=== PATIENT | female | born 1945 | race Caucasian/White ===

== ENCOUNTER 2020-05-18 11:48 | Outpatient (REF) | payer MEDICARE, OTHER, SELFPAY ==
--- NOTE | 2020-05-18 | MM_ITS ---
EXAMINATION: MM SCREENING DIGITAL BREAST TOMOSYNTHESIS, RIGHT CLINICAL INFORMATION: Left mastectomy 2011. Due for yearly. COMPARISON: Mammography: 11/21/2019, 05/19/2019, 05/05/2019, 04/29/2018 TECHNIQUE: Digital breast tomosynthesis is performed in both the craniocaudal and mediolateral oblique views along with computer-aided detection (CAD). Synthesized 2D images are generated from the tomosynthesis. Additional exaggerated CC view is provided. FINDINGS: There are scattered areas of fibroglandular density (ACR BI-RADS breast composition Category b). There are no significant masses, abnormal calcifications, or other abnormalities. Parenchymal pattern is similar to prior studies. There is no developing density. No persistent asymmetric density anterior medial right breast. Skin contours are smooth. IMPRESSION: No mammographic evidence of malignancy. ASSESSMENT: BI-RADS 1: Negative RECOMMENDATION: Routine annual mammography screening. This patient's information was entered into a reminder system with a target due date for their next mammogram.
== END 2020-05-18 11:49 | disposition home or self-care (01) ==
LOC: HO.MAMMO 11:48
PROVIDERS: Visit Provider Surgery
DX: Z12.31 Encounter for screening mammogram for malignant neoplasm of breast (principal); Z90.12 Acquired absence of left breast and nipple
CPT/HCPCS: 77067

== ENCOUNTER → 2020-05-25 10:50 | Outpatient (BNVA) | payer MEDICARE, OTHER, SELFPAY | PROVIDERS: Visit Provider Internal Medicine Gastroenterology | DX: R13.10 Dysphagia, unspecified (principal); K21.9 Gastro-esophageal reflux disease without esophagitis; Z79.899 Other long term (current) drug therapy | CPT/HCPCS: 99213 ==

== ENCOUNTER 2020-06-06 10:25 | Outpatient (REF) | payer MEDICARE, OTHER, SELFPAY ==
[2020-06-06 14:37] LABS: Anion Gap 13 (12-20); Blood Urea Nitrogen 16 mg/dL (9-16); Calcium 9.2 mg/dL (8.4-10.2); Carbon Dioxide 35 mmol/L (22-29); Chloride 100 mmol/L (96-108); Estimated Glomerular Filt Rate 46; Glucose Random 156 mg/dL (60-115); Potassium 4.7 mmol/l (3.3-5.1); Sodium 143 mmol/L (135-145)
[2020-06-06 14:48] LABS: Free T4 (Free Thyroxine) 1.21 ng/dL (0.71-1.85); Thyroid Stimulating Hormone 2.59 mIU/mL (0.32-4.0)
== END 2020-06-06 10:26 | disposition home or self-care (01) ==
LOC: HO.10HDL 10:25
PROVIDERS: Visit Provider Internal Medicine
DX: R60.0 Localized edema (principal); I12.9 Hypertensive chronic kidney disease with stage 1 through stage 4 chronic kidney disease, or unspecified chronic kidney disease; N18.9 Chronic kidney disease, unspecified; E11.22 Type 2 diabetes mellitus with diabetic chronic kidney disease; R79.89 Other specified abnormal findings of blood chemistry
CPT/HCPCS: 80048; 84439; 84443

== ENCOUNTER → 2020-06-15 09:39 | Outpatient (REF) | payer MEDICARE, OTHER, SELFPAY ==
--- NOTE | 2020-06-15 09:30 | CA_ITS ---
Transthoracic Echocardiogram Patient (Last, First, Middle): JaviJanuary, Gender: Female Date of : 1945 Age: 75 Procedure Date: 06/15/2020 Procedure Type: Transthoracic Echocardiogram Location: OP Height: 152.4 cm Weight: 88.45 kg BSA: 1.85 m2 Heart Rate: bpm BP: 152 / 76 mmHg Technician Chemical Cleaning: Referring MD: Kory Perdue MD Business Librarian: Todd North MD Symptoms: R01.1CARDIAC MURMUR Study Quality: Technically Difficult ECG Rhythm: Sinus Conclusions: - 1. Low normal LV systolic function with LVEF of 50-55% with impaired relaxation filling pressure with mild LVH and elevated filling pressures 2. Mildly dilated left atrium 3. Increased gradient across aortic valve, mild aortic stenosis cannot be ruled out 4. No gross pericardial effusion Findings Procedure Information Contrast agent, definity, is being given per protocol without apparent complications. Left Ventricle Normal left ventricular cavity size. There is mildly increased left ventricular wall thickness. The left ventricular systolic function is low normal. The visually estimated ejection fraction is between 50-55%. Regional wall motion abnormalities can not be excluded due to suboptimal endocardial definition. Spectral Doppler is indicative of an impaired relaxation filling pattern. Elevated filling pressures. Right Ventricle The right ventricle was not well visualized. Atria The left atrium is mildly dilated. There is lipomatous hypertrophy of the interatrial septum. Interatrial shunt cannot be excluded. The right atrium was not well visualized. Aortic Valve The aortic valve was not well visualized. There is moderate calcification of the aortic valve. The peak aortic gradient is 17 mmHg.The mean gradient is 11 mmHg. There is no aortic valve regurgitation. Increased gradient across aortic valve without significantly increased gradient across the LVOT. However there is no clear significant stenosis calculated. Mild aortic stenosis cannot be entirely ruled out Mitral Valve There is moderate anterior and posterior mitral leaflet thickening. There is moderate mitral annular calcification. There is trace mitral valve regurgitation. There is no mitral valve stenosis. Pulmonic Valve The pulmonic valve was not well visualized. Tricuspid Valve The tricuspid valve was not well visualized. Tricuspid regurgitation envelope is inadequate for calculation of right ventricular systolic pressure. Great Vessels All visible segments of the aorta are normal in size. The pulmonary artery was not well visualized. Venous The inferior vena cava is normal in size and collapses greater than 50% with inspiration. Pericardium/Pleural There is no evidence of pericardial effusion. Prior Study Comparison No significant change compared to prior study dated: 11/08/2018. Measurements 2D Linear Measurements RVIDd: 2.39 RVIDd Index: 1.29 IVSd: 1.19 0.6-0.9/0.6-1.0 cm LVIDd: 4.80 3.9-5.3/4.2-5.9 cm LVIDd Index: 2.59 2.4-3.2/2.2-3.1 cm/m2 LVIDs: 3.50 2.0-3.6 cm LVPWd: 1.27 0.7-1.1 cm Ao Root: 3.40 2.1-3.5 cm LA Diam: 4.70 2.7-3.8/3.0-4.0 cm LAIDs Index: 2.54 1.5-2.3 cm/m2 LV Mass: 282.95 67-162/88-224 g LV Mass Index: 152.94 43-95/49-115 g/m2 LVOT Diam: 2.10 3.0+(-)1.3 cm 2D Systolic Function EF 4C: 43.20 >55% EF 2C: 63.10 >55% EF BiP: 53.40 >55% Mitral Valve MV Pk E: 0.81 MV PK A: 1.27 MV Decel Time: 222.00 E/A: 0.60 E'Lateral: 4.90 E'Medial: 4.13 E/E' Med: 19.50 E/E' Lat: 16.40 Decel Hoke: 3.63 Aortic Valve AoV Pk Sree: 2.09 AoV Mn Sree: 1.50 AoV VTI: 0.41 AoV Pk Grad: 17.00 Aov Mn Grad: 11.00 JASWANT Cont.VTI: 2.59 LVOT LVOT Pk Sree: 1.62 LVOT Mn Sree: 1.12 LVOT VTI: 0.31 LVOT Pk Grad: 10.00 LVOT Mn Grad: 6.00 LVOT Diam: 2.10 LVOT Area: 3.46 Diastolic Function MV Pk E: 0.81 MV Pk A: 1.27 E/A: 0.60 E'Medial: 4.13 E/E' Med: 19.50 E' Laterial: 4.90 E/E' Lat: 16.40 Tricuspid Valve RA Press: 3.00 Great Vessels Aorta Ao Root-2D: 3.40 2.0-3.7 cm Ao Asc: 3.40 2.1-3.4 cm Ao Arch: 3.30 Updated in Other Vendor System with Status of Final Todd North MD electronically signed on 06/15/2020 2:44:59 PM with status of Final
== END ==
LOC: HO.CARD 09:39
PROVIDERS: PCP Internal Medicine; Visit Provider Internal Medicine
DX: R01.1 Cardiac murmur, unspecified (principal)
CPT/HCPCS: 93306; Q9957

== ENCOUNTER 2020-08-06 07:30 | Day surgery (SDC) | payer MEDICARE, OTHER, SELFPAY ==
[2020-07-30 14:15] VITALS: BMI 38.0
--- NOTE | 2020-08-03 14:15 | HO.ANESPROP2 ---
Documented by User: Yareli Ferrera 08/03/20 14:30 HPI - Anesthesia Eval Consult details Narrative: 75yo F for Upper Endoscopy PMFSH Past Medical History Medical History (Updated 07/30/20 @ 13:48 by Cassie Perez) Anemia Back pain Blind right eye CHF (congestive heart failure) GERD (gastroesophageal reflux disease) Heart murmur after rheumatic heart disease HX: breast cancer Hypertension Lymphedema of left arm CYNTHIA (obstructive sleep apnea) Scoliosis Trigeminal neuralgia of right side of face Family History Family History (Updated 05/25/20 @ 10:56 by Lea Marc MA) Father History of heart attack Mother History of leukemia History of hypertension Surgical History Surgical History (Updated 07/30/20 @ 13:48 by Cassie Perez) H/O left mastectomy History of bladder suspension procedure History of colonoscopy History of left inguinal hernia repair History of lymph node dissection of left axilla History of open reduction and internal fixation (ORIF) procedure History of partial hysterectomy History of tonsillectomy and adenoidectomy History of ventral hernia repair Hx of endoscopy Hx of esophagogastroduodenoscopy Hx of wisdom tooth extraction Social History Social History (Updated 05/25/20 @ 10:56 by Lea Marc MA) Are you a primary residential caregiver to a significant other at home: No Do you presently have visiting nurse or other home services: No Alcohol intake: never Smoking Status: Never smoker Use of substances other than those prescribed or required for medical reasons: No Have you been hit, kicked, punched, or otherwise hurt by someone within the past year? If so, by whom?: No Advance Directives: No Advance Directives Information Provided: No Advance Directives on File: No Recently lost weight without trying: No Meds Allergies Allergy/AdvReac Type Severity Reaction Status Date / Time gabapentin [From Neurontin] Allergy Intermediate JOINTS Unverified 07/30/20 13:56 SWELL famotidine AdvReac Dizziness Verified 07/30/20 14:14 cabobenzaprine Allergy Unknown itching Uncoded 07/30/20 13:56 oranges Allergy Unknown mouth sores Uncoded 07/30/20 13:56 Home Medications Medication Instructions Recorded Confirmed Type ytlozqtg-uelddfzvj-jjadzrrh PO BEDTIME 07/30/20 History [Gaviscon] anastrozole 1 mg PO DAILY 07/30/20 07/30/20 History atorvastatin 10 mg PO BEDTIME 07/30/20 07/30/20 History dorzolamide-timolol (PF) 1 drp OPHTHALMIC (EYE) BID 07/30/20 07/30/20 History latanoprost 1 drp OPHTHALMIC-RIGHT QPM 07/30/20 07/30/20 History lorazepam 0.5 mg PO TID PRN 07/30/20 07/30/20 History pantoprazole 40 mg PO BID 07/30/20 07/30/20 History Exam Exam Date and Time: August 03, 2020 1415 Height,Weight and Vital Signs: Height 5 ft Weight 88.451 kg Pertinent Lab Results Pertinent Lab Results: Laboratory Tests 01/02/20 06/06/20 12: 10:36 WBC 5.8 Hgb 13.2 Hct 41.1 Plt Count 154 L Sodium 143 Potassium 4.7 Chloride 100 Carbon Dioxide 35 H BUN 16 Creatinine 1.15 Narrative Narrative: ECHO 05/2020: - 1. Low normal LV systolic function with LVEF of 50-55% with impaired relaxation filling pressure with mild LVH and elevated filling pressures 2. Mildly dilated left atrium 3. Increased gradient across aortic valve, mild aortic stenosis cannot be ruled out 4. No gross pericardial effusion Assessment and Plan Assessment Anesthesia Assessment: Chart Reviewed Documented by User: Fauzia Bird 08/06/20 07:57 [facility] Past Medical History Medical History (Updated 07/30/20 @ 13:48 by Cassie Perez) Anemia Back pain Blind right eye CHF (congestive heart failure) GERD (gastroesophageal reflux disease) Heart murmur after rheumatic heart disease HX: breast cancer Hypertension Lymphedema of left arm CYNTHIA (obstructive sleep apnea) Scoliosis Trigeminal neuralgia of right side of face Family History Family History (Updated 05/25/20 @ 10:56 by Lea Marc MA) Father History of heart attack Mother History of leukemia History of hypertension Surgical History Surgical History (Updated 07/30/20 @ 13:48 by Cassie Perez) H/O left mastectomy History of bladder suspension procedure History of colonoscopy History of left inguinal hernia repair History of lymph node dissection of left axilla History of open reduction and internal fixation (ORIF) procedure History of partial hysterectomy History of tonsillectomy and adenoidectomy History of ventral hernia repair Hx of endoscopy Hx of esophagogastroduodenoscopy Hx of wisdom tooth extraction Social History Social History (Updated 05/25/20 @ 10:56 by Lea Marc MA) Are you a primary residential caregiver to a significant other at home: No Do you presently have visiting nurse or other home services: No Alcohol intake: never Smoking Status: Never smoker Use of substances other than those prescribed or required for medical reasons: No Have you been hit, kicked, punched, or otherwise hurt by someone within the past year? If so, by whom?: No Advance Directives: No Advance Directives Information Provided: No Advance Directives on File: No Recently lost weight without trying: No Meds Allergies Allergy/AdvReac Type Severity Reaction Status Date / Time gabapentin [From Neurontin] Allergy Intermediate JOINTS Unverified 07/30/20 13:56 SWELL famotidine AdvReac Dizziness Verified 07/30/20 14:14 cabobenzaprine Allergy Unknown itching Uncoded 07/30/20 13:56 oranges Allergy Unknown mouth sores Uncoded 07/30/20 13:56 Home Medications Medication Instructions Recorded Confirmed Type veckdoxr-goglqawzc-ildvqakb PO BEDTIME 07/30/20 History [Gaviscon] anastrozole 1 mg PO DAILY 07/30/20 07/30/20 History atorvastatin 10 mg PO BEDTIME 07/30/20 07/30/20 History dorzolamide-timolol (PF) 1 drp OPHTHALMIC (EYE) BID 07/30/20 07/30/20 History latanoprost 1 drp OPHTHALMIC-RIGHT QPM 07/30/20 07/30/20 History lorazepam 0.5 mg PO TID PRN 07/30/20 07/30/20 History pantoprazole 40 mg PO BID 07/30/20 07/30/20 History Exam Airway Mallampati Class: II TM Dist: >3cm Neck ROM: Full Denture: Upper Partial: Lower Heart: RRR Lungs: CTA BL Assessment and Plan Assessment Anesthesia Assessment: Anesthesia Plan Discussed and Chart Reviewed Final Anesthetic Review NPO: Yes ASA Class: III Final Preanesthetic Review: No Changes in Pt Med Stat and Consent Obtained/Reviewed Patient Risk: Intermediate Procedure Risk: Intermediate Anesthetic Plan Anesthetic Plan: MAC: Disposition: Standard PACU
[2020-08-06 08:02] VITALS: BP 146/81; PULSE 77; RESP 20; TEMP 36.5; O2SAT 95
[2020-08-06] MEDS: Lactated Ringers 1,000 ML 50 ML IVCONT (08:08)
--- NOTE | 2020-08-06 08:37 | P.HPSUR_ITS ---
Pre-Procedural Eval Section B Chief Complaint: Dysphagia Relevant Social History: None Present Medications: see Short Stay Collaborative assessment Medical History: Significant History (HTN, CYNTHIA, breast ca, ) History of Previous Operations: Relevant previous surgery/procedure and date(s) (hernia repair, fundoplication, EGD) Allergies: Allergies Allergy/AdvReac Type Severity Reaction Status Date / Time gabapentin [From Neurontin] Allergy Intermediate JOINTS Unverified 07/30/20 13:56 SWELL famotidine AdvReac Dizziness Verified 07/30/20 14:14 cabobenzaprine Allergy Unknown itching Uncoded 07/30/20 13:56 oranges Allergy Unknown mouth sores Uncoded 07/30/20 13:56 Review of Systems Sugical H&P ROS: Negative: Constitution, Cardiovascular, Respiratory, Neurological, Psychiatric, Hem-Onc, Allergic/Immunologic, Gastrointestinal, Genitourinary, Musculoskeletal, Integumentary, Endocrine and Eyes/E ars/Nose/Throat Exam Surgical H&P Exam: Normal: HEENT, Normal: Heart, Normal: Lungs, Normal: Extremities, Normal: Abdomen, Normal: Skin and Normal: Neurological Plan Diagnosis/Plan: Unchanged I have reviewed the history and physical and performed a pertinent physical examination on my patient. No changes have occurred unless specified.
--- NOTE | 2020-08-06 08:39 | PM.OP ---
Brief Operative Note Date of Service: 08/06/20 Pre-op diagnosis: dysphagia, hx of fundoplication Post-op diagnosis: same Procedure: Procedure Description: EGD FLEXIBLE TRANSORAL UPPER GASTROINTESTINAL ENDOSCOPY UPPER ENDOSCOPY Consent: Indications for the procedure and potential complications of bleeding, perforation, reaction to medications and missed diagnosis were discussed with the patient and informed consent was obtained. Instrument: Olympus GIF H 190 J mid size upper endoscope Monitoring: Vital signs and clinical assessment, continuous EKG monitoring, Pulse oximetry, Carbon Dioxide monitoring and blood pressure monitoring were done throughout the procedure. Procedure: The patient was placed in the left lateral decubitis position and pre-procedure medications were administered and a bite block was placed. The endoscope was inserted into the mouth and advanced under direct vision to the third part of duodenum. A careful inspection was made as the upper endoscope was withdrawn including a retroflexed examination of the proximal stomach; Findings and interventions are described below. Findings: Larynx: normal Esophagus: GE junction at 38 cm. No esophagitis or Bhatt?s. Sigmoid shaped lower esophagus with tight GEJ but able to pass scope, there was a tablet stuck there and pushed into stomach. Balloon dilation performed with 18 mm then 19 mm balloon with good result, heme and tear noted, no perforation. Stomach: Normal mucosa, Niessen fundoplication noted Duodenum: Normal bulb and descending duodenum Intervention: esophageal dilation Impression and Post Procedure Diagnosis: esophageal stricture Endoscopy Findings: sigmoid shaped esophagus, stricture Plan: cont with PPI repeat EGD in 1 year or earlier depending on symptoms soft diet today and advance tomorrow Surgeon: Marii Campbell MD Anesthesia: MAC Estimated blood loss (mL): 0 Condition: stable Disposition: PACU
[2020-08-06 08:59] VITALS: BP 128/120; PULSE 69; RESP 14; TEMP 36.4; O2SAT 92
[2020-08-06 09:14] VITALS: BP 108/47; PULSE 69; RESP 15; TEMP 36.4; O2SAT 94
--- NOTE | 2020-08-06 09:30 | HO.POSTANES ---
Post Anesthesia Evaluation Post Anesthesia Evaluation Vital Signs: Vital Signs Temp Pulse Resp BP Pulse Ox 08/06/20 09:14 97.5 F 69 15 108/47 L 94 08/06/20 08:59 97.5 F 69 14 128/120 H 92 08/06/20 08:02 97.7 F 77 20 146/81 H 95 Anesthesia: Monitored Mental Status: Awake Pain Control: Satisfactory Nausea/Vomiting: None Hydration: Adequate Anesthesia-Related Issues: No Anes. Related Issues
== END 2020-08-06 09:52 | disposition home or self-care (01) ==
PROVIDERS: PCP Internal Medicine; Visit Provider Internal Medicine Gastroenterology
PROC: 0DJ08ZZ Inspection of Upper Intestinal Tract, Via Natural or Artificial Opening Endoscopic (ICD-10-PCS; CPT 43235; principal; 2020-08-06 09:30)
DX: K22.2 Esophageal obstruction (principal); K21.9 Gastro-esophageal reflux disease without esophagitis; Z88.8 Allergy status to other drugs, medicaments and biological substances
CPT/HCPCS: 43249; C1726

== ENCOUNTER → 2020-08-24 08:58 | Outpatient (BNVA) | payer MEDICARE, OTHER, SELFPAY | PROVIDERS: PCP Internal Medicine; Visit Provider Internal Medicine Gastroenterology | DX: Z13.89 Encounter for screening for other disorder (principal) | CPT/HCPCS: Q3014 ==

== ENCOUNTER 2020-08-31 10:18 | Outpatient (REF) | payer MEDICARE, OTHER, SELFPAY ==
[2020-08-31 13:36] LABS: MANUAL DIFF FLAG NO
[2020-08-31 13:48] LABS: Basophils Percent Auto 0.3 % (0-2); Eosinophils Absolute Auto 0.1 X10*3/uL (0.0-0.4); Eosinophils Percent Auto 2.4 % (0-4); Hematocrit 41.8 % (37-47); Hemoglobin 12.7 g/dl (12.0-16.0); Imm Gran Abs Auto 0.03 X10*3/uL (0.00-0.03); Imm Gran Pct Auto 0.5 % (0.0-0.4); Lymphocytes Absolute Auto 0.8 X10*3/uL (1.2-4.9); Lymphocytes Percent Auto 13.1 % (20-40); Mean Corpuscular HGB Conc 30.4 g/dl (31.0-35.0); Mean Corpuscular Hemoglobin 27.4 pg (27.0-33.0); Mean Corpuscular Volume 90.1 fL (80-98); Mean Platelet Volume 10.6 fL (9.4-12.3); Monocytes Absolute Auto 0.6 X10*3/uL (0.1-1.2); Neutrophils Absolute Auto 4.3 X10*3/uL (2.0-8.3); Neutrophils Percent Auto 73.7 % (45-73); Platelet Count 180 X10*3/uL (160-400); Red Blood Count 4.64 X10*6/uL (4.20-5.50); Red Cell Distribution Width 16.4 % (11.0-16.0); White Blood Count 5.8 X10*3/uL (4.8-10.8)
[2020-08-31 14:12] LABS: Estimated Average Glucose 177 mg/dL; Hemoglobin A1c % 7.8 %
[2020-08-31 14:22] LABS: Alanine Aminotransferase 19 U/L (0-31); Alkaline Phosphatase 106 U/L (39-117); Anion Gap 12 (12-20); Aspartate Amino Transferase 19 U/L (5-31); Bilirubin Total 0.5 mg/dL (0.0-1.0); Blood Urea Nitrogen 19 mg/dL (9-16); Calcium 9.1 mg/dL (8.4-10.2); Carbon Dioxide 34 mmol/L (22-29); Chloride 101 mmol/L (96-108); Estimated Glomerular Filt Rate 53; Glucose Fasting 157 mg/dL (60-99); Potassium 4.2 mmol/l (3.3-5.1); Sodium 143 mmol/L (135-145); Total Protein 6.1 g/dL (6.5-8.0)
[2020-08-31 14:52] LABS: Creatinine Urine 125.31 mg/dL; Microalbum/Creatinine Ratio Ur 15.9 ug/mg cr
== END 2020-08-31 10:19 | disposition home or self-care (01) ==
LOC: HO.10HDL 10:18
PROVIDERS: Visit Provider Internal Medicine
DX: E11.9 Type 2 diabetes mellitus without complications (principal); I10 Essential (primary) hypertension; K21.9 Gastro-esophageal reflux disease without esophagitis
CPT/HCPCS: 36415; 80053; 82043; 83036; 85025

== ENCOUNTER 2020-09-24 11:30 | Outpatient (REF) | payer MEDICARE, OTHER, SELFPAY ==
--- NOTE | ~2020-09-24 | XR_ITS ---
EXAMINATION: XR CHEST CLINICAL INFORMATION: Cough COMPARISON: Previous chest x-ray October 2018 TECHNIQUE: 2 views of the chest were obtained. FINDINGS: The cardiac silhouette is enlarged but stable. Hilar and mediastinal contours are unremarkable. The lungs are clear. There is no pleural effusion or pneumothorax. There are surgical clips in the left axilla. There is a severe thoracolumbar scoliosis. XR/XR chest 2V IMPRESSION: No evidence for acute disease in the chest.
== END 2020-09-24 11:31 | disposition home or self-care (01) ==
LOC: HO.XRAY 11:30
PROVIDERS: PCP Internal Medicine; Visit Provider Internal Medicine
DX: R05 Cough (principal); G47.33 Obstructive sleep apnea (adult) (pediatric); E66.9 Obesity, unspecified
CPT/HCPCS: 71046; 99202

== ENCOUNTER 2020-10-15 19:34 | Emergency (ER) | payer MEDICARE, OTHER, SELFPAY ==
[2020-10-15 20:02] VITALS: BP 149/68; PULSE 76; RESP 18; TEMP 36.4; O2SAT 95; BMI 38.5
[2020-10-15 20:20] LABS: MANUAL DIFF FLAG NO
[2020-10-15 20:21] LABS: Basophils Percent Auto 0.3 % (0-2); Eosinophils Absolute Auto 0.2 X10*3/uL (0.0-0.4); Eosinophils Percent Auto 2.5 % (0-4); Hematocrit 39.4 % (37-47); Hemoglobin 12.1 g/dl (12.0-16.0); Imm Gran Abs Auto 0.04 X10*3/uL (0.00-0.03); Imm Gran Pct Auto 0.6 % (0.0-0.4); Lymphocytes Absolute Auto 0.8 X10*3/uL (1.2-4.9); Lymphocytes Percent Auto 11.8 % (20-40); Mean Corpuscular HGB Conc 30.7 g/dl (31.0-35.0); Mean Corpuscular Hemoglobin 27.8 pg (27.0-33.0); Mean Corpuscular Volume 90.4 fL (80-98); Mean Platelet Volume 10.3 fL (9.4-12.3); Monocytes Absolute Auto 0.6 X10*3/uL (0.1-1.2); Monocytes Percent Auto 8.4 % (2-11); Neutrophils Absolute Auto 5.2 X10*3/uL (2.0-8.3); Neutrophils Percent Auto 76.4 % (45-73); Platelet Count 148 X10*3/uL (160-400); Red Blood Count 4.36 X10*6/uL (4.20-5.50); Red Cell Distribution Width 17.1 % (11.0-16.0); White Blood Count 6.8 X10*3/uL (4.8-10.8)
[2020-10-15 20:45] LABS: Alanine Aminotransferase 15 U/L (0-31); Albumin Level 3.9 g/dL (3.5-5.0); Alkaline Phosphatase 104 U/L (39-117); Anion Gap 12 (12-20); Aspartate Amino Transferase 18 U/L (5-31); Bilirubin Total 0.6 mg/dL (0.0-1.0); Blood Urea Nitrogen 18 mg/dL (9-16); Calcium 8.6 mg/dL (8.4-10.2); Carbon Dioxide 33 mmol/L (22-29); Chloride 102 mmol/L (96-108); Creatinine Clr Calc Pharmacy 44.6; Estimated Glomerular Filt Rate 51; Glucose Random 202 mg/dL (60-115); Potassium 4.2 mmol/L (3.3-5.1); Sodium 143 mmol/L (135-145)
[2020-10-15 20:48] LABS: Troponin-I High Sensitivity 13.1 ng/L (<3.5-17.0)
[2020-10-15 22:07] VITALS: BP 150/69; PULSE 72; RESP 18; O2SAT 95
[2020-10-15 23:48] VITALS: BP 144/61; PULSE 70; RESP 17; O2SAT 94
--- NOTE | 2020-10-16 00:40 | ED_ITS ---
HPI - Dizziness General Chief Complaint: Dizziness Stated Complaint: Dizziness Time Seen by Provider: 10/16/20 00:23 Source: patient Mode of arrival: ambulatory History of Present Illness HPI Narrative: This is a 75-year-old female with history of GERD, HLD, CYNTHIA and blind in her right eye, left breast CA who presents with 2 episodes of transient ?lightheadedness? that happened throughout the day. She states the last episode occurred while she was eating dinner. She denies any association with recent travel, fevers, chills, COVID-19 exposure, shortness of breath, chest pain/palpitations, diaphoresis, or nausea. In addition, she denies any GI or symptoms. She states that this has never happened before. Related Data Home Medications Medication Instructions Recorded Confirmed anastrozole 1 mg PO DAILY 07/30/20 07/30/20 atorvastatin 10 mg PO BEDTIME 07/30/20 07/30/20 dorzolamide-timolol (PF) 1 drp OPHTHALMIC (EYE) BID 07/30/20 07/30/20 latanoprost 1 drp OPHTHALMIC-RIGHT QPM 07/30/20 07/30/20 lorazepam 0.5 mg PO TID PRN 07/30/20 07/30/20 pantoprazole 40 mg PO BID 07/30/20 07/30/20 Previous Rx's Medication Instructions Recorded cephalexin 500 mg PO Q12H 7 Days #14 cap 10/16/20 Allergies Allergy/AdvReac Type Severity Reaction Status Date / Time gabapentin [From Neurontin] Allergy Intermediate JOINTS Verified 10/15/20 20:02 SWELL famotidine AdvReac Dizziness Verified 10/15/20 20:02 cabobenzaprine Allergy Unknown itching Uncoded 07/30/20 13:56 oranges Allergy Unknown mouth sores Uncoded 07/30/20 13:56 Review of Systems Review of Systems: Pertinent positives and negatives as stated in HPI 10 point review of systems is otherwise negative. PMFSH Past Medical History Source: nursing notes reviewed Medical History Anemia Back pain Blind right eye CHF (congestive heart failure) Cough GERD (gastroesophageal reflux disease) Heart murmur after rheumatic heart disease HX: breast cancer Hypertension Lymphedema of left arm Obesity CYNTHIA (obstructive sleep apnea) CYNTHIA (obstructive sleep apnea) Scoliosis Trigeminal neuralgia of right side of face Surgical History H/O left mastectomy History of bladder suspension procedure History of colonoscopy History of left inguinal hernia repair History of lymph node dissection of left axilla History of open reduction and internal fixation (ORIF) procedure History of partial hysterectomy History of tonsillectomy and adenoidectomy History of ventral hernia repair Hx of endoscopy Hx of esophagogastroduodenoscopy Hx of wisdom tooth extraction Family History Family History Father History of heart attack Mother History of leukemia History of hypertension Social History Social History Alcohol intake: never Smoking Status: Never smoker Advance Directives: No Physical Exam Vital Signs: Vital Signs: Last Vital Signs Temp 97.6 F 10/15/20 20:02 Pulse 73 10/16/20 02:00 Resp 16 10/16/20 02:00 BP 162/79 H 10/16/20 02:00 Pulse Ox 98 10/16/20 02:00 Body Mass Index 38.5 VITAL SIGNS: Reviewed. GENERAL: Well developed, well nourished, in no acute distress. HEAD: Normocephalic/atraumatic, EYES: OS-PERRLA, EOMI bilateral NOSE: Nares patent bilateral OROPHARYNX: no oral lesions noted, posterior pharynx clear NECK: Supple, no adenopathy LUNGS: Normal breath sounds, minimal expiratory rhonchi. SpO2<94> CARDIOVASCULAR: Regular rate and rhythm without noted murmurs, no JVD or lower extremity edema. ABDOMEN: Obese, soft, non-tender, non-distended with bowel sounds. SKIN: Inspection of the skin reveals no rashes NEUROLOGIC: Alert and oriented x 4. Strength and sensation to light touch were grossly intact x 4. Course Course Course Narrative: This is a 75-year-old female with history and clinical presentation suggestive of possible hypovolemia, no neurological findings. Review of all investigations to include serial troponins (flat) are negative other than positive UA. Patient was treated with initial antibiotics here in the emergency department and will go home with remaining course. All results and findings were discussed with her at bedside and she was encouraged to follow up with her primary care provider by calling their office in the morning. MDM - Dizziness Lab Data Result diagrams: 10/15/20 20:16 10/16/20 01:06 Labs: Lab Results 10/15/20 10/15/20 10/15/20 Range/Units 20:16 20:16 20:16 WBC 6.8 (4.8-10.8) X10*3/uL RBC 4.36 (4.20-5.50) X10*6/uL Hgb 12.1 (12.0-16.0) g/dl Hct 39.4 (37-47) % MCV 90.4 (80-98) fL MCH 27.8 (27.0-33.0) pg MCHC 30.7 L (31.0-35.0) g/dl RDW 17.1 H (11.0-16.0) % Plt Count 148 L (160-400) X10*3/uL MPV 10.3 (9.4-12.3) fL Immature Gran % (Auto) 0.6 H (0.0-0.4) % Neut % (Auto) 76.4 H (45-73) % Lymph % (Auto) 11.8 L (20-40) % Braxton % (Auto) 8.4 (2-11) % Eos % (Auto) 2.5 (0-4) % Baso % (Auto) 0.3 (0-2) % Lymph # (Auto) 0.8 L (1.2-4.9) X10*3/uL Braxton # (Auto) 0.6 (0.1-1.2) X10*3/uL Eos # (Auto) 0.2 (0.0-0.4) X10*3/uL Baso # (Auto) 0.0 (0.0-0.2) X10*3/uL Abs Immat Gran (auto) 0.04 H (0.00-0.03) X10*3/uL Absolute Neuts (auto) 5.2 (2.0-8.3) X10*3/uL Absolute Nucleated RBC 0.000 (0.0-0.012) X10*3/uL Nucleated RBC % (auto) 0.0 (0.0-0.2) /100WBC Sodium 143 (135-145) mmol/L Potassium 4.2 (3.3-5.1) mmol/L Chloride 102 (96-108) mmol/L Carbon Dioxide 33 H (22-29) mmol/L Anion Gap 12 (12-20) BUN 18 H (9-16) mg/dL Creatinine 1.05 (0.5-1.4) mg/dL Estim Creat Clear Calc 44.6 Estimated GFR 51 Random Glucose 202 H (60-115) mg/dL Calcium 8.6 (8.4-10.2) mg/dL Total Bilirubin 0.6 (0.0-1.0) mg/dL AST 18 (5-31) U/L ALT 15 (0-31) U/L Alkaline Phosphatase 104 (39-117) U/L Troponin I High Sens 13.1 (<3.5-17.0) ng/L B-Natriuretic Peptide (<100) pg/mL Total Protein 6.0 L (6.5-8.0) g/dL Albumin 3.9 (3.5-5.0) g/dL Urine Color Urine Appearance Urine pH (5.0-8.0) Ur Specific [place] (1.005-1.025) Urine Protein (NEG-TRACE) MG/DL Urine Glucose (UA) (NEG) MG/DL Urine Ketones (NEG) MG/DL Urine Blood (NEG) Urine Nitrite (NEG) Ur Leukocyte Esterase (NEG) Urine RBC (0) /HPF Urine WBC (0-4) /HPF Ur Squamous Epith Cells /LPF Ur Renal Epithelial Cell /LPF Urine Bacteria /LPF 10/16/20 10/16/20 10/16/20 Range/Units 01:05 01:06 02:01 WBC (4.8-10.8) X10*3/uL RBC (4.20-5.50) X10*6/uL Hgb (12.0-16.0) g/dl Hct (37-47) % MCV (80-98) fL MCH (27.0-33.0) pg MCHC (31.0-35.0) g/dl RDW (11.0-16.0) % Plt Count (160-400) X10*3/uL MPV (9.4-12.3) fL Immature Gran % (Auto) (0.0-0.4) % Neut % (Auto) (45-73) % Lymph % (Auto) (20-40) % Braxton % (Auto) (2-11) % Eos % (Auto) (0-4) % Baso % (Auto) (0-2) % Lymph # (Auto) (1.2-4.9) X10*3/uL Braxton # (Auto) (0.1-1.2) X10*3/uL Eos # (Auto) (0.0-0.4) X10*3/uL Baso # (Auto) (0.0-0.2) X10*3/uL Abs Immat Gran (auto) (0.00-0.03) X10*3/uL Absolute Neuts (auto) (2.0-8.3) X10*3/uL Absolute Nucleated RBC (0.0-0.012) X10*3/uL Nucleated RBC % (auto) (0.0-0.2) /100WBC Sodium 144 (135-145) mmol/L Potassium 4.2 (3.3-5.1) mmol/L Chloride 102 (96-108) mmol/L Carbon Dioxide 34 H (22-29) mmol/L Anion Gap 12 (12-20) BUN 17 H (9-16) mg/dL Creatinine 0.97 (0.5-1.4) mg/dL Estim Creat Clear Calc 48.3 Estimated GFR 56 Random Glucose 205 H (60-115) mg/dL Calcium 9.2 D (8.4-10.2) mg/dL Total Bilirubin (0.0-1.0) mg/dL AST (5-31) U/L ALT (0-31) U/L Alkaline Phosphatase (39-117) U/L Troponin I High Sens 13.9 (<3.5-17.0) ng/L B-Natriuretic Peptide 95 (<100) pg/mL Total Protein (6.5-8.0) g/dL Albumin (3.5-5.0) g/dL Urine Color YELLOW Urine Appearance CLEAR Urine pH 7.0 (5.0-8.0) Ur Specific [place] 1.020 (1.005-1.025) Urine Protein NEG (NEG-TRACE) MG/DL Urine Glucose (UA) NEG (NEG) MG/DL Urine Ketones NEG (NEG) MG/DL Urine Blood NEG (NEG) Urine Nitrite NEG (NEG) Ur Leukocyte Esterase 1+ H (NEG) Urine RBC 1-4 (0) /HPF Urine WBC 50-75 H (0-4) /HPF Ur Squamous Epith Cells 1+ /LPF Ur Renal Epithelial Cell 1+ /LPF Urine Bacteria 1+ /LPF ECG Data Attestation: I personally reviewed and interpreted this ECG as follows: Prior ECG tracings: available for review (11/07/2018 rhythm has not completely changed however there has been widening the QTC.) Interpretation: Sinus rhythm, HR-74, no evidence of acute ischemia, TN/QRS are within normal limits but QTC -497 Discharge Plan Discharge Clinical Impression: Acute UTI Patient Disposition: Home, Self-Care Instructions: Urinary Tract Infection in Women (ED), Urinary Tract Infection in Older Adults (ED) Prescriptions: New cephalexin 500 mg capsule 500 mg PO Q12H 7 Days Qty: 14 RF: 0 No Action anastrozole 1 mg Tablet 1 mg PO DAILY RF: 0 atorvastatin 10 mg Tablet 10 mg PO BEDTIME RF: 0 lorazepam 0.5 mg Tablet 0.5 mg PO TID PRN (Reason: Anxiety) RF: 0 pantoprazole 40 mg Tablet,Delayed Release (Dr/Ec) 40 mg PO BID RF: 0 latanoprost 0.005 % Drops 1 drp ophthalmic-Right QPM RF: 0 dorzolamide-timolol (PF) 2-0.5 % Drops 1 drp ophthalmic (eye) BID RF: 0 Referrals: Kory Perdue MD [Primary Care Provider] - 2 days (Re-evaluation on patient who presented to the emergency department with dizziness and workup negative other than for positive UTI.)
[2020-10-16 01:17] LABS: Glucose Urine UA NEG (NEG); Leukocyte Esterase Urine 1+ (NEG); Nitrite Urine NEG (NEG); UACC Culture Trigger YES; Urine Blood NEG (NEG); Urine Ketones NEG (NEG); Urine Protein NEG (NEG-TRACE)
[2020-10-16 01:18] LABS: Appearance Urine CLEAR; Color Urine YELLOW
[2020-10-16 01:29] LABS: Bacteria Urine 1+ /LPF; Renal Epithelial Cells Urine 1+ /LPF; Squamous Epithelial Cell Urine 1+ /LPF; WBC Urine 50-75 /HPF (0-4)
[2020-10-16 01:43] LABS: Anion Gap 12 (12-20); Blood Urea Nitrogen 17 mg/dL (9-16); Calcium 9.2 mg/dL (8.4-10.2); Carbon Dioxide 34 mmol/L (22-29); Chloride 102 mmol/L (96-108); Creatinine Clr Calc Pharmacy 48.3; Estimated Glomerular Filt Rate 56; Glucose Random 205 mg/dL (60-115); Potassium 4.2 mmol/L (3.3-5.1); Sodium 144 mmol/L (135-145)
[2020-10-16 02:00] VITALS: BP 162/79; PULSE 73; RESP 16; O2SAT 98
[2020-10-16] MEDS: cephALEXin 500 MG CAPSULE PO (02:17)
[2020-10-16 02:33] LABS: B Type Natriuretic Peptide 95 pg/mL (<100); Troponin-I High Sensitivity 13.9 ng/L (<3.5-17.0)
--- NOTE | 2020-10-16 07:37 | ECG_ITS ---
Test Reason : DIZZINESS Blood Pressure : / mmHG Vent. Rate : 074 BPM Atrial Rate : 074 BPM P-R Int : 176 ms QRS Dur : 142 ms QT Int : 448 ms P-R-T Axes : -12 -30 046 degrees QTc Int : 497 ms Normal sinus rhythm Left axis deviation Left ventricular hypertrophy with QRS widening and repolarization abnormality Abnormal ECG When compared with ECG of 07-NOV-2018 15:19, QRS is wider Referred By: Maryse Marie Electronically Signed By:LOREN JASMINE
== END 2020-10-16 02:54 | disposition home or self-care (01) ==
PROVIDERS: Emergency Provider Student in an Organized Health Care Education/Training Program; PCP Internal Medicine
DX: R42 Dizziness and giddiness (principal); N39.0 Urinary tract infection, site not specified; I10 Essential (primary) hypertension; E78.5 Hyperlipidemia, unspecified; Z85.3 Personal history of malignant neoplasm of breast; Z79.899 Other long term (current) drug therapy
CPT/HCPCS: 36415; 80048; 80053; 81001; 81003; 83880; 84484; 85025; 87086; 93005; 96360; 99283; 99284

== ENCOUNTER 2020-10-29 09:55 | Outpatient (REF) | payer MEDICARE, OTHER, SELFPAY ==
--- NOTE | 2020-10-29 16:25 | PFT_ITS ---
Forced vital capacity moderately reduced. FEV1, CYV54-76 are normal. MVV is markedly reduced. Post bronchodilator therapy, there is only slight improvement in MVV, but no other change. Total lung capacity and residual volume are both moderately decreased. Diffusion capacity is slightly decreased. CONCLUSION: These findings are suggestive of mild to moderate degree of restrictive pulmonary disorder. There is no evidence of any obstructive airway disorder. Clinical correlation is recommended. MD ELIA Gerardo/MODL / [id number]
== END 2020-10-29 09:56 | disposition home or self-care (01) ==
LOC: HO.RESP 09:55
PROVIDERS: PCP Internal Medicine; Visit Provider Internal Medicine
DX: E66.9 Obesity, unspecified (principal); R05 Cough
CPT/HCPCS: 94060; 94727; 94729; 99212

== ENCOUNTER 2020-10-30 09:58 | Outpatient (REF) | payer MEDICARE, OTHER, SELFPAY ==
--- NOTE | ~2020-10-30 | CT_ITS ---
EXAMINATION: CT CHEST WITHOUT CONTRAST CLINICAL INFORMATION: Cough. History of breast cancer. COMPARISON: Previous chest x-ray September [address] October 2018 TECHNIQUE: Multidetector volumetric CT imaging of the chest was done. Axial MIP volume rendering provided. Sagittal and coronal reformatted images were obtained. This CT examination was performed using dose optimization techniques as appropriate, variously including the following: *Automated exposure control *Adjustment of mA and/or kV according to patient size (this includes techniques or standardized protocols for targeted exams where dose is matched to indication/reason for exam; i.e. 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 There is a 5 mm peripheral or subpleural left lower lobe nodule axial image 307 series 5 that is stable. There is scarring or subsegmental atelectasis seen in the right posterior basal segment of the right lower lobe adjacent to the spine that is stable. There is a 3 mm peripheral left lower lobe nodule axial image 412 series 5 that is stable. The lungs are otherwise clear. MEDIASTINUM: The right lobe of the thyroid gland appears larger than the left. There is a small right thyroid nodule measuring less than 1 cm axial image 6 series 3 that is stable. There may be a substernal extension of the inferior left lobe axial image 8 series 3 that is stable. There are no enlarged hilar or mediastinal lymph nodes. There are small calcified subcarinal mediastinal lymph nodes that are stable. The heart does not appear enlarged. There is moderate to severe coronary artery calcification. There is aortic valve calcification. The thoracic aorta is normal in caliber. There is no pericardial effusion. There is mild dilatation of the mid and distal thoracic esophagus. This contains high attenuation material likely representing something the patient has recently ingested. This is similar to previous exam. PLEURA: There is no pleural effusion. No pleural mass or thickening. AXILLA: There are postsurgical changes following left mastectomy and axillary dissection. No chest wall mass or enlarged axillary lymph nodes are seen. UPPER ABDOMEN: There is diverticulosis of the colon. OSSEOUS STRUCTURES: There is a severe thoracolumbar scoliosis and degenerative change of the spine. CT/CT chest wo con IMPRESSION: Stable findings from October 2018 exam including inferior segment lingula and right lower lobe scarring or subsegmental atelectasis and small lingula and left lower lobe pulmonary nodules. Dilated fluid-filled distal thoracic esophagus. There is high attenuation material in the esophagus probably representing something the patient has recently ingested. Coronary artery and aortic valve calcification. Stable appearance to the thyroid gland. Postsurgical changes following left mastectomy and axillary dissection. Severe thoracolumbar scoliosis and degenerative change.
== END 2020-10-30 09:59 | disposition home or self-care (01) ==
LOC: HO.CT 09:58
PROVIDERS: PCP Internal Medicine; Visit Provider Internal Medicine
DX: Z87.19 Personal history of other diseases of the digestive system (principal)
CPT/HCPCS: 71250

== ENCOUNTER 2020-11-14 13:34 | Outpatient (REF) | payer MEDICARE, OTHER, SELFPAY ==
--- NOTE | ~2020-11-14 | XR_ITS ---
EXAMINATION: XR RIBS, RIGHT CLINICAL INFORMATION: Right rib pain COMPARISON: 10/30/2020 TECHNIQUE: 3 views of the right ribs were obtained. PA view of the chest. FINDINGS: Lungs are well expanded. No consolidation, pneumothorax, or pleural effusion. The cardiomediastinal silhouette and pulmonary vasculature are normal. Left axillary surgical clips. Prominent scoliotic curvature of the spine. Ribs are intact. No fractures are identified. XR/XR ribs RT min 3V w CXR1V IMPRESSION: No acute pulmonary finding. No focal rib abnormality.
== END 2020-11-14 13:35 | disposition home or self-care (01) ==
LOC: HO.XRAY 13:34
PROVIDERS: PCP Internal Medicine; Visit Provider Internal Medicine
DX: R07.81 Pleurodynia (principal); Z91.81 History of falling
CPT/HCPCS: 71101

== ENCOUNTER 2020-11-16 09:36 | Outpatient (REF) | payer MEDICARE, OTHER, SELFPAY ==
--- NOTE | ~2020-11-16 | CT_ITS ---
EXAMINATION: CT HEAD WITHOUT CONTRAST CLINICAL INFORMATION: Dizziness and syncope. COMPARISON: None TECHNIQUE: Contiguous axial imaging was performed from the skull base to vertex without intravenous administration of contrast. This CT examination was performed using dose optimization techniques as appropriate, variously including the following: *Automated exposure control *Adjustment of mA and/or kV according to patient size (this includes techniques or standardized protocols for targeted exams where dose is matched to indication/reason for exam; i.e. extremities or head) *Use of iterative reconstruction technique DLP: 760 mGy-cm FINDINGS: There is no evidence of acute intracranial hemorrhage or territorial infarction. No abnormal mass effect or midline shift is seen. [place]var[place] to white matter differentiation is well preserved. No extra-axial fluid collections are identified. The ventricles are normal in size. There is no abnormal attenuation within the brain parenchyma. The osseous structures and soft tissues are normal. The mastoid air cells and visualized portions of the paranasal sinuses are well aerated. CT/CT head/brain wo con IMPRESSION: No acute intracranial process seen.
== END 2020-11-16 09:37 | disposition home or self-care (01) ==
LOC: HO.CT 09:36
PROVIDERS: Visit Provider Internal Medicine
DX: R42 Dizziness and giddiness (principal); R55 Syncope and collapse
CPT/HCPCS: 70450

== ENCOUNTER → 2020-12-04 08:24 | Outpatient (BNVA) | payer MEDICARE, OTHER, SELFPAY | PROVIDERS: PCP Internal Medicine; Visit Provider Internal Medicine Gastroenterology | CPT/HCPCS: Q3014 ==

== ENCOUNTER 2020-12-14 11:01 | Outpatient (REF) | payer MEDICARE, OTHER, SELFPAY ==
[2020-12-14 12:28] LABS: Estimated Average Glucose 148 mg/dL; Hemoglobin A1c % 6.8 %
[2020-12-14 12:45] LABS: Anion Gap 12 (12-20); Blood Urea Nitrogen 20 mg/dL (9-16); Calcium 9.2 mg/dL (8.4-10.2); Carbon Dioxide 32 mmol/L (22-29); Chloride 104 mmol/L (96-108); Estimated Glomerular Filt Rate 58; Glucose Random 118 mg/dL (60-115); Sodium 144 mmol/L (135-145)
== END 2020-12-14 11:02 | disposition home or self-care (01) ==
LOC: HO.10HDL 11:01
PROVIDERS: Visit Provider Internal Medicine
DX: E11.22 Type 2 diabetes mellitus with diabetic chronic kidney disease (principal); N18.9 Chronic kidney disease, unspecified
CPT/HCPCS: 36415; 80048; 83036

== ENCOUNTER 2021-05-23 08:15 | Outpatient (REF) | payer MEDICARE, OTHER, SELFPAY ==
[2021-05-23 10:25] LABS: MANUAL DIFF FLAG NO
[2021-05-23 10:44] LABS: Basophils Percent Auto 0.6 % (0-2); Eosinophils Absolute Auto 0.2 X10*3/uL (0.0-0.4); Eosinophils Percent Auto 3.1 % (0-4); Hematocrit 39.9 % (37-47); Hemoglobin 11.7 g/dl (12.0-16.0); Imm Gran Abs Auto 0.02 X10*3/uL (0.00-0.03); Imm Gran Pct Auto 0.4 % (0.0-0.4); Lymphocytes Absolute Auto 0.7 X10*3/uL (1.2-4.9); Lymphocytes Percent Auto 14.1 % (20-40); Mean Corpuscular HGB Conc 29.3 g/dl (31.0-35.0); Mean Corpuscular Hemoglobin 24.7 pg (27.0-33.0); Mean Corpuscular Volume 84.2 fL (80-98); Mean Platelet Volume 10.5 fL (9.4-12.3); Monocytes Absolute Auto 0.5 X10*3/uL (0.1-1.2); Monocytes Percent Auto 9.4 % (2-11); Neutrophils Absolute Auto 3.7 X10*3/uL (2.0-8.3); Neutrophils Percent Auto 72.4 % (45-73); Platelet Count 187 X10*3/uL (160-400); Red Blood Count 4.74 X10*6/uL (4.20-5.50); Red Cell Distribution Width 17.6 % (11.0-16.0); White Blood Count 5.1 X10*3/uL (4.8-10.8)
[2021-05-23 10:53] LABS: Appearance Urine HAZY; Color Urine ORANGE; Glucose Urine UA NEG (NEG); Leukocyte Esterase Urine 2+ (NEG); Nitrite Urine NEG (NEG); Urine Blood NEG (NEG); Urine Ketones NEG (NEG); Urine Protein NEG (NEG-TRACE)
[2021-05-23 10:55] LABS: Creatinine Urine 161.38 mg/dL; Microalbum/Creatinine Ratio Ur 16.7 ug/mg cr
[2021-05-23 11:04] LABS: Estimated Average Glucose 131 mg/dL; Hemoglobin A1c % 6.2 %
[2021-05-23 11:06] LABS: Alanine Aminotransferase 15 U/L (0-31); Albumin Level 3.9 g/dL (3.5-5.0); Alkaline Phosphatase 88 U/L (39-117); Anion Gap 12 (12-20); Aspartate Amino Transferase 18 U/L (5-31); Bilirubin Total 0.4 mg/dL (0.0-1.0); Blood Urea Nitrogen 23 mg/dL (9-16); Carbon Dioxide 32 mmol/L (22-29); Chloride 105 mmol/L (96-108); Cholesterol 169 mg/dL; Estimated Glomerular Filt Rate 49; Glucose Fasting 110 mg/dL (60-99); HDL Cholesterol 51 mg/dL; LDL Cholesterol Calculated 97 mg/dl; Potassium 4.7 mmol/L (3.3-5.1); Sodium 144 mmol/L (135-145); Triglycerides 108 mg/dL
[2021-05-23 11:28] LABS: Bacteria Urine TRACE /LPF; Mucus Urine 1+ /LPF; RBC Urine 0-2 /HPF (0); Renal Epithelial Cells Urine TRACE /LPF; Squamous Epithelial Cell Urine TRACE /LPF
== END 2021-05-23 08:16 | disposition home or self-care (01) ==
LOC: HO.10HDL 08:15
PROVIDERS: Visit Provider Internal Medicine
DX: I12.9 Hypertensive chronic kidney disease with stage 1 through stage 4 chronic kidney disease, or unspecified chronic kidney disease (principal); E11.22 Type 2 diabetes mellitus with diabetic chronic kidney disease; N18.9 Chronic kidney disease, unspecified; E78.00 Pure hypercholesterolemia, unspecified
CPT/HCPCS: 36415; 80053; 80061; 81001; 82043; 83036; 85025

== ENCOUNTER → 2021-05-28 08:17 | Outpatient (BNVA) | payer MEDICARE, OTHER, SELFPAY | PROVIDERS: PCP Internal Medicine; Visit Provider Internal Medicine Gastroenterology | DX: K21.9 Gastro-esophageal reflux disease without esophagitis (principal); R13.10 Dysphagia, unspecified | CPT/HCPCS: Q3014 ==

== ENCOUNTER 2021-06-04 10:44 | Outpatient (REF) | payer MEDICARE, OTHER, SELFPAY ==
[2021-06-04 14:45] LABS: Iron 48 mcg/dL (30-160); Magnesium 2.1 mg/dL (1.6-2.6); Percent Iron Saturation 12 % (15-50); Total Iron Binding Capacity 414 mcg/dL (228-428); Unsaturated Iron Binding 366 ug/dL
[2021-06-04 15:06] LABS: Ferritin 13 ng/mL (10-250); Vitamin D 25-OH Total 60.3 ng/mL (>30)
[2021-06-04 15:17] LABS: Folate > 20.0 ng/mL (> or = 4.0); Vitamin B12 755 pg/mL (200-900)
== END 2021-06-04 10:45 | disposition home or self-care (01) ==
LOC: HO.10HDL 10:44
PROVIDERS: Visit Provider Internal Medicine Gastroenterology
DX: Z13.89 Encounter for screening for other disorder (principal)
CPT/HCPCS: 36415; 82306; 82607; 82728; 82746; 83540; 83735

== ENCOUNTER 2021-06-04 11:15 | Outpatient (REF) | payer MEDICARE, OTHER, SELFPAY ==
--- NOTE | ~2021-06-04 | MM_ITS ---
EXAMINATION: MM SCREENING DIGITAL BREAST TOMOSYNTHESIS, RIGHT CLINICAL INFORMATION: Screening. Asymptomatic. Left mastectomy, 2012. Due for yearly. COMPARISON: Mammography: 05/18/2020, 11/21/2019, 05/19/2019, 05/05/2019, 04/29/2018 TECHNIQUE: Digital breast tomosynthesis is performed in both the craniocaudal and mediolateral oblique views along with computer-aided detection (CAD). Synthesized 2D images are generated from the tomosynthesis. FINDINGS: There are scattered areas of fibroglandular density (ACR BI-RADS breast composition Category b). There are no significant masses, abnormal calcifications, or other abnormalities. No developing density. The axilla and skin contours are unremarkable. MM/MM tomosynthesis screening RT IMPRESSION: No mammographic evidence of malignancy. ASSESSMENT: BI-RADS 1: Negative RECOMMENDATION: Routine annual mammography screening. This patient's information was entered into a reminder system with a target due date for their next mammogram.
== END 2021-06-04 11:16 | disposition home or self-care (01) ==
LOC: HO.MAMMO 11:15
PROVIDERS: PCP Internal Medicine; Visit Provider Nurse Practitioner
DX: Z12.31 Encounter for screening mammogram for malignant neoplasm of breast (principal); R13.10 Dysphagia, unspecified; K21.9 Gastro-esophageal reflux disease without esophagitis
CPT/HCPCS: 36415; 77063; 77067; 82306; 82607; 82728; 82746; 83540; 83735

== ENCOUNTER 2021-10-31 08:04 | Outpatient (REF) | payer MEDICARE, OTHER, SELFPAY ==
[2021-10-31 08:40] LABS: MANUAL DIFF FLAG NO
[2021-10-31 09:32] LABS: Basophils Percent Auto 0.6 % (0-2); Eosinophils Absolute Auto 0.2 X10*3/uL (0.0-0.4); Eosinophils Percent Auto 3.6 % (0-4); Hematocrit 37.5 % (37.0-47.0); Hemoglobin 10.8 g/dl (12.0-16.0); Imm Gran Abs Auto 0.03 X10*3/uL (0.00-0.03); Imm Gran Pct Auto 0.6 % (0.0-0.4); Lymphocytes Absolute Auto 0.8 X10*3/uL (1.2-4.9); Lymphocytes Percent Auto 15.5 % (20-40); Mean Corpuscular HGB Conc 28.8 g/dl (31.0-35.0); Mean Corpuscular Hemoglobin 24.2 pg (27.0-33.0); Mean Corpuscular Volume 83.9 fL (80.0-98.0); Mean Platelet Volume 9.4 fL (9.4-12.3); Monocytes Absolute Auto 0.5 X10*3/uL (0.1-1.2); Monocytes Percent Auto 9.6 % (2-11); Neutrophils Absolute Auto 3.7 x10*3/uL (2.0-8.3); Neutrophils Percent Auto 70.1 % (45-73); Platelet Count 160 X10*3/uL (160-400); Red Blood Count 4.47 X10*6/uL (4.20-5.50); Red Cell Distribution Width 17.7 % (11.0-16.0); White Blood Count 5.2 X10*3/uL (4.8-10.8)
[2021-10-31 09:43] LABS: Estimated Average Glucose 134 mg/dL; Hemoglobin A1c % 6.3 %
[2021-10-31 10:03] LABS: Creatinine Urine 118.48 mg/dL; Microalbum/Creatinine Ratio Ur 15.1 ug/mg cr
[2021-10-31 10:10] LABS: Alanine Aminotransferase 18 U/L (0-31); Albumin Level 3.7 g/dL (3.5-5.0); Alkaline Phosphatase 87 U/L (39-117); Anion Gap 12 (12-20); Aspartate Amino Transferase 21 U/L (5-31); Bilirubin Total 0.4 mg/dL (0.0-1.0); Blood Urea Nitrogen 17 mg/dL (9-16); Calcium 9.3 mg/dL (8.4-10.2); Carbon Dioxide 30 mmol/L (22-29); Chloride 107 mmol/L (96-108); Estimated Glomerular Filt Rate 52; Glucose Random 123 mg/dL (60-115); Potassium 5.3 mmol/L (3.3-5.1); Sodium 144 mmol/L (135-145); Total Protein 5.9 g/dL (6.5-8.0)
== END 2021-10-31 08:05 | disposition home or self-care (01) ==
LOC: HO.LAB 08:04
PROVIDERS: PCP Internal Medicine; Visit Provider Internal Medicine
DX: E11.22 Type 2 diabetes mellitus with diabetic chronic kidney disease (principal); I12.9 Hypertensive chronic kidney disease with stage 1 through stage 4 chronic kidney disease, or unspecified chronic kidney disease; N18.9 Chronic kidney disease, unspecified; R60.9 Edema, unspecified
CPT/HCPCS: 36415; 80053; 82043; 83036; 85025

== ENCOUNTER 2022-01-17 08:10 | Outpatient (REF) | payer MEDICARE, OTHER, SELFPAY ==
[2022-01-17 09:44] LABS: MANUAL DIFF FLAG NO
[2022-01-17 09:53] LABS: Basophils Percent Auto 0.4 % (0-2); Eosinophils Absolute Auto 0.2 X10*3/uL (0.0-0.4); Eosinophils Percent Auto 3.8 % (0-4); Hematocrit 39.5 % (37.0-47.0); Hemoglobin 11.3 g/dl (12.0-16.0); Imm Gran Abs Auto 0.01 X10*3/uL (0.00-0.03); Imm Gran Pct Auto 0.2 % (0.0-0.4); Lymphocytes Absolute Auto 0.8 X10*3/uL (1.2-4.9); Lymphocytes Percent Auto 15.9 % (20-40); Mean Corpuscular HGB Conc 28.6 g/dl (31.0-35.0); Mean Corpuscular Hemoglobin 22.7 pg (27.0-33.0); Mean Corpuscular Volume 79.5 fL (80.0-98.0); Mean Platelet Volume 9.2 fL (9.4-12.3); Monocytes Absolute Auto 0.5 X10*3/uL (0.1-1.2); Neutrophils Absolute Auto 3.2 x10*3/uL (2.0-8.3); Neutrophils Percent Auto 68.7 % (45-73); Platelet Count 155 X10*3/uL (160-400); Red Blood Count 4.97 X10*6/uL (4.20-5.50); Red Cell Distribution Width 18.4 % (11.0-16.0); White Blood Count 4.7 X10*3/uL (4.8-10.8)
[2022-01-17 10:37] LABS: B Type Natriuretic Peptide 211 pg/mL (<100)
[2022-01-17 10:43] LABS: Alanine Aminotransferase 17 U/L (0-31); Albumin Level 3.8 g/dL (3.5-5.0); Alkaline Phosphatase 96 U/L (39-117); Anion Gap 12 (12-20); Aspartate Amino Transferase 21 U/L (5-31); Bilirubin Total 0.4 mg/dL (0.0-1.0); Blood Urea Nitrogen 14 mg/dL (9-16); C Reactive Protein 0.89 mg/dL (< or = 0.50); Calcium 9.2 mg/dL (8.4-10.2); Carbon Dioxide 32 mmol/L (22-29); Chloride 103 mmol/L (96-108); Estimated Glomerular Filt Rate 54; Glucose Random 115 mg/dL (60-115); Potassium 4.7 mmol/L (3.3-5.1); Sodium 142 mmol/L (135-145); Total Protein 6.2 g/dL (6.5-8.0)
[2022-01-17 10:52] LABS: Ferritin 9 ng/mL (10-250); Vitamin D 25-OH Total 59.2 ng/mL (>30)
[2022-01-17 11:15] LABS: Folate > 20.0 ng/mL (> or = 4.0); Vitamin B12 724 pg/mL (200-900)
[2022-01-20 13:31] LABS: Calcium, Ionized 5.1 mg/dL (4.8-5.6)
[2022-01-21 15:16] LABS: Vitamin C 1.3 mg/dL (0.3-2.7)
== END 2022-01-17 08:11 | disposition home or self-care (01) ==
LOC: HO.LAB 08:10
PROVIDERS: PCP Internal Medicine; Referring Provider Internal Medicine; Visit Provider Internal Medicine Gastroenterology
DX: R05.9 Cough, unspecified (principal); K21.9 Gastro-esophageal reflux disease without esophagitis; D64.9 Anemia, unspecified; E83.52 Hypercalcemia; K75.81 Nonalcoholic steatohepatitis (NASH)
CPT/HCPCS: 36415; 80053; 82180; 82306; 82330; 82607; 82728; 82746; 83880; 85025; 86140; 99212

== ENCOUNTER 2022-03-20 07:13 | Outpatient (REF) | payer MEDICARE, OTHER, SELFPAY ==
[2022-03-20 07:43] LABS: MANUAL DIFF FLAG NO
[2022-03-20 08:07] LABS: Basophils Percent Auto 0.6 % (0-2); Eosinophils Absolute Auto 0.2 X10*3/uL (0.0-0.4); Eosinophils Percent Auto 4.7 % (0-4); Imm Gran Abs Auto 0.02 X10*3/uL (0.00-0.03); Imm Gran Pct Auto 0.4 % (0.0-0.4); Lymphocytes Absolute Auto 0.7 X10*3/uL (1.2-4.9); Lymphocytes Percent Auto 15.3 % (20-40); Mean Corpuscular HGB Conc 28.6 g/dl (31.0-35.0); Mean Corpuscular Hemoglobin 22.4 pg (27.0-33.0); Mean Corpuscular Volume 78.3 fL (80.0-98.0); Mean Platelet Volume 9.4 fL (9.4-12.3); Monocytes Absolute Auto 0.5 X10*3/uL (0.1-1.2); Neutrophils Absolute Auto 3.2 x10*3/uL (2.0-8.3); Platelet Count 166 X10*3/uL (160-400); Red Blood Count 4.47 X10*6/uL (4.20-5.50); Red Cell Distribution Width 18.9 % (11.0-16.0); White Blood Count 4.7 X10*3/uL (4.8-10.8)
[2022-03-20 08:17] LABS: Estimated Average Glucose 131 mg/dL; Hemoglobin A1c % 6.2 %
[2022-03-20 08:40] LABS: Alanine Aminotransferase 10 U/L (0-31); Albumin Level 3.7 g/dL (3.5-5.0); Alkaline Phosphatase 85 U/L (39-117); Anion Gap 11 (12-20); Aspartate Amino Transferase 16 U/L (5-31); Bilirubin Total 0.4 mg/dL (0.0-1.0); Blood Urea Nitrogen 16 mg/dL (9-16); Carbon Dioxide 31 mmol/L (22-29); Chloride 106 mmol/L (96-108); Estimated Glomerular Filt Rate 56; Glucose Random 117 mg/dL (60-115); Iron 34 mcg/dL (30-160); Percent Iron Saturation 9 % (15-50); Sodium 143 mmol/L (135-145); Total Iron Binding Capacity 375 mcg/dL (228-428); Total Protein 5.9 g/dL (6.5-8.0); Unsaturated Iron Binding 341 ug/dL
[2022-03-20 08:53] LABS: Creatinine Urine 124.59 mg/dL; Microalbum/Creatinine Ratio Ur 16.8 ug/mg cr
== END 2022-03-20 07:14 | disposition home or self-care (01) ==
LOC: HO.LAB 07:13
PROVIDERS: PCP Internal Medicine; Visit Provider Internal Medicine
DX: D64.9 Anemia, unspecified (principal); I12.9 Hypertensive chronic kidney disease with stage 1 through stage 4 chronic kidney disease, or unspecified chronic kidney disease; N18.9 Chronic kidney disease, unspecified; E11.22 Type 2 diabetes mellitus with diabetic chronic kidney disease
CPT/HCPCS: 36415; 80053; 82043; 83036; 83540; 85025

== ENCOUNTER 2022-05-23 06:53 | Day surgery (SDC) | payer MEDICARE, OTHER, SELFPAY ==
--- NOTE | 2022-05-22 13:13 | P.CONAN_ITS ---
Documented by User: Yareli Ferrera NP 05/22/22 13:14 HPI - Anesthesia Eval Consult details Narrative: 77yo F for Upper Endoscopy with Balloon Dilitation and Colonoscopy PMFSH Active Problems Active Problems: All Active Problems (Updated 05/22/22 @ 12:55 by Aleida Kauffman, RN) Dysphagia (Acute) GERD (gastroesophageal reflux disease) (Acute) Anemia (Acute) Scoliosis (Acute) CYNTHIA (obstructive sleep apnea) (Acute) Obesity (Acute) Cough (Acute) Past Medical History Medical History Anemia Back pain Blind right eye CHF (congestive heart failure) Cough Diabetes GERD (gastroesophageal reflux disease) Heart murmur after rheumatic heart disease HX: breast cancer Hypertension Lymphedema of left arm Obesity CYNTHIA (obstructive sleep apnea) CYNTHIA (obstructive sleep apnea) Scoliosis Scoliosis Trigeminal neuralgia of right side of face Family History Family History Father History of heart attack Mother History of leukemia History of hypertension Surgical History Surgical History H/O left mastectomy History of bladder suspension procedure History of colonoscopy History of left inguinal hernia repair History of lymph node dissection of left axilla History of open reduction and internal fixation (ORIF) procedure History of partial hysterectomy History of tonsillectomy and adenoidectomy History of ventral hernia repair Hx of endoscopy Hx of esophagogastroduodenoscopy Hx of wisdom tooth extraction Social History Social History Are you a primary customer care representative to a significant other at home: No Do you presently have visiting nurse or other home services: No Alcohol intake: never Patient Tobacco Use Status: Never used Tobacco Use of substances other than those prescribed or required for medical reasons: No Are you DNR?: No Advance Directives: No Advance Directives Information Provided: Yes Meds Allergies Allergy/AdvReac Type Severity Reaction Status Date / Time gabapentin [From Neurontin] Allergy Intermediate JOINTS Verified 01/17/22 08:17 SWELL famotidine AdvReac Unknown Dizziness Verified 01/17/22 08:17 oranges Allergy cold sores Uncoded 05/28/21 08:18 Home Medications Medication Instructions Recorded Confirmed Last Taken Type anastrozole 1 mg tablet 1 mg PO DAILY 07/30/20 07/30/20 Unknown History atorvastatin 10 mg tablet 10 mg PO BEDTIME 07/30/20 07/30/20 Unknown History dorzolamide 2 %-timolol 0.5 % (PF) 1 drp ophthalmic (eye) BID 07/30/20 07/30/20 Unknown History eye drops latanoprost 0.005 % eye drops 1 drp ophthalmic-Right QPM 07/30/20 07/30/20 Unknown History lorazepam 0.5 mg tablet 0.5 mg PO TID PRN Anxiety 07/30/20 07/30/20 Unknown History dorzolamide 22.3 mg-timolol 6.8 1 drp ophthalmic (eye) BID 10/29/20 Unknown History mg/mL eye drops famotidine 40 mg tablet 40 mg PO BEDTIME 10/29/20 Unknown History hydrochlorothiazide 12.5 mg capsule 12.5 mg PO DAILY 10/29/20 Unknown History glipizide 2.5 mg tablet, extended mg PO 12/04/20 Unknown History release 24 hr Exam Exam Date and Time: May 22, 2022 1313 Pertinent Lab Results Pertinent Lab Results: Laboratory Tests 03/20/22 03/20/22 07:42 07:42 WBC 4.7 L Hgb 10.0 L Hct 35.0 L Plt Count 166 Sodium 143 Potassium 5.0 Chloride 106 Carbon Dioxide 31 H BUN 16 Creatinine 0.96 Narrative Narrative: EKG 2020 Vent. Rate : 074 BPM ? ? Atrial Rate : 074 BPM ?? P-R Int : 176 ms? QRS Dur : 142 ms ? ? QT Int : 448 ms ? ? ? P-R-T Axes : -12 -30 046 degrees ?? QTc Int : 497 ms ? Normal sinus rhythm Left axis deviation Left ventricular hypertrophy with QRS widening and repolarization abnormality Abnormal ECG When compared with ECG of 07-NOV-2018 15:19, QRS is? wider ECHO 2019 Conclusions: -? 1. Low normal LV systolic function with LVEF of 50-55% with ? impaired relaxation filling pressure with mild LVH and elevated? filling pressures? 2. Mildly dilated left atrium? 3. Increased gradient across aortic valve, mild aortic stenosis? cannot be ruled out? 4. No gross pericardial effusion ? ? Documented by User: Fauzia Bird MD 05/23/22 08:38 [facility] Past Medical History Medical History Anemia Back pain Blind right eye CHF (congestive heart failure) Cough Diabetes GERD (gastroesophageal reflux disease) Heart murmur after rheumatic heart disease HX: breast cancer Hypertension Lymphedema of left arm Obesity CYNTHIA (obstructive sleep apnea) CYNTHIA (obstructive sleep apnea) Scoliosis Scoliosis Trigeminal neuralgia of right side of face Family History Family History Father History of heart attack Mother History of leukemia History of hypertension Family history of problems with anesthesia: No Surgical History Surgical History H/O left mastectomy History of bladder suspension procedure History of colonoscopy History of left inguinal hernia repair History of lymph node dissection of left axilla History of open reduction and internal fixation (ORIF) procedure History of partial hysterectomy History of tonsillectomy and adenoidectomy History of ventral hernia repair Hx of endoscopy Hx of esophagogastroduodenoscopy Hx of wisdom tooth extraction History of Problems with Anesthesia: No Social History Social History Are you a primary customer care representative to a significant other at home: No Do you presently have visiting nurse or other home services: No Alcohol intake: never Patient Tobacco Use Status: Never used Tobacco Use of substances other than those prescribed or required for medical reasons: No Are you DNR?: No Advance Directives: No Advance Directives Information Provided: Yes Meds Allergies Allergy/AdvReac Type Severity Reaction Status Date / Time gabapentin [From Neurontin] Allergy Intermediate JOINTS Verified 01/17/22 08:17 SWELL famotidine AdvReac Unknown Dizziness Verified 01/17/22 08:17 oranges Allergy cold sores Uncoded 05/28/21 08:18 Home Medications Medication Instructions Recorded Confirmed Last Taken Type anastrozole 1 mg tablet 1 mg PO DAILY 07/30/20 07/30/20 Unknown History atorvastatin 10 mg tablet 10 mg PO BEDTIME 07/30/20 07/30/20 Unknown History dorzolamide 2 %-timolol 0.5 % (PF) 1 drp ophthalmic (eye) BID 07/30/20 07/30/20 Unknown History eye drops latanoprost 0.005 % eye drops 1 drp ophthalmic-Right QPM 07/30/20 07/30/20 Unknown History lorazepam 0.5 mg tablet 0.5 mg PO TID PRN Anxiety 07/30/20 07/30/20 Unknown History dorzolamide 22.3 mg-timolol 6.8 1 drp ophthalmic (eye) BID 10/29/20 Unknown History mg/mL eye drops famotidine 40 mg tablet 40 mg PO BEDTIME 10/29/20 Unknown History hydrochlorothiazide 12.5 mg capsule 12.5 mg PO DAILY 10/29/20 Unknown History glipizide 2.5 mg tablet, extended mg PO 12/04/20 Unknown History release 24 hr Exam Airway Mallampati Class: II TM Dist: >3cm Neck ROM: Full Denture: Upper Partial: Lower Heart: rrr Lungs: cta Assessment and Plan Assessment Anesthesia Assessment: Anesthesia Plan Discussed and Chart Reviewed Final Anesthetic Review Family History of Problems with Anesthesia: No History of Problems with Anesthesia: No NPO: Yes ASA Class: III Final Preanesthetic Review: No Changes in Pt Med Stat, Meds/Allgs Chart Reviewed and Consent Obtained/Reviewed Patient Risk: Intermediate Procedure Risk: Intermediate Anesthetic Plan Anesthetic Plan: MAC: Disposition: Standard PACU
[2022-05-23 07:10] VITALS: BP 145/65; PULSE 72; RESP 18; TEMP 36.1; O2SAT 95; BMI 37.0
[2022-05-23] MEDS: Lactated Ringers 1,000 ML 50 ML IVCONT (07:44)
--- NOTE | 2022-05-23 07:44 | MHC.SHP ---
Pre-Procedural Eval Section A Date of Service: 05/23/22 The patient is an INPATIENT: No The History & Physical has been completed within 30 days and I have reviewed it.: No Section B Chief Complaint: dysphagia,screening,anemia Relevant Family History (Specify if Yes): No Present Medications: see Short Stay Collaborative assessment Medical History: Significant History (Anemia Back pain Blind right eye CHF (congestive heart failure) Cough GERD (gastroesophageal reflux disease) Heart murmur after rheumatic heart disease HX: breast cancer Hypertension Lymphedema of left arm Obesity CYNTHIA (obstructive sleep apnea) CYNTHIA (obstructive sleep apnea) Scoliosis Scoliosis Trigem) History of Previous Operations: Relevant previous surgery/procedure and date(s) (H/O left mastectomy History of bladder suspension procedure History of colonoscopy History of left inguinal hernia repair History of lymph node dissection of left axilla History of open reduction and internal fixation (ORIF) procedure History of partial hysterectomy History of tonsillectomy and marquis) Allergies: Allergies Allergy/AdvReac Type Severity Reaction Status Date / Time gabapentin [From Neurontin] Allergy Intermediate JOINTS Verified 01/17/22 08:17 SWELL famotidine AdvReac Unknown Dizziness Verified 01/17/22 08:17 oranges Allergy cold sores Uncoded 05/28/21 08:18 Review of Systems Sugical H&P ROS: Negative: Constitution, Cardiovascular and Respiratory and Yes, Specify: Gastrointestinal (dysphagia) Exam Surgical H&P Exam: Normal: Heart, Normal: Lungs, Normal: Extremities and Normal: Abdomen Plan Diagnosis/Plan: Change (proceed with EGD for dysphagia and colonoscopy for screening and MASHA) I have reviewed the history and physical and performed a pertinent physical examination on my patient. No changes have occurred unless specified.
[2022-05-23 07:56] LABS: Glucose, Whole Blood 130 mg/dL (60-115)
--- NOTE | 2022-05-23 08:28 | P.BOP_ITS ---
Brief Operative Note Date of Service: 05/23/22 Pre-op diagnosis: dysphagia and regurgitation 2/2 to prior surgical wrap, needing dilation prn, imaging with dilated, fluid filled esophagus, colon cancer screening, MASHA Post-op diagnosis: other (Dysphagia, gastric polyps, colon polyps, diverticulosis, hemorrhoids) Procedure: FLEXIBLE TRANSORAL UPPER GASTROINTESTINAL ENDOSCOPY WITH BIOPSIES AND ESOPHAGEAL BALLOON DILATION AND COLONOSCOPY TILL CECUM WITH BIOPSIES, SNARE POLYPECTOMY, SUBMUCOSAL INJECTION AND HEMOCLIP PLACEMENT UPPER ENDOSCOPY Consent: Indications for the procedure and potential complications of bleeding, perforation, reaction to medications and missed diagnosis were discussed with the patient and informed consent was obtained. Instrument: Olympus GIF H 190 mid size upper endoscope Monitoring: Vital signs and clinical assessment, continuous EKG monitoring, Pulse oximetry, Carbon Dioxide monitoring and blood pressure monitoring were done throughout the procedure. Procedure: The patient was placed in the left lateral decubitis position and pre-procedure medications were administered and a bite block was placed. The endoscope was inserted into the mouth and advanced under direct vision to the third part of duodenum. A careful inspection was made as the upper endoscope was withdrawn including a retroflexed examination of the proximal stomach; Findings and interventions are described below. Findings: Larynx: Normal Esophagus: GE junction at 38 cm. No esophagitis or Bhatt?s. Sigmoid shaped lower esophagus with tight GEJ but able to pass scope. Balloon dilation performed with a 20 mm CRE balloon x 60 seconds with good result, heme and tear noted, no perforation. Stomach: Multiple 5 to 10 mm benign appearing polyps in the gastric body - biopsied. Ame fundoplication noted on retroflexed exam. Duodenum: Normal bulb and descending duodenum Intervention: Biopsies as noted above COLONOSCOPY PROCEDURE NOTE Consent: Indications for the procedure and potential complications of bleeding, perforation, reaction to medications and missed diagnosis were discussed with the patient and informed consent was obtained. Instrument: Olympus PCF H 190 L variable stiffness pediatric colonoscope Monitoring: Vital signs and clinical assessment, intermittent blood pressure monitoring, continuous EKG monitoring, Pulse oximetry and Carbon Dioxide monitoring were done throughout the procedure. Colon withdrawl time was 38 minutes. Procedure: The patient was placed in the left lateral decubitis position and pre-procedure medications were administered. After a digital rectal examination of the ano-rectum, the video colonoscope was inserted into the rectum and advanced through the colon to the cecum. The colonoscope was slowly withdrawn in a retrograde panoramic fashion and the colon mucosa was carefully examined including a retroflexed view of the rectum. Findings and interventions are described below. Procedure Difficulty: : Colon was long and tortuous and there was some loop formation. LLQ pressure was applied to intubate the ascending colon Findings: Terminal Ileum: Not evaluated Cecum: Normal Ascending Colon: Two 5-7 mm sessile polyp removed with a cold bx and a cold snare. A 3 x 3 cms flat polyp in the distal AC at 100 cms. Polyp was raised with 5 cc of Orise solution (submucosal injection) and removed with a hot snare. Polypectomy sites was closed with 3 hemoclips and marked by Mine ink (submucosal injection). Moderate scattered diverticulosis throughout the entire colon (left > than right) Transverse Colon: Moderate scattered diverticulosis throughout the entire colon (left > than right) Descending Colon: Moderate scattered diverticulosis throughout the entire colon (left > than right) Sigmoid Colon: Severe diverticulosis Rectum: Normal Ano-rectum: Small internal hemorrhoids Colon preparation: Good after some irrigation Impression and Post Procedure Diagnosis: Endoscopy Findings: ESOPHAGUS: GE junction at 38 cm. No esophagitis or Bhatt?s. Sigmoid shaped lower esophagus with tight GEJ but able to pass scope. Balloon dilation performed with a 20 mm CRE balloon x 60 seconds with good r esult, heme and tear noted, no perforation. STOMACH: Multiple 5 to 10 mm benign appearing polyps in the gastric body - biopsied. Ame fundoplication noted on retroflexed exam. Colonoscopy Findings: Two small and one large polyps removed Moderate diverticulosis seen in the entire colon Small hemorrhoids on retroflexed exam. Plan: Await pathology results Patient has an appointment on 07/18/22 in the [facility] with Dr Campbell. Repeat Colonoscopy interval based on path results - in 6-12 months if polyp at 100 cms is adenomatous to check polypectomy site. Repeat EGD in 6 to 12 months - prn for recurrent dysphagia. Above findings were reviewed with the patient and gastric polyps, colon polyps and diverticulosis handouts were given in the discharge area Surgeon: Rupa Hough MD Anesthesia: MAC Was an Grain Drier Operator used for this Procedure?: Yes Grain Drier Operator: Ángel Hassan Estimated blood loss (mL): 0 Pathology: other (A- GASTRIC POLYPS B- ASCENDING COLON POLYPS C- ASCENDING COLON POLYP AT 100CM) Condition: stable Disposition: PACU
[2022-05-23 10:02] VITALS: BP 104/49; PULSE 76; RESP 14; TEMP 36.7; O2SAT 94
--- NOTE | 2022-05-23 10:04 | W.PM.OPN ---
Operative Note Operative Note Date of Service: 05/23/22 Narrative: Pre-op diagnosis: dysphagia and regurgitation 2/2 to prior surgical wrap, needing dilation prn, imaging with dilated, fluid filled esophagus, colon cancer screening, MASHA Post-op diagnosis:?other (Dysphagia, gastric polyps, colon polyps, diverticulosis, hemorrhoids) Procedure: FLEXIBLE TRANSORAL UPPER GASTROINTESTINAL ENDOSCOPY WITH BIOPSIES AND ESOPHAGEAL BALLOON DILATION AND COLONOSCOPY TILL CECUM WITH BIOPSIES, SNARE POLYPECTOMY, SUBMUCOSAL INJECTION AND HEMOCLIP PLACEMENT UPPER ENDOSCOPY Consent:?Indications for the procedure and potential complications of bleeding, perforation, reaction to medications and missed diagnosis were discussed with the patient and informed consent was obtained. Instrument:?Olympus GIF H 190 mid size upper endoscope Monitoring: Vital signs and clinical assessment, continuous EKG monitoring, Pulse oximetry, Carbon Dioxide monitoring and blood pressure monitoring were done throughout the procedure. Procedure:?The patient was placed in the left lateral decubitis position and pre-procedure medications were administered and a bite block was placed. The endoscope was inserted into the mouth and advanced under direct vision to the third part of duodenum. A careful inspection was made as the upper endoscope was withdrawn including a retroflexed examination of the proximal stomach; Findings and interventions are described below. Findings: Larynx:? Normal Esophagus:?GE junction at 38 cm. No esophagitis or Bhatt?s. Sigmoid shaped lower esophagus with tight GEJ but able to pass scope. Balloon dilation performed with a 20 mm CRE balloon x 60 seconds with good result, heme and tear noted, no perforation. Stomach:??Multiple 5 to 10 mm benign appearing polyps in the gastric body - biopsied. Ame fundoplication noted on retroflexed exam. Duodenum:?Normal bulb and descending duodenum Intervention:?Biopsies as noted above COLONOSCOPY PROCEDURE NOTE Consent:?Indications for the procedure and potential complications of bleeding, perforation, reaction to medications and missed diagnosis were discussed with the patient and informed consent was obtained. Instrument:?Olympus PCF H 190 L variable stiffness pediatric colonoscope Monitoring:?Vital signs and clinical assessment, intermittent blood pressure monitoring, continuous EKG monitoring, Pulse oximetry and Carbon Dioxide monitoring were done throughout the procedure. Colon withdrawl time was 38 minutes. Procedure:?The patient was placed in the left lateral decubitis position and pre-procedure medications were administered. After a digital rectal examination of the ano-rectum, the video colonoscope was inserted into the rectum and advanced through the colon to the cecum. The colonoscope was slowly withdrawn in a retrograde panoramic fashion and the colon mucosa was carefully examined including a retroflexed view of the rectum. Findings and interventions are described below. Procedure Difficulty:?:? Colon was long and tortuous and there was some loop formation. ? LLQ pressure was applied to intubate the ascending colon Findings: Terminal Ileum: Not evaluated Cecum:? Normal Ascending Colon:??Two 5-7 mm sessile polyp removed with a cold bx and a cold snare. A 3 x 3 cms flat polyp in the distal AC at 100 cms.? Polyp was raised with 5 cc of Orise solution (submucosal injection) and removed with a hot snare.? Polypectomy sites was closed with 3 hemoclips and marked by Mine ink (submucosal injection).? Moderate scattered diverticulosis throughout the entire colon (left > than right) Transverse Colon:??Moderate scattered diverticulosis throughout the entire colon (left > than right) Descending Colon:? Moderate scattered diverticulosis throughout the entire colon (left > than right) Sigmoid Colon:??Severe diverticulosis Rectum:??Normal Ano-rectum:??Small internal hemorrhoids Colon preparation:? Good after some irrigation Impression and Post Procedure Diagnosis: Endoscopy Findings: ESOPHAGUS:?GE junction at 38 cm. No esophagitis or Bhatt?s. Sigmoid shaped lower esophagus with tight GEJ but able to pass scope. Balloon dilation performed with a 20 mm CRE balloon x 60 seconds with good result, heme and tear noted, no perforation. STOMACH: Multiple 5 to 10 mm benign appearing polyps in the gastric body - biopsied. Ame fundoplication noted on retroflexed exam. Colonoscopy Findings: Two small and one large polyps removed Moderate diverticulosis seen in the entire colon Small hemorrhoids on retroflexed exam. Plan: Await pathology results Patient has an appointment on 07/18/22 in the GI Clinic with Dr Campbell. Repeat Colonoscopy interval based on path results - in 6-12 months if ascending colon polyp at 100 cms is adenomatous to check polypectomy site. Repeat EGD in 6 to 12 months - prn for recurrent dysphagia. Above findings were reviewed with the patient and gastric polyps, colon polyps and diverticulosis handouts were given in the discharge area Surgeon: Rupa Hough MD Anesthesia:?MAC Was an Quenching Machine Operator used for this Procedure?:?Yes Quenching Machine Operator:?Ángel Hassan Estimated blood loss (mL):?0 Pathology:?other (A- GASTRIC POLYPS? B- ASCENDING COLON POLYPS? C- ASCENDING COLON POLYP AT 100CM) Condition:?stable Disposition:?PACU
[2022-05-23 10:17] VITALS: BP 108/49; PULSE 73; RESP 18; TEMP 36.7; O2SAT 95
== END 2022-05-23 10:48 | disposition home or self-care (01) ==
PROVIDERS: PCP Internal Medicine; Visit Provider Internal Medicine Gastroenterology
PROC: (CPT 45385; principal; 2022-05-23 08:20)
DX: Z12.11 Encounter for screening for malignant neoplasm of colon (principal); D12.2 Benign neoplasm of ascending colon; K51.40 Inflammatory polyps of colon without complications; K57.30 Diverticulosis of large intestine without perforation or abscess without bleeding; K64.8 Other hemorrhoids; R13.10 Dysphagia, unspecified; K22.2 Esophageal obstruction; K31.7 Polyp of stomach and duodenum; K21.9 Gastro-esophageal reflux disease without esophagitis; D50.9 Iron deficiency anemia, unspecified; G47.33 Obstructive sleep apnea (adult) (pediatric); I11.0 Hypertensive heart disease with heart failure; I50.9 Heart failure, unspecified; E11.9 Type 2 diabetes mellitus without complications; I89.0 Lymphedema, not elsewhere classified; Z79.4 Long term (current) use of insulin; Z79.899 Other long term (current) drug therapy; Z88.8 Allergy status to other drugs, medicaments and biological substances; Z98.890 Other specified postprocedural states
CPT/HCPCS: 45385; 45380; 45381; 43249; 43239; 82947; 88305; 88342; C1726

== ENCOUNTER 2022-05-27 07:40 | Outpatient (REF) | payer MEDICARE, OTHER, SELFPAY ==
[2022-05-27 10:46] LABS: Alanine Aminotransferase 14 U/L (0-31); Albumin Level 3.9 g/dL (3.5-5.0); Alkaline Phosphatase 83 U/L (39-117); Anion Gap 14 (12-20); Aspartate Amino Transferase 20 U/L (5-31); Bilirubin Total 0.5 mg/dL (0.0-1.0); Blood Urea Nitrogen 13 mg/dL (9-16); Calcium 8.7 mg/dL (8.4-10.2); Carbon Dioxide 31 mmol/L (22-29); Chloride 104 mmol/L (96-108); Cholesterol 178 mg/dL; Estimated Glomerular Filt Rate 57; Glucose Fasting 120 mg/dL (60-99); HDL Cholesterol 56 mg/dL; LDL Cholesterol Calculated 107 mg/dl; Potassium 4.1 mmol/L (3.3-5.1); Sodium 145 mmol/L (135-145); Triglycerides 76 mg/dL
[2022-05-27 11:02] LABS: Estimated Average Glucose 131 mg/dL; Hemoglobin A1c % 6.2 %
[2022-05-27 11:09] LABS: Creatinine Urine 166.82 mg/dL; Microalbum/Creatinine Ratio Ur 29.9 ug/mg cr
== END 2022-05-27 07:41 | disposition home or self-care (01) ==
LOC: HO.10HDL 07:40
PROVIDERS: Visit Provider Internal Medicine
DX: E11.9 Type 2 diabetes mellitus without complications (principal); D64.9 Anemia, unspecified; E78.00 Pure hypercholesterolemia, unspecified; I10 Essential (primary) hypertension
CPT/HCPCS: 36415; 80053; 80061; 82043; 83036

== ENCOUNTER → 2022-07-18 08:58 | Outpatient (BNVA) | payer MEDICARE, OTHER, SELFPAY | PROVIDERS: PCP Internal Medicine; Visit Provider Internal Medicine Gastroenterology | DX: R13.10 Dysphagia, unspecified (principal); R11.10 Vomiting, unspecified; Z86.010 Personal history of colon polyps | CPT/HCPCS: 99212 ==

== ENCOUNTER 2022-11-13 12:44 | Outpatient (REF) | payer MEDICARE, OTHER, SELFPAY ==
[2022-11-13 13:42] LABS: MANUAL DIFF FLAG NO
[2022-11-13 13:54] LABS: Basophils Percent Auto 0.7 % (0-2); Eosinophils Absolute Auto 0.2 X10*3/uL (0.0-0.4); Eosinophils Percent Auto 3.4 % (0-4); Hematocrit 36.5 % (37.0-47.0); Hemoglobin 10.2 g/dl (12.0-16.0); Imm Gran Abs Auto 0.03 X10*3/uL (0.00-0.03); Imm Gran Pct Auto 0.5 % (0.0-0.4); Lymphocytes Absolute Auto 0.9 X10*3/uL (1.2-4.9); Lymphocytes Percent Auto 16.7 % (20-40); Mean Corpuscular HGB Conc 27.9 g/dl (31.0-35.0); Mean Corpuscular Hemoglobin 21.1 pg (27.0-33.0); Mean Corpuscular Volume 75.6 fL (80.0-98.0); Mean Platelet Volume 9.5 fL (9.4-12.3); Monocytes Absolute Auto 0.7 X10*3/uL (0.1-1.2); Monocytes Percent Auto 11.8 % (2-11); Neutrophils Absolute Auto 3.7 x10*3/uL (2.0-8.3); Neutrophils Percent Auto 66.9 % (45-73); Platelet Count 173 X10*3/uL (160-400); Red Blood Count 4.83 X10*6/uL (4.20-5.50); Red Cell Distribution Width 18.5 % (11.0-16.0); White Blood Count 5.5 X10*3/uL (4.8-10.8)
[2022-11-13 14:06] LABS: Estimated Average Glucose 143 mg/dL; Hemoglobin A1c % 6.6 %
[2022-11-13 15:02] LABS: Alanine Aminotransferase 13 U/L (0-31); Albumin Level 3.8 g/dL (3.5-5.0); Alkaline Phosphatase 89 U/L (39-117); Anion Gap 13 (12-20); Aspartate Amino Transferase 17 U/L (5-31); Bilirubin Total 0.4 mg/dL (0.0-1.0); Blood Urea Nitrogen 18 mg/dL (9-16); Carbon Dioxide 30 mmol/L (22-29); Chloride 104 mmol/L (96-108); Estimated Glomerular Filt Rate 59; Glucose Random 110 mg/dL (60-115); Iron 33 mcg/dL (30-160); Percent Iron Saturation 9 % (15-50); Potassium 4.3 mmol/L (3.3-5.1); Sodium 143 mmol/L (135-145); Total Iron Binding Capacity 367 mcg/dL (228-428); Unsaturated Iron Binding 334 ug/dL
== END 2022-11-13 12:45 | disposition home or self-care (01) ==
LOC: HO.10HDL 12:44
PROVIDERS: Visit Provider Internal Medicine
DX: I12.9 Hypertensive chronic kidney disease with stage 1 through stage 4 chronic kidney disease, or unspecified chronic kidney disease (principal); E11.22 Type 2 diabetes mellitus with diabetic chronic kidney disease; N18.9 Chronic kidney disease, unspecified; K21.9 Gastro-esophageal reflux disease without esophagitis; D64.9 Anemia, unspecified
CPT/HCPCS: 36415; 80053; 83036; 83540; 85025

== ENCOUNTER 2022-12-02 06:53 | Day surgery (SDC) | payer MEDICARE, OTHER, SELFPAY ==
--- NOTE | 2022-11-28 14:19 | P.CONAN_ITS ---
HPI - Anesthesia Eval Consult details Narrative: 77yo F for Colonoscopy [facility] Active Problems Active Problems: All Active Problems (Updated 11/27/22 @ 12:54 by Cassie Perez, RN) Dysphagia (Acute) GERD (gastroesophageal reflux disease) (Acute) Anemia (Acute) Scoliosis (Acute) CYNTHIA (obstructive sleep apnea) (Acute) Obesity (Acute) Cough (Acute) Past Medical History Medical History (Updated 11/27/22 @ 12:54 by Cassie Perez, RN) Anemia Back pain Blind right eye CHF (congestive heart failure) Cough Diabetes GERD (gastroesophageal reflux disease) Heart murmur after rheumatic heart disease HX: breast cancer Hypertension Lymphedema of left arm Obesity CYNTHIA (obstructive sleep apnea) Scoliosis Trigeminal neuralgia of right side of face Family History Family History Father History of heart attack Mother History of leukemia History of hypertension Family history of problems with anesthesia: No Surgical History Surgical History (Updated 11/27/22 @ 13:02 by Cassie Perez RN) H/O left mastectomy History of bladder suspension procedure History of colonoscopy History of left inguinal hernia repair History of lymph node dissection of left axilla History of open reduction and internal fixation (ORIF) procedure History of partial hysterectomy History of tonsillectomy and adenoidectomy History of ventral hernia repair Hx of endoscopy Hx of esophagogastroduodenoscopy Hx of wisdom tooth extraction History of Problems with Anesthesia: No Social History Social History Are you a primary healthcare business analyst to a significant other at home: No Do you presently have visiting nurse or other home services: No Alcohol intake: never Patient Tobacco Use Status: Never used Tobacco Meds Allergies Allergy/AdvReac Type Severity Reaction Status Date / Time gabapentin [From Neurontin] Allergy Intermediate JOINTS Verified 11/27/22 12:55 SWELL famotidine AdvReac Unknown Dizziness Verified 11/27/22 12:55 oranges Allergy cold sores Uncoded 11/27/22 12:55 Home Medications Medication Instructions Recorded Confirmed Last Taken Type anastrozole 1 mg tablet 1 mg PO DAILY 07/30/20 11/27/22 Unknown History atorvastatin 10 mg tablet 10 mg PO BEDTIME 07/30/20 11/27/22 Unknown History latanoprost 0.005 % eye drops 1 drp ophthalmic-Right QPM 07/30/20 11/27/22 Unknown History lorazepam 0.5 mg tablet 0.5 mg PO TID PRN Anxiety 07/30/20 11/27/22 12/02/22 History dorzolamide 22.3 mg-timolol 6.8 1 drp ophthalmic (eye) BID 10/29/20 Unknown History mg/mL eye drops famotidine 40 mg tablet 40 mg PO BEDTIME 10/29/20 11/27/22 Unknown History hydrochlorothiazide 12.5 mg capsule 12.5 mg PO DAILY 10/29/20 11/27/22 Unknown History glipizide 2.5 mg tablet, extended mg PO 12/04/20 Unknown History release 24 hr Exam Exam Date and Time: November 28, 2022 141 Pertinent Lab Results Pertinent Lab Results: Laboratory Tests 11/13/22 11/13/22 12:50 12:50 WBC 5.5 Hgb 10.2 L Hct 36.5 L Plt Count 173 Sodium 143 Potassium 4.3 Chloride 104 Carbon Dioxide 30 H BUN 18 H Creatinine 0.92 Narrative Narrative: EKG 2020 Vent. Rate : 074 BPM ? ? Atrial Rate : 074 BPM ?? P-R Int : 176 ms? QRS Dur : 142 ms ? ? QT Int : 448 ms ? ? ? P-R-T Axes : -12 -30 046 degrees ?? QTc Int : 497 ms ? Normal sinus rhythm Left axis deviation Left ventricular hypertrophy with QRS widening and repolarization abnormality Abnormal ECG When compared with ECG of 07-NOV-2018 15:19, QRS is? wider ECHO 2020 Conclusions: -? 1. Low normal LV systolic function with LVEF of 50-55% with ? impaired relaxation filling pressure with mild LVH and elevated? filling pressures? 2. Mildly dilated left atrium? 3. Increased gradient across aortic valve, mild aortic stenosis? cannot be ruled out? 4. No gross pericardial effusion ? ? Airway Mallampati Class: II TM Dist: >3cm Neck ROM: Full Denture: Upper Partial: Lower Heart: rrr Lungs: cta Assessment and Plan Assessment Anesthesia Assessment: Chart Reviewed Final Anesthetic Review Family History of Problems with Anesthesia: No History of Problems with Anesthesia: No
[2022-12-02 07:07] VITALS: BMI 37.0
[2022-12-02 07:24] VITALS: BP 160/77; PULSE 67; RESP 16; TEMP 36.4; O2SAT 93
--- NOTE | 2022-12-02 07:31 | PC.NURSE ---
fleet enema laying on left side. lui well. ambulated to br with one assist
--- NOTE | 2022-12-02 07:42 | PC.NURSE ---
second enema performed in the br lui well. dark yellow output with the first enema.
--- NOTE | 2022-12-02 07:53 | PC.NURSE ---
second enema output yellow no solids
[2022-12-02 08:02] LABS: Glucose, Whole Blood 131 mg/dL (60-115)
[2022-12-02] MEDS: Lactated Ringers 1,000 ML 100 ML IVCONT (08:04)
--- NOTE | 2022-12-02 08:08 | MHC.SHP ---
Pre-Procedural Eval Section A Date of Service: 12/02/22 Section B Chief Complaint: hx of colon polyps Relevant Family History (Specify if Yes): No Relevant Social History: None Present Medications: see Short Stay Collaborative assessment Medical History: Significant History (Anemia Back pain Blind right eye CHF (congestive heart failure) Cough Diabetes GERD (gastroesophageal reflux disease) Heart murmur after rheumatic heart disease HX: breast cancer Hypertension Lymphedema of left arm Obesity CYNTHIA (obstructive sleep apnea) Scoliosis Trigeminal neuralgia of right side of) History of Previous Operations: Relevant previous surgery/procedure and date(s) ( H/O left mastectomy History of bladder suspension procedure History of colonoscopy History of left inguinal hernia repair History of lymph node dissection of left axilla History of open reduction and internal fixation (ORIF) procedure History of partial hysterectomy History of tonsillectomy and jorge alberto) Allergies: Allergies Allergy/AdvReac Type Severity Reaction Status Date / Time gabapentin [From Neurontin] Allergy Intermediate JOINTS Verified 11/27/22 12:55 SWELL famotidine AdvReac Unknown Dizziness Verified 11/27/22 12:55 oranges Allergy cold sores Uncoded 11/27/22 12:55 Review of Systems Sugical H&P ROS: Negative: Constitution, Cardiovascular, Respiratory, Neurological, Psychiatric, Hem-Onc, Allergic/Immunologic, Gastrointestinal, Genitourinary, Musculoskeletal, Integumentary, Endocrine and Eyes/Ears/Nose/Throat Exam Surgical H&P Exam: Normal: HEENT, Normal: Heart, Normal: Lungs, Normal: Extremities, Normal: Abdomen, Normal: Skin and Normal: Neurological Plan Diagnosis/Plan: Unchanged I have reviewed the history and physical and performed a pertinent physical examination on my patient. No changes have occurred unless specified. Time Spent With Patient Time: Total time managing care of this patient today ____ minutes.
[2022-12-02] MEDS: Sodium Phosphate,Mono-Dibasic 133 ML ENEMA PR (08:11)
--- NOTE | 2022-12-02 08:29 | W.PM.OPN ---
Operative Note Operative Note Date of Service: 12/02/22 Narrative: Operative Information Procedure Description: Colonoscopy Indication: hx of colon polyps Anesthesia: MAC COLONOSCOPY Instrument: Olympus variable stiffness pediatric scope 190L Colonoscopy Monitoring: Vital signs and clinical assessment, continuous EKG monitoring, Pulse oximetry, Carbon Dioxide monitoring and blood pressure monitoring were done throughout the procedure. Colon withdrawal time was 8 minutes. Procedure: The patient was placed in the left lateral decubitis position and pre-procedure medications were administered. After a digital rectal examination of the ano-rectum, the video colonoscope was inserted into the rectum and advanced through the colon to the cecum/TI. The colonoscope was slowly withdrawn in a retrograde panoramic fashion and the colon mucosa was carefully examined including a retroflexed view of the rectum. Findings and interventions are described below. Procedure Difficulty: moderate due to severe diverticulosis and luminal narrowing Findings: Terminal Ileum-normal Cecum:normal Ascending Colon: several diverticula seen, prior tattoo noted, and biopsies taken, no obvious residual polyp material seen Transverse Colon - scattered diverticula Descending Colon: moderate diverticulosis Sigmoid Colon: severe diverticulosis and luminal narrowing Rectum: Retroflexion with small internal hemorrhoids, grade I Anorectum - normal Colon preparation: [place] Bowel Preparation Scale Right colon; 2 Transverse colon: 2 Left colon; 1-2 (0 = Unprepared colon segment with mucosa not seen due to solid stool that cannot be cleared. 1 = Portion of mucosa of the colon segment seen, but other areas of the colon segment not well seen due to staining, residual stool and/or opaque liquid. 2 = Minor amount of residual staining, small fragments of stool and/or opaque liquid, but mucosa of colon segment seen well. 3 = Entire mucosa of colon segment seen well with no residual staining, small fragments of stool or opaque liquid) Impression and Post Procedure Diagnosis: internal hemorrhoids diverticular disease Plan: High fiber diet leaflet Avoid straining at stool, epsom salts and sitz bath, anusol supps or cream Repeat Colonoscopy in 3-5 years if health allows or earlier if clinically indicated Above findings were reviewed with the patient and relevant handouts were provided if indicated.
--- NOTE | 2022-12-02 08:36 | P.CONAN_ITS ---
[facility] Active Problems Active Problems: All Active Problems (Updated 11/27/22 @ 12:54 by Cassie Perez, RN) Dysphagia (Acute) GERD (gastroesophageal reflux disease) (Acute) Anemia (Acute) Scoliosis (Acute) CYNTHIA (obstructive sleep apnea) (Acute) Obesity (Acute) Cough (Acute) Past Medical History Medical History (Updated 11/27/22 @ 12:54 by Cassie Perez, RN) Anemia Back pain Blind right eye CHF (congestive heart failure) Cough Diabetes GERD (gastroesophageal reflux disease) Heart murmur after rheumatic heart disease HX: breast cancer Hypertension Lymphedema of left arm Obesity CYNTHIA (obstructive sleep apnea) Scoliosis Trigeminal neuralgia of right side of face Family History Family History Father History of heart attack Mother History of leukemia History of hypertension Family history of problems with anesthesia: No Surgical History Surgical History (Updated 11/27/22 @ 13:02 by Cassie Perez RN) H/O left mastectomy History of bladder suspension procedure History of colonoscopy History of left inguinal hernia repair History of lymph node dissection of left axilla History of open reduction and internal fixation (ORIF) procedure History of partial hysterectomy History of tonsillectomy and adenoidectomy History of ventral hernia repair Hx of endoscopy Hx of esophagogastroduodenoscopy Hx of wisdom tooth extraction History of Problems with Anesthesia: No Social History Social History Are you a primary skin care specialist to a significant other at home: No Do you presently have visiting nurse or other home services: No Alcohol intake: never Patient Tobacco Use Status: Never used Tobacco Use of substances other than those prescribed or required for medical reasons: No Are you DNR?: No Advance Directives: No Advance Directives Information Provided: Yes Recently lost weight without trying: No Nutrition Risks: No Nutritional Risk Meds Allergies Allergy/AdvReac Type Severity Reaction Status Date / Time gabapentin [From Neurontin] Allergy Intermediate JOINTS Verified 11/27/22 12:55 SWELL famotidine AdvReac Unknown Dizziness Verified 11/27/22 12:55 oranges Allergy cold sores Uncoded 11/27/22 12:55 Active Medications: Current Medications Lactated Ringer's (Lr) 1,000 mls @ 100 mls/hr IVCONT .Q10H SNOW Last Admin: 12/02/22 08:04 Dose: 100 mls/hr Sodium Biphosphate/Sodium Phosphate (Sodium Phosphate,Mccreary-Dibasic 133 Ml Enema) 133 ml DE ONCE PRN PRN Reason: Consult order Last Admin: 12/02/22 08:11 Dose: 133 ml Home Medications Medication Instructions Recorded Confirmed Last Taken Type anastrozole 1 mg tablet 1 mg PO DAILY 07/30/20 11/27/22 Unknown History atorvastatin 10 mg tablet 10 mg PO BEDTIME 07/30/20 11/27/22 Unknown History latanoprost 0.005 % eye drops 1 drp ophthalmic-Right QPM 07/30/20 11/27/22 Unknown History lorazepam 0.5 mg tablet 0.5 mg PO TID PRN Anxiety 07/30/20 11/27/22 12/02/22 History dorzolamide 22.3 mg-timolol 6.8 1 drp ophthalmic (eye) BID 10/29/20 Unknown History mg/mL eye drops famotidine 40 mg tablet 40 mg PO BEDTIME 10/29/20 11/27/22 Unknown History hydrochlorothiazide 12.5 mg capsule 12.5 mg PO DAILY 10/29/20 11/27/22 Unknown History glipizide 2.5 mg tablet, extended mg PO 12/04/20 Unknown History release 24 hr Exam Exam Date and Time: December 02, 2022 0836 Height,Weight and Vital Signs: Height 5 ft Weight 86.183 kg Last Vital Signs Temp 97.5 F 12/02/22 07:24 Pulse 67 12/02/22 07:24 Resp 16 12/02/22 07:24 BP 160/77 H 12/02/22 07:24 Pulse Ox 93 12/02/22 07:24 O2 Del Method Room Air 12/02/22 07:24 Pertinent Lab Results Pertinent Lab Results: Laboratory Tests 12/02/22 07:58 POC Glucose 131 H Airway Mallampati Class: III TM Dist: >3cm Neck ROM: Full Denture: Upper Partial: Lower Heart: rrr with2/6 bryan Lungs: clear Assessment and Plan Final Anesthetic Review Family History of Problems with Anesthesia: No History of Problems with Anesthesia: No NPO: Yes ASA Class: III Final Preanesthetic Review: No Changes in Pt Med Stat, Meds/Allgs Chart Reviewed, Consent Obtained/Reviewed and Anes Risks/Benef Reviewed Patient Risk: Intermediate Procedure Risk: Low Anesthetic Plan Anesthetic Plan: MAC: Disposition: Standard PACU
[2022-12-02 09:20] VITALS: BP 111/50; PULSE 70; RESP 18; TEMP 36.2; O2SAT 97
[2022-12-02 09:32] VITALS: BP 130/71; PULSE 67; RESP 18; TEMP 36.4; O2SAT 95
== END 2022-12-02 10:21 | disposition home or self-care (01) ==
PROVIDERS: PCP Internal Medicine; Visit Provider Internal Medicine Gastroenterology
PROC: 0DJD8ZZ Inspection of Lower Intestinal Tract, Via Natural or Artificial Opening Endoscopic (ICD-10-PCS; CPT 45378; principal; 2022-12-02 08:10)
DX: Z12.11 Encounter for screening for malignant neoplasm of colon (principal); Z86.010 Personal history of colon polyps; K31.7 Polyp of stomach and duodenum; K57.30 Diverticulosis of large intestine without perforation or abscess without bleeding; K64.0 First degree hemorrhoids; D64.9 Anemia, unspecified; I11.0 Hypertensive heart disease with heart failure; I50.9 Heart failure, unspecified; R01.1 Cardiac murmur, unspecified; E11.9 Type 2 diabetes mellitus without complications; K21.9 Gastro-esophageal reflux disease without esophagitis; G47.33 Obstructive sleep apnea (adult) (pediatric); G50.0 Trigeminal neuralgia; E66.9 Obesity, unspecified; Z68.37 Body mass index [BMI] 37.0-37.9, adult; M41.9 Scoliosis, unspecified; Z85.3 Personal history of malignant neoplasm of breast; Z88.8 Allergy status to other drugs, medicaments and biological substances
CPT/HCPCS: 45380; 82947; 88305

== ENCOUNTER → 2022-12-12 09:33 | Outpatient (BNVA) | payer MEDICARE, OTHER, SELFPAY | PROVIDERS: PCP Internal Medicine; Visit Provider Internal Medicine Gastroenterology | DX: R13.10 Dysphagia, unspecified (principal); R11.10 Vomiting, unspecified; Z86.010 Personal history of colon polyps | CPT/HCPCS: 99212 ==

== ENCOUNTER 2023-01-13 12:10 | Outpatient (REF) | payer MEDICARE, OTHER, SELFPAY ==
--- NOTE | ~2023-01-13 | XR_ITS ---
EXAMINATION: XR SINUSES CLINICAL INFORMATION: Cough COMPARISON: CT head noncontrast 11/16/2020 TECHNIQUE: 4 views of the sinuses are obtained. FINDINGS: There are no air-fluid levels in the sinuses or mastoids. No visible mucosal thickening or polypoid mass. No bony destructive process or sclerosis. XR/XR sinus min 3V IMPRESSION: Unremarkable examination.
--- NOTE | ~2023-01-13 | XR_ITS ---
EXAMINATION: XR CHEST CLINICAL INFORMATION: 77-year-old female with cough COMPARISON: 09/24/2020 TECHNIQUE: 2 views of the chest were obtained. FINDINGS: There is marked dextroscoliosis of thoracic spine. Cardiomediastinal silhouette is rotated to the left. Patient is status post left breast surgery. Lungs are clear. There is no evidence of infiltrates or pleural effusion. XR/XR chest 2V IMPRESSION: No active cardiopulmonary disease
== END 2023-01-13 12:11 | disposition home or self-care (01) ==
LOC: HO.XRAY 12:10
PROVIDERS: PCP Internal Medicine; Visit Provider Internal Medicine
DX: R05.9 Cough, unspecified (principal); R09.81 Nasal congestion
CPT/HCPCS: 70220; 71046

== ENCOUNTER 2023-01-30 15:09 | Outpatient (REF) | payer MEDICARE, OTHER, SELFPAY ==
--- NOTE | ~2023-01-30 | CT_ITS ---
EXAMINATION: CT CHEST WITHOUT CONTRAST CLINICAL INFORMATION: Cough and wheezing COMPARISON: Previous chest CT October 2020 TECHNIQUE: Multidetector volumetric CT imaging of the chest was done. Axial MIP volume rendering provided. Sagittal and coronal reformatted images were obtained. This CT examination was performed using dose optimization techniques as appropriate, variously including the following: *Automated exposure control *Adjustment of mA and/or kV according to patient size (this includes techniques or standardized protocols for targeted exams where dose is matched to indication/reason for exam; i.e. 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 LUNGS: Mild bronchial wall thickening and atelectasis of the left lower lobe. Subsegmental atelectasis in the right lower lobe lobe medially adjacent to the spine. 3 mm peripheral lingular nodule axial image 30 stable from previous exam. MEDIASTINUM: Small right thyroid nodules. Left lobe of the thyroid gland is small. This is similar to October 2020 exam. No imaging follow-up recommended. Atherosclerotic disease. Normal heart size. Severe coronary artery calcification. Aortic valve calcification. Calcified small mediastinal lymph nodes. No enlarged hilar or mediastinal lymph nodes. Upper normal size thoracic aorta. Slightly prominent pulmonary arteries, main pulmonary artery measuring 3.3 cm. CORONARY ARTERY CALCIFICATION: Severe PLEURA: There is no pleural effusion. No pleural mass or thickening. AXILLA: Surgical clips in the left axilla. Left mastectomy. No chest wall mass or enlarged axillary lymph nodes. UPPER ABDOMEN: Diverticulosis of the colon. Atherosclerotic disease. OSSEOUS STRUCTURES: Unremarkable. CT/CT chest wo IV con IMPRESSION: Mild bronchial wall thickening and atelectasis in the left lower lobe. Subsegmental atelectasis in the right lower lobe adjacent to the spine. Stable small lingular pulmonary nodule from 2020. Atherosclerotic disease. Coronary artery and aortic valve calcification. Enlarged pulmonary arteries questionable for pulmonary artery hypertension. Fleischner guidelines were followed.
== END 2023-01-30 15:10 | disposition home or self-care (01) ==
LOC: HO.CT 15:09
PROVIDERS: PCP Internal Medicine; Visit Provider Internal Medicine
DX: R06.2 Wheezing (principal); R05.9 Cough, unspecified
CPT/HCPCS: 71250

== ENCOUNTER 2023-02-08 09:03 | Emergency (ER) | payer MEDICARE, OTHER, SELFPAY ==
--- NOTE | ~2023-02-08 | XR_ITS ---
EXAMINATION: XR CHEST CLINICAL INFORMATION: Lightheadedness. COMPARISON: CT chest dated 01/30/2023. TECHNIQUE: 2 views of the chest were obtained. FINDINGS: Dextrocurvature of the thoracic spine is redemonstrated. No acute osseous abnormality. No new airspace consolidation. No pleural effusion or pneumothorax. Stable cardiomediastinal silhouette. Left axillary surgical clips. XR/XR chest 2V IMPRESSION: No acute cardiopulmonary findings.
[2023-02-08 09:10] VITALS: BP 158/92; PULSE 83; RESP 16; TEMP 36.1; O2SAT 95; BMI 35.7
--- NOTE | 2023-02-08 09:18 | ED_ITS ---
HPI - General Adult General Chief complaint: Dizziness Stated complaint: dizziness Time Seen by Provider: 02/08/23 09:17 Source: patient Mode of arrival: ambulatory Limitations: no limitations History of Present Illness HPI narrative: Patient is an 78 year old assigned female at with a history of GERD and anemia presenting to the emergency department today with lightheadedness. Patient states that over the last 3 days she has had lightheadedness. Patient states that she had a persistent cough and recently finished a taper of prednisone for it. Patient denies any dizziness, abdominal pain, nausea, vomiting, fever, chills, blurry vision, double vision, loss of vision, chest pain, difficulty breathing, shortness of breath, back pain, night sweats, pain with urination, increased urinary frequency, increased urinary urgency, blood in her urine or stool, syncope or a near syncopal episode, recent trauma or falls, bowel incontinence, bladder incontinence, bowel retention, bladder retention, or any other complaints at this time. Onset (ago): day(s) (3) Severity: mild Severity scale (1-10): 3 Relieving factors: none Exacerbating factors: none Associated symptoms: denies other symptoms Treatments prior to arrival: none Related Data Home Medications Medication Instructions Recorded Confirmed anastrozole 1 mg tablet 1 mg PO DAILY 07/30/20 11/27/22 atorvastatin 10 mg tablet 10 mg PO BEDTIME 07/30/20 11/27/22 latanoprost 0.005 % eye drops 1 drp ophthalmic-Right QPM 07/30/20 11/27/22 lorazepam 0.5 mg tablet 0.5 mg PO TID PRN Anxiety 07/30/20 11/27/22 dorzolamide 22.3 mg-timolol 6.8 1 drp ophthalmic (eye) BID 10/29/20 mg/mL eye drops famotidine 40 mg tablet 40 mg PO BEDTIME 10/29/20 11/27/22 hydrochlorothiazide 12.5 mg capsule 12.5 mg PO DAILY 10/29/20 11/27/22 glipizide 2.5 mg tablet, extended mg PO 12/04/20 release 24 hr Previous Rx's Medication Instructions Recorded pantoprazole 40 mg tablet,delayed 40 mg PO BID #180 tabs 11/21/22 release Allergies Allergy/AdvReac Type Severity Reaction Status Date / Time gabapentin [From Neurontin] Allergy Intermediate JOINTS Verified 12/12/22 09:40 SWELL famotidine AdvReac Unknown Dizziness Verified 12/12/22 09:40 oranges Allergy cold sores Uncoded 12/12/22 09:40 Review of Systems Constitutional: Constitutional: Reports no additional constitutional complaints, Denies chills, Denies fever(s) and Denies night sweats Eyes: Eyes: Reports no additional eye complaints, Denies blurry vision, Denies change in vision, Denies diplopia, Denies eye discharge, Denies loss of vision and Denies eye pain ENT: Denies dizziness Cardiovascular: Cardiovascular: Reports no additional cardiovascular complaints, Denies chest pain, Denies lightheadedness, Denies Loss of Consciousness and Denies dyspnea Respiratory: Respiratory: Reports no additional respiratory complaints and Denies dyspnea Gastrointestinal: Gastrointestinal: Reports no additional gastrointestinal complaints, Denies abdominal pain, Denies melena, Denies hematochezia, Denies change in bowel habits and Denies change in stool character Genitourinary: Genitourinary: Denies hematuria, Denies urinary frequency, Denies dysuria, Denies urinary incontinence, Denies urinary hesitancy and Denies urinary urgency Musculoskeletal: Musculoskeletal: Reports no additional musculoskeletal complaints, Denies numbness and Denies tingling Neurologic: Denies dizziness, Denies loss of vision, Denies numbness and Denies tingling Comments: lightheadedness Psychiatric: Psychiatric: Reports no additional psychiatric complaints Endocrine: Endocrine: Reports no additional endocrine complaints Hematologic/Lymphatic: Hematologic/Lymphatic: Reports no additional hematol ogic/lymphatic complaints Allergic/Immunologic: Allergic/Immunologic: Reports no additional allergic/immunologic complaints [facility] Past Medical History Attestation statement: The following information was validated with the patient. Source: old records reviewed and nursing notes reviewed Medical History Anemia Back pain Blind right eye CHF (congestive heart failure) Cough Diabetes GERD (gastroesophageal reflux disease) Heart murmur after rheumatic heart disease HX: breast cancer Hypertension Lymphedema of left arm Obesity CYNTHIA (obstructive sleep apnea) Scoliosis Trigeminal neuralgia of right side of face Surgical History H/O left mastectomy History of bladder suspension procedure History of colonoscopy History of left inguinal hernia repair History of lymph node dissection of left axilla History of open reduction and internal fixation (ORIF) procedure History of partial hysterectomy History of tonsillectomy and adenoidectomy History of ventral hernia repair Hx of endoscopy Hx of esophagogastroduodenoscopy Hx of wisdom tooth extraction Family History Family History Father History of heart attack Mother History of leukemia History of hypertension Social History Social History Are you a primary technical healthcare consultant to a significant other at home: No Do you presently have visiting nurse or other home services: No Alcohol intake: never Patient Tobacco Use Status: Never used Tobacco Advance Directives: No Advance Directives Information Provided: Yes Physical Exam ED Vital Signs: Vital Signs - 24 hr 02/08/23 09:10 02/08/23 10:47 Temperature 97.0 F Pulse Rate 83 74 Respiratory Rate 16 16 Blood Pressure 158/92 H 155/63 H Pulse Oximetry 95 96 Oxygen Delivery Method Room Air Room Air BMI result Body Mass Index 35.7 Const General: cooperative, no acute distress, alert and awake Nutritional Appearance: well nourished Orientation/consciousness: patient oriented x3 Limitations: no limitations HENMT Head: Yes normal to inspection and Yes atraumatic Ears: hearing grossly normal bilaterally and external ears normal General nose exam: Normal external nose present, no nasal discharge noted and no epistaxis Face and sinus: Yes normal facial exam, No abrasion and No laceration Mouth: Normal oral and palatal mucosa present, no drooling and no muffled voice Eyes General: appearance normal, both eyes and all related structures Periorbital: periorbital findings normal Eyelids: Yes eyelids normal Conjunctivae: conjunctivae normal Pupils: Equal, round and reactive pupils present EOM: EOMs intact bilaterally Neck Neck: Yes normal visual inspection, Yes full ROM and Yes no lymphadenopathy Chest Chest palpation & inspection: normal inspection of the chest Resp Effort & Inspection: normal respiratory effort and able to speak in complete sentences Auscultation: clear to auscultation bilaterally Cardio Rate: regular rate Rhythm: regular rhythm GI Inspection: Yes normal to inspection Palpation (GI): Soft to palpation, not firm, nontender and no guarding Neuro General: patient oriented x3 and moves all extremities Cranial nerves: Yes Equal, round and reactive pupils present Cognition (Neuro): normal cognition Motor exam (neuro): 5/5 motor strength present throughout Sensory Exam: Normal double simultaneous stimulation for sensation Coordination: [id number] test normal Extrem General: Yes normal to inspection, Yes full ROM and Yes capillary refill normal Psych Appearance: grossly normal Mental Status: mental status grossly normal Affect: normal affect Attitude: cooperative Thought process: Normal thought process present Thought content: Normal thought content present Insight: Good insight present (Psych) Medications Administered Discontinued Medications Generic Name Dose Route Start Last Admin Trade Name Freq PRN Reason Stop Dose Admin Sodium Chloride 1,000 mls @ 999 mls/hr 02/08/23 09:30 02/08/23 11:26 Ns IV 02/08/23 10:30 Infused .Q1H1M SNOW Infusion Medical Decision Making Medical Decision Making [facility] Narrative: Patient is an 78 year old assigned female at with a history of anemia and GERD presenting to the emergency department today with intermittent lightheadedness. Patient's physical exam was unremarkable. Patient's blood work was unremarkable. Patient's urine showed no acute process. Patient's EKG was unremarkable. Patient's chest x-ray showed no acute process. I explained my physical exam findings as well as all test results to the patient. I answered all questions asked by the patient. Patient received IV fluids which she stated helped her symptoms significantly. I stressed the importance of the patient taking her medication as prescribed. I stressed the importance of the patient following up with her primary care provider. I stressed the importance of the patient returning to the emergency department immediately if her symptoms were to worsen or if she were to develop any dizziness, shortness of breath, difficulty breathing, chest pain, blurry vision, loss of vision, nausea, vomiting, abdominal pain, fever, chills, back pain, or any other complaints. Patient verbalized agreement and understanding with this treatment plan and discharge. Differential Diagnosis Differential Diagnoses: The differential diagnosis associated with the presentation includes lightheadedness, dehydration, DC, ACS, dizziness, UTI Admission/Observation Consideration of admission/observation: Escalation of care including admission/observation considered Patient would have been admitted to the hospital had her work up had any findings where hospital admission was appropriate and her clinical presentation warranted hospital admission. Lab Data [facility] Lab Attestation statement: I reviewed the patient's lab results. My interpretation of these studies and their corresponding values is that they are grossly normal. 02/08/23 09:56 02/08/23 09:56 Labs: Lab Results 02/08/23 02/08/23 02/08/23 Range/Units 09:56 09:56 09:56 WBC 6.5 (4.8-10.8) X10*3/uL RBC 5.03 (4.20-5.50) X10*6/uL Hgb 11.6 L (12.0-16.0) g/dl Hct 40.0 (37.0-47.0) % MCV 79.5 L (80.0-98.0) fL MCH 23.1 L (27.0-33.0) pg MCHC 29.0 L (31.0-35.0) g/dl RDW 19.9 H (11.0-16.0) % Plt Count 153 L (160-400) X10*3/uL MPV 9.3 L (9.4-12.3) fL Immature Gran % (Auto) 0.3 (0.0-0.4) % Neut % (Auto) 77.5 H (45-73) % Lymph % (Auto) 10.6 L (20-40) % Blackford % (Auto) 8.8 (2-11) % Eos % (Auto) 2.5 (0-4) % Baso % (Auto) 0.3 (0-2) % Lymph # (Auto) 0.7 L (1.2-4.9) X10*3/uL Blackford # (Auto) 0.6 (0.1-1.2) X10*3/uL Eos # (Auto) 0.2 (0.0-0.4) X10*3/uL Baso # (Auto) 0.0 (0.0-0.2) X10*3/uL Abs Immat Gran (auto) 0.02 (0.00-0.03) X10*3/uL Absolute Neuts (auto) 5.1 (2.0-8.3) x10*3/uL Absolute Nucleated RBC 0.000 (0.0-0.012) X10*3/uL Nucleated RBC % (auto) 0.0 (0.0-0.2) /100WBC Sodium 142 (135-145) mmol/L Potassium 4.7 (3.3-5.1) mmol/L Chloride 104 (96-108) mmol/L Carbon Dioxide 32 H (22-29) mmol/L Anion Gap 11 L (12-20) BUN 12 (9-16) mg/dL Creatinine 0.89 (0.5-1.4) mg/dL Estim Creat Clear Calc 48.1 Estimated GFR > 60 Random Glucose 141 H (60-115) mg/dL Calcium 9.7 D (8.4-10.2) mg/dL Magnesium 2.0 (1.6-2.6) mg/dL Total Bilirubin 0.5 (0.0-1.0) mg/dL AST 17 (5-31) U/L ALT 10 (0-31) U/L Alkaline Phosphatase 79 (39-117) U/L Troponin I High Sens 11.8 (<3.5-17.0) ng/L Total Protein 6.3 L (6.5-8.0) g/dL Albumin 3.6 (3.5-5.0) g/dL Urine Color Urine Appearance Urine pH (5.0-9.0) Ur Specific Hawley (1.005-1.025) Urine Protein (Neg-Trace) mg/dL Urine Glucose (UA) (Negative) mg/dL Urine Ketones (Negative) mg/dL Urine Blood (Negative) Urine Nitrite (Negative) Ur Leukocyte Esterase (Negative) Urine RBC (0-2) /HPF Urine WBC (0-5) /HPF Ur Squamous Epith Cells (0-2) /HPF Urine Bacteria (None Seen) Hyaline Casts (0-2) /LPF COVID-19 (JASON) (Negative) COVID-19 Clin Com 02/08/23 02/08/23 02/08/23 Range/Units 09:56 11:03 12:18 WBC (4.8-10.8) X10*3/uL RBC (4.20-5.50) X10*6/uL Hgb (12.0-16.0) g/dl Hct (37.0-47.0) % MCV (80.0-98.0) fL MCH (27.0-33.0) pg MCHC (31.0-35.0) g/dl RDW (11.0-16.0) % Plt Count (160-400) X10*3/uL MPV (9.4-12.3) fL Immature Gran % (Auto) (0.0-0.4) % Neut % (Auto) (45-73) % Lymph % (Auto) (20-40) % Blackford % (Auto) (2-11) % Eos % (Auto) (0-4) % Baso % (Auto) (0-2) % Lymph # (Auto) (1.2-4.9) X10*3/uL Blackford # (Auto) (0.1-1.2) X10*3/uL Eos # (Auto) (0.0-0.4) X10*3/uL Baso # (Auto) (0.0-0.2) X10*3/uL Abs Immat Gran (auto) (0.00-0.03) X10*3/uL Absolute Neuts (auto) (2.0-8.3) x10*3/uL Absolute Nucleated RBC (0.0-0.012) X10*3/uL Nucleated RBC % (auto) (0.0-0.2) /100WBC Sodium (135-145) mmol/L Potassium (3.3-5.1) mmol/L Chloride (96-108) mmol/L Carbon Dioxide (22-29) mmol/L Anion Gap (12-20) BUN (9-16) mg/dL Creatinine (0.5-1.4) mg/dL Estim Creat Clear Calc Estimated GFR Random Glucose (60-115) mg/dL Calcium (8.4-10.2) mg/dL Magnesium (1.6-2.6) mg/dL Total Bilirubin (0.0-1.0) mg/dL AST (5-31) U/L ALT (0-31) U/L Alkaline Phosphatase (39-117) U/L Troponin I High Sens 10.6 (<3.5-17.0) ng/L Total Protein (6.5-8.0) g/dL Albumin (3.5-5.0) g/dL Urine Color Yellow Urine Appearance Clear Urine pH 7.5 (5.0-9.0) Ur Specific Hawley <= 1.005 (1.005-1.025) Urine Protein Negative (Neg-Trace) mg/dL Urine Glucose (UA) Negative (Negative) mg/dL Urine Ketones Negative (Negative) mg/dL Urine Blood Negative (Negative) Urine Nitrite Negative (Negative) Ur Leukocyte Esterase Trace H (Negative) Urine RBC 0-2 (0-2) /HPF Urine WBC 0-5 (0-5) /HPF Ur Squamous Epith Cells 0-2 (0-2) /HPF Urine Bacteria None Seen (None Seen) Hyaline Casts 0-2 (0-2) /LPF COVID-19 (JASON) Negative (Negative) COVID-19 Clin Com See Note Independent Interpretation I performed an independent interpretation of an: EKG and Plain X-Ray Interpretation: My interpretation is in agreement with the radiologist's impression of this imaging study. -- EXAMINATION: XR CHEST CLINICAL INFORMATION: Lightheadedness. COMPARISON: CT chest dated 01/30/2023. TECHNIQUE: 2 views of the chest were obtained. FINDINGS: Dextrocurvature of the thoracic spine is redemonstrated. No acute osseous abnormality. No new airspace consolidation. No pleural effusion or pneumothorax. Stable cardiomediastinal silhouette. Left axillary surgical clips. XR/XR chest 2V IMPRESSION: No acute cardiopulmonary findings. Dictated By: Roshan Posadas MD Signed By: Electronically signed by Roshan Posadas MD 02/08/23 1027 Vent. Rate: 074 BPM ? ? Atrial Rate: 074 BPM P-R Int: 172 ms? QRS Dur: 132 ms QT Int: 418 ms ? ? ? P-R-T Axes: -11 -32 082 degrees QTc Int: 463 ms ? Normal sinus rhythm Left axis deviation Left bundle branch block Abnormal ECG When compared with ECG of 16-OCT-2020 00:56, Left bundle branch block is now Present DD/ 0 Chronic Conditions Patient?s care impacted by: Other (anemia) Discharge Plan Discharge Clinical Impression: Intermittent lightheadedness Patient Disposition: Home, Self-Care Instructions: Lightheadedness (ED) Additional Instructions: Follow up with your primary care provider. Return to the emergency department immediately if your symptoms worsen or if you develop any dizziness, shortness of breath, difficulty breathing, chest pain, blurry vision, loss of vision, nausea, vomiting, abdominal pain, fever, chills, back pain, or any other complaints. Prescriptions: No Action pantoprazole 40 mg tablet,delayed release (DR/EC) 40 mg PO BID Qty: 180 2RF anastrozole 1 mg Tablet 1 mg PO DAILY atorvastatin 10 mg Tablet 10 mg PO BEDTIME lorazepam 0.5 mg Tablet 0.5 mg PO TID PRN (Reason: Anxiety) latanoprost 0.005 % Drops 1 drp ophthalmic-Right QPM hydrochlorothiazide 12.5 mg capsule 12.5 mg PO DAILY dorzolamide-timolol 22.3-6.8 mg/mL drops 1 drp ophthalmic (eye) BID famotidine 40 mg tablet 40 mg PO BEDTIME glipizide 2.5 mg tablet extended release 24hr PO Referrals: Kory Perdue MD [Primary Care Provider] - Print Language: Lithuanian
--- NOTE | 2023-02-08 09:20 | ECG_ITS ---
Test Reason : DIZZINESS Blood Pressure : / mmHG Vent. Rate : 074 BPM Atrial Rate : 074 BPM P-R Int : 172 ms QRS Dur : 132 ms QT Int : 418 ms P-R-T Axes : -11 -32 082 degrees QTc Int : 463 ms Normal sinus rhythm Left axis deviation Left bundle branch block Abnormal ECG When compared with ECG of 16-OCT-2020 00:56, Left bundle branch block is now Present Referred By: Jennifer Russell Electronically Signed By:LOREN JASMINE
[2023-02-08] MEDS: 0.9 % Sodium Chloride 1,000 ML 999 ML IV (09:57)
[2023-02-08 10:01] LABS: MANUAL DIFF FLAG NO
[2023-02-08 10:02] LABS: Basophils Percent Auto 0.3 % (0-2); Eosinophils Absolute Auto 0.2 X10*3/uL (0.0-0.4); Eosinophils Percent Auto 2.5 % (0-4); Hemoglobin 11.6 g/dl (12.0-16.0); Imm Gran Abs Auto 0.02 X10*3/uL (0.00-0.03); Imm Gran Pct Auto 0.3 % (0.0-0.4); Lymphocytes Absolute Auto 0.7 X10*3/uL (1.2-4.9); Lymphocytes Percent Auto 10.6 % (20-40); Mean Corpuscular Hemoglobin 23.1 pg (27.0-33.0); Mean Corpuscular Volume 79.5 fL (80.0-98.0); Mean Platelet Volume 9.3 fL (9.4-12.3); Monocytes Absolute Auto 0.6 X10*3/uL (0.1-1.2); Monocytes Percent Auto 8.8 % (2-11); Neutrophils Absolute Auto 5.1 x10*3/uL (2.0-8.3); Neutrophils Percent Auto 77.5 % (45-73); Platelet Count 153 X10*3/uL (160-400); Red Blood Count 5.03 X10*6/uL (4.20-5.50); Red Cell Distribution Width 19.9 % (11.0-16.0); White Blood Count 6.5 X10*3/uL (4.8-10.8)
[2023-02-08 10:16] LABS: Alanine Aminotransferase 10 U/L (0-31); Albumin Level 3.6 g/dL (3.5-5.0); Alkaline Phosphatase 79 U/L (39-117); Anion Gap 11 (12-20); Aspartate Amino Transferase 17 U/L (5-31); Bilirubin Total 0.5 mg/dL (0.0-1.0); Blood Urea Nitrogen 12 mg/dL (9-16); Calcium 9.7 mg/dL (8.4-10.2); Carbon Dioxide 32 mmol/L (22-29); Chloride 104 mmol/L (96-108); Creatinine Clr Calc Pharmacy 48.1; Estimated Glomerular Filt Rate > 60; Glucose Random 141 mg/dL (60-115); Potassium 4.7 mmol/L (3.3-5.1); Sodium 142 mmol/L (135-145); Total Protein 6.3 g/dL (6.5-8.0)
[2023-02-08 10:22] LABS: IDNOW Serial# 6674DD1D
[2023-02-08 10:23] LABS: COVID-19 Test Negative (Negative); Troponin-I High Sensitivity 11.8 ng/L (<3.5-17.0)
[2023-02-08 10:47] VITALS: BP 155/63; PULSE 74; RESP 16; O2SAT 96
--- NOTE | 2023-02-08 11:05 | PC.NURSE ---
pt ambulatory to the bathroom with supervision , she does not state any dizziness, was able to provide a urine spec which was sent to the lab
[2023-02-08 11:11] LABS: Appearance Urine Clear; Color Urine Yellow; Glucose Urine UA Negative (Negative); Leukocyte Esterase Urine Trace (Negative); Nitrite Urine Negative (Negative); PH 7.5 (5.0-9.0); Specific Gravity - Urine <= 1.005 (1.005-1.025); UMIC TRIGGER UACC YES; Urine Blood Negative (Negative); Urine Ketones Negative (Negative); Urine Protein Negative (Neg-Trace)
[2023-02-08 11:14] LABS: Bacteria Urine None Seen (None Seen); Hyaline Casts Urine 0-2 /LPF (0-2); RBC Urine 0-2 /HPF (0-2); Squamous Epithelial Cell Urine 0-2 /HPF (0-2); WBC Urine 0-5 /HPF (0-5)
--- NOTE | 2023-02-08 12:04 | MHC.CM.ED ---
Received notification from Lola in registration that patient interested in completing a health care proxy. HCP completed, signed and witnessed. Original given to patient. Copy placed with chart. Continue to monitor for d/c needs.
[2023-02-08 12:44] LABS: Troponin-I High Sensitivity 10.6 ng/L (<3.5-17.0)
--- NOTE | 2023-02-08 12:53 | PC.NURSE ---
PT WITHOUT COMPLAINTS OR OUTWARD DISTRESS. REPEAT TROP WAS NEAGATIVE. AWAITING DISPOSITION
[2023-02-08 13:15] VITALS: BP 141/75; PULSE 78; RESP 18; TEMP 36.8; O2SAT 98
== END 2023-02-08 13:23 | disposition home or self-care (01) ==
PROVIDERS: Physician Assistant Medical; Emergency Provider Emergency Medicine; PCP Internal Medicine
DX: R42 Dizziness and giddiness (principal); R94.31 Abnormal electrocardiogram [ECG] [EKG]; Z20.822 Contact with and (suspected) exposure to COVID-19; Z20.828 Contact with and (suspected) exposure to other viral communicable diseases; Z79.899 Other long term (current) drug therapy
CPT/HCPCS: 36415; 71046; 80053; 81001; 83735; 84484; 85025; 87635; 93005; 99284; 99285

== ENCOUNTER 2023-02-18 12:38 | Day surgery (SDC) | payer MEDICARE, OTHER, SELFPAY ==
[2023-02-13 11:24] VITALS: BMI 36.5
--- NOTE | 2023-02-16 10:27 | P.CONAN_ITS ---
Consult details HPI - Anesthesia Eval Consult details Narrative: 78yo F for Upper Endoscopy Per PCP, LBBB on EKG from 01/2023 ED visit is chronic s/p [place] 11/2022 with MAC PMFSH Active Problems
--- NOTE | 2023-02-16 10:27 | HO.ANESPROP2 ---
Documented by User: Yareli Ferrera NP 02/16/23 10:31 HPI - Anesthesia Eval Consult details Narrative: 78yo F for Upper Endoscopy Per PCP, LBBB on EKG from 01/2023 ED visit is chronic s/p [place] 11/2022 with MAC PMFSH Active Problems Active Problems: All Active Problems (Updated 02/09/23 @ 00:01 by Background Daemon) Dysphagia (Acute) GERD (gastroesophageal reflux disease) (Acute) Anemia (Acute) Scoliosis (Acute) CYNTHIA (obstructive sleep apnea) (Acute) Obesity (Acute) Cough (Acute) Past Medical History Medical History (Updated 02/09/23 @ 00:01 by Background Daemon) Anemia Back pain Blind right eye CHF (congestive heart failure) Cough Diabetes GERD (gastroesophageal reflux disease) Heart murmur after rheumatic heart disease HX: breast cancer Hypertension Lymphedema of left arm Obesity CYNTHIA (obstructive sleep apnea) Scoliosis Trigeminal neuralgia of right side of face Family History Family History Father History of heart attack Mother History of leukemia History of hypertension Family history of problems with anesthesia: No Surgical History Surgical History (Updated 02/13/23 @ 11:15 by Marianne Meadows RN) H/O left mastectomy History of bladder suspension procedure History of colonoscopy History of left inguinal hernia repair History of lymph node dissection of left axilla History of open reduction and internal fixation (ORIF) procedure History of partial hysterectomy History of tonsillectomy and adenoidectomy History of ventral hernia repair Hx of esophagogastroduodenoscopy Hx of wisdom tooth extraction History of Problems with Anesthesia: No Social History Social History Are you a primary healthcare market consultant to a significant other at home: No Do you presently have visiting nurse or other home services: No Alcohol intake: never Patient Tobacco Use Status: Never used Tobacco Are you DNR?: No Advance Directives: Yes Advance Directives Information Provided: Yes Advance Directives on File: Yes Advance Directives Date on File: 02/08/23 Nutrition Risks: Surgical patient >75years Meds Allergies Allergy/AdvReac Type Severity Reaction Status Date / Time gabapentin [From Neurontin] Allergy Intermediate JOINTS Verified 12/12/22 09:40 SWELL famotidine AdvReac Mild Dizziness Verified 02/13/23 11:29 oranges Allergy Mild cold sores Uncoded 02/13/23 11:29 Home Medications Medication Instructions Recorded Confirmed Last Taken Type anastrozole 1 mg tablet 1 mg PO DAILY 07/30/20 02/13/23 Unknown History atorvastatin 10 mg tablet 10 mg PO BEDTIME 07/30/20 02/13/23 Unknown History latanoprost 0.005 % eye drops 1 drp ophthalmic-Right QPM 07/30/20 02/13/23 Unknown History lorazepam 0.5 mg tablet 0.5 mg PO TID PRN Anxiety 07/30/20 02/13/23 12/02/22 History dorzolamide 22.3 mg-timolol 6.8 1 drp ophthalmic (eye) BID 10/29/20 02/13/23 Unknown History mg/mL eye drops famotidine 40 mg tablet 40 mg PO BEDTIME 10/29/20 02/13/23 Unknown History hydrochlorothiazide 12.5 mg capsule 12.5 mg PO DAILY 10/29/20 02/13/23 Unknown History glipizide 2.5 mg tablet, extended 1.25 mg PO QAM 12/04/20 02/13/23 Unknown History release 24 hr Exam Exam Date and Time: February 16, 2023 1027 Height,Weight and Vital Signs: Height 5 ft Weight 84.822 kg Pertinent Lab Results Pertinent Lab Results: Laboratory Tests 02/08/23 02/08/23 09:56 09:56 WBC 6.5 Hgb 11.6 L Hct 40.0 Plt Count 153 L Sodium 142 Potassium 4.7 Chloride 104 Carbon Dioxide 32 H BUN 12 Creatinine 0.89 Narrative Narrative: EKG 01/2023 Vent. Rate : 074 BPM ? ? Atrial Rate : 074 BPM ?? P-R Int : 172 ms? QRS Dur : 132 ms ? ? QT Int : 418 ms ? ? ? P-R-T Axes : -11 -32 082 degrees ?? QTc Int : 463 ms ? Normal sinus rhythm Left axis deviation Left bundle branch block Abnormal ECG When compared with ECG of 16-OCT-2020 00:56, Left bundle branch block is now Present Assessment and Plan Assessment Anesthesia Assessment: Chart Reviewed Final Anesthetic Review Family History of Problems with Anesthesia: No History of Problems with Anesthesia: No Documented by User: Slade Pedroza MD 02/18/23 12:45 PMF Past Medical History Medical History (Updated 02/09/23 @ 00:01 by Pasquale Simon) Anemia Back pain Blind right eye CHF (congestive heart failure) Cough Diabetes GERD (gastroesophageal reflux disease) Heart murmur after rheumatic heart disease HX: breast cancer Hypertension Lymphedema of left arm Obesity CYNTHIA (obstructive sleep apnea) Scoliosis Trigeminal neuralgia of right side of face Family History Family History Father History of heart attack Mother History of leukemia History of hypertension Surgical History Surgical History (Updated 02/13/23 @ 11:15 by Marianne Meadows RN) H/O left mastectomy History of bladder suspension procedure History of colonoscopy History of left inguinal hernia repair History of lymph node dissection of left axilla History of open reduction and internal fixation (ORIF) procedure History of partial hysterectomy History of tonsillectomy and adenoidectomy History of ventral hernia repair Hx of esophagogastroduodenoscopy Hx of wisdom tooth extraction Social History Social History Are you a primary healthcare market consultant to a significant other at home: No Do you presently have visiting nurse or other home services: No Alcohol intake: never Patient Tobacco Use Status: Never used Tobacco Are you DNR?: No Advance Directives: Yes Advance Directives Information Provided: Yes Advance Directives on File: Yes Advance Directives Date on File: 02/08/23 Nutrition Risks: Surgical patient >75years Meds Allergies Allergy/AdvReac Type Severity Reaction Status Date / Time gabapentin [From Neurontin] Allergy Intermediate JOINTS Verified 12/12/22 09:40 SWELL famotidine AdvReac Mild Dizziness Verified 02/13/23 11:29 oranges Allergy Mild cold sores Uncoded 02/13/23 11:29 Home Medications Medication Instructions Recorded Confirmed Last Taken Type anastrozole 1 mg tablet 1 mg PO DAILY 07/30/20 02/13/23 Unknown History atorvastatin 10 mg tablet 10 mg PO BEDTIME 07/30/20 02/13/23 Unknown History latanoprost 0.005 % eye drops 1 drp ophthalmic-Right QPM 07/30/20 02/13/23 Unknown History lorazepam 0.5 mg tablet 0.5 mg PO TID PRN Anxiety 07/30/20 02/13/23 12/02/22 History dorzolamide 22.3 mg-timolol 6.8 1 drp ophthalmic (eye) BID 10/29/20 02/13/23 Unknown History mg/mL eye drops famotidine 40 mg tablet 40 mg PO BEDTIME 10/29/20 02/13/23 Unknown History hydrochlorothiazide 12.5 mg capsule 12.5 mg PO DAILY 10/29/20 02/13/23 Unknown History glipizide 2.5 mg tablet, extended 1.25 mg PO QAM 12/04/20 02/13/23 Unknown History release 24 hr Exam Airway Mallampati Class: II TM Dist: >3cm Neck ROM: Limited Heart: rrr Lungs: cta Assessment and Plan Final Anesthetic Review NPO: Yes ASA Class: III Final Preanesthetic Review: No Changes in Pt Med Stat, Meds/Allgs Chart Reviewed, Consent Obtained/Reviewed and Anes Risks/Benef Reviewed Patient Risk: Intermediate Procedure Risk: Intermediate Anesthetic Plan Anesthetic Plan: MAC: and Agree w/ Assess. and Plan Disposition: Standard PACU
[2023-02-18] VITALS (8 sets, daily range): BP systolic 97–160; BP diastolic 46–86; PULSE 68–90; RESP 16–20; TEMP 36.1–36.7; O2SAT 94–98; BMI 35.7
--- NOTE | 2023-02-18 13:36 | MHC.SHP ---
Pre-Procedural Eval Section A Date of Service: 02/18/23 Section B Chief Complaint: Dysphagia, unspecified Relevant Family History (Specify if Yes): No Relevant Social History: None Present Medications: see Short Stay Collaborative assessment Medical History: Significant History (Anemia Back pain Blind right eye CHF (congestive heart failure) Cough Diabetes GERD (gastroesophageal reflux disease) Heart murmur after rheumatic heart disease HX: breast cancer Hypertension Lymphedema of left arm Obesity CYNTHIA (obstructive sleep apnea) Scoliosis Trigeminal neuralgia of right side of) History of Previous Operations: Relevant previous surgery/procedure and date(s) (H/O left mastectomy History of bladder suspension procedure History of colonoscopy History of left inguinal hernia repair History of lymph node dissection of left axilla History of open reduction and internal fixation (ORIF) procedure History of partial hysterectomy History of tonsillectomy and marquis) Allergies: Allergies Allergy/AdvReac Type Severity Reaction Status Date / Time gabapentin [From Neurontin] Allergy Intermediate JOINTS Verified 12/12/22 09:40 SWELL famotidine AdvReac Mild Dizziness Verified 02/13/23 11:29 oranges Allergy Mild cold sores Uncoded 02/13/23 11:29 Review of Systems Sugical H&P ROS: Negative: Constitution, Cardiovascular, Respiratory, Neurological, Psychiatric, Hem-Onc, Allergic/Immunologic, Gastrointestinal, Genitourinary, Musculoskeletal, Integumentary, Endocrine and Eyes/Ears/Nose/Throat Exam Surgical H&P Exam: Normal: HEENT, Normal: Heart, Normal: Lungs, Normal: Extremities, Normal: Abdomen, Normal: Skin and Normal: Neurological Plan Diagnosis/Plan: Unchanged I have reviewed the history and physical and performed a pertinent physical examination on my patient. No changes have occurred unless specified. Time Spent With Patient Time: Total time managing care of this patient today ____ minutes.
--- NOTE | 2023-02-18 13:37 | W.PM.OPN ---
Operative Note Operative Note Date of Service: 02/18/23 Narrative: Procedure Description: EGD Indication: dysphagia Anesthesia: MAC FLEXIBLE TRANSORAL UPPER GASTROINTESTINAL ENDOSCOPY UPPER ENDOSCOPY Consent: Indications for the procedure and potential complications of bleeding, perforation, reaction to medications and missed diagnosis were discussed with the patient and informed consent was obtained. Instrument: Olympus GIF H 190 J mid size upper endoscope Monitoring: Vital signs and clinical assessment, continuous EKG monitoring, Pulse oximetry, Carbon Dioxide monitoring and blood pressure monitoring were done throughout the procedure. Procedure: The patient was placed in the left lateral decubitis position and pre-procedure medications were administered and a bite block was placed. The endoscope was inserted into the mouth and advanced under direct vision to the third part of duodenum. A careful inspection was made as the upper endoscope was withdrawn including a retroflexed examination of the proximal stomach; Findings and interventions are described below. Larynx: normal Esophagus: GE junction at 38 cm. No esophagitis or Bhatt?s. Sigmoid shaped lower esophagus with tight GEJ but able to pass scope. Balloon dilation performed with 18 mm then 19 mm balloon with good result, heme and tear noted, no perforation. The UES was then dilated to 18 mm without any tear seen Stomach:? Normal mucosa, [place] fundoplication noted on retroflexion with some fundic gland polyps Duodenum: Normal bulb and descending duodenum Intervention: balloon dilation Impression and Post Procedure Diagnosis: esophageal stricture Endoscopy Findings: sigmoid shaped esophagus, stricture Plan: cont with PPI repeat EGD in 1 year or earlier depending on symptoms soft diet today and advance tomorrow
== END 2023-02-18 15:46 | disposition home or self-care (01) ==
PROVIDERS: PCP Internal Medicine; Visit Provider Internal Medicine Gastroenterology
PROC: 0DJ08ZZ Inspection of Upper Intestinal Tract, Via Natural or Artificial Opening Endoscopic (ICD-10-PCS; CPT 43235; principal; 2023-02-18 14:30)
DX: R13.10 Dysphagia, unspecified (principal); K22.2 Esophageal obstruction; K31.7 Polyp of stomach and duodenum; K21.9 Gastro-esophageal reflux disease without esophagitis; I11.0 Hypertensive heart disease with heart failure; I50.9 Heart failure, unspecified; D64.9 Anemia, unspecified; G47.33 Obstructive sleep apnea (adult) (pediatric); G50.0 Trigeminal neuralgia; E11.9 Type 2 diabetes mellitus without complications; Z85.3 Personal history of malignant neoplasm of breast; Z90.13 Acquired absence of bilateral breasts and nipples; E66.9 Obesity, unspecified; Z68.36 Body mass index [BMI] 36.0-36.9, adult; Z79.84 Long term (current) use of oral hypoglycemic drugs; Z79.899 Other long term (current) drug therapy; Z88.8 Allergy status to other drugs, medicaments and biological substances; Z98.890 Other specified postprocedural states
CPT/HCPCS: 43249; 82947; C1726; J2250

== ENCOUNTER 2023-03-23 09:57 | Outpatient (AMB) | payer MEDICARE, OTHER, SELFPAY ==
[2023-03-23 10:05] VITALS: BP 132/60; PULSE 68; O2SAT 96; BMI 35.3
--- NOTE | 2023-03-23 10:05 | MHC.OFFVIS ---
Intake Vital Signs 03/23/23 10:05 Height 5 ft Weight 181 lb BMI 35.3 BP 132/60 Blood Pressure Location Lt brachial Position Sitting Pulse 68 Pulse Source Pulse Oximeter Pulse Oximetry (%) 96 Oxygen Delivery Method Room Air Intake Visit Reasons: Pulmonary Htn Intake Note: pt is here for reestablished for possible dx of pulm htn. She feels good. 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 Allergies gabapentin [From Neurontin] Allergy (Intermediate, Verified 03/23/23 10:15) JOINTS SWELL famotidine Adverse Reaction (Mild, Verified 03/23/23 10:15) Dizziness oranges Allergy (Mild, Uncoded 03/23/23 10:15) cold sores Medication List - Last Reconciled 03/23/23 by Ariel Payne MD anastrozole 1 mg PO DAILY atorvastatin 10 mg PO BEDTIME dorzolamide-timolol 22.3-6.8 mg/mL 1 drp ophthalmic (eye) BID famotidine 40 mg PO BEDTIME glipizide ER 1.25 mg PO QAM hydrochlorothiazide 12.5 mg PO DAILY latanoprost 0.005% 1 drp ophthalmic-Right QPM lorazepam 0.5 mg PO TID PRN pantoprazole 40 mg PO BID Do you need a note to return to daycare/school/sports/work: No HPI Pulmonary Htn HPI Details 78 YEARS OLD VERY PLEASANT FEMALE RETURNS AFTER 2 YEARS TO BE CHECKED FOR PULMONARY STATUS. WHEN SHE WAS LAST SEEN IN 2020, SHE HAD A MILD RESTRICTIVE PULMONARY PATTERN, DUE TO BEING OVERWEIGHT AND ALSO DUE TO MILD SCOLIOSIS. SHE HAD COUGH MOSTLY RELATED TO GERD AND AFTER TREATMENT OF GERD AND PROPPING UP HER HAD AT NIGHT, THE COUGH HAD GONE COMPLETELY. SHE IS A NONSMOKER. BECAUSE OF HER BEING OVERWEIGHT THE QUESTION OF SLEEP APNEA WAS CONSIDERED, BUT SHE DENIED SYMPTOMS OF SLEEP APNEA. AFTER RESOLUTION OF THE COUGH , AND SLEEPING ON THE SIDE WITH HAD PROPPED UP , HER SNORING HAD ALSO RESOLVED. SHE HAS HAD NO ACUTE. RESPIRATORY PROBLEM IN THE LAST 2 YEARS SHE WENT TO THE EMERGENCY ROOM AND A CT SCAN OF THE CHEST WAS DONE, IN JANUARY OF THIS YEAR , WHICH SHOWED MINIMAL BASILAR ATELECTASIS IN THE RIGHT BASE. AND SOMEWHAT DILATED PULMONARY ARTERIES, RAISING QUESTION OF PULMONARY HYPERTENSION. SHE HAD AN ECHOCARDIOGRAM IN 2020 AND THERE WAS NO SIGN PULMONARY HYPERTENSION PER THAT ECHOCARDIOGRAM. SHE DOES HAVE MILD SHORTNESS OF BREATH WHEN SHE WALKS, HOWEVER AT HER AGE AND WITH MODERATE OBESITY, HER WALKING IS SLOW ANYWAY. TODAY SHE DENIES. ANY COUGH WHEEZING OR EXPECTORATION [facility] Medical History (Updated 03/23/23 @ 10:46 by Ariel Payne MD) Anemia Back pain Blind right eye CHF (congestive heart failure) Cough Diabetes GERD (gastroesophageal reflux disease) Heart murmur after rheumatic heart disease HX: breast cancer Hypertension Lymphedema of left arm Obesity CYNTHIA (obstructive sleep apnea) Pulmonary hypertension Restrictive lung disease Scoliosis Trigeminal neuralgia of right side of face Surgical History H/O left mastectomy History of bladder suspension procedure History of colonoscopy History of left inguinal hernia repair History of lymph node dissection of left axilla History of open reduction and internal fixation (ORIF) procedure History of partial hysterectomy History of tonsillectomy and adenoidectomy History of ventral hernia repair Hx of esophagogastroduodenoscopy Hx of wisdom tooth extraction Family History Father History of heart attack Mother History of leukemia History of hypertension Social History Are you a primary care transport nurse to a significant other at home: No Do you presently have visiting nurse or other home services: No Alcohol intake: never Patient Tobacco Use Status: Never used Tobacco Advance Directives Date on File: 02/08/23 Review of Systems Const All systems reviewed & are unremarkable except as noted in HPI and below ENT Denies nasal discharge, Denies nasal obstruction and Denies post nasal drip Card Denies chest pain and Reports dyspnea on exertion (mild ) Resp Reports cough (mild , much less than before ) and Reports dyspnea on exertion (mild ) GI Reports heartburn (now under control. ) Musc Reports no additional complaints Neuro Reports no additional complaints Psych Reports no additional complaints Physical Exam Const General: healthy appearing (except for being over weight .), comfortable, no acute distress, alert and awake Orientation/consciousness: patient oriented x3 HEENT Head: Yes normal to inspection General nose exam: No nasal polyps present and No nasal discharge present Face and sinus: Yes sinuses nontender Mouth: oropharynx normal Throat: Yes posterior oropharynx normal Eyes General: appearance normal, both eyes and all related structures Neck Neck: Yes normal visual inspection, Yes no lymphadenopathy, Yes trachea midline and Yes no JVD Thyroid: Thyroid normal Chest Chest palpation & inspection: normal inspection of the chest, normal palpation of entire chest wall and no tenderness Resp Auscultation: clear to auscultation bilaterally, no crackles, no wheezes and diminished lung sounds (slightly diminished over the bases .) Cardio Palpation: normal PMI Rate: regular rate Rhythm: regular rhythm Heart sounds: no gallops and no murmurs Peripheral pulses: Peripheral pulses 2+ throughout GI Inspection: Yes other (abdome is moderately obese and protuberant . ) Palpation (GI): Soft to palpation, nontender, No hepatosplenomegaly present and no masses Auscultation: normal bowel sounds Back/Spine/Pelvis Thoracic/Lumbar Spine: thoracic and lumbar spine normal to inspection and Thoracic/lumbar scoliosis (MILD SCOLIOSIS OF THE THORACO LUMBAR SPINE) Skin General skin exam: no rashes or lesions noted Neuro General: patient oriented x3 and no focal motor deficits Cranial nerves: Yes CN's II-XII intact bilaterally Extrem General: Yes normal to inspection, Yes no clubbing, cyanosis or edema, Yes no calf tenderness and No venous stasis dermatitis Psych Appearance: grossly normal Speech and movement: Normal speech and movement present Results Reviewed Results Reviewed: CT scan of the chest 01/30 Mild bronchial wall thickening and atelectasis in the left lower lobe. Subsegmental atelectasis in the right lower lobe adjacent to the spine. Stable small lingular pulmonary nodule from 2020. Atherosclerotic disease. Coronary artery and aortic valve calcification. Enlarged pulmonary arteries questionable for pulmonary artery hypertension. Walk the patient in the hallway for 4 minutes, O2 sat at rest 95% and O2 sat after walking 93%, ( normal response ) patient was not very dyspneic. ? Assessment & Plan Assessment & Plan (1) Scoliosis: Comment: SHE DOES HAVE MILD SCOLIOSIS OF THE SPINE , AND IT MAY BE CONTRIBUTING TO HER RESTRICTIVE LUNG DISORDER . EXPLAINED TO HER . Code(s): M41.9 - Scoliosis, unspecified (2) Obesity: Comment: SHE HAS BEEN GROSSLY OVERWEIGHT, BUT OVER THE PAST FEW YEARS THE WEIGHT HAS BEEN STABLE. PATIENT HAS SOME DEGREE OF RESTRICTIVE PULMONARY DISEASE SECONDARY TO GROSS OBESITY. PULM . FUNCTION TEST ON HER LAST VISIT DID CONFIRM THAT SHE HAS MILD RESTRICTIVE DISORDER . TX : ADVISED TO LOOSE WEIGHT IF POSSIBLE DEEP BREATHING EXERCISES, INCENTIVE SPIROMETRY DEVICE GIVEN FROM THE OFFICE.ISED TO DO DEEP BREATHING EXERCISES 3 TIMES A DAY REGULARLY. Code(s): E66.9 - Obesity, unspecified (3) Restrictive lung disease: Comment: NOTED ABOVE SHE HAS MILD RESTRICTIVE DISORDER SECONDARY TO OBESITY AND SCOLIOSIS. ADVISED TO LOSE. WEIGHT AND DO DEEP BREATHING EXERCISES Code(s): J98.4 - Other disorders of lung (4) Pulmonary hypertension: Comment: CLINICALLY I DO NOT THINK SHE HAS ANY SIGNIFICANT DEGREE OF PULMONARY HYPERTENSION. PATIENT WILL BE MONITORED ON AN ANNUAL BASIS. Code(s): I27.20 - Pulmonary hypertension, unspecified Coding Level of Care Code Est Pt Level 4 (11607) Diagnoses Scoliosis M41.9 Obesity E66.9 Restrictive lung disease J98.4 Pulmonary hypertension I27.20
== END 2023-03-23 10:43 | disposition home or self-care (01) ==
PROVIDERS: PCP Internal Medicine; Visit Provider Internal Medicine
DX: M41.9 Scoliosis, unspecified (principal); E66.9 Obesity, unspecified; J98.4 Other disorders of lung; I27.20 Pulmonary hypertension, unspecified
CPT/HCPCS: 99214

== ENCOUNTER → 2023-03-23 09:57 | Outpatient (BNVA) | payer MEDICARE, OTHER, SELFPAY | PROVIDERS: PCP Internal Medicine; Visit Provider Internal Medicine | DX: J98.4 Other disorders of lung (principal); I27.20 Pulmonary hypertension, unspecified; G47.33 Obstructive sleep apnea (adult) (pediatric); M41.9 Scoliosis, unspecified; E66.9 Obesity, unspecified; Z68.35 Body mass index [BMI] 35.0-35.9, adult; Z79.84 Long term (current) use of oral hypoglycemic drugs; Z79.899 Other long term (current) drug therapy | CPT/HCPCS: 99212 ==

== ENCOUNTER 2023-04-13 11:57 | Outpatient (AMB) | payer MEDICARE, OTHER, SELFPAY ==
--- NOTE | 2023-04-13 12:03 | A.OFFVIS_ITS ---
Intake Vital Signs 04/13/23 12:04 Height 5 ft Weight 180 lb BMI 35.2 BP 132/60 Blood Pressure Location Lt brachial Position Sitting Pulse 70 Intake Visit Reasons: s/p EGD; Dr. 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 Campbell HPI Details 78 yr old f here for f/u RECAP ? she intially presented with resp symptoms for 2-3 weeks 11/2018 ? w c/o persistent dry cough, along with poor appetite, and weight gain as well as ankle swelling. she had interventions as below ? she was using wedge pillow at night she felt the coughing had gone away since the procedures below she saw pulm and found to have restrictive lung disease PCP was worried re: dilated and tortuous esophagus on chest imaging she had repeat EGD with Dr Hough 06/07 and had redilation to 20 mm balloon, also colonoscopy with large polyp removed in AC, SSA I did repeat colonoscopy 12/02/22: no residual or recurrent polyp material seen, path neg as well, diverticulosis was noted, more severe left side she had repeat EGD with dilation at [facility] and LES< TESTS: she had CTA to r/o PE which was negative but did reveal abn thickened proxiaml esophagus. ? she had an EGD which revealed sigmoid shaped esophagus, wrap didn;t seem so tight ? had ba swallow, times with retention of barium, 70& still at 5 mins, then had repeat EGD with dilation 15-18 mm with heme and tear noted, improvement in timed ba swallow ? further EGD 11/2018 w/ 18-19 mm dilation with tear and heme noted ? EGD 03/2019- stricture noted and dilated 18-19 mm CRE with tear noted EGD 10/2019-- Balloon dilation performed with 19 mm balloon with good result, heme and tear noted, no perforation. EGD 07/2020: Balloon dilation performed with 18 mm then 19 mm balloon with good result, heme and tear noted, Ct scan with fluid filled and dilated esophagus 10/2020- ? INTERIM: she has not had any issue with coughing or swallowing she had a prolonged recovery this time from EGD appetite is good no constipation no diarrhea no rectal bleeding still taking pantoprazole BID, she has a dry throat at times EXAM: GENERAL: The patient is well developed and nontoxic. VITAL SIGNS:see workflow HEENT: Nonicteric sclerae, PERRLA, EOMI. Oropharynx clear. Moist mucous membranes. Conjunctivae appear well perfused. No thyroid mass. CHEST: Chest wall is nontender. HEART: Regular rate and rhythm with mild systolic murmur at left sternal edge LUNGS: Clear to auscultation but reduced BS, mild wheeze. ABDOMEN: Soft, positive bowel sounds, nontender, no organomegaly.no flank tenderness SKIN: No rash, no excessive bruising, petechiae, or purpura. NEUROLOGIC: Cranial nerves II-XII intact without motor/sensory deficit. no ankle edema ? Assessment & Plan 1/ dysphagia and regurgitation 2/2 to prior surgical wrap, needing dilation periodically, 2/ Colon polyps in past, recent repeat colo was neg PLAN: 1/ cont with PPI BID--periodic iron, b12, mag vit d levels 2/ EGD with dilation in 1 yr or earlier if needed 3/ can try saliva lozenges or sprays [facility] Medical History (Updated 03/23/23 @ 10:46 by Ariel Payne MD) Anemia Back pain Blind right eye CHF (congestive heart failure) Cough Diabetes GERD (gastroesophageal reflux disease) Heart murmur after rheumatic heart disease HX: breast cancer Hypertension Lymphedema of left arm Obesity CYNTHIA (obstructive sleep apnea) Pulmonary hypertension Restrictive lung disease Scoliosis Trigeminal neuralgia of right side of face Surgical History H/O left mastectomy History of bladder suspension procedure History of colonoscopy History of left inguinal hernia repair History of lymph node dissection of left axilla History of open reduction and internal fixation (ORIF) procedure History of partial hysterectomy History of tonsillectomy and adenoidectomy History of ventral hernia repair Hx of esophagogastroduodenoscopy Hx of wisdom tooth extraction Family History Father History of heart attack Mother History of leukemia History of hypertension Social History Are you a primary career based intervention coordinator to a significant other at home: No Do you presently have visiting nurse or other home services: No Alcohol intake: never Patient Tobacco Use Status: Never used Tobacco Advance Directives Date on File: 02/08/23 Physical Exam Vital Signs: Last Vital Signs Pulse 70 04/13/23 12:04 BP 132/60 04/13/23 12:04 BMI result Body Mass Index 35.2 Assessment & Plan Assessment & Plan (1) Dysphagia: Code(s): R13.10 - Dysphagia, unspecified Coding Level of Care Code Est Pt Level 3 (84908) Diagnoses Dysphagia R13.10
[2023-04-13 12:04] VITALS: BP 132/60; PULSE 70; BMI 35.2
== END 2023-04-13 12:41 | disposition home or self-care (01) ==
PROVIDERS: PCP Internal Medicine; Visit Provider Internal Medicine Gastroenterology
DX: R13.10 Dysphagia, unspecified (principal)
CPT/HCPCS: 99213

== ENCOUNTER → 2023-04-13 11:57 | Outpatient (BNVA) | payer MEDICARE, OTHER, SELFPAY | PROVIDERS: PCP Internal Medicine; Visit Provider Internal Medicine Gastroenterology | DX: R13.10 Dysphagia, unspecified (principal); K21.9 Gastro-esophageal reflux disease without esophagitis; E66.9 Obesity, unspecified; Z68.35 Body mass index [BMI] 35.0-35.9, adult; Z86.010 Personal history of colon polyps; Z98.890 Other specified postprocedural states | CPT/HCPCS: 99212 ==

== ENCOUNTER 2023-06-04 11:13 | Outpatient (REF) | payer MEDICARE, OTHER, SELFPAY ==
--- NOTE | ~2023-06-04 | XR_ITS ---
EXAMINATION: XR SHOULDER, RIGHT CLINICAL INFORMATION: Right shoulder pain. COMPARISON: Chest radiograph 02/08/2023. TECHNIQUE: Four views of the right shoulder. FINDINGS: No acute fracture or subluxation. 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 No abnormal soft tissue calcifications. No osseous erosions. Visualized right-sided ribs and right lung are within normal limits. XR/XR shoulder RT min 2V IMPRESSION: 1. No acute fracture or subluxation. 2. 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
[2023-06-04 13:11] LABS: MANUAL DIFF FLAG NO
[2023-06-04 13:39] LABS: Basophils Percent Auto 0.3 % (0-2); Eosinophils Absolute Auto 0.2 X10*3/uL (0.0-0.4); Eosinophils Percent Auto 2.8 % (0-4); Hematocrit 40.4 % (37.0-47.0); Hemoglobin 11.6 g/dl (12.0-16.0); Imm Gran Abs Auto 0.02 X10*3/uL (0.00-0.03); Imm Gran Pct Auto 0.3 % (0.0-0.4); Lymphocytes Absolute Auto 0.9 X10*3/uL (1.2-4.9); Lymphocytes Percent Auto 14.6 % (20-40); Mean Corpuscular HGB Conc 28.7 g/dl (31.0-35.0); Mean Corpuscular Volume 80.2 fL (80.0-98.0); Mean Platelet Volume 10.2 fL (9.4-12.3); Monocytes Absolute Auto 0.6 X10*3/uL (0.1-1.2); Monocytes Percent Auto 9.8 % (2-11); Neutrophils Absolute Auto 4.4 x10*3/uL (2.0-8.3); Neutrophils Percent Auto 72.2 % (45-73); Platelet Count 206 X10*3/uL (160-400); Red Blood Count 5.04 X10*6/uL (4.20-5.50); Red Cell Distribution Width 18.5 % (11.0-16.0); White Blood Count 6.1 X10*3/uL (4.8-10.8)
[2023-06-04 14:24] LABS: Alanine Aminotransferase 13 U/L (0-31); Alkaline Phosphatase 80 U/L (39-117); Anion Gap 12 (12-20); Aspartate Amino Transferase 20 U/L (5-31); Bilirubin Total 0.4 mg/dL (0.0-1.0); Blood Urea Nitrogen 16 mg/dL (9-16); Calcium 9.8 mg/dL (8.4-10.2); Carbon Dioxide 32 mmol/L (22-29); Chloride 101 mmol/L (96-108); Estimated Glomerular Filt Rate 59; Glucose Random 106 mg/dL (60-115); Iron 40 mcg/dL (30-160); Percent Iron Saturation 11 % (15-50); Potassium 4.4 mmol/L (3.3-5.1); Sodium 141 mmol/L (135-145); Total Iron Binding Capacity 355 mcg/dL (228-428); Total Protein 6.7 g/dL (6.5-8.0); Unsaturated Iron Binding 315 ug/dL
[2023-06-04 14:35] LABS: Estimated Average Glucose 134 mg/dL; Hemoglobin A1c % 6.3 % (<6.0)
== END 2023-06-04 11:14 | disposition home or self-care (01) ==
LOC: HO.10HDL 11:13
PROVIDERS: PCP Internal Medicine; Visit Provider Internal Medicine
DX: M25.511 Pain in right shoulder (principal); D64.9 Anemia, unspecified; E11.9 Type 2 diabetes mellitus without complications; I10 Essential (primary) hypertension
CPT/HCPCS: 36415; 73030; 80053; 83036; 83540; 85025

== ENCOUNTER 2023-09-11 09:40 | Outpatient (REF) | payer MEDICARE, OTHER, SELFPAY ==
[2023-09-11 10:53] LABS: MANUAL DIFF FLAG NO
[2023-09-11 11:06] LABS: Basophils Percent Auto 0.6 % (0-2); Eosinophils Absolute Auto 0.2 X10*3/uL (0.0-0.4); Eosinophils Percent Auto 3.3 % (0-4); Hematocrit 38.8 % (37.0-47.0); Hemoglobin 11.2 g/dl (12.0-16.0); Imm Gran Abs Auto 0.02 X10*3/uL (0.00-0.03); Imm Gran Pct Auto 0.4 % (0.0-0.4); Lymphocytes Absolute Auto 0.8 X10*3/uL (1.2-4.9); Lymphocytes Percent Auto 14.9 % (20-40); Mean Corpuscular HGB Conc 28.9 g/dl (31.0-35.0); Mean Corpuscular Hemoglobin 23.1 pg (27.0-33.0); Mean Corpuscular Volume 80.2 fL (80.0-98.0); Mean Platelet Volume 9.1 fL (9.4-12.3); Monocytes Absolute Auto 0.6 X10*3/uL (0.1-1.2); Monocytes Percent Auto 10.5 % (2-11); Neutrophils Absolute Auto 3.7 x10*3/uL (2.0-8.3); Neutrophils Percent Auto 70.3 % (45-73); Platelet Count 146 X10*3/uL (160-400); Red Blood Count 4.84 X10*6/uL (4.20-5.50); Red Cell Distribution Width 18.6 % (11.0-16.0); White Blood Count 5.2 X10*3/uL (4.8-10.8)
[2023-09-11 11:12] LABS: Estimated Average Glucose 128 mg/dL; Hemoglobin A1c % 6.1 % (<6.0)
[2023-09-11 11:14] LABS: Anion Gap 12 (12-20); Blood Urea Nitrogen 17 mg/dL (9-16); Calcium 9.3 mg/dL (8.4-10.2); Carbon Dioxide 32 mmol/L (22-29); Chloride 106 mmol/L (96-108); Cholesterol 176 mg/dL (<200); Estimated Glomerular Filt Rate 51; Glucose Fasting 118 mg/dL (60-99); HDL Cholesterol 63 mg/dL (>40); LDL Cholesterol Calculated 98 mg/dL (<100); Sodium 146 mmol/L (135-145); Triglycerides 75 mg/dL (<150)
== END 2023-09-11 09:41 | disposition home or self-care (01) ==
LOC: HO.10HDL 09:40
PROVIDERS: Visit Provider Internal Medicine
DX: E11.9 Type 2 diabetes mellitus without complications (principal); I10 Essential (primary) hypertension; K21.9 Gastro-esophageal reflux disease without esophagitis; E78.00 Pure hypercholesterolemia, unspecified
CPT/HCPCS: 36415; 80048; 80061; 83036; 85025

== ENCOUNTER 2024-01-11 19:34 | Emergency (ER) | payer MEDICARE, OTHER, SELFPAY ==
[2024-01-11 20:14] VITALS: BP 174/75; PULSE 67; RESP 18; TEMP 36.6; O2SAT 96; BMI 31.5
--- NOTE | 2024-01-11 20:17 | ED.GENADULT ---
HPI - General Adult General Chief complaint: General Medical Stated complaint: Unable to eat Time Seen by Provider: 01/11/24 21:59 Source: patient and family Mode of arrival: ambulatory Limitations: no limitations History of Present Illness ED Provider: Camilla HPI narrative: Patient's history of anxiety on the lorazepam had shingles on the left side of the shoulder and the face complaining of multiple complaints including watery noticed increased anxiety unable to sleep history of same attacks in the past Related Data Home Medications ?Medication ?Instructions ?Recorded ?Confirmed anastrozole 1 mg tablet 1 mg PO DAILY 07/30/20 02/13/23 atorvastatin 10 mg tablet 10 mg PO BEDTIME 07/30/20 02/13/23 latanoprost 0.005 % eye drops 1 drp ophthalmic-Right QPM 07/30/20 02/13/23 lorazepam 0.5 mg tablet 0.5 mg PO TID PRN Anxiety 07/30/20 02/13/23 dorzolamide 22.3 mg-timolol 6.8 1 drp ophthalmic (eye) BID 10/29/20 02/13/23 mg/mL eye drops famotidine 40 mg tablet 40 mg PO BEDTIME 10/29/20 02/13/23 hydrochlorothiazide 12.5 mg capsule 12.5 mg PO DAILY 10/29/20 02/13/23 glipizide 2.5 mg tablet, extended 1.25 mg PO QAM 12/04/20 02/13/23 release 24 hr Previous Rx's ?Medication ?Instructions ?Recorded saliva substitute combo no.12 2 spray PO QID #720 mL 04/13/23 pantoprazole 40 mg tablet,delayed 40 mg PO BID #180 tabs 08/11/23 release Allergies Allergy/AdvReac Type Severity Reaction Status Date / Time gabapentin [From Neurontin] Allergy Intermediate JOINTS Verified 01/11/24 20:22 SWELL famotidine AdvReac Mild Dizziness Verified 01/11/24 20:22 oranges Allergy Mild cold sores Uncoded 03/23/23 10:15 Review of Systems Review of Systems: Yes all other systems are reviewed and are negative PMFSH Past Medical History Medical History Pulmonary hypertension Restrictive lung disease Diabetes Scoliosis CYNTHIA (obstructive sleep apnea) Obesity Cough HX: breast cancer Anemia Back pain Lymphedema of left arm GERD (gastroesophageal reflux disease) Blind right eye Trigeminal neuralgia of right side of face Hypertension CHF (congestive heart failure) Heart murmur after rheumatic heart disease Surgical History History of open reduction and internal fixation (ORIF) procedure History of ventral hernia repair History of left inguinal hernia repair History of bladder suspension procedure History of partial hysterectomy History of tonsillectomy and adenoidectomy Hx of esophagogastroduodenoscopy History of lymph node dissection of left axilla H/O left mastectomy Hx of wisdom tooth extraction History of colonoscopy Family History Family History Father History of heart attack Mother History of leukemia History of hypertension Social History Social History Are you a primary dog daycare provider to a significant other at home: No Do you presently have visiting nurse or other home services: No Alcohol intake: never Patient Tobacco Use Status: Never used Tobacco Smoked in Last 30 Days: No Use of substances other than those prescribed or required for medical reasons: No Advance Directives: Yes Advance Directives on File: Yes Advance Directives Date on File: 02/08/23 Do you have a plan to hurt others: No Plan Physical Exam ED Vital Signs: Vital Signs - 24 hr 01/11/24 20:14 01/11/24 21:49 01/11/24 22:28 Temperature 97.8 F Pulse Rate 67 72 68 Respiratory Rate 18 18 16 Blood Pressure 174/75 H 152/78 H Pulse Oximetry 96 96 96 Oxygen Delivery Method Room Air Room Air Room Air 01/12/24 00:12 Temperature 98.0 F Pulse Rate 73 Respiratory Rate 18 Blood Pressure 152/91 H Pulse Oximetry 95 Oxygen Delivery Method Room Air BMI result Body Mass Index 31.5 Appearance: Alert. Oriented X3. No acute distress. anxious Eyes: PERRLA, No Nystagmus ENT: Pharynx normal. Oral Mucosa moist Neck: Normal inspection. Neck supple. CVS: Normal heart rate and rhythm. Pulses normal. Respiratory: No respiratory distress. Equal air entry bilateral, no wheezing/rales/rhonchi Abdomen: Soft and nontender. Bowel sounds are present, no mass palpable, no CVA tenderness Skin: Skin warm and dry. Normal skin color. Normal skin turgor. Extremities: No lower extremity edema. No calf tenderness Neuro: Oriented X 3. No motor deficit. No sensory deficit.No cerebellar signs , cranial nerves II-XII intact Course Course Course Narrative: This is a rapid medical exam performed by Diane Washington NP: Additional HPI, ROS, PE not included below will be deferred to primary provider. Patient is an 78-year-old female with history of pulmonary hypertension, restrictive lung disease, DM, CYNTHIA, anemia, GERD, trigeminal neuralgia, CHF, HTN, has shingles in the end of November presenting to the ED stating she has not been able to eat or drink for several days. States that food tastes terrible and she can't force herself to eat it. Denies abdominal pain, nausea, vomiting, diarrhea. Feels lightheaded and dehydrated. Episodic neck pain due to postherpetic neuralgia. Plan:EKG, labs, UA, viral serology Medications Administered Discontinued Medications Generic Name Dose Route Start Last Admin Trade Name Kiley PRN Reason Stop Dose Admin Olanzapine 5 mg 01/11/24 22:10 01/11/24 22:26 Olanzapine 5 Mg Tablet PO 01/11/24 22:11 5 mg ONCE ONE Administration Medical Decision Making Medical Decision Making [facility] Narrative: Patient with anxiety/panic attack with stable labs responded to Zyprexa 5 mg patient already has lorazepam at home advised to continue same your showed WBCs with lot of squamous cell no bacteria Differential Diagnosis Differential Diagnoses: The differential diagnosis associated with the presentation includes Lab Data [facility] Lab Attestation statement: I reviewed the patient's lab results. 01/11/24 20:35 01/11/24 20:35 Labs: Lab Results 01/11/24 01/11/24 01/11/24 Range/Units 20:35 20:37 22:52 WBC 7.3 (4.8-10.8) X10*3/uL RBC 5.10 (4.20-5.50) X10*6/uL Hgb 12.1 (12.0-16.0) g/dl Hct 39.5 (37.0-47.0) % MCV 77.5 L (80.0-98.0) fL MCH 23.7 L (27.0-33.0) pg MCHC 30.6 L (31.0-35.0) g/dl RDW 18.1 H (11.0-16.0) % Plt Count 158 L (160-400) X10*3/uL MPV 9.2 L (9.4-12.3) fL Immature Gran % (Auto) 0.3 (0.0-0.4) % Neut % (Auto) 78.0 H (45-73) % Lymph % (Auto) 11.3 L (20-40) % [place] % (Auto) 9.1 (2-11) % Eos % (Auto) 1.0 (0-4) % Baso % (Auto) 0.3 (0-2) % Lymph # (Auto) 0.8 L (1.2-4.9) X10*3/uL [place] # (Auto) 0.7 (0.1-1.2) X10*3/uL Eos # (Auto) 0.1 (0.0-0.4) X10*3/uL Baso # (Auto) 0.0 (0.0-0.2) X10*3/uL Abs Immat Gran (auto) 0.02 (0.00-0.03) X10*3/uL Absolute Neuts (auto) 5.7 (2.0-8.3) x10*3/uL Absolute Nucleated RBC 0.000 (0.0-0.012) X10*3/uL Nucleated RBC % (auto) 0.0 (0.0-0.2) /100WBC Sodium 136 (135-145) mmol/L Potassium 4.0 (3.3-5.1) mmol/L Chloride 94 L (96-108) mmol/L Carbon Dioxide 31 H (22-29) mmol/L Anion Gap 15 (12-20) BUN 12 (9-16) mg/dL Creatinine 0.77 (0.5-1.4) mg/dL Estim Creat Clear Calc 52.0 Estimated GFR > 60 Random Glucose 122 H (60-115) mg/dL Calcium 9.6 (8.4-10.2) mg/dL Total Bilirubin 0.5 (0.0-1.0) mg/dL AST 20 (5-31) U/L ALT 15 (0-31) U/L Alkaline Phosphatase 62 (39-117) U/L Troponin I High Sens 10.4 (<3.5-17.0) ng/L Total Protein 6.5 (6.5-8.0) g/dL Albumin 4.1 (3.5-5.0) g/dL Urine Color Yellow Urine Appearance Clear Urine pH 6.5 (5.0-9.0) Ur Specific Alexander 1.015 (1.005-1.025) Urine Protein Trace (Neg-Trace) mg/dL Urine Glucose (UA) Negative (Negative) mg/dL Urine Ketones 40 (Negative) mg/dL Urine Blood Negative (Negative) Urine Nitrite Negative (Negative) Ur Leukocyte Esterase Moderate (2+) H (Negative) Urine RBC 0-2 (0-2) /HPF Urine WBC 11-20 H (0-5) /HPF Ur Squamous Epith Cells 6-10 (0-2) /HPF Urine Bacteria None Seen (None Seen) Hyaline Casts 0-2 (0-2) /LPF Influenza Type A (PCR) NEGATIVE (Negative) Influenza Type B (PCR) NEGATIVE (Negative) RSV RNA Qual (PCR) NEGATIVE (Negative) SARS-CoV-2 RNA (RT-PCR) NEGATIVE (Negative) Discharge Plan Discharge Clinical Impression: Anxiety Patient Disposition: Home, Self-Care Instructions: Anxiety (ED) Additional Instructions: Continue medication as prescribed by your PCP follow up with your PCP Prescriptions: No Action pantoprazole 40 mg tablet,delayed release (DR/EC) 40 mg PO BID Qty: 180 2RF anastrozole 1 mg Tablet 1 mg PO DAILY atorvastatin 10 mg Tablet 10 mg PO BEDTIME lorazepam 0.5 mg Tablet 0.5 mg PO TID PRN (Reason: Anxiety) latanoprost 0.005 % Drops 1 drp ophthalmic-Right QPM hydrochlorothiazide 12.5 mg capsule 12.5 mg PO DAILY dorzolamide-timolol 22.3-6.8 mg/mL drops 1 drp ophthalmic (eye) BID famotidine 40 mg tablet 40 mg PO BEDTIME glipizide 2.5 mg tablet extended release 24hr 1.25 mg PO QAM saliva substitute combo no.12 [place] With Pump 2 spray PO QID Qty: 720 2RF Interventions: ED Discharge Assessment Last Done: 01/12/24 00:12 Discharge Date/Time: 01/12/24 00:10 Print Language: Uzbek
--- NOTE | 2024-01-11 20:21 | ECG_ITS ---
Test Reason : LIGHTHEADEDNESS Blood Pressure : / mmHG Vent. Rate : 062 BPM Atrial Rate : 062 BPM P-R Int : 186 ms QRS Dur : 152 ms QT Int : 450 ms P-R-T Axes : -02 -19 101 degrees QTc Int : 456 ms Normal sinus rhythm Left bundle branch block Abnormal ECG When compared with ECG of 08-FEB-2023 09:21, No significant change was found Referred By: Yeimi Washington Electronically Signed By:LOREN JASMINE
[2024-01-11 20:38] LABS: MANUAL DIFF FLAG NO
[2024-01-11 20:40] LABS: Basophils Percent Auto 0.3 % (0-2); Eosinophils Absolute Auto 0.1 X10*3/uL (0.0-0.4); Hematocrit 39.5 % (37.0-47.0); Hemoglobin 12.1 g/dl (12.0-16.0); Imm Gran Abs Auto 0.02 X10*3/uL (0.00-0.03); Imm Gran Pct Auto 0.3 % (0.0-0.4); Lymphocytes Absolute Auto 0.8 X10*3/uL (1.2-4.9); Lymphocytes Percent Auto 11.3 % (20-40); Mean Corpuscular HGB Conc 30.6 g/dl (31.0-35.0); Mean Corpuscular Hemoglobin 23.7 pg (27.0-33.0); Mean Corpuscular Volume 77.5 fL (80.0-98.0); Mean Platelet Volume 9.2 fL (9.4-12.3); Monocytes Absolute Auto 0.7 X10*3/uL (0.1-1.2); Monocytes Percent Auto 9.1 % (2-11); Neutrophils Absolute Auto 5.7 x10*3/uL (2.0-8.3); Platelet Count 158 X10*3/uL (160-400); Red Cell Distribution Width 18.1 % (11.0-16.0); White Blood Count 7.3 X10*3/uL (4.8-10.8)
[2024-01-11 20:53] LABS: Alanine Aminotransferase 15 U/L (0-31); Albumin Level 4.1 g/dL (3.5-5.0); Alkaline Phosphatase 62 U/L (39-117); Anion Gap 15 (12-20); Aspartate Amino Transferase 20 U/L (5-31); Bilirubin Total 0.5 mg/dL (0.0-1.0); Blood Urea Nitrogen 12 mg/dL (9-16); Calcium 9.6 mg/dL (8.4-10.2); Carbon Dioxide 31 mmol/L (22-29); Chloride 94 mmol/L (96-108); Estimated Glomerular Filt Rate > 60; Glucose Random 122 mg/dL (60-115); Sodium 136 mmol/L (135-145); Total Protein 6.5 g/dL (6.5-8.0)
[2024-01-11 20:59] LABS: Troponin-I High Sensitivity 10.4 ng/L (<3.5-17.0)
[2024-01-11 21:28] LABS: Influenza A PCR NEGATIVE (Negative); Influenza B PCR NEGATIVE (Negative); Resp Syncy Virus RNA Qual PCR NEGATIVE (Negative); SARS COV2 PCR INHOUSE NEGATIVE (Negative)
[2024-01-11 21:49] VITALS: PULSE 72; RESP 18; O2SAT 96
[2024-01-11] MEDS: OLANZapine 5 MG TABLET PO (22:26)
[2024-01-11 22:28] VITALS: BP 152/78; PULSE 68; RESP 16; O2SAT 96
[2024-01-11 23:02] LABS: Appearance Urine Clear; Color Urine Yellow; Glucose Urine UA Negative (Negative); Leukocyte Esterase Urine Moderate (2+) (Negative); Nitrite Urine Negative (Negative); PH 6.5 (5.0-9.0); Specific Gravity - Urine 1.015 (1.005-1.025); UMIC TRIGGER UACC YES; Urine Blood Negative (Negative); Urine Ketones 40 mg/dL (Negative); Urine Protein Trace mg/dL (Neg-Trace)
[2024-01-11 23:07] LABS: Bacteria Urine None Seen (None Seen); Hyaline Casts Urine 0-2 /LPF (0-2); RBC Urine 0-2 /HPF (0-2); UACC Culture Trigger YES
[2024-01-12 00:12] VITALS: BP 152/91; PULSE 73; RESP 18; TEMP 36.7; O2SAT 95
== END 2024-01-12 00:10 | disposition home or self-care (01) ==
PROVIDERS: Registered Nurse Emergency; Emergency Provider Internal Medicine; PCP Internal Medicine
DX: F41.9 Anxiety disorder, unspecified (principal); I11.0 Hypertensive heart disease with heart failure; I50.9 Heart failure, unspecified; E11.9 Type 2 diabetes mellitus without complications; Z79.899 Other long term (current) drug therapy; Z03.818 Encounter for observation for suspected exposure to other biological agents ruled out
CPT/HCPCS: 0241U; 80053; 81001; 81003; 84484; 85025; 87086; 93005; 99283; 99284

== ENCOUNTER → 2024-01-11 20:21 | Outpatient (BNV) | payer MEDICARE, SELFPAY | PROVIDERS: Emergency Provider Internal Medicine; PCP Internal Medicine; Visit Provider Internal Medicine | DX: R42 Dizziness and giddiness (principal) | CPT/HCPCS: 93010 ==

== ENCOUNTER 2024-02-19 11:44 | Outpatient (AMB) | payer MEDICARE, OTHER, SELFPAY ==
--- NOTE | 2024-02-19 11:46 | A.OFFVIS_ITS ---
Vital Signs 02/19/24 11:56 Height 5 ft Weight 157 lb 6.561 oz BMI 30.7 BP 120/58 L Blood Pressure Location Rt brachial Position Sitting Pulse 76 Pulse Source Pulse Oximeter Pulse Oximetry (%) 97 Oxygen Delivery Method Room Air Intake Visit Reasons: 1 year followup Intake Note: Slime presents in office today for a scheduled 1 year FUV CC; Pt reports that they are doing well. Pt is still taking the rx'd medication as instructed. Pt denies any significant GI issues at this time. 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 she had interventions as below she was using wedge pillow at night she felt the coughing had gone away since the procedures below she saw pulm and found to have restrictive lung disease PCP was worried re: dilated and tortuous esophagus on chest imaging she had repeat EGD with Dr Hough 06/07 and had redilation to 20 mm balloon, also colonoscopy with large polyp removed in [facility], SSA I did repeat colonoscopy 12/02/22: no residual or recurrent polyp material seen, path neg as well, diverticulosis was noted, more severe left side she had repeat EGD with dilation at [facility] and LES< TESTS: she had CTA to r/o PE which was negative but did reveal abn thickened proxiaml esophagus. she had an EGD which revealed sigmoid shaped esophagus, wrap didn;t seem so tight had ba swallow, times with retention of barium, 70& still at 5 mins, then had repeat EGD with dilation 15-18 mm with heme and tear noted, improvement in timed ba swallow further EGD 11/2018 w/ 18-19 mm dilation with tear and heme noted EGD 03/2019- stricture noted and dilated 18-19 mm CRE with tear noted EGD 10/2019-- Balloon dilation performed with 19 mm balloon with good result, heme and tear noted, no perforation. EGD 07/2020: Balloon dilation performed with 18 mm then 19 mm balloon with good result, heme and tear noted, Ct scan with fluid filled and dilated esophagus 10/2020- INTERIM: she is doing well no swallowing issues appetite is good no constipation no diarrhea no rectal bleeding still taking pantoprazole BID, no issues taking MV and vit D supplement EXAM: GENERAL: The patient is well developed and nontoxic. VITAL SIGNS:see workflow HEENT: Nonicteric sclerae, PERRLA, EOMI. Oropharynx clear. Moist mucous membranes. Conjunctivae appear well perfused. No thyroid mass. CHEST: Chest wall is nontender. HEART: Regular rate and rhythm with mild systolic murmur at left sternal edge LUNGS: Clear to auscultation but reduced BS, mild wheeze. ABDOMEN: Soft, positive bowel sounds, nontender, no organomegaly.no flank t enderness SKIN: No rash, no excessive bruising, petechiae, or purpura. NEUROLOGIC: Cranial nerves II-XII intact without motor/sensory deficit. no ankle edema Assessment & Plan 1/ dysphagia and regurgitation 2/2 to prior surgical wrap, needing dilation periodically, 2/ Colon polyps in past, repeat colo was neg PLAN: 1/ cont with PPI BID--periodic iron, b12, mag vit d levels 2/ EGD with dilation this year [facility] Medical History Pulmonary hypertension Restrictive lung disease Diabetes Scoliosis CYNTHIA (obstructive sleep apnea) Obesity Cough HX: breast cancer Anemia Back pain Lymphedema of left arm GERD (gastroesophageal reflux disease) Blind right eye Trigeminal neuralgia of right side of face Hypertension CHF (congestive heart failure) Heart murmur after rheumatic heart disease Surgical History History of open reduction and internal fixation (ORIF) procedure History of ventral hernia repair History of left inguinal hernia repair History of bladder suspension procedure History of partial hysterectomy History of tonsillectomy and adenoidectomy Hx of esophagogastroduodenoscopy History of lymph node dissection of left axilla H/O left mastectomy Hx of wisdom tooth extraction History of colonoscopy Family History Father History of heart attack Mother History of leukemia History of hypertension Social History Are you a primary health care manager to a significant other at home: No Do you presently have visiting nurse or other home services: No Alcohol intake: never Patient Tobacco Use Status: Never used Tobacco Advance Directives Date on File: 02/08/23 Assessment & Plan Assessment & Plan (1) GERD (gastroesophageal reflux disease): Code(s): K21.9 - Gastro-esophageal reflux disease without esophagitis Category: Medical Qualifiers: Esophagitis presence: without esophagitis Qualified Code(s): K21.9 - Gastro-esophageal reflux disease without esophagitis Plan: see above Coding Level of Care Code Est Pt Level 3 (67167) Diagnoses Gastroesophageal reflux disease without esophagitis K21.9 Esophagitis presence: without esophagitis
[2024-02-19 11:56] VITALS: BP 120/58; PULSE 76; O2SAT 97; BMI 30.7
== END 2024-02-19 12:26 | disposition home or self-care (01) ==
PROVIDERS: PCP Internal Medicine; Visit Provider Internal Medicine Gastroenterology
DX: K21.9 Gastro-esophageal reflux disease without esophagitis (principal)
CPT/HCPCS: 99213

== ENCOUNTER → 2024-02-19 11:44 | Outpatient (BNVA) | payer MEDICARE, OTHER, SELFPAY | PROVIDERS: PCP Internal Medicine; Visit Provider Internal Medicine Gastroenterology | DX: K21.9 Gastro-esophageal reflux disease without esophagitis (principal); R13.10 Dysphagia, unspecified; Z86.010 Personal history of colon polyps | CPT/HCPCS: 99212 ==

== ENCOUNTER 2024-02-20 08:10 | Emergency (ER) | payer MEDICARE, OTHER, SELFPAY ==
--- NOTE | ~2024-02-20 | XR_ITS ---
EXAMINATION: XR SHOULDER, RIGHT CLINICAL INFORMATION: Reason for Exam rt shoulder pain COMPARISON: Shoulder radiographs 06/04/2023 TECHNIQUE: Four views of the shoulder. FINDINGS: No acute fracture or dislocation. Moderate degenerative changes of the shoulder. Soft tissues are unremarkable. XR/XR shoulder RT min 2V IMPRESSION: Moderate degenerative changes of the shoulder similar to prior.
[2024-02-20 08:13] VITALS: BP 141/100; PULSE 77; RESP 16; TEMP 36.1; O2SAT 97; BMI 30.7
--- NOTE | 2024-02-20 08:33 | ED.EXTPRO ---
HPI - Extremity Problem General Chief complaint: Extremity Injury, Upper Stated complaint: r shoulder pain Time Seen by Provider: 02/20/24 08:12 History of Present Illness ED Provider: Yulissa BROWNLEE HPI Narrative: 81 year old female with past medical history of GERD, anemia, obesity, CYNTHIA, osteoarthritis presenting with atraumatic right shoulder pain x 1 day. She reports she has noticed clicking in her right shoulder for a couple weeks and yesterday her pain increased in severity after reaching for something in her purse. Her pain is localized to the anterior right shoulder and radiated down her arm with ROM of the shoulder. She denies injury to the area or fall. She has seen her PCP for the clicking sensation in her shoulder and was diagnosed with osteoarthritis and was using a topical treatment with minimal relief. She took ibuprofen last night with minimal relief. Rates the pain a 10/10 when she is moving the right arm. She denies fevers, chills, numbness or paresthesias to the area, cp, sob, nausea, vomiting, jaw pain Related Data Home Medications ?Medication ?Instructions ?Recorded ?Confirmed atorvastatin 10 mg tablet 10 mg PO BEDTIME 07/30/20 02/13/23 latanoprost 0.005 % eye drops 1 drp ophthalmic-Right QPM 07/30/20 02/13/23 lorazepam 0.5 mg tablet 0.5 mg PO TID PRN Anxiety 07/30/20 02/13/23 dorzolamide 22.3 mg-timolol 6.8 1 drp ophthalmic (eye) BID 10/29/20 02/13/23 mg/mL eye drops famotidine 40 mg tablet 40 mg PO BEDTIME 10/29/20 02/13/23 hydrochlorothiazide 12.5 mg capsule 12.5 mg PO DAILY 10/29/20 02/13/23 glipizide 2.5 mg tablet, extended 1.25 mg PO QAM 12/04/20 02/13/23 release 24 hr Ca 600 mg-D3 20 mcg-mag oxide 50 tab PO 02/19/24 vz-Zb-zuyijt-manganese-boron tablet (Calcium 600-D3 Plus (mag-zinc)) ascorbate calcium (vitamin C) 500 500 mg PO DAILY 02/19/24 mg tablet cholecalciferol (vitamin D3) 125 125 mcg PO DAILY 02/19/24 mcg (5,000 unit) capsule cyanocobalamin (vitamin B-12) 250 250 mcg PO DAILY 02/19/24 mcg tablet (Vitamin B-12) ginkgo biloba leaf extract 120 mg 120 mg PO DAILY 02/19/24 capsule ginseng 200 mg capsule 200 mg PO DAILY 02/19/24 multivitamin 1 tab PO DAILY 02/19/24 nortriptyline 25 mg capsule 25 mg PO BEDTIME 02/19/24 resveratrol 100 mg capsule mg PO 02/19/24 turmeric 400 mg capsule mg PO 02/19/24 Previous Rx's ?Medication ?Instructions ?Recorded saliva substitute combo no.12 2 spray PO QID #720 mL 04/13/23 pantoprazole 40 mg tablet,delayed 40 mg PO BID #180 tabs 08/11/23 release acetaminophen 325 mg capsule 325 mg PO Q4H PRN pain #30 caps 02/20/24 (Tylenol) morphine 15 mg immediate release 15 mg PO Q6H PRN pain 5 days #10 02/20/24 tablet tabs Allergies Allergy/AdvReac Type Severity Reaction Status Date / Time gabapentin [From Neurontin] Allergy Intermediate JOINTS Verified 02/20/24 08:17 SWELL famotidine AdvReac Mild Dizziness Verified 02/20/24 08:17 oranges Allergy Mild cold sores Uncoded 03/23/23 10:15 PMFSH Past Medical History Medical History Pulmonary hypertension Restrictive lung disease Diabetes Scoliosis CYNTHIA (obstructive sleep apnea) Obesity Cough HX: breast cancer Anemia Back pain Lymphedema of left arm GERD (gastroesophageal reflux disease) Blind right eye Trigeminal neuralgia of right side of face Hypertension CHF (congestive heart failure) Heart murmur after rheumatic heart disease Surgical History History of open reduction and internal fixation (ORIF) procedure History of ventral hernia repair History of left inguinal hernia repair History of bladder suspension procedure History of partial hysterectomy History of tonsillectomy and adenoidectomy Hx of esophagogastroduodenoscopy History of lymph node dissection of left axilla H/O left mastectomy Hx of wisdom tooth extraction History of colonoscopy Family History Family History Father History of heart attack Mother History of leukemia History of hypertension Social History Social History Are you a primary hospice spiritual care coordinator to a significant other at home: No Do you presently have visiting nurse or other home services: No Alcohol intake: never Patient Tobacco Use Status: Never used Tobacco Smoked in Last 30 Days: No Advance Directives: Yes Advance Directives on File: Yes Advance Directives Date on File: 02/08/23 Do you have a plan to hurt others: No Plan Physical Exam Vital Signs: Vital Signs: Last Vital Signs Temp 96.9 F 02/20/24 08:52 Pulse 77 02/20/24 08:52 Resp 16 02/20/24 08:52 BP 141/100 H 02/20/24 08:52 Pulse Ox 97 02/20/24 08:52 O2 Del Method Room Air 02/20/24 08:52 BMI result Body Mass Index 30.7 vss Appearance: Alert.? Oriented X3.? No acute distress.? Head: Normocephalic, atraumatic, no step-offs or deformities Eyes: Pupils equal, round and reactive to light.? Neck: Normal inspection.? Neck supple.? CVS: Normal heart rate and rhythm.? Pulses normal.? Respiratory: No respiratory distress.? Breath sounds normal.? Skin: Skin warm and dry.? Normal skin color.? Normal skin turgor.? Extremities: No lower extremity edema.? No calf ttp. Mild weakness and decreased ROM to right shoulder secondary to pain. Capillary refill < 2 seconds and radial pulses 2+ b/l upper extremities. Upper extremity sensation intact. Back: No midline tenderness, no C-spine tenderness, full range of motion, no CVA tenderness bilaterally Neuro: Oriented X 3.? No motor deficit.? No sensory deficit. CN 2-12 intact Course Reevaluation(s) Reevaluation #1: EKG nonischemic. X-ray no acute fractures or dislocation degenerative changes noted. Patient to be discharged home with pain control sling for comfort advised her to take her arm out and perform rpucc-hi-yrqjwc exercises frequently do not sleep with sling. Educated patient on diagnosis and treatment plan, answered all question, patient verbalizes understanding. At this time patient will be discharged home, advised to return with new or worsening symptoms. Educated on worrisome signs and symptoms and when to return. At this time I feel comfortable discharge home. Time: 10:38 Medications Administered Discontinued Medications Generic Name Dose Route Start Last Admin Trade Name Kiley PRN Reason Stop Dose Admin Ibuprofen 400 mg 02/20/24 08:20 02/20/24 08:48 Ibuprofen 400 Mg Tablet PO 02/20/24 08:21 400 mg ONCE ONE Administration Lidocaine 1 patch 02/20/24 08:20 02/20/24 08:48 Lidocaine 4 % Patch Adh..Patch TRANSDERMA 02/20/24 08:21 1 patch ONCE ONE Administration Protocol Morphine Sulfate 15 mg 02/20/24 08:20 02/20/24 08:49 Morphine Sulfate Immed Release 15 Mg Tablet PO 02/20/24 08:21 15 mg ONCE ONE Administration Medical Decision Making Medical Decision Making MDM Narrative: 81 yo female with history of osteoarthritis presenting with atraumatic right shoulder pain x 1 day. PE mild weakness and decreased ROM to right shoulder secondary to pain. Capillary refill < 2 seconds and radial pulses 2+ b/l upper extremities. Upper extremity sensation intact. Hx and PE concerning for osteoarthritis vs bicipital tendinitis vs muscle spasm or strain. Unlikely fracture, dislocation, acute threat to limb, nonvascular compromise. I do not suspect that this is an atypical presentation of ACS Plan - imaging, pain control Differential Diagnosis Differential Diagnoses: The differential diagnosis associated with the presentation includes Hx and PE concerning for osteoarthritis vs bicipital tendinitis vs muscle spasm or strain. Unlikely fracture, dislocation, acute threat to limb, nonvascular compromise. I do not suspect that this is an atypical presentation of ACS Admission/Observation Consideration of admission/observation: Escalation of care including admission/observation considered unlikely Independent Interpretation I performed an independent interpretation of an: EKG (Vent. Rate : 065 BPM Atrial Rate : 065 BPM P-R Int : 192 ms QRS Dur : 150 ms QT Int : 478 ms P-R-T Axes : -13 -28 058 degrees QTc Int : 497 ms Normal sinus rhythm Left bundle branch block Abnormal ECG When compared with ECG of 11-JAN-2024 20:26, No significant change w) and Plain X-Ray ( XR/XR shoulder RT min 2V IMPRESSION: Moderate degenerative changes of the shoulder similar to prior.) Radiology Impression Discussion of test interpretation with radiology: I have reviewed the radiologist's reading. Prescription Management I considered prescription management with: Pain Medication Chronic Conditions Patient?s care impacted by: Other (Pulmonary hypertension, CYNTHIA, anemia, obesity, restrictive lung disease) Discharge Plan Discharge Clinical Impression: Acute pain of right shoulder, Osteoarthritis Patient Disposition: Home, Self-Care Instructions: Shoulder Pain (ED), Arm Pain (ED) Additional Instructions: Take your medications as prescribed. If you were prescribed antibiotics today, it is important that you take your medication to their entirety, do not skip any doses, do not finish them early. Follow-up with your primary care provider this week. Return to the emergency department with new or worsening symptoms. Such as fevers, chills, chest pain, shortness of breath, nausea, vomiting, dizziness, headache, vision changes, lethargy In case of emergency call 911 Follow-up with the orthopedic team if needed You can wear a sling for comfort. However, it is important that you frequently take your arm out of the sling and perform cxihl-it-fzhmin exercises and move your shoulder around to prevent frozen shoulder.DO NOT SLEEP WITH SLING A narcotic has been sent to your pharmacy please take this as prescribed. Do not take more than the prescribed dose. Narcotic medications can cause addiction. Please do not mix them with alcohol. Do not take them while driving or operating machinery. Do not take them with any other narcotics. Do not share them with friends or family. They can cause constipation. Take them only for severe pain. XR/XR shoulder RT min 2V IMPRESSION: Moderate degenerative changes of the shoulder similar to prior. Prescriptions: New morphine 15 mg tablet 15 mg PO Q6H PRN (Reason: pain) 5 Days Qty: 10 0RF Rx Instructions: Partial Fill upon patient request. acetaminophen [Tylenol] 325 mg capsule 325 mg PO Q4H PRN (Reason: pain) Qty: 30 0RF No Action pantoprazole 40 mg tablet,delayed release (DR/EC) 40 mg PO BID Qty: 180 2RF atorvastatin 10 mg Tablet 10 mg PO BEDTIME lorazepam 0.5 mg Tablet 0.5 mg PO TID PRN (Reason: Anxiety) latanoprost 0.005 % Drops 1 drp ophthalmic-Right QPM hydrochlorothiazide 12.5 mg capsule 12.5 mg PO DAILY dorzolamide-timolol 22.3-6.8 mg/mL drops 1 drp ophthalmic (eye) BID famotidine 40 mg tablet 40 mg PO BEDTIME glipizide 2.5 mg tablet extended release 24hr 1.25 mg PO QAM saliva substitute combo no.12 [place] With Pump 2 spray PO QID Qty: 720 2RF nortriptyline 25 mg capsule 25 mg PO BEDTIME multivitamin Tablet 1 tab PO DAILY ascorbate calcium (vitamin C) 500 mg tablet 500 mg PO DAILY Ca-D3-mag qr-dxkh-ikh-miranda-bor [Calcium 600-D3 Plus (mag-zinc)] 600 mg calcium- 20 mcg-50 mg tablet PO cholecalciferol (vitamin D3) 125 mcg (5,000 unit) capsule 125 mcg PO DAILY turmeric 400 mg capsule PO cyanocobalamin (vitamin B-12) [Vitamin B-12] 250 mcg tablet 250 mcg PO DAILY ginkgo biloba leaf extract 120 mg capsule 120 mg PO DAILY Rx Instructions: give with meal/snack ginseng 200 mg capsule 200 mg PO DAILY resveratrol 100 mg capsule PO Referrals: ED Physician,Generic [Physician] - 2 days Stand Alone Forms: Work/School Release Print Language: Gambian
[2024-02-20] MEDS: Lidocaine 4 % Patch ADH..PATCH 1 PATCH TRANSDERMA (08:48)
[2024-02-20] MEDS: Ibuprofen 400 MG TABLET PO (08:48)
[2024-02-20] MEDS: Morphine Sulfate Immed Release 15 MG TABLET PO (08:49)
[2024-02-20 08:52] VITALS: BP 141/100; PULSE 77; RESP 16; TEMP 36.1; O2SAT 97
--- NOTE | 2024-02-20 09:37 | ECG_ITS ---
Test Reason : RIGHT ARM PAIN Blood Pressure : / mmHG Vent. Rate : 065 BPM Atrial Rate : 065 BPM P-R Int : 192 ms QRS Dur : 150 ms QT Int : 478 ms P-R-T Axes : -13 -28 058 degrees QTc Int : 497 ms Normal sinus rhythm Left bundle branch block Abnormal ECG When compared with ECG of 11-JAN-2024 20:26, No significant change was found Referred By: Fortino Duenas Electronically Signed By:LOREN JASMINE
[2024-02-20 10:00] VITALS: BP 148/48; PULSE 94; RESP 18; TEMP 36.6; O2SAT 95
[2024-02-20 10:57] VITALS: BP 126/74; PULSE 68; RESP 18; TEMP 36.6; O2SAT 95
[2024-02-20 11:07] VITALS: BP 126/74; PULSE 68; RESP 18; TEMP 36.6; O2SAT 95
== END 2024-02-20 11:08 | disposition home or self-care (01) ==
PROVIDERS: Emergency Provider Emergency Medicine; PCP Internal Medicine
DX: M25.511 Pain in right shoulder (principal); M19.011 Primary osteoarthritis, right shoulder
CPT/HCPCS: 73030; 93005; 99283; 99285

== ENCOUNTER → 2024-02-20 09:37 | Outpatient (BNV) | payer MEDICARE, OTHER, SELFPAY | PROVIDERS: Emergency Provider Emergency Medicine; PCP Internal Medicine; Visit Provider Internal Medicine | DX: R94.31 Abnormal electrocardiogram [ECG] [EKG] (principal) | CPT/HCPCS: 93010 ==

== ENCOUNTER 2024-06-22 17:07 | Inpatient (IN) | payer MEDICARE, OTHER, SELFPAY ==
--- NOTE | ~2024-06-22 | XR_ITS ---
EXAMINATION: XR FINGER, RIGHT CLINICAL INFORMATION: Laceration COMPARISON: None available. TECHNIQUE: Three views of the right index finger. FINDINGS: No acute fracture or dislocation. No focal osteopenia, periosteal reaction, or cortical erosion. Overlying soft tissue swelling. XR/XR finger RT min 2V IMPRESSION: No acute fracture or dislocation. No radiopaque foreign body. Overlying soft tissue swelling. Electronically signed by: Silvia Matson MD 06/22/2024 06:40 PM [facility]
--- NOTE | ~2024-06-22 | XR_ITS ---
EXAMINATION: XR CHEST CLINICAL INFORMATION: Shortness of breath. Cough. COMPARISON: February 08, 2023. TECHNIQUE: Frontal view of the chest was obtained. FINDINGS: The cardiomediastinal silhouette is stable. There appears to be minimal scarring or atelectasis at the right lung base. The lungs are otherwise clear. There is stable curvature of the thoracolumbar spine to the right. The soft tissues are unremarkable. XR/XR chest 1V IMPRESSION: No evidence for active cardiopulmonary disease. Electronically signed by: Brian Trimble MD 06/23/2024 12:58 AM [facility]
[2024-06-22 17:13] VITALS: BP 102/72; PULSE 87; RESP 20; TEMP 36.1; O2SAT 96; BMI 30.9
--- NOTE | 2024-06-22 17:16 | ED_ITS ---
HPI - Extremity Injury (Upper) General Chief Complaint: Skin/Abscess/Foreign Body Stated Complaint: Rt hand laceration/Mandolin Time Seen by Provider: 06/22/24 21:51 Source: patient Limitations: no limitations History of Present Illness ED Provider: Marianne simpson PA-C HPI narrative: 79-year-old female with a history of pulmonary hypertension, restrictive lung disease, GERD, hypertension, diabetes presents with finger laceration. Patient was slicing apples with a mandoline, she subsequently cut the tip of the pad of the right 2nd digit off. Patient does not use a blood thinner. Tetanus is up-to-date. Related Data Home Medications ?Medication ?Instructions ?Recorded ?Confirmed atorvastatin 10 mg tablet 10 mg PO BEDTIME 07/30/20 02/13/23 latanoprost 0.005 % eye drops 1 drp ophthalmic-Right QPM 07/30/20 02/13/23 lorazepam 0.5 mg tablet 0.5 mg PO TID PRN Anxiety 07/30/20 02/13/23 dorzolamide 22.3 mg-timolol 6.8 1 drp ophthalmic (eye) BID 10/29/20 02/13/23 mg/mL eye drops famotidine 40 mg tablet 40 mg PO BEDTIME 10/29/20 02/13/23 hydrochlorothiazide 12.5 mg capsule 12.5 mg PO DAILY 10/29/20 02/13/23 glipizide 2.5 mg tablet, extended 1.25 mg PO QAM 12/04/20 02/13/23 release 24 hr Ca 600 mg-D3 20 mcg-mag oxide 50 tab PO 02/19/24 zp-Sp-llafxj-manganese-boron tablet (Calcium 600-D3 Plus (mag-zinc)) ascorbate calcium (vitamin C) 500 500 mg PO DAILY 02/19/24 mg tablet cholecalciferol (vitamin D3) 125 125 mcg PO DAILY 02/19/24 mcg (5,000 unit) capsule cyanocobalamin (vitamin B-12) 250 250 mcg PO DAILY 02/19/24 mcg tablet (Vitamin B-12) ginkgo biloba leaf extract 120 mg 120 mg PO DAILY 02/19/24 capsule ginseng 200 mg capsule 200 mg PO DAILY 02/19/24 multivitamin 1 tab PO DAILY 02/19/24 nortriptyline 25 mg capsule 25 mg PO BEDTIME 02/19/24 resveratrol 100 mg capsule mg PO 02/19/24 turmeric 400 mg capsule mg PO 02/19/24 Previous Rx's ?Medication ?Instructions ?Recorded saliva substitute combo no.12 2 spray PO QID #720 mL 04/13/23 acetaminophen 325 mg capsule 325 mg PO Q4H PRN pain #30 caps 02/20/24 (Tylenol) morphine 15 mg immediate release 15 mg PO Q6H PRN pain 5 days #10 02/20/24 tablet tabs pantoprazole 40 mg tablet,delayed 40 mg PO BID #180 tabs 05/03/24 release Allergies Allergy/AdvReac Type Severity Reaction Status Date / Time gabapentin [From Neurontin] Allergy Intermediate JOINTS Verified 06/22/24 17:14 SWELL famotidine AdvReac Mild Dizziness Verified 06/22/24 17:14 oranges Allergy Mild cold sores Uncoded 06/22/24 17:14 Review of Systems 2 Review of Systems: Yes all other systems are reviewed and are negative Constitutional: Constitutional: Denies fatigue and Denies fever(s) Cardiovascular: Cardiovascular: Denies chest pain and Denies dyspnea Respiratory: Respiratory: Denies dyspnea Musculoskeletal: Musculoskeletal: Denies numbness and Denies tingling Neurologic: Denies numbness and Denies tingling Endocrine: Endocrine: Denies fatigue PMFSH Past Medical History Attestation statement: The following information was validated with the patient. Medical History Pulmonary hypertension Restrictive lung disease Diabetes Scoliosis CYNTHIA (obstructive sleep apnea) Obesity Cough HX: breast cancer Anemia Back pain Lymphedema of left arm GERD (gastroesophageal reflux disease) Blind right eye Trigeminal neuralgia of right side of face Hypertension CHF (congestive heart failure) Heart murmur after rheumatic heart disease Surgical History History of open reduction and internal fixation (ORIF) procedure History of ventral hernia repair History of left inguinal hernia repair History of bladder suspension procedure History of partial hysterectomy History of tonsillectomy and adenoidectomy Hx of esophagogastroduodenoscopy History of lymph node dissection of left axilla H/O left mastectomy Hx of wisdom tooth extraction History of colonoscopy Family History Family History Father History of heart attack Mother History of leukemia History of hypertension Social History Social History Are you a primary patient care assistant to a significant other at home: No Do you presently have visiting nurse or other home services: No Alcohol intake: never Patient Tobacco Use Status: Never used Tobacco Advance Directives: Yes Advance Directives on File: Yes Advance Directives Date on File: 02/08/23 Physical Exam 2 Vital Signs: Vital Signs: Last Vital Signs Temp 97.7 F 06/23/24 01:58 Pulse 79 06/23/24 03:52 Resp 18 06/23/24 01:58 BP 105/58 L 06/23/24 03:52 Pulse Ox 95 06/23/24 01:58 O2 Del Method Room Air 06/23/24 01:58 BMI result Body Mass Index 30.9 Const: Other: Alert well-appearing Orientation/consciousness: patient oriented x3 Resp: Other: Nonlabored respiration Cardio: Other: Normal peripheral perfusion Skin: Other: Warm dry no rash Neuro: General: patient oriented x3, no focal motor deficits and CN's II-XI intact bilaterally Extrem: Other: Avulsion of the tip of the right 2nd digit minimally bleeding, part of the nail is removed as well, no bone is exposed it is superficial Psych: Other: Calm cooperative Course Course Course Narrative: This is a Rapid Medical Examination (RME) performed by Jannette Morris PA-C in triage. Full HPI, ROS, assessment and treatment plan per primary provider in the Main ED. 79 yo female here for eval of laceration to tip of right 2nd digit sustained while cutting apples at 1500 today. she has been unable to control the bleeding at home. no thinners. unsure of tetanus status. Plan: xr, ?tdap booster, lac repair Reevaluation(s) Reevaluation #1: I was about to discharge the patient, she was getting repeat vitals, her rate was 140s, we obtained an EKG she is in new onset AFib RVR. Unclear duration of symptoms, the patient had no idea her heart rate was so rapid. She is going to require admission. We will order screening labs troponin giving IV fluid and diltiazem Time: 22:29 Reevaluation #2: Patient responded to 10 mg of IV diltiazem, the rate is now 120s, we will give an additional dose Reevaluation #3: rate back to 130-40 she is agitated, she has to urinate...giving 20 mg diltiazem Time: 00:22 Medications Administered Generic Name Dose Route Start Last Admin Trade Name Freq PRN Reason Stop Dose Admin Diltiazem HCl 30 mg 06/23/24 02:30 06/23/24 03:52 Diltiazem Hcl 30 Mg Tablet PO 30 mg Q6H SNOW Administration Protocol Discontinued Medications Generic Name Dose Route Start Last Admin Trade Name Freq PRN Reason Stop Dose Admin Aspirin 324 mg 06/22/24 23:31 06/22/24 23:41 Aspirin 81 Mg Tab.Chew PO 06/22/24 23:32 324 mg ONCE ONE Administration Diltiazem HCl 10 mg 06/22/24 22:37 06/22/24 22:58 Diltiazem Hcl 50 Mg/10 Ml Vial IVPUSH 06/22/24 22:38 10 mg STAT STA Administration Diltiazem HCl 10 mg 06/22/24 23:31 06/22/24 23:40 Diltiazem Hcl 50 Mg/10 Ml Vial IVPUSH 06/22/24 23:32 10 mg STAT STA Administration Diltiazem HCl 20 mg 06/23/24 00:24 06/23/24 00:40 Diltiazem Hcl 50 Mg/10 Ml Vial IVPUSH 06/23/24 00:25 20 mg STAT STA Administration Sodium Chloride 1,000 mls @ 999 mls/hr 06/22/24 22:45 06/23/24 00:50 Ns IV 06/22/24 23:45 Infused .Q1H1M SNOW Infusion Magnesium Sulfate 2 gm in 50 mls @ 25 mls/hr 06/23/24 00:21 06/23/24 02:42 Magnesium Sulfate/H2o IV 06/23/24 02:20 Infused ONCE ONE Infusion Sodium Chloride 500 mls @ 500 mls/hr 06/23/24 02:00 06/23/24 02:34 Ns IV 06/23/24 02:59 Infused .Q1H SNOW Infusion Medical Decision Making Medical Decision Making MDM Narrative: 79-year-old female with a history of pulmonary hypertension, restrictive lung disease, GERD, hypertension, diabetes presents with finger laceration. Patient was slicing apples with a mandoline, she subsequently cut the tip of the pad of the right 2nd digit off. Patient does not use a blood thinner. Tetanus is up-to-date. Problem: Age History: Per patient I have considered the following differential diagnoses: Fracture, open fracture, laceration, contusion, abrasion, amputation Plan: The patient has an avulsion of the tip of the right 2nd digit, I am unable to approximate the edges given the absence of tissue. I have disinfected with Betadine, I am dressing it with Surgicel, she can follow up with primary care. X-rays were ordered from triage, I have independently reviewed the following tests: X-ray right hand: XR/XR finger RT min 2V IMPRESSION: No acute fracture or dislocation. No radiopaque foreign body. Overlying soft tissue swelling. Electronically signed by: Silvia Matson MD 06/22/2024 06:40 PM [facility] EKG#1: AFib RVR, rate 138, left bundle branch block unclear if new, qt 524 giving 2 gm mag EKG #2: AFib RVR, rate of 103, left bundle branch block, qt 508 Lab Data 06/22/24 22:45 06/22/24 22:45 Labs: Lab Results 06/22/24 06/22/24 06/23/24 Range/Units 22:45 22:48 01:57 WBC 6.7 (4.8-10.8) X10*3/uL RBC 4.87 (4.20-5.50) X10*6/uL Hgb 12.1 (12.0-16.0) g/dl Hct 39.3 (37.0-47.0) % MCV 80.7 (80.0-98.0) fL MCH 24.8 L (27.0-33.0) pg MCHC 30.8 L (31.0-35.0) g/dl RDW 16.0 (11.0-16.0) % Plt Count 199 D (160-400) X10*3/uL MPV 9.3 L (9.4-12.3) fL Immature Gran % (Auto) 0.3 (0.0-0.4) % Neut % (Auto) 66.0 (45-73) % Lymph % (Auto) 19.6 L (20-40) % Sherman % (Auto) 11.1 H (2-11) % Eos % (Auto) 2.7 (0-4) % Baso % (Auto) 0.3 (0-2) % Lymph # (Auto) 1.3 (1.2-4.9) X10*3/uL [place] # (Auto) 0.7 (0.1-1.2) X10*3/uL Eos # (Auto) 0.2 (0.0-0.4) X10*3/uL Baso # (Auto) 0.0 (0.0-0.2) X10*3/uL Abs Immat Gran (auto) 0.02 (0.00-0.03) X10*3/uL Absolute Neuts (auto) 4.4 (2.0-8.3) x10*3/uL Absolute Nucleated RBC 0.000 (0.0-0.012) X10*3/uL Nucleated RBC % (auto) 0.0 (0.0-0.2) /100WBC Hold Blue Top SEE NOTE Sodium 142 (135-145) mmol/L Potassium 3.9 (3.3-5.1) mmol/L Chloride 105 (96-108) mmol/L Carbon Dioxide 28 (22-29) mmol/L Anion Gap 13 (12-20) BUN 23 H (9-16) mg/dL Creatinine 0.88 (0.5-1.4) mg/dL Estim Creat Clear Calc 44.3 Estimated GFR > 60 Random Glucose 100 (60-115) mg/dL Calcium 9.6 (8.4-10.2) mg/dL Magnesium 2.2 (1.6-2.6) mg/dL Total Bilirubin 0.3 (0.0-1.0) mg/dL AST 27 (5-31) U/L ALT 13 (0-31) U/L Alkaline Phosphatase 82 (39-117) U/L Troponin I High Sens 6.8 6.9 (<3.5-17.0) ng/L Total Protein 7.0 (6.5-8.0) g/dL Albumin 4.2 (3.5-5.0) g/dL TSH 3.61 (0.32-4.0) uIU/mL Discharge Plan Discharge Clinical Impression: Atrial fibrillation with rapid ventricular response Patient Disposition: Admitted As Inpatient
[2024-06-22 22:22] VITALS: BP 118/87; PULSE 124; RESP 20; TEMP 36.3; O2SAT 95
--- NOTE | 2024-06-22 22:23 | ECG_ITS ---
Test Reason : ELEVATED HR Blood Pressure : / mmHG Vent. Rate : 135 BPM Atrial Rate : 000 BPM P-R Int : 000 ms QRS Dur : 142 ms QT Int : 356 ms P-R-T Axes : 000 -26 129 degrees QTc Int : 534 ms Atrial fibrillation with rapid ventricular response Left bundle branch block Abnormal ECG When compared with ECG of 20-FEB-2024 10:01, Atrial fibrillation has replaced Sinus rhythm Vent. rate has increased BY 70 BPM T wave inversion no longer evident in Inferior leads T wave inversion more evident in Lateral leads Referred By: Marianne Park Electronically Signed By:KIMMY PLATT MD
--- NOTE | 2024-06-22 22:29 | ECG_ITS ---
Test Reason : ELEVATED HR Blood Pressure : / mmHG Vent. Rate : 138 BPM Atrial Rate : 000 BPM P-R Int : 000 ms QRS Dur : 142 ms QT Int : 346 ms P-R-T Axes : 000 -29 133 degrees QTc Int : 524 ms Atrial fibrillation with rapid ventricular response Left bundle branch block Abnormal ECG When compared with ECG of 22-JUN-2024 22:29, No significant change was found Referred By: Marko Galvez Electronically Signed By:KIMMY PLATT MD
--- NOTE | 2024-06-22 22:40 | MHC.EDTECH ---
This tech went to do discharge vitals on pt,patient was found to have a heart rate of 125 to 140, RN and PA Shu made aware,EKG was completed per order,patient was brought into ED 4,changed into hospital attire,placed on the secured entrance monitor,HR 146, RN and PA at bedside,
[2024-06-22 22:51] LABS: MANUAL DIFF FLAG NO
[2024-06-22 22:52] LABS: Basophils Percent Auto 0.3 % (0-2); Eosinophils Absolute Auto 0.2 X10*3/uL (0.0-0.4); Eosinophils Percent Auto 2.7 % (0-4); Hematocrit 39.3 % (37.0-47.0); Hemoglobin 12.1 g/dl (12.0-16.0); Imm Gran Abs Auto 0.02 X10*3/uL (0.00-0.03); Imm Gran Pct Auto 0.3 % (0.0-0.4); Lymphocytes Absolute Auto 1.3 X10*3/uL (1.2-4.9); Lymphocytes Percent Auto 19.6 % (20-40); Mean Corpuscular HGB Conc 30.8 g/dl (31.0-35.0); Mean Corpuscular Hemoglobin 24.8 pg (27.0-33.0); Mean Corpuscular Volume 80.7 fL (80.0-98.0); Mean Platelet Volume 9.3 fL (9.4-12.3); Monocytes Absolute Auto 0.7 X10*3/uL (0.1-1.2); Monocytes Percent Auto 11.1 % (2-11); Neutrophils Absolute Auto 4.4 x10*3/uL (2.0-8.3); Platelet Count 199 X10*3/uL (160-400); Red Blood Count 4.87 X10*6/uL (4.20-5.50); White Blood Count 6.7 X10*3/uL (4.8-10.8)
[2024-06-22 22:58] VITALS: BP 126/96; PULSE 154
[2024-06-22] MEDS: dilTIAZem HCL 50 MG/10 ML VIAL 10 MG IVPUSH ×2 (22:58→23:40)
[2024-06-22] MEDS: 0.9 % Sodium Chloride 1,000 ML 999 ML IV (23:02)
[2024-06-22 23:06] LABS: Alanine Aminotransferase 13 U/L (0-31); Albumin Level 4.2 g/dL (3.5-5.0); Alkaline Phosphatase 82 U/L (39-117); Anion Gap 13 (12-20); Aspartate Amino Transferase 27 U/L (5-31); Bilirubin Total 0.3 mg/dL (0.0-1.0); Blood Urea Nitrogen 23 mg/dL (9-16); Calcium 9.6 mg/dL (8.4-10.2); Carbon Dioxide 28 mmol/L (22-29); Chloride 105 mmol/L (96-108); Creatinine Clr Calc Pharmacy 44.3; Estimated Glomerular Filt Rate > 60; Glucose Random 100 mg/dL (60-115); Magnesium 2.2 mg/dL (1.6-2.6); Potassium 3.9 mmol/L (3.3-5.1); Sodium 142 mmol/L (135-145)
--- NOTE | 2024-06-22 23:08 | PC.NURSE ---
assumed care of pt at 23:00
--- NOTE | 2024-06-22 23:32 | ECG_ITS ---
Test Reason : A-FIB Blood Pressure : / mmHG Vent. Rate : 103 BPM Atrial Rate : 000 BPM P-R Int : 000 ms QRS Dur : 144 ms QT Int : 388 ms P-R-T Axes : 000 -29 129 degrees QTc Int : 508 ms Atrial fibrillation with rapid ventricular response Left bundle branch block Abnormal ECG When compared with ECG of 22-JUN-2024 22:29, No significant change was found Referred By: Marianne Park Electronically Signed By:KIMMY PLATT MD
[2024-06-22 23:40] VITALS: BP 93/60; PULSE 118
[2024-06-22] MEDS: Aspirin 81 MG TAB.CHEW 324 MG PO (23:41)
[2024-06-23] VITALS (11 sets, daily range): BP systolic 92–140; BP diastolic 55–69; PULSE 78–121; RESP 14–18; TEMP 36.3–36.6; O2SAT 94–97
--- NOTE | 2024-06-23 | ECG_ITS ---
Test Reason : rythm change Blood Pressure : / mmHG Vent. Rate : 076 BPM Atrial Rate : 076 BPM P-R Int : 200 ms QRS Dur : 150 ms QT Int : 462 ms P-R-T Axes : 000 210 085 degrees QTc Int : 519 ms Normal sinus rhythm Left bundle branch block Possible Lateral infarct , age undetermined Abnormal ECG When compared with ECG of 22-JUN-2024 23:43, Sinus rhythm has replaced Atrial fibrillation Questionable change in QRS axis ST no longer depressed in Lateral leads T wave inversion less evident in Lateral leads Referred By: Todd North Electronically Signed By:TODD NORTH MD
[2024-06-23 00:10] LABS: Troponin-I High Sensitivity 6.8 ng/L (<3.5-17.0)
--- NOTE | 2024-06-23 00:17 | MHC.EDTECH ---
EKG completed per order and signed by provider,vitals taken
[2024-06-23] MEDS: dilTIAZem HCL 50 MG/10 ML VIAL 20 MG IVPUSH (00:40)
--- NOTE | 2024-06-23 00:40 | P.HPHOSP_ITS ---
History of Present Illness Date of Service: 06/23/24 Chief Complaint: new onset Afib RvR An 79 years old lady with PMH of CYNTHIA, Pulm HTN, GERD, HTN, DMII among others presented to ED after cutting her finger found to have new onset Afib w RvR accidentally. The patient was slicing apples when she cut the tip of her right 2nd digit. presented to ED where the wound was taken care of and she was leaving when noticed to have rapid irregular rhythm with HR of 140s. EKG showed newly diagnosed Afib which was asymptomatic as the patient denies any symptoms at this time. Better controlled with 2 doses of IV Cardizem. Will be admitted for further work up and treatment. Review of Systems 2 Review of Systems: No fever, chills or weakness No chest pain, palpitation No shortness of breath or coughing No abdominal pain, nausea or vomiting No urinary symptoms cut wound PMFSH Medical History Pulmonary hypertension Restrictive lung disease Diabetes Scoliosis CYNTHIA (obstructive sleep apnea) Obesity Cough HX: breast cancer Anemia Back pain Lymphedema of left arm GERD (gastroesophageal reflux disease) Blind right eye Trigeminal neuralgia of right side of face Hypertension CHF (congestive heart failure) Heart murmur after rheumatic heart disease Family History Father History of heart attack Mother History of leukemia History of hypertension Surgical History History of open reduction and internal fixation (ORIF) procedure History of ventral hernia repair History of left inguinal hernia repair History of bladder suspension procedure History of partial hysterectomy History of tonsillectomy and adenoidectomy Hx of esophagogastroduodenoscopy History of lymph node dissection of left axilla H/O left mastectomy Hx of wisdom tooth extraction History of colonoscopy Social History Are you a primary care services manager to a significant other at home: No Do you presently have visiting nurse or other home services: No Alcohol intake: never Patient Tobacco Use Status: Never used Tobacco Advance Directives: Yes Advance Directives on File: Yes Advance Directives Date on File: 02/08/23 Meds Allergies Allergy/AdvReac Type Severity Reaction Status Date / Time gabapentin [From Neurontin] Allergy Intermediate JOINTS Verified 06/22/24 17:14 SWELL famotidine AdvReac Mild Dizziness Verified 06/22/24 17:14 oranges Allergy Mild cold sores Uncoded 06/22/24 17:14 Active Medications: Current Medications Magnesium Sulfate (Magnesium Sulfate/H2o) 2 gm in 50 mls @ 25 mls/hr IV ONCE ONE Stop: 06/23/24 02:20 Home Medications ?Medication ?Instructions ?Recorded ?Confirmed ?Last Taken ?Type atorvastatin 10 mg tablet 10 mg PO BEDTIME 07/30/20 02/13/23 Unknown History latanoprost 0.005 % eye drops 1 drp ophthalmic-Right QPM 07/30/20 02/13/23 Unknown History lorazepam 0.5 mg tablet 0.5 mg PO TID PRN Anxiety 07/30/20 02/13/23 12/02/22 History dorzolamide 22.3 mg-timolol 6.8 1 drp ophthalmic (eye) BID 10/29/20 02/13/23 Unknown History mg/mL eye drops famotidine 40 mg tablet 40 mg PO BEDTIME 10/29/20 02/13/23 Unknown History hydrochlorothiazide 12.5 mg capsule 12.5 mg PO DAILY 10/29/20 02/13/23 Unknown History glipizide 2.5 mg tablet, extended 1.25 mg PO QAM 12/04/20 02/13/23 Unknown History release 24 hr Ca 600 mg-D3 20 mcg-mag oxide 50 tab PO 02/19/24 Unknown History sv-Rg-wsvjwp-manganese-boron tablet (Calcium 600-D3 Plus (mag-zinc)) ascorbate calcium (vitamin C) 500 500 mg PO DAILY 02/19/24 Unknown History mg tablet cholecalciferol (vitamin D3) 125 125 mcg PO DAILY 02/19/24 Unknown History mcg (5,000 unit) capsule cyanocobalamin (vitamin B-12) 250 250 mcg PO DAILY 02/19/24 Unknown History mcg tablet (Vitamin B-12) ginkgo biloba leaf extract 120 mg 120 mg PO DAILY 02/19/24 Unknown History capsule ginseng 200 mg capsule 200 mg PO DAILY 02/19/24 Unknown History multivitamin 1 tab PO DAILY 02/19/24 Unknown History nortriptyline 25 mg capsule 25 mg PO BEDTIME 02/19/24 Unknown History resveratrol 100 mg capsule mg PO 02/19/24 Unknown History turmeric 400 mg capsule mg PO 02/19/24 Unknown History Physical Exam 2 Vital Signs and Narrative: Vital Signs: Last Vital Signs Temp 97.4 F 06/22/24 22:22 Pulse 106 H 06/23/24 00:00 Resp 18 06/23/24 00:00 BP 109/55 L 06/23/24 00:00 Pulse Ox 96 06/23/24 00:00 O2 Del Method Room Air 06/23/24 00:00 BMI result Body Mass Index 30.9 Const: Other: Constitutional : Awake, interactive, not in distress Neck : Normal inspection, Supple Cardiovascular : irregular irregular, no JVP, no lower extremity edema Respiratory : good bilateral air entry, no crackles, wheezes or rhonchi Gastrointestinal: soft, lax, Normal bowel sounds, Non tender Skin : Warm, Dry, small 2nd finger cutwound Neurological : Alert & oriented x3, No focal deficit , CN 2-12 within normal Results Labs 06/22/24 22:45 06/22/24 22:45 Labs: Laboratory Results - last 24 hr 06/22/24 06/22/24 22:45 22:48 MCV 80.7 MCH 24.8 L MCHC 30.8 L RDW 16.0 Plt Count 199 D MPV 9.3 L Immature Gran % (Auto) 0.3 Neut % (Auto) 66.0 Lymph % (Auto) 19.6 L [place] % (Auto) 11.1 H Eos % (Auto) 2.7 Baso % (Auto) 0.3 Lymph # (Auto) 1.3 [place] # (Auto) 0.7 Eos # (Auto) 0.2 Baso # (Auto) 0.0 Abs Immat Gran (auto) 0.02 Absolute Neuts (auto) 4.4 Absolute Nucleated RBC 0.000 Nucleated RBC % (auto) 0.0 Hold Blue Top SEE NOTE Anion Gap 13 Estim Creat Clear Calc 44.3 Estimated GFR > 60 Random Glucose 100 Calcium 9.6 Magnesium 2.2 Total Bilirubin 0.3 AST 27 ALT 13 Alkaline Phosphatase 82 Troponin I High Sens 6.8 Total Protein 7.0 Albumin 4.2 Imaging Radiologist's Impressions: Impressions Finger X-Ray 06/22/24 17:33 IMPRESSION: No acute fracture or dislocation. No radiopaque foreign body. Overlying soft tissue swelling. Electronically signed by: Silvia Matson MD 06/22/2024 06:40 PM EST Assessment and Plan (1) Atrial fibrillation with rapid ventricular response: Status: Acute (2) Pulmonary hypertension: Status: Acute Plan An 79 years old lady with PMH of CYNTHIA, Pulm HTN, GERD, HTN, DMII among others presented to ED after cutting her finger found to have new onset Afib w RvR accidentally. New Onset Afib w RvR likely related to chronic HTN and CYNTHIA(untreated), Pulm HTN get an Echo Cardiology eval Start Cardizem PO and IV as needed Keep on Tele Eliquis as AC: discussed risk and benefits DM II Hold oral agents SSI , diabetic diet GERD, PPI Anxiety, Ativan HTN, hold HCT for now \ DVT PPx Eliquis The patient will be admitted for 2 overnight for monitoring of heart rate with PO and IV medications on Telemetry pending ECHO and Cardiology consultation Quality Stroke Does the patient have a stroke diagnosis?: No VTE Prior VTE?: No VTE Risk Level:: Medical - moderate - high VTE Device Contraindication: Treatment Not Indicated VTE Drug Contraindication: N/A - Med Ordered
[2024-06-23] MEDS: Magnesium Sulfate/H2O 2 GM/50 ML PIGGYBACK IV (00:44)
--- NOTE | 2024-06-23 01:00 | MHC.EDTECH ---
Patient got up to commode with minimal assistance,pt urinated a large amount,thang-car given,belongings list completed,copy placed in chart,warm blanket given,call zavala in reach
[2024-06-23 01:24] LABS: Thyroid Stimulating Hormone 3.61 uIU/mL (0.32-4.0)
[2024-06-23] MEDS: 0.9 % Sodium Chloride 500 ML IV (01:49)
--- NOTE | 2024-06-23 01:59 | MHC.EDTECH ---
Lab drawn and sent to lab,vitals taken,call zavala in reach
[2024-06-23 02:23] LABS: Troponin-I High Sensitivity 6.9 ng/L (<3.5-17.0)
[2024-06-23] MEDS: dilTIAZem HCL 30 MG TABLET PO ×2 (03:52→08:22)
[2024-06-23 05:06] LABS: Anion Gap 12 (12-20); Blood Urea Nitrogen 22 mg/dL (9-16); Calcium 8.1 mg/dL (8.4-10.2); Carbon Dioxide 24 mmol/L (22-29); Chloride 111 mmol/L (96-108); Creatinine Clr Calc Pharmacy 48.1; Estimated Glomerular Filt Rate > 60; Glucose Random 114 mg/dL (60-115); Potassium 3.7 mmol/L (3.3-5.1); Sodium 143 mmol/L (135-145)
--- NOTE | 2024-06-23 07:00 | CA_ITS ---
Transthoracic Echocardiogram Patient (Last, First, Middle): JaviJanuary, Gender: Female Date of : 1945 Age: 79 Procedure Date: 06/23/2024 Procedure Type: Transthoracic Echocardiogram Location: [facility] [place] Height: 152. cm Weight: 71.67 kg BSA: 1.69 m2 Heart Rate: 80 bpm BP: 113 / 63 mmHg Floor Waxer: RANDELL Referring MD: Karla Sebastian MD Symptoms: New onset Afib w RvR Study Quality: Fair w/Contrast ECG Rhythm: Sinus Conclusions: - 1. Hyperdynamic LV ejection fraction greater than 70% with concentric mild LVH with moderate asymmetric septal hypertrophy with suggestion of dynamic obstructive physiology at LVOT with impaired relaxation filling pattern 2. Biatrial enlargement, left greater than right 3. Calcific aortic and mitral valve changes noted with mild mitral regurgitation 4. Normal RV systolic pressure 5. Mildly dilated ascending aorta at 3.7 cm 6. No gross pericardial effusion Findings Procedure Information Contrast agent, definity, is being given per protocol without apparent complications. Left Ventricle Normal left ventricular cavity size. There is mildly increased left ventricular wall thickness. The left ventricular systolic function is hyperdynamic. The visually estimated ejection fraction is >70%. There is dynamic left ventricular outflow tract obstruction. The left ventricular outflow tract gradient at rest is 11 mmHg. Spectral Doppler is indicative of an impaired relaxation filling pattern. There is moderate septal asymmetric hypertrophy. there is increased gradient across the LVOT at rest which increases with Valsalva maneuver consistent with dynamic obstruction Right Ventricle Mildly increased right ventricular cavity size. There is normal right ventricular systolic function. Atria The left atrium is moderately dilated. There is no evidence of interatrial shunt. The right atrium is mildly dilated. Aortic Valve The aortic valve was not well visualized. There is mild calcification of the aortic valve. There is no aortic valve regurgitation. early mild aortic stenosis can not be entirely ruled out on this study Mitral Valve There is mild anterior and moderate posterior mitral leaflet thickening. There is mild anterior and moderate posterior mitral annular calcification. There is moderate mitral annular calcification. There is mild mitral valve regurgitation. There is no mitral valve stenosis. Pulmonic Valve The pulmonic valve was not well visualized. Tricuspid Valve Likely normal tricuspid valve structure and function. There is mild tricuspid valve regurgitation. The right ventricular systolic pressure is normal. The right ventricular systolic pressure is 23 mmHg. Normal right atrial pressure. There is no evidence of pulmonary hypertension. Great Vessels The aorta was not well visualized. The pulmonary artery was not well visualized. There is mild dilatation of the ascending aorta measuring 3.70 cm. Venous The inferior vena cava is normal in size and collapses greater than 50% with inspiration. Pericardium/Pleural There is no evidence of pericardial effusion. Measurements 2D Linear Measurements IVSd: 1.59 0.6-0.9/0.6-1.0 cm LVIDd: 3.67 3.9-5.3/4.2-5.9 cm LVIDd Index: 2.17 2.4-3.2/2.2-3.1 cm/m2 LVIDs: 2.08 2.0-3.6 cm LVPWd: 1.37 0.7-1.1 cm LA Diam: 4.70 2.7-3.8/3.0-4.0 cm LAIDs Index: 2.78 1.5-2.3 cm/m2 LV Mass: 251.68 67-162/88-224 g LV Mass Index: 148.93 43-95/49-115 g/m2 LVOT Diam: 1.80 3.0+(-)1.3 cm 2D Systolic Function EF 4C: 65.20 >55% EF 2C: 76.50 >55% EF BiP: 72.30 >55% Mitral Valve MV VTI: 0.41 MV Pk Sree: 1.72 MV Mn Sree: 1.16 MV Pk Grad: 12.00 MV Mn Grad: 6.00 MV Pk E: 1.26 MV PK A: 1.62 MV Decel Time: 294.00 E/A: 0.80 E'Lateral: 6.20 E'Medial: 5.44 E/E' Med: 23.20 E/E' Lat: 20.30 PHT: 86.00 MVA PHT: 2.56 MVA Continuity: 2.66 Decel [place]: 4.27 Aortic Valve AoV Pk Sree: 2.50 AoV Mn Sree: 1.92 AoV VTI: 0.55 AoV Pk Grad: 25.00 Aov Mn Grad: 17.00 JASWANT Cont.VTI: 1.97 LVOT LVOT Pk Sree: 2.04 LVOT Mn Sree: 1.53 LVOT VTI: 0.43 LVOT Pk Grad: 17.00 LVOT Mn Grad: 11.00 LVOT Diam: 1.80 LVOT Area: 2.54 Diastolic Function MV Pk E: 1.26 MV Pk A: 1.62 E/A: 0.80 E'Medial: 5.44 E/E' Med: 23.20 E' Laterial: 6.20 E/E' Lat: 20.30 Right Ventricle TAPSE (mm): 26.50 TVS' Sree: 11.20 Tricuspid Valve TR Pk Sree: 2.24 TR Pk Grad: 20.00 RA Press: 3.00 RVSP: 23.00 Great Vessels Aorta Sinus of Valsalva: 3.50 2.0-3.5 cm Ao Asc: 3.70 2.1-3.4 cm Ao Arch: 3.80 Pulmonary Valve PV Pk Sree: 1.42 Peak PV Grad: 8.00 Updated in Other Vendor System with Status of Final Todd North MD electronically signed on 06/23/2024 11:46:27 AM with status of Final
[2024-06-23] MEDS: Apixaban 5 MG TABLET PO (08:22)
--- NOTE | 2024-06-23 08:43 | PHA.MEDREC ---
Addendum entered by Shannen Lobato RPh 06/23/24 09:12: Reviewed by [facility] Original Note: Pharmacy Consult ? Medication Reconciliation Pharmacy has completed the medication reconciliation. Confirmed medications with patient. Patient confirmed her Atorvastatin 10mg tab and she states she takes it in the morning. She confirmed she is now doing her Latanoprost eye drops in each eye at bedtime. She stated she was still taking Hydrochlorothiazide 12.5mg tabs once daily and states she fills them at [facility] in [place], looking in claims that has not been filled since 02/03 for 90 days and after calling [facility] in [place] they confirmed that she has not filled that medication since then and has not attempted to fill it. She also confirmed she is taking Lorazepam 0.5mg tabs still but only when absolutely needed. She confirmed a whole array of OTC medications and states she would like her to bring them in but she cannot call him due to her not having her phone on her.
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
--- NOTE | 2024-06-23 10:38 | P.DS_ITS ---
DS: Providers Provider Date of Service: 06/23/24 Date of admission: 06/23/24 02:25 Date of discharge: 06/23/24 Primary care physician: Kory Perdue MD Consults: 06/23/24 02:25 Consult to Cardiology Routine Consulting Provider: [facility] Reason for consultation: new onset Afib w RvR DS: Diagnosis Discharge Diagnosis (1) Atrial fibrillation with rapid ventricular response: Status: Acute (2) Avulsion, finger tip: Status: Acute DS: Summary Hospital Course Hospital Course: From the history and physical by the admitting hospitalist, Karla Sebastian MD, 06/23/24: An 79 years old lady with PMH of CYNTHIA, Pulm HTN, GERD, HTN, DMII among others presented to ED after cutting her finger found to have new onset Afib w RvR accidentally. The patient was slicing apples when she cut the tip of her right 2nd digit. presented to ED where the wound was taken care of and she was leaving when noticed to have rapid irregular rhythm with HR of 140s. EKG showed newly diagnosed Afib which was asymptomatic as the patient denies any symptoms at this time. Better controlled with 2 doses of IV Cardizem. Will be admitted for further work up and treatment. She was admitted to the telemetry unit and converted to normal sinus rhythm. She was started on apixaban for stroke prevention and metoprolol succinate for rate control. She will follow up with [facility] for further workup including outpatient echocardiography. She should follow up with Primary Care regarding the fingertip avulsion, which currently has Surgicel and dry gauze on it. Time Attestation Discharge Coordination Time (in mins): 35 Quality: Safe Use of Opioids Does Pt have an Active Cancer Diagnosis on the Problem List?: No Quality: Stroke Does the patient have a stroke diagnosis?: No Physical Exam Vital Signs: Vital Signs: Last Vital Signs Temp 97.5 F 06/23/24 09:48 Pulse 83 06/23/24 09:48 Resp 18 06/23/24 09:48 BP 130/55 L 06/23/24 09:48 Pulse Ox 95 06/23/24 09:48 O2 Del Method Room Air 06/23/24 09:48 O2 Flow Rate 2 06/23/24 06:19 BMI result Body Mass Index 30.9 Gen: in no acute distress HEENT: sclera anicteric, moist mucus membranes Neck: supple Lungs: clear to auscultation bilaterally Heart: regular rate and rhythm, systolic murmur along LSB Abd: soft, non-tender, non-distended Ext: no edema Skin: warm/well-perfused Neuro: alert and oriented x3, no focal findings Psych: appropriate affect DS: Data Data Completed and Pending Completed studies during hospitalization [Text1]: Laboratory Results WBC 6.7 X10*3/uL (4.8-10.8) 06/22/24 22:45 RBC 4.87 X10*6/uL (4.20-5.50) 06/22/24 22:45 Hgb 12.1 g/dl (12.0-16.0) 06/22/24 22:45 Hct 39.3 % (37.0-47.0) 06/22/24 22:45 MCV 80.7 fL (80.0-98.0) 06/22/24 22:45 MCH 24.8 pg (27.0-33.0) L 06/22/24 22:45 MCHC 30.8 g/dl (31.0-35.0) L 06/22/24 22:45 RDW 16.0 % (11.0-16.0) 06/22/24 22:45 Plt Count 199 X10*3/uL (160-400) D 06/22/24 22:45 MPV 9.3 fL (9.4-12.3) L 06/22/24 22:45 Immature Gran % (Auto) 0.3 % (0.0-0.4) 06/22/24 22:45 Neut % (Auto) 66.0 % (45-73) 06/22/24 22:45 Lymph % (Auto) 19.6 % (20-40) L 06/22/24 22:45 [place] % (Auto) 11.1 % (2-11) H 06/22/24 22:45 Eos % (Auto) 2.7 % (0-4) 06/22/24 22:45 Baso % (Auto) 0.3 % (0-2) 06/22/24 22:45 Lymph # (Auto) 1.3 X10*3/uL (1.2-4.9) 06/22/24 22:45 [place] # (Auto) 0.7 X10*3/uL (0.1-1.2) 06/22/24 22:45 Eos # (Auto) 0.2 X10*3/uL (0.0-0.4) 06/22/24 22:45 Baso # (Auto) 0.0 X10*3/uL (0.0-0.2) 06/22/24 22:45 Abs Immat Gran (auto) 0.02 X10*3/uL (0.00-0.03) 06/22/24 22:45 Absolute Neuts (auto) 4.4 x10*3/uL (2.0-8.3) 06/22/24 22:45 Absolute Nucleated RBC 0.000 X10*3/uL (0.0-0.012) 06/22/24 22:45 Nucleated RBC % (auto) 0.0 /100WBC (0.0-0.2) 06/22/24 22:45 Hold Blue Top SEE NOTE 06/22/24 22:45 Sodium 143 mmol/L (135-145) 06/23/24 04:41 Potassium 3.7 mmol/L (3.3-5.1) 06/23/24 04:41 Chloride 111 mmol/L (96-108) H 06/23/24 04:41 Carbon Dioxide 24 mmol/L (22-29) 06/23/24 04:41 Anion Gap 12 (12-20) 06/23/24 04:41 BUN 22 mg/dL (9-16) H 06/23/24 04:41 Creatinine 0.81 mg/dL (0.5-1.4) 06/23/24 04:41 Estim Creat Clear Calc 48.1 06/23/24 04:41 Estimated GFR > 60 06/23/24 04:41 Random Glucose 114 mg/dL (60-115) 06/23/24 04:41 Calcium 8.1 mg/dL (8.4-10.2) L D 06/23/24 04:41 Magnesium 2.2 mg/dL (1.6-2.6) 06/22/24 22:45 Total Bilirubin 0.3 mg/dL (0.0-1.0) 06/22/24 22:45 AST 27 U/L (5-31) 06/22/24 22:45 ALT 13 U/L (0-31) 06/22/24 22:45 Alkaline Phosphatase 82 U/L (39-117) 06/22/24 22:45 Troponin I High Sens 6.9 ng/L (<3.5-17.0) 06/23/24 01:57 Total Protein 7.0 g/dL (6.5-8.0) 06/22/24 22:45 Albumin 4.2 g/dL (3.5-5.0) 06/22/24 22:45 TSH 3.61 uIU/mL (0.32-4.0) 06/22/24 22:45 Impressions Finger X-Ray 06/22/24 17:33 IMPRESSION: No acute fracture or dislocation. No radiopaque foreign body. Overlying soft tissue swelling. Electronically signed by: Silvia Matson MD 06/22/2024 06:40 PM EST RP Chest X-Ray 06/22/24 22:34 IMPRESSION: No evidence for active cardiopulmonary disease. Electronically signed by: Brian Trimble MD 06/23/2024 12:58 AM EST RP Discharge Plan Discharge Anticipated Discharge Date/Time: 06/23/24 10:33 Patient Disposition: Home, Self-Care Discharge Diagnosis: new-onset atrial fibrillation avulsion of tip of right 2nd finger Referrals: Kory Perdue MD [Primary Care Provider] - 1 Week Todd North MD [Physician] - 1 Week Discharge Medications: New Eliquis 5 mg Tablet 5 mg PO BID Qty: 60 0RF metoprolol succinate 50 mg tablet extended release 24 hr 50 mg PO DAILY Qty: 30 0RF Continued atorvastatin 10 mg Tablet 10 mg PO DAILY lorazepam 0.5 mg Tablet 0.5 mg PO DAILY PRN (Reason: Anxiety) latanoprost 0.005 % Drops 1 drp ophthalmic (eye) BEDTIME pantoprazole 40 mg tablet,delayed release (DR/EC) 40 mg PO BID@0630,1630 acetaminophen [Tylenol] 325 mg capsule 325 mg PO Q4H PRN (Reason: pain) Qty: 30 0RF dorzolamide-timolol 22.3-6.8 mg/mL drops 1 drp ophthalmic (eye) BID glipizide 2.5 mg tablet extended release 24hr 1.25 mg PO DAILY nortriptyline 25 mg capsule 25 mg PO BEDTIME multivitamin Tablet 1 tab PO DAILY ascorbate calcium (vitamin C) 500 mg tablet 500 mg PO DAILY Ca-D3-mag ab-mrbq-mtb-miranda-bor [Calcium 600-D3 Plus (mag-zinc)] 600 mg calcium- 20 mcg-50 mg tablet 1 tab PO DAILY cholecalciferol (vitamin D3) 125 mcg (5,000 unit) capsule 125 mcg PO DAILY turmeric 400 mg capsule 400 mg PO DAILY ginkgo biloba leaf extract 120 mg capsule 120 mg PO DAILY Rx Instructions: give with meal/snack ginseng 200 mg capsule 200 mg PO DAILY resveratrol 100 mg capsule 100 mg PO DAILY Discontinued hydrochlorothiazide 12.5 mg capsule 12.5 mg PO DAILY Discharge Orders: Discharge Order (Routine); Ordered 06/23/24 Ordered By: Marko Galvez Diet: Advance to usual diet Activity on Discharge: As tolerated Stand Alone Forms: Patient Portal Discharge page Print Language: Indonesian Care Plan Goals: stroke prevention finger healing Health Concerns: new-onset atrial fibrillation avulsion of tip of right 2nd finger Plan of Treatment: take metoprolol succinate [Toprol] 50 mg once daily to control heart rate stop hydrochlorothiazide take apixaban [Eliquis] 5 mg twice daily to prevent strokes follow up with [facility] in 1-2 weeks; will arrange outpatient echocardiogram do not get right 2nd finger wet; follow up with primary care in 2-3 days for wound check Assessment: See Discharge Summary.
--- NOTE | 2024-06-23 11:47 | MHC.CM.PN ---
[facility] IMM 06/23/24, Pt is independent, lives with her , HCP is on file and confirmed, PCP is confitmed: Dr. Perdue. to transport home, no home services, pt is independent. She has been medically cleared, plan is: home self care.
== END 2024-06-23 15:06 | disposition home or self-care (01) | DRG 310 ==
LOC: HO.ED 06-23 00:28 → HO.EDOVER 06-23 02:43 → HO.IMC 06-23 07:51
PROVIDERS: Physician Assistant Medical; Admitting Provider Student in an Organized Health Care Education/Training Program; Emergency Provider Emergency Medicine; PCP Internal Medicine; Visit Provider Family Medicine
DX: I48.0 Paroxysmal atrial fibrillation (principal); G47.33 Obstructive sleep apnea (adult) (pediatric); I10 Essential (primary) hypertension; I27.20 Pulmonary hypertension, unspecified; S61.216A Laceration without foreign body of right little finger without damage to nail, initial encounter; W26.8XXA Contact with other sharp object(s), not elsewhere classified, initial encounter; E11.9 Type 2 diabetes mellitus without complications; K21.9 Gastro-esophageal reflux disease without esophagitis; Z79.84 Long term (current) use of oral hypoglycemic drugs; Z79.899 Other long term (current) drug therapy
CPT/HCPCS: 36415; 71045; 73140; 80048; 80053; 83735; 84443; 84484; 85025; 93005; 93306; 99285; J3475; Q9957

== ENCOUNTER → 2024-06-22 21:40 | Outpatient (BNV) | payer MEDICARE, OTHER, SELFPAY | PROVIDERS: Emergency Provider Emergency Medicine; PCP Internal Medicine; Visit Provider Student in an Organized Health Care Education/Training Program | DX: I48.91 Unspecified atrial fibrillation (principal); I27.20 Pulmonary hypertension, unspecified; S61.209A Unspecified open wound of unspecified finger without damage to nail, initial encounter | CPT/HCPCS: 99235 ==

== ENCOUNTER → 2024-06-22 22:23 | Outpatient (BNV) | payer MEDICARE, OTHER, SELFPAY | PROVIDERS: Admitting Provider Student in an Organized Health Care Education/Training Program; Emergency Provider Emergency Medicine; PCP Internal Medicine; Visit Provider Internal Medicine Cardiovascular Disease | DX: R00.0 Tachycardia, unspecified (principal); I48.91 Unspecified atrial fibrillation | CPT/HCPCS: 93010 ==

== ENCOUNTER → 2024-06-23 02:25 | Outpatient (BNV) | payer MEDICARE, OTHER, SELFPAY | PROVIDERS: Admitting Provider Student in an Organized Health Care Education/Training Program; Emergency Provider Emergency Medicine; PCP Internal Medicine; Visit Provider Internal Medicine Cardiovascular Disease | DX: I42.1 Obstructive hypertrophic cardiomyopathy (principal); I48.0 Paroxysmal atrial fibrillation; I34.0 Nonrheumatic mitral (valve) insufficiency; I36.1 Nonrheumatic tricuspid (valve) insufficiency | CPT/HCPCS: 93010; 93306; 99222 ==

== ENCOUNTER → 2024-06-28 10:04 | Outpatient (REF) | payer MEDICARE, OTHER, SELFPAY ==
--- NOTE | 2024-06-28 10:07 | HM_ITS ---
Conclusion: 1. Patient was monitored for total period of 3 days 2. Baseline was normal sinus rhythm with average heart of 69 beats per minute 3. No significant pauses noted 4. Occasional PACs noted with multiple short runs of SVTs, longest lasting 67 beats and fastest at 138 beats per minute 5. Patient marked 1 counter with racing of the heart correlating in 3 beat run of SVE MTDD
== END ==
LOC: HO.CARD 10:04
PROVIDERS: PCP Internal Medicine; Visit Provider Internal Medicine Cardiovascular Disease
DX: I48.0 Paroxysmal atrial fibrillation (principal); I27.20 Pulmonary hypertension, unspecified; J98.4 Other disorders of lung; E66.9 Obesity, unspecified
CPT/HCPCS: 93242

== ENCOUNTER → 2024-06-28 10:07 | Outpatient (BNV) | payer MEDICARE, OTHER, SELFPAY | PROVIDERS: PCP Internal Medicine; Visit Provider Internal Medicine Cardiovascular Disease | DX: I49.1 Atrial premature depolarization (principal) | CPT/HCPCS: 93244 ==

== ENCOUNTER 2024-08-25 08:06 | Outpatient (REF) | payer MEDICARE, OTHER, SELFPAY ==
--- OUTSIDE RECORDS SUMMARY | 2024-08-25 08:11 | XMS_ITS | Patient Health Record ---
Author Organization [facility] Address [address] [place] [address] Care Team Providers Care Kilnman Name Role Phone Kory Perdue MD Primary Care Provider Sammy Ace [phone] ALLERGIES Allergen (clinical drug ingredient) Drug/Non Drug Allergy documented on EMR Reaction Allergy Type Onset Date Status orange allergenic extract oranges (uncoded) Unknown Allergy Active carbamazepine carbamazepine (uncoded) Unknown Allergy Active gabapentin gabapentin (uncoded) Unknown Allergy Active gabapentin neurontin (uncoded) Unknown Allergy Active REASON FOR REFERRAL No Information MEDICATIONS Medication SIG (Take, Route, Frequency, Duration) Notes Start Date End Date Status Pantoprazole Sodium 40 MG TAKE 1 TABLET BY MOUTH TWICE A DAY Oral for 90 Active Calcium Magnesium 750 300-30 0 MG 1 tablet with meals Orally QD Active Vision Formula 1 4 PO QD Act rosy [place] 3 2 plus 1 capsule Orally 2 daily Active Anastrozole 1 MG 1 tablet Orally Once a day Active hydroCHLOROthiazide 12.5 MG 1 tablet in the morning Orally Once a day for 30 day(s) Active Atorvastatin Calcium 10 MG 1 tablet Oral ly Once a day Active Dorzolamide HCl-Timolol Mal 22.3-6.8 MG/ML 1 drop into affected eye Ophthalmic Twice a day Active glipiZIDE Not-Taking Latanoprost 0.005 % 1 drop into affected eye in the evening Ophthalmic Once a day Active Multi Vitamin/Minerals 1 1 Orally QD Active Vitamin D3 1000 UNIT 1 capsule Orally Once a day Active CoQ10 200 MG 1 capsule with a meal Orally Once a day Active IMMUNIZATIONS Vaccine Route Administration Date Status Comme nts Flu vaccine no Preserv 3 and > Unknown 05/27/2016 Admin istered Influenza Unknown 04/17/2020 Administered SOCIAL HISTORY Sex Assigned At : Social History Observation Description Sex Assigned At Unknown PROBLEMS Problem Type ICD Code Onset Dates Problem Status W/U Status Risk SNOMED Code Notes Problem Gastro-esophage al reflux disease without esophagitis (K21.9) Active confirmed 986697386 Problem Encounter for screening for malignant neoplasm of colon (Z12.11) Active confirmed 279690478 Problem History of adenomatous polyp of colon (Z86.010) Active confirmed 894085080 Problem Hypertension (I10) Active confirmed 28138795 Problem Encounter for screening for malignant neoplasm of rectum (Z12.12) Active confirmed Screening fo r malignant neoplasm of rectum (518382209) Problem Dysphagia (R13.10) Active confirmed Dysphagia (51763160) Problem GERD (gastroesophage al reflux disease) (K21.9) Active confirmed Gastroesophagea l reflux disease (528879324) PLAN OF TREATMENT Future Test Test Name Order Date COLONOSCOPY 05/09/2011 COLONOSCOPY 11/19/2016 Insurance Providers Payer Name Payer Address Payer Phone Subscriber Number Group Number Insured Name Patient Relationship to Insured Coverage Start Date Coverage End Date MEDICARE OF [place] [address] [place] [address] [id number] OMAHA January Self - patient is the insured [facility] [address] [address] [place] [address] [id number] OMAHA January Self - patient is the insured MEDICAL (GENERAL) HISTORY Medical History History ICD Code Glaucoma Trigeminal neuralgia Denies MT,DM,CVA,Lung disease,renal dise ase Breast cancer--left mastectomy, chemo, X RT Colonoscopy 05/2011--small t ubular adenoma removed, sigmoid diverticulosis, small internal hemorrhoids--- she has had prior colonoscopies while she was living in [place] GERD---Hiatal hernia surgery in [address] Christiansen at [facility]--s/p esophageal dilations at [facility]--she has had previous upper endoscopies in [place] when she was living there Hyperlipidemia NIDDM Negative incomplete colonosc opy in 2017 with a negative followup CT Colonography on the same day She has had several upper en doscopies with dilations of the gastroesophageal junction by Dr. Campbell for intermittent dysphagia and increased reflux symptoms, including coughing. Her most recent endoscopy was in July of 2020 at which time he used an 18-19 mm balloon to dilate the gastroesophageal junction with good effect. Surgical History Surgery Date(Month/Year) Spigelian hernia repair twice Bladder suspension and partial hysterect leopoldo Eye surgery as a child Left mastectomy Cataract-lens implants-left eye and sten t for glaucoma Hiatal hernia repair at [facility] as above
[2024-08-25 09:06] LABS: MANUAL DIFF FLAG NO
[2024-08-25 09:11] LABS: Basophils Absolute Auto 0.1 X10*3/uL (0.0-0.2); Basophils Percent Auto 0.8 % (0-2); Eosinophils Absolute Auto 0.4 X10*3/uL (0.0-0.4); Eosinophils Percent Auto 4.9 % (0-4); Hematocrit 38.2 % (37.0-47.0); Hemoglobin 11.3 g/dl (12.0-16.0); Imm Gran Abs Auto 0.03 X10*3/uL (0.00-0.03); Imm Gran Pct Auto 0.4 % (0.0-0.4); Lymphocytes Absolute Auto 1.2 X10*3/uL (1.2-4.9); Lymphocytes Percent Auto 16.6 % (20-40); Mean Corpuscular HGB Conc 29.6 g/dl (31.0-35.0); Mean Corpuscular Hemoglobin 23.7 pg (27.0-33.0); Mean Corpuscular Volume 80.1 fL (80.0-98.0); Mean Platelet Volume 9.2 fL (9.4-12.3); Monocytes Absolute Auto 0.8 X10*3/uL (0.1-1.2); Monocytes Percent Auto 10.8 % (2-11); Neutrophils Absolute Auto 4.9 x10*3/uL (2.0-8.3); Neutrophils Percent Auto 66.5 % (45-73); Platelet Count 226 X10*3/uL (160-400); Red Blood Count 4.77 X10*6/uL (4.20-5.50); Red Cell Distribution Width 17.5 % (11.0-16.0); White Blood Count 7.4 X10*3/uL (4.8-10.8)
[2024-08-25 09:21] LABS: Estimated Average Glucose 128 mg/dL; Hemoglobin A1C 126.5547 umol/L; Hemoglobin A1c % 6.1 % (<6.0); Total Hemoglobin (HGBA1C) 2967.0835 umol/L
[2024-08-25 09:27] LABS: Alanine Aminotransferase 18 U/L (0-31); Albumin Level 3.8 g/dL (3.5-5.0); Alkaline Phosphatase 84 U/L (39-117); Anion Gap 12 (12-20); Aspartate Amino Transferase 22 U/L (5-31); Bilirubin Total 0.4 mg/dL (0.0-1.0); Blood Urea Nitrogen 21 mg/dL (9-16); Carbon Dioxide 27 mmol/L (22-29); Chloride 110 mmol/L (96-108); Cholesterol 155 mg/dL (<200); Estimated Glomerular Filt Rate 59; Glucose Fasting 144 mg/dL (60-99); HDL Cholesterol 58 mg/dL (>40); LDL Cholesterol Calculated 78 mg/dL (<100); Potassium 4.6 mmol/L (3.3-5.1); Sodium 144 mmol/L (135-145); Total Protein 6.3 g/dL (6.5-8.0); Triglycerides 99 mg/dL (<150)
[2024-08-25 09:41] LABS: Vitamin D 25-OH Total 74.1 ng/mL (>30)
== END 2024-08-25 08:07 | disposition home or self-care (01) ==
LOC: HO.10HDL 08:06
PROVIDERS: Visit Provider Internal Medicine
DX: E11.9 Type 2 diabetes mellitus without complications (principal); K21.9 Gastro-esophageal reflux disease without esophagitis; D64.9 Anemia, unspecified; I44.7 Left bundle-branch block, unspecified
CPT/HCPCS: 36415; 80053; 80061; 82306; 83036; 85025

== ENCOUNTER 2024-08-28 08:47 | Inpatient (IN) | payer MEDICARE, OTHER, SELFPAY ==
[2024-08-28] VITALS (14 sets, daily range): BP systolic 102–145; BP diastolic 58–97; PULSE 80–131; RESP 18–20; TEMP 36.6–36.9; O2SAT 90–96; BMI 32.6
--- NOTE | ~2024-08-28 | XR_ITS ---
CLINICAL HISTORY: SOB 1 view chest x-ray Comparison: 01/30/2023 Findings: Portions of the exam are obscured by overlying material. There is bibasilar consolidation with bilateral pleural effusions. Differential considerations would include pneumonia or subsegmental atelectasis. Heart size is normal. No acute fracture. IMPRESSION: 1. Bibasilar consolidation with bilateral pleural effusions, differential considerations noted. This document has been electronically signed by: Adam Verduzco MD on 08/28/2024 10:47:34
--- NOTE | 2024-08-28 08:59 | ECG_ITS ---
Test Reason : AFIB Blood Pressure : */* mmHG Vent. Rate : 121 BPM Atrial Rate : * BPM P-R Int : * ms QRS Dur : 144 ms QT Int : 354 ms P-R-T Axes : * -22 142 degrees QTcB Int : 502 ms Atrial fibrillation with rapid ventricular response Left bundle branch block Abnormal ECG When compared with ECG of 23-Jun-2024 11:07, Atrial fibrillation has replaced Sinus rhythm Vent. rate has increased by 45 bpm QRS axis Shifted right Referred By: Generic ED Physician Electronically Signed By: LOREN JASMINE
[2024-08-28 09:17] LABS: MANUAL DIFF FLAG NO
[2024-08-28 09:18] LABS: Basophils Percent Auto 0.5 % (0-2); Eosinophils Absolute Auto 0.3 X10*3/uL (0.0-0.4); Eosinophils Percent Auto 3.1 % (0-4); Hematocrit 36.1 % (37.0-47.0); Hemoglobin 10.8 g/dl (12.0-16.0); Imm Gran Abs Auto 0.03 X10*3/uL (0.00-0.03); Imm Gran Pct Auto 0.3 % (0.0-0.4); Lymphocytes Absolute Auto 0.8 X10*3/uL (1.2-4.9); Lymphocytes Percent Auto 9.7 % (20-40); Mean Corpuscular HGB Conc 29.9 g/dl (31.0-35.0); Mean Corpuscular Hemoglobin 23.6 pg (27.0-33.0); Mean Platelet Volume 9.6 fL (9.4-12.3); Monocytes Absolute Auto 0.7 X10*3/uL (0.1-1.2); Monocytes Percent Auto 8.2 % (2-11); Neutrophils Absolute Auto 6.7 x10*3/uL (2.0-8.3); Neutrophils Percent Auto 78.2 % (45-73); Platelet Count 195 X10*3/uL (160-400); Red Blood Count 4.57 X10*6/uL (4.20-5.50); Red Cell Distribution Width 17.8 % (11.0-16.0); White Blood Count 8.6 X10*3/uL (4.8-10.8)
[2024-08-28 09:31] LABS: Anion Gap 9 (12-20); Blood Urea Nitrogen 23 mg/dL (9-16); Calcium 8.9 mg/dL (8.4-10.2); Carbon Dioxide 27 mmol/L (22-29); Chloride 113 mmol/L (96-108); Creatinine Clr Calc Pharmacy 44.5; Estimated Glomerular Filt Rate > 60; Glucose Random 126 mg/dL (60-115); Potassium 4.8 mmol/L (3.3-5.1); Sodium 144 mmol/L (135-145)
[2024-08-28 09:40] LABS: Troponin-I High Sensitivity 9.7 ng/L (<3.5-17.0)
[2024-08-28 10:00] LABS: B Type Natriuretic Peptide 976 pg/mL (<100)
--- NOTE | 2024-08-28 10:11 | PC.NURSE ---
Patient sob afib with rvr on bedside monitor and EKG. Provider notified
[2024-08-28 10:15] LABS: Influenza A PCR NEGATIVE (Negative); Influenza B PCR NEGATIVE (Negative); Resp Syncy Virus RNA Qual PCR NEGATIVE (Negative); SARS COV2 PCR INHOUSE NEGATIVE (Negative)
--- NOTE | 2024-08-28 10:25 | ED.SOB ---
HPI - SOB/Dyspnea General Chief Complaint: Dyspnea Stated Complaint: Diff breathing Time Seen by Provider: 08/28/24 10:11 Source: patient Mode of arrival: ambulatory Limitations: no limitations History of Present Illness HPI Narrative: This is a 79 years old patient presented to the emergency department with a chief complaint of shortness of breath, malaise. She has a history of AFib she was placed on Eliquis and and beta hemant she reports since started beta hemant the shortness of breath is worse. She was found tachycardic and hypoxic in triage MD elicited complaint: shortness of breath Pertinent past history: other (A.Fib) Onset (ago): day(s) (2) Timing: constant Severity: moderate Exacerbating factors: nothing Relieving factors: nothing Associated symptoms: denies other symptoms Related Data Home oxygen amount: none Home Medications ?Medication ?Instructions ?Recorded ?Confirmed atorvastatin 10 mg tablet 10 mg PO DAILY 07/30/20 06/23/24 latanoprost 0.005 % eye drops 1 drp ophthalmic (eye) BEDTIME 07/30/20 06/23/24 lorazepam 0.5 mg tablet 0.5 mg PO DAILY PRN Anxiety 07/30/20 06/23/24 dorzolamide 22.3 mg-timolol 6.8 1 drp ophthalmic (eye) BID 10/29/20 06/23/24 mg/mL eye drops glipizide 2.5 mg tablet, extended 1.25 mg PO DAILY 12/04/20 06/23/24 release 24 hr ascorbate calcium (vitamin C) 500 500 mg PO DAILY 02/19/24 06/23/24 mg tablet calcium 600 mg-D3 20 mcg-magnesium 1 tab PO DAILY 02/19/24 06/23/24 50 fo-Zv-eubghv-david-boron tablet (Calcium 600-D3 Plus (mag-zinc)) cholecalciferol (vitamin D3) 125 125 mcg PO DAILY 02/19/24 06/23/24 mcg (5,000 unit) capsule ginkgo biloba leaf extract 120 mg 120 mg PO DAILY 02/19/24 06/23/24 capsule multivitamin 1 tab PO DAILY 02/19/24 06/23/24 nortriptyline 25 mg capsule 25 mg PO BEDTIME 02/19/24 06/23/24 resveratrol 100 mg capsule 100 mg PO DAILY 02/19/24 06/23/24 turmeric 400 mg capsule 400 mg PO DAILY 02/19/24 06/23/24 pantoprazole 40 mg tablet,delayed 40 mg PO BID@0630,1630 06/23/24 06/23/24 release Previous Rx's ?Medication ?Instructions ?Recorded metoprolol succinate 50 mg 50 mg PO DAILY #90 tabs 07/25/24 tablet,extended release 24 hr apixaban 5 mg tablet (Eliquis) 5 mg PO BID 90 days #180 tabs 08/26/24 Allergies Allergy/AdvReac Type Severity Reaction Status Date / Time gabapentin [From Neurontin] Allergy Intermediate JOINTS Verified 08/28/24 08:50 SWELL famotidine AdvReac Mild Dizziness Verified 08/28/24 08:50 oranges Allergy Mild cold sores Uncoded 06/22/24 17:14 Review of Systems Constitutional: Constitutional: Reports no additional constitutional complaints Cardiovascular: Cardiovascular: Reports no additional cardiovascular complaints [facility] Past Medical History [facility] Narrative: AFib, anxiety, UTI Medical History Pulmonary hypertension Restrictive lung disease Diabetes Scoliosis CYNTHIA (obstructive sleep apnea) Obesity Cough HX: breast cancer Anemia Back pain Lymphedema of left arm GERD (gastroesophageal reflux disease) Blind right eye Trigeminal neuralgia of right side of face Hypertension CHF (congestive heart failure) Heart murmur after rheumatic heart disease Surgical History History of open reduction and internal fixation (ORIF) procedure History of ventral hernia repair History of left inguinal hernia repair History of bladder suspension procedure History of partial hysterectomy History of tonsillectomy and adenoidectomy Hx of esophagogastroduodenoscopy History of lymph node dissection of left axilla H/O left mastectomy Hx of wisdom tooth extraction History of colonoscopy Family History Family History Father History of heart attack Mother History of leukemia History of hypertension Social History Social History Household Members: Spouse Housing: Other Housing Other:: Mobile home Are you a primary pediatric care coordinator to a significant other at home: No Do you presently have visiting nurse or other home services: No Alcohol intake: never Patient Tobacco Use Status: Never used Tobacco Smoked in Last 30 Days: No Use of substances other than those prescribed or required for medical reasons: No Advance Directives: No Advance Directives Information Provided: No Advance Directives Date on File: 02/08/23 Do you have a plan to hurt others: No Plan Physical Exam Vital Signs: Vital Signs: Last Vital Signs Temp 98.3 F 08/28/24 11:31 Pulse 107 H 08/28/24 11:31 Resp 20 08/28/24 11:31 BP 105/78 08/28/24 11:31 Pulse Ox 93 08/28/24 11:31 O2 Del Method Room Air 08/28/24 11:31 O2 Flow Rate 2 08/28/24 10:23 BMI result Body Mass Index 32.6 No acute distress Const: General: cooperative Nutritional Appearance: average body habitus Orientation/consciousness: patient oriented x3 Limitations: no limitations HEENT: Head: Yes normal to inspection General nose exam: Normal external nose present Face and sinus: Yes normal facial exam Mouth: Normal oral and palatal mucosa present Neck: Neck: Yes normal visual inspection Resp: Effort & Inspection: normal respiratory effort Auscultation: clear to auscultation bilaterally Cardio: Other: Irregular regular GI: Inspection: Yes normal to inspection Palpation (GI): Soft to palpation Auscultation: normal bowel sounds Skin: General skin exam: no rashes or lesions noted Lesions: no lesions Rashes: no rashes Neuro: General: patient oriented x3 Cranial nerves: Yes CN's II-XII intact bilaterally Course Reevaluation(s) Reevaluation #1: Clinical picture consistent with a rapid atrial fibrillation patient has also a component of congestive heart failure, to my review the chest x-ray showed bilateral pleural effusion and increased interstitial marking. Anticipate admission Time: 11:32 Medications Administered Generic Name Dose Route Start Last Admin Trade Name Freq PRN Reason Stop Dose Admin Diltiazem HCl 125 mg/ Sodium 125 mls @ 0 mls/hr 08/28/24 10:30 08/28/24 11:29 Chloride IVCONT 15 mg/hr .Q0M SNOW 15 mls/hr Titration Protocol Per Protocol Discontinued Medications Generic Name Dose Route Start Last Admin Trade Name Freq PRN Reason Stop Dose Admin Furosemide 20 mg 08/28/24 11:24 08/28/24 11:30 Furosemide 20 Mg/2 Ml Vial IVPUSH 08/28/24 11:25 20 mg ONCE ONE Administration Protocol Medical Decision Making Medical Decision Making [facility] Narrative: Patient presented to the emergency department with a chief complaint of shortness of breath sat 90% on room air tachycardic Differential Diagnosis Differential Diagnoses: The differential diagnosis associated with the presentation includes CHF/rapid AFib Admission/Observation Consideration of admission/observation: Escalation of care including admission/observation considered Consult Healthcare Provider Management of the patient was discussed with: Hospitalist Lab Data [facility] Lab Attestation statement: I reviewed the patient's lab results. 08/28/24 09:11 08/28/24 09:11 Labs: Lab Results 08/28/24 08/28/24 Range/Units 09:11 09:28 WBC 8.6 (4.8-10.8) X10*3/uL RBC 4.57 (4.20-5.50) X10*6/uL Hgb 10.8 L (12.0-16.0) g/dl Hct 36.1 L (37.0-47.0) % MCV 79.0 L (80.0-98.0) fL MCH 23.6 L (27.0-33.0) pg MCHC 29.9 L (31.0-35.0) g/dl RDW 17.8 H (11.0-16.0) % Plt Count 195 (160-400) X10*3/uL MPV 9.6 (9.4-12.3) fL Immature Gran % (Auto) 0.3 (0.0-0.4) % Neut % (Auto) 78.2 H (45-73) % Lymph % (Auto) 9.7 L (20-40) % [place] % (Auto) 8.2 (2-11) % Eos % (Auto) 3.1 (0-4) % Baso % (Auto) 0.5 (0-2) % Lymph # (Auto) 0.8 L (1.2-4.9) X10*3/uL [place] # (Auto) 0.7 (0.1-1.2) X10*3/uL Eos # (Auto) 0.3 (0.0-0.4) X10*3/uL Baso # (Auto) 0.0 (0.0-0.2) X10*3/uL Abs Immat Gran (auto) 0.03 (0.00-0.03) X10*3/uL Absolute Neuts (auto) 6.7 (2.0-8.3) x10*3/uL Absolute Nucleated RBC 0.000 (0.0-0.012) X10*3/uL Nucleated RBC % (auto) 0.0 (0.0-0.2) /100WBC Sodium 144 (135-145) mmol/L Potassium 4.8 (3.3-5.1) mmol/L Chloride 113 H (96-108) mmol/L Carbon Dioxide 27 (22-29) mmol/L Anion Gap 9 L (12-20) BUN 23 H (9-16) mg/dL Creatinine 0.90 (0.5-1.4) mg/dL Estim Creat Clear Calc 44.5 Estimated GFR > 60 Random Glucose 126 H (60-115) mg/dL Calcium 8.9 (8.4-10.2) mg/dL Troponin I High Sens 9.7 (<3.5-17.0) ng/L B-Natriuretic Peptide 976 H (<100) pg/mL Influenza Type A (PCR) NEGATIVE (Negative) Influenza Type B (PCR) NEGATIVE (Negative) RSV RNA Qual (PCR) NEGATIVE (Negative) SARS-CoV-2 RNA (RT-PCR) NEGATIVE (Negative) Independent Interpretation I performed an independent interpretation of an: EKG Interpretation: EKG reviewed interpreted by me as rapid atrial fibrillation rate about 120. Chest x-ray reviewed interpreted by me as bilateral pleural effusion right more the left increase interstitial finding consistent with CHF Radiology Impression Discussion of test interpretation with radiology: I have reviewed the radiologist's reading. Radiologist Impression: I have reviewed the radiology reading radiology read as a by basilar consolidation however patient has no fever, no cough normal white count unlikely pneumonia Independent Historian Clinical information obtained from an independent historian. History obtained from or confirmed by: Spouse External Record Review External record reviewed: Inpatient record Chronic Conditions Patient?s care impacted by: Other (A.FIB) Critical Care Time Critical Care Time Critical Care Time: Yes Total Critical Care Time: 60 Attestation: IV Cardizem and titration Discharge Plan Discharge Clinical Impression: Acute dyspnea, Bilateral pleural effusion, Atrial fibrillation with rapid ventricular response Patient Disposition: Admitted As Inpatient Print Language: Portuguese
[2024-08-28] MEDS: dilTIAZem HCL 125 MG in 0.9 % Sodium Chloride 100 ML 10 MG IVCONT (11:00)
[2024-08-28] MEDS: Furosemide 20 MG/2 ML VIAL IVPUSH (11:30)
--- NOTE | 2024-08-28 12:03 | PM.IMHP ---
History of Present Illness Date of Service: 08/28/24 Chief Complaint: Shortness of breath, AFIB with RVR 79 years old lady with PMH of CYNTHIA, Pulm HTN, GERD, HTN, DMII, PAF Afib since June 2024 here and was put on Metoprolol and Eliquis but and think she is allergic to the medication and causing her to be short of breath, altough she has been taking them as prescribed. CXR show bilateral effusion, consolidation, ECG AFIB with RVR and given IV cardizem, she has leg edema and BNP of 976. Intravenous lasix given wth good effect, HR remains high on IV cardizem. Review of Systems Review of Systems: Gen: no fever Resp: + sob, no cough CV: no chest, + LZI, + leg edema GI: No n/v, no abd pain Neuro: No confusion Yes all other systems are reviewed and are negative [facility] Medical History Pulmonary hypertension Restrictive lung disease Diabetes Scoliosis CYNTHIA (obstructive sleep apnea) Obesity Cough HX: breast cancer Anemia Back pain Lymphedema of left arm GERD (gastroesophageal reflux disease) Blind right eye Trigeminal neuralgia of right side of face Hypertension CHF (congestive heart failure) Heart murmur after rheumatic heart disease Family History Father History of heart attack Mother History of leukemia History of hypertension Surgical History History of open reduction and internal fixation (ORIF) procedure History of ventral hernia repair History of left inguinal hernia repair History of bladder suspension procedure History of partial hysterectomy History of tonsillectomy and adenoidectomy Hx of esophagogastroduodenoscopy History of lymph node dissection of left axilla H/O left mastectomy Hx of wisdom tooth extraction History of colonoscopy Social History Household Members: Spouse Housing: Other Housing Other:: Mobile home Are you a primary primary care nurse practitioner to a significant other at home: No Do you presently have visiting nurse or other home services: No Alcohol intake: never Patient Tobacco Use Status: Never used Tobacco Smoked in Last 30 Days: No Use of substances other than those prescribed or required for medical reasons: No Advance Directives: No Advance Directives Information Provided: No Advance Directives Date on File: 02/08/23 Do you have a plan to hurt others: No Plan Nutrition Risks: No Nutritional Risk service: No Meds Allergies Allergy/AdvReac Type Severity Reaction Status Date / Time gabapentin [From Neurontin] Allergy Intermediate JOINTS Verified 08/28/24 08:50 SWELL famotidine AdvReac Mild Dizziness Verified 08/28/24 08:50 oranges Allergy Mild cold sores Uncoded 06/22/24 17:14 Active Medications: Current Medications Diltiazem HCl 125 mg/ Sodium (Chloride) 125 mls @ 0 mls/hr IVCONT .Q0M SNOW; Protocol Last Titration: 08/28/24 11:29 Dose: 15 mg/hr, 15 mls/hr Home Medications ?Medication ?Instructions ?Recorded ?Confirmed ?Last Taken ?Type atorvastatin 10 mg tablet 10 mg PO DAILY 07/30/20 08/28/24 08/27/24 History latanoprost 0.005 % eye drops 1 drp ophthalmic (eye) BEDTIME 07/30/20 08/28/24 08/27/24 History lorazepam 0.5 mg tablet 0.5 mg PO DAILY PRN Anxiety 07/30/20 08/28/24 12/02/22 History dorzolamide 22.3 mg-timolol 6.8 1 drp ophthalmic (eye) BID 10/29/20 08/28/24 08/27/24 History mg/mL eye drops glipizide 2.5 mg tablet, extended 1.25 mg PO DAILY 12/04/20 08/28/24 08/27/24 History release 24 hr ascorbate calcium (vitamin C) 500 500 mg PO DAILY 02/19/24 08/28/24 08/27/24 History mg tablet calcium 600 mg-D3 20 mcg-magnesium 1 tab PO DAILY 02/19/24 08/28/24 08/27/24 History 50 iu-Ir-ckevfv-david-boron tablet (Calcium 600-D3 Plus (mag-zinc)) cholecalciferol (vitamin D3) 125 125 mcg PO DAILY 02/19/24 08/28/24 08/27/24 History mcg (5,000 unit) capsule ginkgo biloba leaf extract 120 mg 120 mg PO DAILY 0708/28/24 08/27/24 History capsule multivitamin 1 tab PO DAILY 02/19/24 08/28/24 08/27/24 History nortriptyline 25 mg capsule 25 mg PO BEDTIME 02/19/24 08/28/24 08/27/24 History resveratrol 100 mg capsule 100 mg PO DAILY 02/19/24 08/28/24 08/27/24 History turmeric 400 mg capsule 400 mg PO DAILY 02/19/24 08/28/24 08/27/24 History pantoprazole 40 mg tablet,delayed 40 mg PO BID@0630,1630 06/23/24 08/28/24 08/27/24 History release Physical Exam Vital Signs and Narrative: Vital Signs: Last Vital Signs Temp 98.3 F 08/28/24 11:31 Pulse 107 H 08/28/24 11:31 Resp 20 08/28/24 11:31 BP 105/78 08/28/24 11:31 Pulse Ox 93 08/28/24 11:31 O2 Del Method Room Air 08/28/24 11:31 O2 Flow Rate 2 08/28/24 10:23 BMI result Body Mass Index 32.6 General: AO X 3, no acute distress, anxious Resp: CTA bilateral CVS: S1,S2, iregular iregular,+JVD, 1+ leg edema johnathon GI: +BS, NT, no distention Skin: No rash Neuro: motor grossly intact Psych: appropriate affect Results Labs 08/28/24 09:11 08/29/24 04:15 Labs: Laboratory Results - last 24 hr 08/28/24 08/28/24 09:11 09:28 MCV 79.0 L MCH 23.6 L MCHC 29.9 L RDW 17.8 H Plt Count 195 MPV 9.6 Immature Gran % (Auto) 0.3 Neut % (Auto) 78.2 H Lymph % (Auto) 9.7 L [place] % (Auto) 8.2 Eos % (Auto) 3.1 Baso % (Auto) 0.5 Lymph # (Auto) 0.8 L [place] # (Auto) 0.7 Eos # (Auto) 0.3 Baso # (Auto) 0.0 Abs Immat Gran (auto) 0.03 Absolute Neuts (auto) 6.7 Absolute Nucleated RBC 0.000 Nucleated RBC % (auto) 0.0 Anion Gap 9 L Estim Creat Clear Calc 44.5 Estimated GFR > 60 Random Glucose 126 H Calcium 8.9 Troponin I High Sens 9.7 B-Natriuretic Peptide 976 H Influenza Type A (PCR) NEGATIVE Influenza Type B (PCR) NEGATIVE RSV RNA Qual (PCR) NEGATIVE SARS-CoV-2 RNA (RT-PCR) NEGATIVE Assessment and Plan (1) Atrial fibrillation with rapid ventricular response: Status: Acute (2) Paroxysmal atrial fibrillation: Status: Acute (3) Heart failure: Status: Acute Plan 79 years old lady with PMH of CYNTHIA, Pulm HTN, GERD, HTN, DMII , PAF here with dyspnea d/t AFIB with RVR and acute on chronic heart failure. Acute HFpEF, likely precipitated by AFIB with RVR -IV Lasix -monitor I/o, daily weight, low salt diet -cardiology consult -daily bmp -npo for possible cardioversion Afib w RvR, -continue IV cardizem and transition to oral later -cardiology consult -she agrees to continue eliquis, when explained that her shortness of breah is due to heart failure rather than eliquis - DM II Hold oral agents SSI , diabetic diet GERD, PPI Anxiety, Ativan HTN, cardizem as above DVT PPx Eliquis The patient will be admitted for 2 overnight for monitoring of heart rate while on iv cardizem, IV diuretic for acute heart failure and monitoring electrolytes and frequent I/O Quality Stroke Does the patient have a stroke diagnosis?: No VTE Prior VTE?: No VTE Risk Level:: Medical - moderate - high VTE Device Contraindication: Treatment Not Indicated VTE Drug Contraindication: N/A - Med Ordered
--- NOTE | 2024-08-28 12:12 | PC.NURSE ---
Dr. Felix made aware BP was 102/69, prior to giving MD ana lilia ok to continue to give per OCT.
--- NOTE | 2024-08-28 12:29 | PC.NURSE ---
oob to commode to void, sob with exertion. MD at bedside reviewed with patient / not to take home medications that pharmacy will come speak to them and home medications will be given while in hospital. sating 95% on 2 liters 02.
[2024-08-28] MEDS: Apixaban 5 MG TABLET PO ×2 (13:29→21:19)
--- NOTE | 2024-08-28 15:08 | PHA.MEDREC ---
Addendum entered by Dixie Ferrera RPh 08/28/24 15:29: reviewed by [facility]. Original Note: Pharmacy Consult ? Medication Reconciliation Pharmacy has completed the medication reconciliation. Spoke to pt to confirm meds.
--- NOTE | 2024-08-28 17:24 | PC.NURSE ---
cardizem drip stopped , HR less than 90
[2024-08-28] MEDS: Furosemide 40 MG/4 ML VIAL IVPUSH (17:27)
[2024-08-28] MEDS: dilTIAZem HCL 30 MG TABLET PO ×2 (17:27→21:18)
[2024-08-28] MEDS: Omeprazole 20 MG CAPSULE.DR PO (17:27)
[2024-08-28] MEDS: 0.9 % Sodium Chloride Flush 3 ML SYRINGE IVFLUSH (17:28)
[2024-08-28 18:35] LABS: Glucose, Whole Blood 70 mg/dL (60-115)
[2024-08-28] MEDS: Nortriptyline HCl 25 MG CAPSULE PO (21:19)
--- NOTE | 2024-08-28 21:22 | PC.NURSE ---
assumed care of pt at 1900. pt resting comfortably on stretcher in no apparent distress. speaking clear full sentences, denies any acute pain. on monitor tech HR 85-95. po cardizem given per oct. drip still paused - call zavala within reach, plan of care ongoing
[2024-08-28 21:23] LABS: Glucose, Whole Blood 148 mg/dL (60-115)
[2024-08-29] VITALS (12 sets, daily range): BP systolic 90–132; BP diastolic 50–68; PULSE 78–121; RESP 16–23; TEMP 36.1–36.9; O2SAT 93–97
[2024-08-29 04:51] LABS: Anion Gap 15 (12-20); Blood Urea Nitrogen 21 mg/dL (9-16); Carbon Dioxide 26 mmol/L (22-29); Chloride 108 mmol/L (96-108); Creatinine Clr Calc Pharmacy 40.5; Estimated Glomerular Filt Rate 54; Glucose Random 107 mg/dL (60-115); Potassium 4.5 mmol/L (3.3-5.1); Sodium 144 mmol/L (135-145)
[2024-08-29] MEDS: Omeprazole 20 MG CAPSULE.DR PO ×2 (05:10→18:01)
[2024-08-29 07:57] LABS: Glucose, Whole Blood 98 mg/dL (60-115)
[2024-08-29] MEDS: dilTIAZem HCL 125 MG in 0.9 % Sodium Chloride 100 ML 10 MG IVCONT (08:47)
[2024-08-29] MEDS: Furosemide 40 MG/4 ML VIAL IVPUSH ×2 (08:48→18:05)
[2024-08-29] MEDS: Multivitamin TABLET 1 TAB PO (08:49)
[2024-08-29] MEDS: Atorvastatin Calcium 10 MG TABLET PO (08:49)
[2024-08-29] MEDS: dilTIAZem HCL 30 MG TABLET PO ×4 (08:49→22:06)
[2024-08-29] MEDS: Apixaban 5 MG TABLET PO ×2 (08:49→22:07)
[2024-08-29] MEDS: Cholecalciferol (Vitamin D3) 25 MCG TABLET 125 MCG PO (08:49)
[2024-08-29] MEDS: Ascorbic Acid 500 MG TABLET PO (08:49)
--- NOTE | 2024-08-29 10:36 | P.CONCA_ITS ---
History of Present Illness History of Present Illness Date of Service: 08/29/24 Requesting physician: Elijah Owens Chief complaint: Acute heart failure, AFIB with RVR Narrative: [age] female presenting with shortness of breath and lower extremity edema. She has background of paroxysmal atrial fibrillation and was previously seen in the hospital for that. More recently she went to her primary care physician's office and was noticed to be in AFib. He was planned to see our office as outpatient but developed shortness of breath and came to the emergency department. Clinically she was felt to be in heart failure and was started on IV diuretics. She is saying that she is feeling better with this strategy so far. She has known history of hyperdynamic left ventricular function with LVOT gradient in the past although her gradient at rest was around 11 mm Hg in 07/06/2024. She has been on apixaban 5 mg twice a day. She is saying she has been using this for close to a month but unclear duration currently. She was started on a Cardizem drip and overall heart rates are improving. [facility] Past Medical History Medical History Pulmonary hypertension Restrictive lung disease Diabetes Scoliosis CYNTHIA (obstructive sleep apnea) Obesity Cough HX: breast cancer Anemia Back pain Lymphedema of left arm GERD (gastroesophageal reflux disease) Blind right eye Trigeminal neuralgia of right side of face Hypertension CHF (congestive heart failure) Heart murmur after rheumatic heart disease Family History Family History Father History of heart attack Mother History of leukemia History of hypertension Surgical History Surgical History History of open reduction and internal fixation (ORIF) procedure History of ventral hernia repair History of left inguinal hernia repair History of bladder suspension procedure History of partial hysterectomy History of tonsillectomy and adenoidectomy Hx of esophagogastroduodenoscopy History of lymph node dissection of left axilla H/O left mastectomy Hx of wisdom tooth extraction History of colonoscopy Social History Social History Household Members: Spouse Housing: Other Housing Other:: Mobile home Are you a primary animal care assistant to a significant other at home: No Do you presently have visiting nurse or other home services: No Alcohol intake: never Patient Tobacco Use Status: Never used Tobacco Smoked in Last 30 Days: No Use of substances other than those prescribed or required for medical reasons: No Advance Directives: No Advance Directives Information Provided: No Advance Directives Date on File: 02/08/23 Do you have a plan to hurt others: No Plan Nutrition Risks: No Nutritional Risk service: No Meds Allergies Allergy/AdvReac Type Severity Reaction Status Date / Time gabapentin [From Neurontin] Allergy Intermediate JOINTS Verified 08/28/24 08:50 SWELL famotidine AdvReac Mild Dizziness Verified 08/28/24 08:50 oranges Allergy Mild cold sores Uncoded 06/22/24 17:14 Active Medications: Current Medications Acetaminophen (Acetaminophen 325 Mg Tablet) 650 mg PO Q6H PRN PRN Reason: Pain, Mild 1-3,fever,headache Apixaban (Apixaban 5 Mg Tablet) 5 mg PO BID [facility] Last Admin: 08/29/24 08:49 Dose: 5 mg Ascorbic Acid (Ascorbic Acid 500 Mg Tablet) 500 mg PO DAILY [facility] Last Admin: 08/29/24 08:49 Dose: 500 mg Atorvastatin Calcium (Atorvastatin Calcium 10 Mg Tablet) 10 mg PO DAILY [facility] Last Admin: 08/29/24 08:49 Dose: 10 mg Calcium Carbonate (Calcium Carbonate 750 Mg Tab.Chew) 750 mg PO Q4H PRN PRN Reason: Heartburn Diltiazem HCl (Diltiazem Hcl 30 Mg Tablet) 30 mg PO QID [facility]; Protocol Last Admin: 08/29/24 08:49 Dose: 30 mg Dorzolamide/Timolol (Dorzolamide/Timolo 2.23%/0.68% 10 Ml Drbtl) 1 drop EYE- BOTH BID [facility] Last Admin: 08/28/24 21:21 Dose: Not Given Furosemide (Furosemide 40 Mg/4 Ml Vial) 40 mg IVPUSH BID@0900,1800 [facility]; Protocol Last Admin: 08/29/24 08:48 Dose: 40 mg Glipizide (Glipizide Xl 2.5 Mg Tab.Er.24) 1.25 mg PO DAILY [facility] Glucose (Glucose Gel 15 Gm Gel..Gram.) 15 gm PO Q15M PRN; Protocol PRN Reason: per Hypoglycemia Standing Ord. Diltiazem HCl 125 mg/ Sodium (Chloride) 125 mls @ 0 mls/hr IVCONT .Q0M [facility]; Protocol Last Admin: 08/29/24 08:47 Dose: 10 mg/hr, 10 mls/hr Dextrose (D10) 250 mls @ 750 mls/hr IV Q15M PRN; Protocol PRN Reason: per Hypoglycemia Standing Ord. Insulin Human Lispro (Insulin Lispro 100 Unit/Ml 3 Ml Vial) 0 unit SUBCUT QIDACHS [facility]; Protocol Last Admin: 08/29/24 08:04 Dose: Not Given Latanoprost (Latanoprost 0.005 % Ophth Leanna 2.5 Ml Drops) 1 drop EYE-BOTH BEDTIME [facility] Last Admin: 08/28/24 21:21 Dose: Not Given Lorazepam (Lorazepam 0.5 Mg Tablet) 0.5 mg PO DAILY PRN PRN Reason: Anxiety Magnesium Hydroxide (Milk Of Magnesia 30 Ml Oral.Susp) 30 ml PO DAILY PRN PRN Reason: Constipation Melatonin (Melatonin 3 Mg Tablet) 6 mg PO BEDTIME PRN PRN Reason: Insomnia Multivitamins/Vitamin C (Multivitamin Tablet) 1 tab PO DAILY [facility] Last Admin: 08/29/24 08:49 Dose: 1 tab Nortriptyline HCl (Nortriptyline Hcl 25 Mg Capsule) 25 mg PO BEDTIME [facility] Last Admin: 08/28/24 21:19 Dose: 25 mg Omeprazole (Omeprazole 20 Mg Capsule.Dr) 20 mg PO BID@0630,1630 [facility] Last Admin: 08/29/24 05:10 Dose: 20 mg Polyethylene Glycol (Polyethylene Glycol 3350 17 Gm Powd.Pack) 17 gm PO DAILY PRN PRN Reason: Constipation Sodium Chloride (0.9 % Sodium Chloride Flush 3 Ml Syringe) 3 ml IVFLUSH QSHIFT [facility] Last Admin: 08/29/24 09:49 Dose: Not Given Vitamin D (Cholecalciferol (Vitamin D3) 25 Mcg Tablet) 125 mcg PO DAILY [facility] Last Admin: 08/29/24 08:49 Dose: 125 mcg Home Medications ?Medication ?Instructions ?Recorded ?Confirmed ?Last Taken ?Type atorvastatin 10 mg tablet 10 mg PO DAILY 07/30/20 08/28/24 08/27/24 History latanoprost 0.005 % eye drops 1 drp ophthalmic (eye) BEDTIME 07/30/20 08/28/24 08/27/24 History lorazepam 0.5 mg tablet 0.5 mg PO DAILY PRN Anxiety 07/30/20 08/28/24 12/02/22 History dorzolamide 22.3 mg-timolol 6.8 1 drp ophthalmic (eye) BID 10/29/20 08/28/24 08/27/24 History mg/mL eye drops glipizide 2.5 mg tablet, extended 1.25 mg PO DAILY 12/04/20 08/28/24 08/27/24 History release 24 hr ascorbate calcium (vitamin C) 500 500 mg PO DAILY 02/19/24 08/28/24 08/27/24 History mg tablet calcium 600 mg-D3 20 mcg-magnesium 1 tab PO DAILY 02/19/24 08/28/24 08/27/24 History 50 ci-Yk-ngqzxr-david-boron tablet (Calcium 600-D3 Plus (mag-zinc)) cholecalciferol (vitamin D3) 125 125 mcg PO DAILY 02/19/24 08/28/24 08/27/24 History mcg (5,000 unit) capsule ginkgo biloba leaf extract 120 mg 120 mg PO DAILY 02/19/24 08/28/24 08/27/24 History capsule multivitamin 1 tab PO DAILY 02/19/24 08/28/24 08/27/24 History nortriptyline 25 mg capsule 25 mg PO BEDTIME 02/19/24 08/28/24 08/27/24 History resveratrol 100 mg capsule 100 mg PO DAILY 02/19/24 08/28/24 08/27/24 History turmeric 400 mg capsule 400 mg PO DAILY 02/19/24 08/28/24 08/27/24 History pantoprazole 40 mg tablet,delayed 40 mg PO BID@0630,1630 06/23/24 08/28/24 08/27/24 History release Physical Exam 2 Vital Signs: Vital Signs: Last Vital Signs Temp 98.0 F 08/29/24 07:47 Pulse 121 H 08/29/24 08:49 Resp 23 H 08/29/24 07:47 BP 112/67 08/29/24 08:49 Pulse Ox 95 08/29/24 07:47 O2 Del Method Nasal Cannula 08/29/24 07:47 O2 Flow Rate 3 08/29/24 07:47 BMI result Body Mass Index 32.6 GENERAL APPEARANCE: in no acute distress, on supplemental oxygen.. NECK: no carotid bruit, + jugular venous distention. SKIN: no suspicious lesions, warm and dry. HEART: no murmurs, regular rate and rhythm. LUNGS: Crackles at bases. ABDOMEN: soft, nontender. EXTREMITIES: no edema. PERIPHERAL PULSES: equal. NEUROLOGIC: No gross deficits, AAO X 3 Objective Labs and Meds 08/28/24 09:11 08/29/24 04:15 Lab results: Laboratory Results - last 24 hr 08/28/24 08/28/24 08/29/24 18:31 21:17 04:15 Sodium 144 Potassium 4.5 Chloride 108 Carbon Dioxide 26 Anion Gap 15 BUN 21 H Creatinine 0.99 Estim Creat Clear Calc 40.5 Estimated GFR 54 POC Glucose 70 148 H Random Glucose 107 Calcium 9.0 08/29/24 07:52 Sodium Potassium Chloride Carbon Dioxide Anion Gap BUN Creatinine Estim Creat Clear Calc Estimated GFR POC Glucose 98 Random Glucose Calcium Assessment and Plan (1) Heart failure: Status: Acute (2) Atrial fibrillation with rapid ventricular response: Status: Acute Plan Pleasant 79 year female presenting with AFib with RVR and shortness of breath due to congestive heart failure. Agree with IV diuretics. On apixaban 5 mg twice a day. This should be continued without interruption. Check repeat echocardiogram to assess LV function. If LV dysfunction then would strongly consider cardioversion. We need to confirm how long she has been taking Eliquis. If this is close to a month and we can not cardiovert her without TRUDI. Otherwise she will need TRUDI cardioversion. So far tolerating Cardizem but if any concern for hypotension or decreased urine output then may have to stop the stroke. She was on Toprol-XL before which in my opinion will be a better drug to use. Thank you for allowing me to participate in the care of your patient. Please feel free to contact me if you have any questions. Procedures Date of Service Date of Service: 08/29/24
--- NOTE | 2024-08-29 10:46 | PC.NURSE ---
Pt's HR up to 120's AFIB at approx 0900; IV Diltiazem restarted per MD; pt tolerating IV Diltiazem with HR 100 at this time
[2024-08-29] MEDS: Dorzolamide/Timolo 2.23%/0.68% 10 ML DRBTL 1 DROP EYE-BOTH ×2 (11:17→22:07)
--- NOTE | 2024-08-29 11:49 | MHC.CM.PN ---
IMM, and [facility] IMM, 08/29/24. Pt lives with her , PCP confirmed: Dr. Perdue, HCP on file and confirmed: [facility]. Pt does not use home care services. For DME, she has a cane and w/c that she uses for longer distances. Transport home at [place], TBD. DCP: home, self care, or she may be transferred to [facility] for cardiac care. CM to follow for DC needs.
[2024-08-29 12:06] LABS: Glucose, Whole Blood 105 mg/dL (60-115)
--- NOTE | 2024-08-29 12:26 | HO.PM.IMPN ---
Subjective Subjective Date of Service: 08/29/24 Interval History: f/u on afib with rvr and heart failure still in afib and rvr Physical Exam Vital Signs: Vital Signs: Last Vital Signs Temp 98.0 F 08/29/24 07:47 Pulse 93 08/29/24 10:42 Resp 19 08/29/24 10:42 BP 116/62 08/29/24 10:42 Pulse Ox 95 08/29/24 10:42 O2 Del Method Nasal Cannula 08/29/24 10:42 O2 Flow Rate 3 08/29/24 10:42 BMI result Body Mass Index 32.6 Const: Other: General: AO X 3, no acute distress Resp: CTA bilateral CVS: S1,S2, iregular iregular , trace leg edema GI: +BS, NT, no distention Skin: No rash Neuro: motor grossly intact Psych: appropriate affect Objective Data Active Medications Acetaminophen (Acetaminophen 325 Mg Tablet) 650 mg PO Q6H PRN PRN Reason: Pain, Mild 1-3,fever,headache Apixaban (Apixaban 5 Mg Tablet) 5 mg PO BID [facility] Last Admin: 08/29/24 08:49 Dose: 5 mg Documented By: LORAINE Ascorbic Acid (Ascorbic Acid 500 Mg Tablet) 500 mg PO DAILY [facility] Last Admin: 08/29/24 08:49 Dose: 500 mg Documented By: LOARINE Atorvastatin Calcium (Atorvastatin Calcium 10 Mg Tablet) 10 mg PO DAILY [facility] Last Admin: 08/29/24 08:49 Dose: 10 mg Documented By: LORAINE Calcium Carbonate (Calcium Carbonate 750 Mg Tab.Chew) 750 mg PO Q4H PRN PRN Reason: Heartburn Diltiazem HCl (Diltiazem Hcl 30 Mg Tablet) 30 mg PO QID [facility]; Protocol Last Admin: 08/29/24 08:49 Dose: 30 mg Documented By: LORAINE Dorzolamide/Timolol (Dorzolamide/Timolo 2.23%/0.68% 10 Ml Drbtl) 1 drop EYE-BOTH BID [facility] Last Admin: 08/29/24 11:17 Dose: 1 drop Documented By: LORAINE Furosemide (Furosemide 40 Mg/4 Ml Vial) 40 mg IVPUSH BID@0900,1800 [facility]; Protocol Last Admin: 08/29/24 08:48 Dose: 40 mg Documented By: LORAINE Glipizide (Glipizide Xl 2.5 Mg Tab.Er.24) 1.25 mg PO DAILY [facility] Last Admin: 08/29/24 10:39 Dose: Not Given Documented By: LORAINE Non-Admin Reason: NPO Glucose (Glucose Gel 15 Gm Gel..Gram.) 15 gm PO Q15M PRN; Protocol PRN Reason: per Hypoglycemia Standing Ord. Diltiazem HCl 125 mg/ Sodium (Chloride) 125 mls @ 0 mls/hr IVCONT .Q0M [facility]; Protocol Last Admin: 08/29/24 08:47 Dose: 10 mg/hr, 10 mls/hr Documented By: LORAINE Dextrose (D10) 250 mls @ 750 mls/hr IV Q15M PRN; Protocol PRN Reason: per Hypoglycemia Standing Ord. Insulin Human Lispro (Insulin Lispro 100 Unit/Ml 3 Ml Vial) 0 unit SUBCUT QIDACHS [facility]; Protocol Last Admin: 08/29/24 08:04 Dose: Not Given Documented By: LORAINE Non-Admin Reason: No Insulin Coverage Comments: bg 98 Latanoprost (Latanoprost 0.005 % Ophth Leanna 2.5 Ml Drops) 1 drop EYE-BOTH BEDTIME [facility] Last Admin: 08/28/24 21:21 Dose: Not Given Documented By: VALENTIN Non-Admin Reason: Taken at Home Lorazepam (Lorazepam 0.5 Mg Tablet) 0.5 mg PO DAILY PRN PRN Reason: Anxiety Magnesium Hydroxide (Milk Of Magnesia 30 Ml Oral.Susp) 30 ml PO DAILY PRN PRN Reason: Constipation Melatonin (Melatonin 3 Mg Tablet) 6 mg PO BEDTIME PRN PRN Reason: Insomnia Multivitamins/Vitamin C (Multivitamin Tablet) 1 tab PO DAILY [facility] Last Admin: 08/29/24 08:49 Dose: 1 tab Documented By: LORAINE Nortriptyline HCl (Nortriptyline Hcl 25 Mg Capsule) 25 mg PO BEDTIME [facility] Last Admin: 08/28/24 21:19 Dose: 25 mg Documented By: VALENTIN Omeprazole (Omeprazole 20 Mg Capsule.) 20 mg PO BID@0630,1630 [facility] Last Admin: 08/29/24 05:10 Dose: 20 mg Documented By: VALENTIN Polyethylene Glycol (Polyethylene Glycol 3350 17 Gm Powd.Pack) 17 gm PO DAILY PRN PRN Reason: Constipation Sodium Chloride (0.9 % Sodium Chloride Flush 3 Ml Syringe) 3 ml IVFLUSH QSHIFT [facility] Last Admin: 08/29/24 09:49 Dose: Not Given Documented By: LORAINE Non-Admin Reason: IV Running Vitamin D (Cholecalciferol (Vitamin D3) 25 Mcg Tablet) 125 mcg PO DAILY [facility] Last Admin: 08/29/24 08:49 Dose: 125 mcg Documented By: LORAINE Labs 08/28/24 09:11 08/29/24 04:15 Labs: Laboratory Results - last 24 hr 08/28/24 08/28/24 08/29/24 18:31 21:17 04:15 Anion Gap 15 Estim Creat Clear Calc 40.5 Estimated GFR 54 POC Glucose 70 148 H Random Glucose 107 Calcium 9.0 08/29/24 08/29/24 07:52 11:55 Anion Gap Estim Creat Clear Calc Estimated GFR POC Glucose 98 105 Random Glucose Calcium Assessment and Plan (1) Atrial fibrillation with rapid ventricular response: Status: Acute (2) Heart failure: Status: Acute Plan 79 years old lady with PMH of CYNTHIA, Pulm HTN, GERD, HTN, DMII , PAF here with dyspnea d/t AFIB with RVR and acute on chronic heart failure. Acute HFpEF, likely precipitated by AFIB with RVR -IV Lasix -monitor I/o, daily weight, low salt diet -cardiology consult pending - Afib w RvR, -continue IV cardizem and transition to oral -cardiology consult -eliquis DM II Hold oral agents SSI , diabetic diet GERD, PPI Anxiety, Ativan HTN, cardizem as above DVT PPx Eliquis need for inpt; iv meds and continous cardiac monitoring for afib with rvr and acute heart failure Quality Stroke Does the patient have a stroke diagnosis?: No VTE Prior VTE?: No VTE Risk Level:: Medical - moderate - high VTE Device Contraindication: Treatment Not Indicated VTE Drug Contraindication: N/A - Med Ordered
[2024-08-29] MEDS: 0.9 % Sodium Chloride Flush 3 ML SYRINGE IVFLUSH (17:11)
[2024-08-29 17:20] LABS: Glucose, Whole Blood 98 mg/dL (60-115)
[2024-08-29] MEDS: Nortriptyline HCl 25 MG CAPSULE PO (22:07)
[2024-08-29] MEDS: Latanoprost 0.005 % Ophth Sol 2.5 ML DROPS 1 DROP EYE-BOTH (22:07)
[2024-08-29 22:19] LABS: Glucose, Whole Blood 156 mg/dL (60-115)
[2024-08-29] MEDS: Insulin Lispro 100 UNIT/ML 3 ML VIAL SUBCUT (22:29)
[2024-08-30] VITALS (10 sets, daily range): BP systolic 80–124; BP diastolic 42–65; PULSE 91–130; RESP 16–18; TEMP 36–36.6; O2SAT 90–94; BMI 31.1
[2024-08-30] MEDS: Omeprazole 20 MG CAPSULE.DR PO ×2 (06:25→18:46)
--- NOTE | 2024-08-30 07:57 | CA_ITS ---
Transthoracic Echocardiogram Patient (Last, First, Middle): Javi January, Gender: Female Date of : 1945 Age: 79 Procedure Date: 08/30/2024 Procedure Type: Transthoracic Echocardiogram Location: [facility] [place] Height: 152.4 cm Weight: 72.12 kg BSA: 1.69 m2 Heart Rate: 91 bpm BP: 112 / 59 mmHg English And Reading Instructor: SB Referring MD: Elijah Owens MD Symptoms: Chf, afib Study Quality: Adequate ECG Rhythm: Atrial Fibrillation Conclusions: - Normal left ventricular cavity size. There is moderately increased left ventricular wall thickness. The left ventricular systolic function is moderately decreased. The visually estimated ejection fraction is between 30-35%. Findings Procedure Information Contrast agent, definity, is being given per protocol without apparent complications. Left Ventricle Normal left ventricular cavity size. There is moderately increased left ventricular wall thickness. The left ventricular systolic function is moderately decreased. The visually estimated ejection fraction is between 30 35%. There is mild global hypokinesis. Diastolic function is indeterminate on the basis of available data. Prior Study Comparison Changes noted compared to prior study dated: 06/23/2024. EF 30-35%. Measurements 2D Linear Measurements IVSd: 1.48 0.6-0.9/0.6-1.0 cm LVIDd: 4.20 3.9-5.3/4.2-5.9 cm LVIDd Index: 2.49 2.4-3.2/2.2-3.1 cm/m2 LVIDs: 3.48 2.0-3.6 cm LVPWd: 1.42 0.7-1.1 cm LV Mass: 295.18 67-162/88-224 g LV Mass Index: 174.66 43-95/49-115 g/m2 2D Systolic Function EF 4C: 44.60 >55% EF 2C: 49.70 >55% EF BiP: 45.30 >55% Updated in Other Vendor System with Status of Final Wood Shafer MD electronically signed on 08/30/2024 5:32:07 PM with status of Final
[2024-08-30 08:15] LABS: Glucose, Whole Blood 93 mg/dL (60-115)
[2024-08-30] MEDS: 0.9 % Sodium Chloride Flush 3 ML SYRINGE IVFLUSH ×3 (09:17→18:47)
[2024-08-30] MEDS: Furosemide 40 MG/4 ML VIAL IVPUSH ×2 (09:17→18:45)
[2024-08-30] MEDS: Cholecalciferol (Vitamin D3) 25 MCG TABLET 125 MCG PO (09:19)
[2024-08-30] MEDS: Multivitamin TABLET 1 TAB PO (09:20)
[2024-08-30] MEDS: Ascorbic Acid 500 MG TABLET PO (09:20)
[2024-08-30] MEDS: Apixaban 5 MG TABLET PO ×2 (09:20→22:00)
[2024-08-30] MEDS: glipiZIDE XL 2.5 MG TAB.ER.24 1.25 MG PO (09:21)
[2024-08-30] MEDS: Atorvastatin Calcium 10 MG TABLET PO (09:21)
[2024-08-30] MEDS: dilTIAZem HCL 30 MG TABLET PO (09:22)
[2024-08-30] MEDS: Dorzolamide/Timolo 2.23%/0.68% 10 ML DRBTL 1 DROP EYE-BOTH ×2 (09:26→21:00)
[2024-08-30 10:24] LABS: Anion Gap 10 (12-20); Blood Urea Nitrogen 24 mg/dL (9-16); Calcium 8.9 mg/dL (8.4-10.2); Carbon Dioxide 32 mmol/L (22-29); Chloride 106 mmol/L (96-108); Creatinine Clr Calc Pharmacy 33.4; Estimated Glomerular Filt Rate 44; Glucose Random 173 mg/dL (60-115); Potassium 4.3 mmol/L (3.3-5.1); Sodium 144 mmol/L (135-145)
[2024-08-30 11:23] LABS: Glucose, Whole Blood 116 mg/dL (60-115)
[2024-08-30] MEDS: Metoprolol Tartrate 50 MG TABLET PO (11:36)
--- NOTE | 2024-08-30 15:29 | PM.PNCARD ---
Subjective Subjective Date of Service: 08/30/24 Interval history: Seen and examined at bedside. Feeling better. Heart rates are well controlled. Physical Exam Vital Signs: Last Vital Signs Temp 97.9 F 08/30/24 15:09 Pulse 91 08/30/24 15:09 Resp 18 08/30/24 15:09 BP 110/65 08/30/24 15:09 Pulse Ox 94 08/30/24 15:09 O2 Del Method Room Air 08/30/24 15:09 O2 Flow Rate 3 08/30/24 08:00 BMI result Body Mass Index 31.1 GENERAL APPEARANCE: in no acute distress, pleasant. NECK: no carotid bruit, no jugular venous distention. SKIN: no suspicious lesions, warm and dry. HEART: no murmurs, regular rate and rhythm. LUNGS: Crackles at bases. ABDOMEN: soft, nontender. EXTREMITIES: no edema. PERIPHERAL PULSES: equal. NEUROLOGIC: No gross deficits, AAO X 3 Objective Labs and Meds 08/28/24 09:11 08/30/24 09:21 Lab results: Laboratory Results - last 24 hr 08/29/24 08/29/24 08/30/24 17:08 22:14 08:09 Sodium Potassium Chloride Carbon Dioxide Anion Gap BUN Creatinine Estim Creat Clear Calc Estimated GFR POC Glucose 98 156 H 93 Random Glucose Calcium 08/30/24 08/30/24 09:21 11:17 Sodium 144 Potassium 4.3 Chloride 106 Carbon Dioxide 32 H Anion Gap 10 L BUN 24 H Creatinine 1.17 Estim Creat Clear Calc 33.4 Estimated GFR 44 POC Glucose 116 H Random Glucose 173 H Calcium 8.9 Progress Note: A&P Assessment and plan (1) Heart failure: Status: Acute (2) Atrial fibrillation with rapid ventricular response: Status: Acute Plan [age] female who is here for new onset atrial fibrillation and congestive heart failure. Clinically she is improving. I think she can be transitioned to oral Lasix 40 mg daily from tomorrow morning. Continue Toprol-XL as rate control is better. Limited echocardiogram to assess LV function. If no LV dysfunction then discharged home with plan of potential cardioversion as outpatient in 4-6 weeks. On the other hand if there is LV dysfunction then she will need TRUDI cardioversion we will arrange that. Thank you for allowing me to participate in the care of your patient. Please feel free to contact me if you have any questions. Time Spent With Patient Time: Total time managing care of this patient today ____ minutes. Progress Note: Quality Stroke Does the patient have a stroke diagnosis?: No Procedures Date of Service Date of Service: 08/30/24
[2024-08-30 17:14] LABS: Glucose, Whole Blood 78 mg/dL (60-115)
[2024-08-30 20:39] LABS: Glucose, Whole Blood 142 mg/dL (60-115)
[2024-08-30] MEDS: Amiodarone HCL 200 MG TABLET 400 MG PO (22:00)
[2024-08-30] MEDS: Nortriptyline HCl 25 MG CAPSULE PO (22:00)
[2024-08-30] MEDS: Loperamide HCl 2 MG CAPSULE PO (22:04)
[2024-08-30] MEDS: Latanoprost 0.005 % Ophth Sol 2.5 ML DROPS 1 DROP EYE-BOTH (22:26)
[2024-08-31] VITALS (8 sets, daily range): BP systolic 113–147; BP diastolic 56–70; PULSE 95–139; RESP 18–20; TEMP 36.4–37; O2SAT 90–98
[2024-08-31] MEDS: Albumin Human 25 % 100 ML IV ×2 (00:26→01:23)
[2024-08-31] MEDS: 0.9 % Sodium Chloride Flush 3 ML SYRINGE IVFLUSH ×4 (00:33→20:43)
--- NOTE | 2024-08-31 03:23 | PM.EVENT ---
Event Note Date of Service: 08/31/24 Event Note: Nurse reported hypotension which improved with iv colloids. Has been having watery diarrhea. Obtaining Gi panel and cdiff Time Spent With Patient Time: Total time managing care of this patient today ____ minutes.
[2024-08-31] MEDS: Amiodarone/Dextrose 150 MG/100 ML PLAST..BAG 600 MG IV (04:28)
[2024-08-31 06:19] LABS: CDiff Gene PCR NEGATIVE (Negative)
--- NOTE | 2024-08-31 06:40 | PC.NURSE ---
pt hypotensive, c/o weakness and nausea. HR elevated 120-140's. MD notified of low bp with order given to hold metoprolol but give scheduled po amiodarone. BP remains hypotensive orders given to administer 2 bags of albumin with increase in bp noted. HR remained elevated 130-140's md aware with new order amiodarone 150mg IV over 10 mins administered . HR 110-130's after amiodarone. Few episodes of liquid stools noted md aware and specimen sent to lab. Pt remained alert and oriented throughout the night, anxious in regards to feeling unwell.
[2024-08-31 07:12] LABS: Glucose, Whole Blood 145 mg/dL (60-115)
[2024-08-31 07:38] LABS: Blood Urea Nitrogen 37 mg/dL (9-16); Calcium 8.5 mg/dL (8.4-10.2); Creatinine Clr Calc Pharmacy 34.3; Estimated Glomerular Filt Rate 46; Glucose Random 158 mg/dL (60-115)
[2024-08-31 07:45] LABS: Anion Gap 16 (12-20); Carbon Dioxide 25 mmol/L (22-29); Chloride 106 mmol/L (96-108); Potassium 3.1 mmol/L (3.3-5.1); Sodium 144 mmol/L (135-145)
[2024-08-31 07:54] LABS: Basophils Percent Auto 0.2 % (0-2); Eosinophils Percent Auto 0.5 % (0-4); Hematocrit 31.8 % (37.0-47.0); Hemoglobin 9.8 g/dl (12.0-16.0); Imm Gran Abs Auto 0.02 X10*3/uL (0.00-0.03); Imm Gran Pct Auto 0.3 % (0.0-0.4); Lymphocytes Absolute Auto 0.1 X10*3/uL (1.2-4.9); Lymphocytes Percent Auto 1.7 % (20-40); MANUAL DIFF FLAG SCAN; Mean Corpuscular HGB Conc 30.8 g/dl (31.0-35.0); Mean Corpuscular Hemoglobin 23.4 pg (27.0-33.0); Mean Corpuscular Volume 76.1 fL (80.0-98.0); Monocytes Absolute Auto 0.3 X10*3/uL (0.1-1.2); Monocytes Percent Auto 4.5 % (2-11); Neutrophils Absolute Auto 5.6 x10*3/uL (2.0-8.3); Neutrophils Percent Auto 92.8 % (45-73); Red Blood Count 4.18 X10*6/uL (4.20-5.50); Red Cell Distribution Width 17.2 % (11.0-16.0); SCAN SMEAR FLAG 1; White Blood Count 6.1 X10*3/uL (4.8-10.8)
[2024-08-31] MEDS: Cholecalciferol (Vitamin D3) 25 MCG TABLET 125 MCG PO (08:00)
[2024-08-31] MEDS: Multivitamin TABLET 1 TAB PO (08:02)
[2024-08-31] MEDS: Apixaban 5 MG TABLET PO ×2 (08:02→20:39)
[2024-08-31] MEDS: Atorvastatin Calcium 10 MG TABLET PO (08:03)
[2024-08-31] MEDS: Amiodarone HCL 200 MG TABLET 400 MG PO ×2 (08:03→20:39)
[2024-08-31] MEDS: glipiZIDE XL 2.5 MG TAB.ER.24 1.25 MG PO (08:04)
[2024-08-31] MEDS: Potassium Chloride ER 20 MEQ TAB.ER.PRT 40 MEQ PO (08:07)
[2024-08-31] MEDS: Ascorbic Acid 500 MG TABLET PO (08:08)
[2024-08-31 09:01] LABS: Mean Platelet Volume 10.1 fL (9.4-12.3); Platelet Count 122 X10*3/uL (160-400)
[2024-08-31 09:02] LABS: SLIDE REVIEW VERIFIED
[2024-08-31 09:44] LABS: Adenovirus F 40/41 Not Detected (Not Detect.); Astrovirus Not Detected (Not Detect.); Campylobacter Not Detected (Not Detect.); Cryptosporidium Not Detected (Not Detect.); Cyclospora cayetanensis Not Detected (Not Detect.); E. coli EAEC Not Detected (Not Detect.); E. coli EPEC Not Detected (Not Detect.); E. coli ETEC Not Detected (Not Detect.); E. coli STEC Not Detected (Not Detect.); Entamoeba histolytica Not Detected (Not Detect.); Giardia lamblia Not Detected (Not Detect.); Plesiomonas shigelloides Not Detected (Not Detect.); Rotavirus A Not Detected (Not Detect.); Salmonella Not Detected (Not Detect.); Sapovirus Not Detected (Not Detect.); Shigella sp./EIEC Not Detected (Not Detect.); Vibrio Not Detected (Not Detect.); Vibrio Cholerae Not Detected (Not Detect.); Yersinia enterocolitica Not Detected (Not Detect.)
--- NOTE | 2024-08-31 10:18 | PM.PNCARD ---
Subjective Subjective Date of Service: 08/31/24 Interval history: Seen examined at bedside. Echocardiography has shown moderate LV dysfunction. She started developing some diarrhea overnight and had some testing done today. C diff is negative but she is potentially positive for norovirus as per hospitalist. Physical Exam Vital Signs: Last Vital Signs Temp 98.6 F 08/31/24 07:34 Pulse 109 H 08/31/24 07:34 Resp 18 08/31/24 07:34 BP 113/61 08/31/24 07:34 Pulse Ox 91 L 08/31/24 07:34 O2 Del Method Nasal Cannula 08/31/24 03:43 O2 Flow Rate 3 08/31/24 07:34 BMI result Body Mass Index 31.1 GENERAL APPEARANCE: in no acute distress, pleasant. On supplemental oxygen. NECK: no carotid bruit, no jugular venous distention. SKIN: no suspicious lesions, warm and dry. HEART: Apical systolic murmur, irregular rate and rhythm. Tachycardic. LUNGS: Clear to auscultation. ABDOMEN: soft, nontender. EXTREMITIES: no edema. PERIPHERAL PULSES: equal. NEUROLOGIC: No gross deficits, AAO X 3 Objective Labs and Meds 08/31/24 06:54 08/31/24 06:54 Lab results: Laboratory Results - last 24 hr 08/30/24 08/30/24 08/30/24 09:21 11:17 16:21 WBC RBC Hgb Hct MCV MCH MCHC RDW Plt Count MPV Immature Gran % (Auto) Neut % (Auto) Lymph % (Auto) [place] % (Auto) Eos % (Auto) Baso % (Auto) Lymph # (Auto) [place] # (Auto) Eos # (Auto) Baso # (Auto) Abs Immat Gran (auto) Absolute Neuts (auto) Absolute Nucleated RBC Nucleated RBC % (auto) Smear Tech's Comments Hold Purple Top Sodium 144 Potassium 4.3 Chloride 106 Carbon Dioxide 32 H Anion Gap 10 L BUN 24 H Creatinine 1.17 Estim Creat Clear Calc 33.4 Estimated GFR 44 POC Glucose 116 H 78 Random Glucose 173 H Calcium 8.9 Stl C. cayetanensis PCR Stool Rotavirus A PCR Stl Adenov F 40/41 PCR Stool Astrovirus (PCR) Stool Campylobacter PCR Stool Cryptosporidium PCR Stl Sh Tox Pr E STEC PCR Stool E coli O157 PCR Stl Enterotoxigenic E PCR Stool EPEC (PCR) Stool EAEC (PCR) Stl E. histolytica PCR Stool Giardia Lamblia PCR Stl P. shigelloides PCR Stool Salmonella PCR Stool Sapovirus (PCR) Stl Shigella/EIEC PCR St Y.enterocolitica PCR Stool Vibrio (PCR) Stl Vibrio cholerae PCR Stl Norovirus GI/GII PCR C. difficile Tox B Gene 08/30/24 08/31/24 08/31/24 20:24 04:45 06:54 WBC 6.1 RBC 4.18 L Hgb 9.8 L Hct 31.8 L MCV 76.1 L MCH 23.4 L MCHC 30.8 L RDW 17.2 H Plt Count 122 L D MPV 10.1 Immature Gran % (Auto) 0.3 Neut % (Auto) 92.8 H Lymph % (Auto) 1.7 L [place] % (Auto) 4.5 Eos % (Auto) 0.5 Baso % (Auto) 0.2 Lymph # (Auto) 0.1 L [place] # (Auto) 0.3 Eos # (Auto) 0.0 Baso # (Auto) 0.0 Abs Immat Gran (auto) 0.02 Absolute Neuts (auto) 5.6 Absolute Nucleated RBC 0.000 Nucleated RBC % (auto) 0.0 Smear Tech's Comments VERIFIED Hold Purple Top SEE NOTE Sodium 144 Potassium 3.1 L D Chloride 106 Carbon Dioxide 25 Anion Gap 16 BUN 37 H Creatinine 1.14 Estim Creat Clear Calc 34.3 Estimated GFR 46 POC Glucose 142 H Random Glucose 158 H Calcium 8.5 Stl C. cayetanensis PCR Not Detected Stool Rotavirus A PCR Not Detected Stl Adenov F 40/41 PCR Not Detected Stool Astrovirus (PCR) Not Detected Stool Campylobacter PCR Not Detected Stool Cryptosporidium PCR Not Detected Stl Sh Tox Pr E STEC PCR Not Detected Stool E coli O157 PCR Not applicable Stl Enterotoxigenic E PCR Not Detected Stool EPEC (PCR) Not Detected Stool EAEC (PCR) Not Detected Stl E. histolytica PCR Not Detected Stool Giardia Lamblia PCR Not Detected Stl P. shigelloides PCR Not Detected Stool Salmonella PCR Not Detected Stool Sapovirus (PCR) Not Detected Stl Shigella/EIEC PCR Not Detected St Y.enterocolitica PCR Not Detected Stool Vibrio (PCR) Not Detected Stl Vibrio cholerae PCR Not Detected Stl Norovirus GI/GII PCR See Comment C. difficile Tox B Gene NEGATIVE 08/31/24 07:09 WBC RBC Hgb Hct MCV MCH MCHC RDW Plt Count MPV Immature Gran % (Auto) Neut % (Auto) Lymph % (Auto) [place] % (Auto) Eos % (Auto) Baso % (Auto) Lymph # (Auto) [place] # (Auto) Eos # (Auto) Baso # (Auto) Abs Immat Gran (auto) Absolute Neuts (auto) Absolute Nucleated RBC Nucleated RBC % (auto) Smear Tech's Comments Hold Purple Top Sodium Potassium Chloride Carbon Dioxide Anion Gap BUN Creatinine Estim Creat Clear Calc Estimated GFR POC Glucose 145 H Random Glucose Calcium Stl C. cayetanensis PCR Stool Rotavirus A PCR Stl Adenov F 40/41 PCR Stool Astrovirus (PCR) Stool Campylobacter PCR Stool Cryptosporidium PCR Stl Sh Tox Pr E STEC PCR Stool E coli O157 PCR Stl Enterotoxigenic E PCR Stool EPEC (PCR) Stool EAEC (PCR) Stl E. histolytica PCR Stool Giardia Lamblia PCR Stl P. shigelloides PCR Stool Salmonella PCR Stool Sapovirus (PCR) Stl Shigella/EIEC PCR St Y.enterocolitica PCR Stool Vibrio (PCR) Stl Vibrio cholerae PCR Stl Norovirus GI/GII PCR C. difficile Tox B Gene Progress Note: A&P Assessment and plan (1) Heart failure: Status: Acute (2) Atrial fibrillation with rapid ventricular response: Status: Acute Plan 79-year-old female who is here for new onset atrial fibrillation and congestive heart failure. Previously LV function was normal but limited echocardiography has shown EF of 30 35%. She has been started on amiodarone and our plan is to do a TRUDI cardioversion on her today. She is on apixaban 5 mg twice a day. She developed some diarrhea and there was some concern about norovirus and she has additional testing sent for that. She has does not have C diff. she did not have any further diarrhea since last night. I discussed with the patient about cardioversion that if she does not have significant ongoing diarrhea then we can attempted. I have explained to her that having any active infection can affect the chances of conversion to sinus rhythm. TRUDI cardioversion later today. Thank you for allowing me to participate in the care of your patient. Please feel free to contact me if you have any questions. Time Spent With Patient Time: Total time managing care of this patient today ____ minutes. Progress Note: Quality Stroke Does the patient have a stroke diagnosis?: No Procedures Date of Service Date of Service: 08/31/24
[2024-08-31 11:45] LABS: Glucose, Whole Blood 111 mg/dL (60-115)
[2024-08-31] MEDS: Dorzolamide/Timolo 2.23%/0.68% 10 ML DRBTL 1 DROP EYE-BOTH ×2 (11:47→20:39)
--- NOTE | 2024-08-31 11:55 | MHC.CM.PN ---
EMR reviewed and per MD rounds, pt is not medically cleared for discharge due to management of a-fib with rvr and acute heart failure, cardioversion pending.
--- NOTE | 2024-08-31 12:56 | P.PNIM_ITS ---
Subjective Subjective Date of Service: 08/31/24 Interval History: f/u on afib with rvr and heart failure Had rapid heart rate and overnight and give amio, also has had diarrhea, pre-batista + norovirus Physical Exam 2 Vital Signs: Vital Signs: Last Vital Signs Temp 97.6 F 08/31/24 11:29 Pulse 117 H 08/31/24 11:29 Resp 20 08/31/24 11:29 BP 133/59 L 08/31/24 11:29 Pulse Ox 94 08/31/24 11:29 O2 Del Method Nasal Cannula 08/31/24 11:29 O2 Flow Rate 3 08/31/24 11:29 BMI result Body Mass Index 31.1 Const: Other: General: AO X 3, no acute distress Resp: CTA bilateral CVS: S1,S2, iregular iregular , trace leg edema GI: +BS, NT, no distention Skin: No rash Neuro: motor grossly intact Psych: appropriate affect Objective Data Active Medications Acetaminophen (Acetaminophen 325 Mg Tablet) 650 mg PO Q6H PRN PRN Reason: Pain, Mild 1-3,fever,headache Amiodarone HCl (Amiodarone Hcl 200 Mg Tablet) 400 mg PO BID [facility] Last Admin: 08/31/24 08:03 Dose: 400 mg Documented By: KELSI Apixaban (Apixaban 5 Mg Tablet) 5 mg PO BID [facility] Last Admin: 08/31/24 08:02 Dose: 5 mg Documented By: KELSI Ascorbic Acid (Ascorbic Acid 500 Mg Tablet) 500 mg PO DAILY [facility] Last Admin: 08/31/24 08:08 Dose: 500 mg Documented By: KELSI Atorvastatin Calcium (Atorvastatin Calcium 10 Mg Tablet) 10 mg PO DAILY [facility] Last Admin: 08/31/24 08:03 Dose: 10 mg Documented By: KELSI Calcium Carbonate (Calcium Carbonate 750 Mg Tab.Chew) 750 mg PO Q4H PRN PRN Reason: Heartburn Dorzolamide/Timolol (Dorzolamide/Timolo 2.23%/0.68% 10 Ml Drbtl) 1 drop EYE- BOTH BID [facility] Last Admin: 08/31/24 11:47 Dose: 1 drop Documented By: KELSI Furosemide (Furosemide 40 Mg Tablet) 40 mg PO DAILY [facility]; Protocol Last Admin: 08/31/24 08:27 Dose: Not Given Documented By: KELSI Non-Admin Reason: Physician Held Med Glipizide (Glipizide Xl 2.5 Mg Tab.Er.24) 1.25 mg PO DAILY [facility] Last Admin: 08/31/24 08:04 Dose: 1.25 mg Documented By: KELSI Glucose (Glucose Gel 15 Gm Gel..Gram.) 15 gm PO Q15M PRN; Protocol PRN Reason: per Hypoglycemia Standing Ord. Dextrose (D10) 250 mls @ 750 mls/hr IV Q15M PRN; Protocol PRN Reason: per Hypoglycemia Standing Ord. Insulin Human Lispro (Insulin Lispro 100 Unit/Ml 3 Ml Vial) 0 unit SUBCUT QIDACHS [facility]; Protocol Last Admin: 08/31/24 11:47 Dose: Not Given Documented By: KELSI Non-Admin Reason: No Insulin Coverage Latanoprost (Latanoprost 0.005 % Ophth Leanna 2.5 Ml Drops) 1 drop EYE-BOTH BEDTIME [facility] Last Admin: 08/30/24 22:26 Dose: 1 drop Documented By: AJ Lorazepam (Lorazepam 0.5 Mg Tablet) 0.5 mg PO DAILY PRN PRN Reason: Anxiety Magnesium Hydroxide (Milk Of Magnesia 30 Ml Oral.Susp) 30 ml PO DAILY PRN PRN Reason: Constipation Melatonin (Melatonin 3 Mg Tablet) 6 mg PO BEDTIME PRN PRN Reason: Insomnia Metoprolol Tartrate (Metoprolol Tartrate 50 Mg Tablet) 50 mg PO BID [facility]; Protocol Last Admin: 08/31/24 08:26 Dose: Not Given Documented By: KELSI Non-Admin Reason: Physician Held Med Multivitamins/Vitamin C (Multivitamin Tablet) 1 tab PO DAILY [facility] Last Admin: 08/31/24 08:02 Dose: 1 tab Documented By: KELSI Nortriptyline HCl (Nortriptyline Hcl 25 Mg Capsule) 25 mg PO BEDTIME [facility] Last Admin: 08/30/24 22:00 Dose: 25 mg Documented By: AJ Omeprazole (Omeprazole 20 Mg Capsule.) 20 mg PO BID@0630,1630 [facility] Last Admin: 08/31/24 06:46 Dose: Not Given Documented By: AJ Non-Admin Reason: NPO Polyethylene Glycol (Polyethylene Glycol 3350 17 Gm Powd.Pack) 17 gm PO DAILY PRN PRN Reason: Constipation Sodium Chloride (0.9 % Sodium Chloride Flush 3 Ml Syringe) 3 ml IVFLUSH QSHIFT [facility] Last Admin: 08/31/24 08:08 Dose: 3 ml Documented By: KELSI Vitamin D (Cholecalciferol (Vitamin D3) 25 Mcg Tablet) 125 mcg PO DAILY [facility] Last Admin: 08/31/24 08:00 Dose: 125 mcg Documented By: KELSI Labs 08/31/24 06:54 08/31/24 06:54 Labs: Laboratory Results - last 24 hr 08/30/24 08/30/24 08/31/24 16:21 20:24 04:45 MCV MCH MCHC RDW Plt Count MPV Immature Gran % (Auto) Neut % (Auto) Lymph % (Auto) [place] % (Auto) Eos % (Auto) Baso % (Auto) Lymph # (Auto) [place] # (Auto) Eos # (Auto) Baso # (Auto) Abs Immat Gran (auto) Absolute Neuts (auto) Absolute Nucleated RBC Nucleated RBC % (auto) Smear Tech's Comments Hold Purple Top Anion Gap Estim Creat Clear Calc Estimated GFR POC Glucose 78 142 H Random Glucose Calcium Stl C. cayetanensis PCR Not Detected Stool Rotavirus A PCR Not Detected Stl Adenov F 40/41 PCR Not Detected Stool Astrovirus (PCR) Not Detected Stool Campylobacter PCR Not Detected Stool Cryptosporidium PCR Not Detected Stl Sh Tox Pr E STEC PCR Not Detected Stool E coli O157 PCR Not applicable Stl Enterotoxigenic E PCR Not Detected Stool EPEC (PCR) Not Detected Stool EAEC (PCR) Not Detected Stl E. histolytica PCR Not Detected Stool Giardia Lamblia PCR Not Detected Stl P. shigelloides PCR Not Detected Stool Salmonella PCR Not Detected Stool Sapovirus (PCR) Not Detected Stl Shigella/EIEC PCR Not Detected St Y.enterocolitica PCR Not Detected Stool Vibrio (PCR) Not Detected Stl Vibrio cholerae PCR Not Detected Stl Norovirus GI/GII PCR See Comment C. difficile Tox B Gene NEGATIVE 08/31/24 08/31/24 08/31/24 06:54 07:09 11:30 MCV 76.1 L MCH 23.4 L MCHC 30.8 L RDW 17.2 H Plt Count 122 L D MPV 10.1 Immature Gran % (Auto) 0.3 Neut % (Auto) 92.8 H Lymph % (Auto) 1.7 L [place] % (Auto) 4.5 Eos % (Auto) 0.5 Baso % (Auto) 0.2 Lymph # (Auto) 0.1 L [place] # (Auto) 0.3 Eos # (Auto) 0.0 Baso # (Auto) 0.0 Abs Immat Gran (auto) 0.02 Absolute Neuts (auto) 5.6 Absolute Nucleated RBC 0.000 Nucleated RBC % (auto) 0.0 Smear Tech's Comments VERIFIED Hold Purple Top SEE NOTE Anion Gap 16 Estim Creat Clear Calc 34.3 Estimated GFR 46 POC Glucose 145 H 111 Random Glucose 158 H Calcium 8.5 Stl C. cayetanensis PCR Stool Rotavirus A PCR Stl Adenov F 40/41 PCR Stool Astrovirus (PCR) Stool Campylobacter PCR Stool Cryptosporidium PCR Stl Sh Tox Pr E STEC PCR Stool E coli O157 PCR Stl Enterotoxigenic E PCR Stool EPEC (PCR) Stool EAEC (PCR) Stl E. histolytica PCR Stool Giardia Lamblia PCR Stl P. shigelloides PCR Stool Salmonella PCR Stool Sapovirus (PCR) Stl Shigella/EIEC PCR St Y.enterocolitica PCR Stool Vibrio (PCR) Stl Vibrio cholerae PCR Stl Norovirus GI/GII PCR C. difficile Tox B Gene Assessment and Plan (1) Atrial fibrillation with rapid ventricular response: Status: Acute (2) Heart failure: Status: Acute Plan 79 years old lady with PMH of CYNTHIA, Pulm HTN, GERD, HTN, DMII , PAF here with dyspnea d/t AFIB with RVR and acute on chronic heart failure. Acute HFpEF, likely precipitated by AFIB with RVR -IV Lasix to PO lasix today -monitor I/o, daily weight, low salt diet -echo show reduced EF 30 -cardiology advising cardiac cath - Afib w RvR, -started on amio, in addition to metoprolol -continue IV cardizem and transition to oral -continue eliquis DM II Hold oral agents SSI , diabetic diet GERD, PPI Anxiety, Ativan HTN, cardizem as above DVT PPx Eliquis need for inpt; iv meds and continous cardiac monitoring for afib with rvr and acute heart failure Quality Stroke Does the patient have a stroke diagnosis?: No VTE Prior VTE?: No VTE Risk Level:: Medical - moderate - high VTE Device Contraindication: Treatment Not Indicated VTE Drug Contraindication: N/A - Med Ordered
--- NOTE | 2024-08-31 15:20 | MHC.SHP ---
Pre-Procedural Eval Section A - 24 Hr Update-Section A only Date of Service: 08/31/24 The patient is an INPATIENT: Yes The patient has been examined within 24 hours of the surgical procedure. The History & Physical has been completed within 30 days and I have reviewed it.: Yes Section B - Complete if H&P > 30 days Chief Complaint: Acute heart failure, AFIB with RVR Allergies: Allergies Allergy/AdvReac Type Severity Reaction Status Date / Time gabapentin [From Neurontin] Allergy Intermediate JOINTS Verified 08/28/24 08:50 SWELL famotidine AdvReac Mild Dizziness Verified 08/28/24 08:50 oranges Allergy Mild cold sores Uncoded 06/22/24 17:14 Plan Diagnosis/Plan: Unchanged I have reviewed the history and physical and performed a pertinent physical examination on my patient. No changes have occurred unless specified. Time Spent With Patient Time: Total time managing care of this patient today ____ minutes.
[2024-08-31 15:45] LABS: Glucose, Whole Blood 104 mg/dL (60-115)
[2024-08-31] MEDS: Omeprazole 20 MG CAPSULE.DR PO (17:48)
[2024-08-31 20:32] LABS: Glucose, Whole Blood 115 mg/dL (60-115)
[2024-08-31] MEDS: Nortriptyline HCl 25 MG CAPSULE PO (20:39)
[2024-08-31] MEDS: Latanoprost 0.005 % Ophth Sol 2.5 ML DROPS 1 DROP EYE-BOTH (20:41)
[2024-09-01] VITALS (11 sets, daily range): BP systolic 103–148; BP diastolic 51–82; PULSE 102–123; RESP 16–20; TEMP 36.1–36.8; O2SAT 93–96
[2024-09-01 07:35] LABS: Glucose, Whole Blood 80 mg/dL (60-115)
[2024-09-01] MEDS: Furosemide 40 MG TABLET PO (08:52)
[2024-09-01] MEDS: Ascorbic Acid 500 MG TABLET PO (08:52)
[2024-09-01] MEDS: Atorvastatin Calcium 10 MG TABLET PO (08:52)
[2024-09-01] MEDS: Amiodarone HCL 200 MG TABLET 400 MG PO ×2 (08:53→21:01)
[2024-09-01] MEDS: Cholecalciferol (Vitamin D3) 25 MCG TABLET 125 MCG PO (08:53)
[2024-09-01] MEDS: glipiZIDE XL 2.5 MG TAB.ER.24 1.25 MG PO (08:54)
[2024-09-01] MEDS: Apixaban 5 MG TABLET PO ×2 (08:54→21:01)
[2024-09-01] MEDS: Multivitamin TABLET 1 TAB PO (08:54)
[2024-09-01] MEDS: Dorzolamide/Timolo 2.23%/0.68% 10 ML DRBTL 1 DROP EYE-BOTH ×2 (08:59→21:02)
[2024-09-01] MEDS: 0.9 % Sodium Chloride Flush 3 ML SYRINGE IVFLUSH ×3 (09:01→23:35)
--- NOTE | 2024-09-01 09:45 | HO.PM.IMPN ---
Subjective Subjective Date of Service: 09/01/24 Interval History: f/u on afib with rvr and heart failure She remains in AFIB. 100s to 130s. No SOB, Physical Exam Vital Signs: Vital Signs: Last Vital Signs Temp 97.6 F 09/01/24 08:00 Pulse 120 H 09/01/24 08:00 Resp 20 09/01/24 08:00 BP 104/62 09/01/24 08:56 Pulse Ox 95 09/01/24 08:00 O2 Del Method Nasal Cannula 09/01/24 08:00 O2 Flow Rate 2 09/01/24 08:00 BMI result Body Mass Index 31.1 General: AO X 3, no acute distress Resp: CTA bilateral CVS: S1,S2, iregular iregular GI: +BS, NT, no distention Skin: No rash Neuro: motor grossly intact Psych: appropriate affect Objective Data Active Medications Acetaminophen (Acetaminophen 325 Mg Tablet) 650 mg PO Q6H PRN PRN Reason: Pain, Mild 1-3,fever,headache Amiodarone HCl (Amiodarone Hcl 200 Mg Tablet) 400 mg PO BID [facility] Last Admin: 09/01/24 08:53 Dose: 400 mg Documented By: JORDY Apixaban (Apixaban 5 Mg Tablet) 5 mg PO BID [facility] Last Admin: 09/01/24 08:54 Dose: 5 mg Documented By: JORDY Ascorbic Acid (Ascorbic Acid 500 Mg Tablet) 500 mg PO DAILY [facility] Last Admin: 09/01/24 08:52 Dose: 500 mg Documented By: JORDY Atorvastatin Calcium (Atorvastatin Calcium 10 Mg Tablet) 10 mg PO DAILY [facility] Last Admin: 09/01/24 08:52 Dose: 10 mg Documented By: JORDY Calcium Carbonate (Calcium Carbonate 750 Mg Tab.Chew) 750 mg PO Q4H PRN PRN Reason: Heartburn Dorzolamide/Timolol (Dorzolamide/Timolo 2.23%/0.68% 10 Ml Drbtl) 1 drop EYE-BOTH BID [facility] Last Admin: 09/01/24 08:59 Dose: 1 drop Documented By: JORDY Furosemide (Furosemide 40 Mg Tablet) 40 mg PO DAILY [facility]; Protocol Last Admin: 09/01/24 08:52 Dose: 40 mg Documented By: JORDY Glipizide (Glipizide Xl 2.5 Mg Tab.Er.24) 1.25 mg PO DAILY [facility] Last Admin: 09/01/24 08:54 Dose: 1.25 mg Documented By: JORDY Glucose (Glucose Gel 15 Gm Gel..Gram.) 15 gm PO Q15M PRN; Protocol PRN Reason: per Hypoglycemia Standing Ord. Dextrose (D10) 250 mls @ 750 mls/hr IV Q15M PRN; Protocol PRN Reason: per Hypoglycemia Standing Ord. Insulin Human Lispro (Insulin Lispro 100 Unit/Ml 3 Ml Vial) 0 unit SUBCUT QIDACHS [facility]; Protocol Last Admin: 09/01/24 07:39 Dose: Not Given Documented By: JORDY Non-Admin Reason: No Insulin Coverage Latanoprost (Latanoprost 0.005 % Ophth Leanna 2.5 Ml Drops) 1 drop EYE-BOTH BEDTIME [facility] Last Admin: 08/31/24 20:41 Dose: 1 drop Documented By: AJ Lorazepam (Lorazepam 0.5 Mg Tablet) 0.5 mg PO DAILY PRN PRN Reason: Anxiety Magnesium Hydroxide (Milk Of Magnesia 30 Ml Oral.Susp) 30 ml PO DAILY PRN PRN Reason: Constipation Melatonin (Melatonin 3 Mg Tablet) 6 mg PO BEDTIME PRN PRN Reason: Insomnia Metoprolol Tartrate (Metoprolol Tartrate 50 Mg Tablet) 50 mg PO BID [facility]; Protocol Last Admin: 09/01/24 08:59 Dose: Not Given Documented By: JORDY Non-Admin Reason: low b/p Multivitamins/Vitamin C (Multivitamin Tablet) 1 tab PO DAILY [facility] Last Admin: 09/01/24 08:54 Dose: 1 tab Documented By: JORDY Nortriptyline HCl (Nortriptyline Hcl 25 Mg Capsule) 25 mg PO BEDTIME [facility] Last Admin: 08/31/24 20:39 Dose: 25 mg Documented By: AJ Omeprazole (Omeprazole 20 Mg Capsule.) 20 mg PO BID@0630,1630 [facility] Last Admin: 09/01/24 07:09 Dose: Not Given Documented By: AJ Non-Admin Reason: ? NPO for proc Polyethylene Glycol (Polyethylene Glycol 3350 17 Gm Powd.Pack) 17 gm PO DAILY PRN PRN Reason: Constipation Sodium Chloride (0.9 % Sodium Chloride Flush 3 Ml Syringe) 3 ml IVFLUSH QSHIFT [facility] Last Admin: 09/01/24 09:01 Dose: 3 ml Documented By: JORDY Vitamin D (Cholecalciferol (Vitamin D3) 25 Mcg Tablet) 125 mcg PO DAILY [facility] Last Admin: 09/01/24 08:53 Dose: 125 mcg Documented By: JORDY Labs 08/31/24 06:54 08/31/24 06:54 Labs: Laboratory Results - last 24 hr 08/31/24 08/31/24 08/31/24 04:45 11:30 15:42 POC Glucose 111 104 Stl C. cayetanensis PCR Not Detected Stool Rotavirus A PCR Not Detected Stl Adenov F 40/41 PCR Not Detected Stool Astrovirus (PCR) Not Detected Stool Campylobacter PCR Not Detected Stool Cryptosporidium PCR Not Detected Stl Sh Tox Pr E STEC PCR Not Detected Stool E coli O157 PCR Not applicable Stl Enterotoxigenic E PCR Not Detected Stool EPEC (PCR) Not Detected Stool EAEC (PCR) Not Detected Stl E. histolytica PCR Not Detected Stool Giardia Lamblia PCR Not Detected Stl P. shigelloides PCR Not Detected Stool Salmonella PCR Not Detected Stool Sapovirus (PCR) Not Detected Stl Shigella/EIEC PCR Not Detected St Y.enterocolitica PCR Not Detected Stool Vibrio (PCR) Not Detected Stl Vibrio cholerae PCR Not Detected Stl Norovirus GI/GII PCR See Comment 08/31/24 09/01/24 20:21 07:23 POC Glucose 115 80 Stl C. cayetanensis PCR Stool Rotavirus A PCR Stl Adenov F 40/41 PCR Stool Astrovirus (PCR) Stool Campylobacter PCR Stool Cryptosporidium PCR Stl Sh Tox Pr E STEC PCR Stool E coli O157 PCR Stl Enterotoxigenic E PCR Stool EPEC (PCR) Stool EAEC (PCR) Stl E. histolytica PCR Stool Giardia Lamblia PCR Stl P. shigelloides PCR Stool Salmonella PCR Stool Sapovirus (PCR) Stl Shigella/EIEC PCR St Y.enterocolitica PCR Stool Vibrio (PCR) Stl Vibrio cholerae PCR Stl Norovirus GI/GII PCR Assessment and Plan (1) Atrial fibrillation with rapid ventricular response: Status: Acute (2) Heart failure: Status: Acute Plan 79 years old lady with PMH of CYNTHIA, Pulm HTN, GERD, HTN, DMII , PAF here with dyspnea d/t AFIB with RVR and acute on chronic heart failure. Acute HFpEF, likely precipitated by AFIB with RVR -continue lasisx -monitor I/o, daily weight, low salt diet -echo show reduced EF 30 -cardiology advising cardioversion today - Afib w RvR, -started on amio, in addition to metoprolol -IV crdiozem pRN, -continue eliquis Hypokalemia--replaced, recheck DM II Hold oral agents SSI , diabetic diet -IVF while NPO GERD, PPI Anxiety, Ativan HLD--lipitor HTN, metoprolol as above DVT PPx Eliquis need for inpt; iv meds and continous cardiac monitoring for afib with rvr and acute heart failure Quality Stroke Does the patient have a stroke diagnosis?: No VTE Prior VTE?: No VTE Risk Level:: Medical - moderate - high VTE Device Contraindication: Treatment Not Indicated VTE Drug Contraindication: N/A - Med Ordered
[2024-09-01] MEDS: Dextrose 5 % and Lactated Ring 1,000 ML 50 ML IVCONT (10:38)
[2024-09-01 10:41] LABS: Anion Gap 12 (12-20); Blood Urea Nitrogen 32 mg/dL (9-16); Calcium 8.5 mg/dL (8.4-10.2); Carbon Dioxide 25 mmol/L (22-29); Chloride 110 mmol/L (96-108); Creatinine Clr Calc Pharmacy 41.6; Estimated Glomerular Filt Rate 57; Glucose Random 100 mg/dL (60-115); Magnesium 1.9 mg/dL (1.6-2.6); Potassium 3.9 mmol/L (3.3-5.1); Sodium 143 mmol/L (135-145)
[2024-09-01 11:55] LABS: Glucose, Whole Blood 112 mg/dL (60-115)
--- NOTE | 2024-09-01 12:39 | PM.PNCARD ---
Subjective Subjective Date of Service: 09/02/24 Interval history: For TRUDI CV today. Physical Exam Vital Signs: Last Vital Signs Temp 98.1 F 09/01/24 12:00 Pulse 106 H 09/01/24 12:00 Resp 19 09/01/24 12:00 BP 109/74 09/01/24 12:00 Pulse Ox 94 09/01/24 12:00 O2 Del Method Nasal Cannula 09/01/24 12:00 O2 Flow Rate 2 09/01/24 12:00 BMI result Body Mass Index 31.1 GENERAL APPEARANCE: in no acute distress, pleasant. On supplemental oxygen. NECK: no carotid bruit, no jugular venous distention. SKIN: no suspicious lesions, warm and dry. HEART: Apical systolic murmur, irregular rate and rhythm. Tachycardic. LUNGS: Clear to auscultation. ABDOMEN: soft, nontender. EXTREMITIES: no edema. PERIPHERAL PULSES: equal. NEUROLOGIC: No gross deficits, AAO X 3 Objective Labs and Meds 08/31/24 06:54 09/02/24 06:20 Lab results: Laboratory Results - last 24 hr 08/31/24 08/31/24 09/01/24 15:42 20:21 07:23 Sodium Potassium Chloride Carbon Dioxide Anion Gap BUN Creatinine Estim Creat Clear Calc Estimated GFR POC Glucose 104 115 80 Random Glucose Calcium Magnesium 09/01/24 09/01/24 10:12 11:49 Sodium 143 Potassium 3.9 D Chloride 110 H Carbon Dioxide 25 Anion Gap 12 BUN 32 H Creatinine 0.94 Estim Creat Clear Calc 41.6 Estimated GFR 57 POC Glucose 112 Random Glucose 100 Calcium 8.5 Magnesium 1.9 Progress Note: A&P Assessment and plan (1) Heart failure: Status: Acute (2) Atrial fibrillation with rapid ventricular response: Status: Acute Plan 79-year-old female who is here for new onset atrial fibrillation and congestive heart failure. Previously LV function was normal but limited echocardiography has shown EF of 30 35%. She has been started on amiodarone. Plans TRUDI cardioversion today. Time Spent With Patient Time: Total time managing care of this patient today ____ minutes. Progress Note: Quality Stroke Does the patient have a stroke diagnosis?: No Procedures Date of Service Date of Service: 09/02/24
--- NOTE | 2024-09-01 13:10 | HO.ANESPROP2 ---
COUNTS INCLUDE 234 BEDS AT THE [facility] Active Problems Active Problems: All Active Problems Heart failure (Acute) Atrial fibrillation with rapid ventricular response (Acute) Bilateral pleural effusion (Acute) Acute dyspnea (Acute) Avulsion, finger tip (Acute) Paroxysmal atrial fibrillation (Acute) Atrial fibrillation with rapid ventricular response (Acute) Pulmonary hypertension (Acute) Restrictive lung disease (Acute) Dysphagia (Acute) GERD (gastroesophageal reflux disease) (Acute) Anemia (Acute) Scoliosis (Acute) CYNTHIA (obstructive sleep apnea) (Acute) Obesity (Acute) Cough (Acute) Past Medical History Medical History Pulmonary hypertension Restrictive lung disease Diabetes Scoliosis CYNTHIA (obstructive sleep apnea) Obesity Cough HX: breast cancer Anemia Back pain Lymphedema of left arm GERD (gastroesophageal reflux disease) Blind right eye Trigeminal neuralgia of right side of face Hypertension CHF (congestive heart failure) Heart murmur after rheumatic heart disease Functional capacity: independent ambulation Patient : No Family History Family History Father History of heart attack Mother History of leukemia History of hypertension Family history of problems with anesthesia: No Surgical History Surgical History History of open reduction and internal fixation (ORIF) procedure History of ventral hernia repair History of left inguinal hernia repair History of bladder suspension procedure History of partial hysterectomy History of tonsillectomy and adenoidectomy Hx of esophagogastroduodenoscopy History of lymph node dissection of left axilla H/O left mastectomy Hx of wisdom tooth extraction History of colonoscopy History of Problems with Anesthesia: No Social History Social History Household Members: Spouse Housing: House Housing Other:: Mobile home Are you a primary progressive care manager to a significant other at home: No Do you presently have visiting nurse or other home services: No Alcohol intake: never Patient Tobacco Use Status: Never used Tobacco Advance Directives Date on File: 02/08/23 service: No Meds Allergies Allergy/AdvReac Type Severity Reaction Status Date / Time gabapentin [From Neurontin] Allergy Intermediate JOINTS Verified 08/28/24 08:50 SWELL famotidine AdvReac Mild Dizziness Verified 08/28/24 08:50 oranges Allergy Mild cold sores Uncoded 06/22/24 17:14 Active Medications: Current Medications Acetaminophen (Acetaminophen 325 Mg Tablet) 650 mg PO Q6H PRN PRN Reason: Pain, Mild 1-3,fever,headache Amiodarone HCl (Amiodarone Hcl 200 Mg Tablet) 400 mg PO BID [facility] Last Admin: 09/01/24 08:53 Dose: 400 mg Apixaban (Apixaban 5 Mg Tablet) 5 mg PO BID [facility] Last Admin: 09/01/24 08:54 Dose: 5 mg Ascorbic Acid (Ascorbic Acid 500 Mg Tablet) 500 mg PO DAILY [facility] Last Admin: 09/01/24 08:52 Dose: 500 mg Atorvastatin Calcium (Atorvastatin Calcium 10 Mg Tablet) 10 mg PO DAILY [facility] Last Admin: 09/01/24 08:52 Dose: 10 mg Calcium Carbonate (Calcium Carbonate 750 Mg Tab.Chew) 750 mg PO Q4H PRN PRN Reason: Heartburn Dorzolamide/Timolol (Dorzolamide/Timolo 2.23%/0.68% 10 Ml Drbtl) 1 drop EYE-BOTH BID [facility] Last Admin: 09/01/24 08:59 Dose: 1 drop Furosemide (Furosemide 40 Mg Tablet) 40 mg PO DAILY [facility]; Protocol Last Admin: 09/01/24 08:52 Dose: 40 mg Glipizide (Glipizide Xl 2.5 Mg Tab.Er.24) 1.25 mg PO DAILY [facility] Last Admin: 09/01/24 08:54 Dose: 1.25 mg Glucose (Glucose Gel 15 Gm Gel..Gram.) 15 gm PO Q15M PRN; Protocol PRN Reason: per Hypoglycemia Standing Ord. Dextrose (D10) 250 mls @ 750 mls/hr IV Q15M PRN; Protocol PRN Reason: per Hypoglycemia Standing Ord. Dextrose/Lactated Ringer's (D5lr) 1,000 mls @ 50 mls/hr IVCONT .Q20H [facility] Last Admin: 09/01/24 10:38 Dose: 50 mls/hr Insulin Human Lispro (Insulin Lispro 100 Unit/Ml 3 Ml Vial) 0 unit SUBCUT QIDACHS [facility]; Protocol Last Admin: 09/01/24 12:12 Dose: Not Given Latanoprost (Latanoprost 0.005 % Ophth Leanna 2.5 Ml Drops) 1 drop EYE-BOTH BEDTIME [facility] Last Admin: 08/31/24 20:41 Dose: 1 drop Lorazepam (Lorazepam 0.5 Mg Tablet) 0.5 mg PO DAILY PRN PRN Reason: Anxiety Magnesium Hydroxide (Milk Of Magnesia 30 Ml Oral.Susp) 30 ml PO DAILY PRN PRN Reason: Constipation Melatonin (Melatonin 3 Mg Tablet) 6 mg PO BEDTIME PRN PRN Reason: Insomnia Metoprolol Tartrate (Metoprolol Tartrate 50 Mg Tablet) 50 mg PO BID [facility]; Protocol Last Admin: 09/01/24 08:59 Dose: Not Given Multivitamins/Vitamin C (Multivitamin Tablet) 1 tab PO DAILY [facility] Last Admin: 09/01/24 08:54 Dose: 1 tab Nortriptyline HCl (Nortriptyline Hcl 25 Mg Capsule) 25 mg PO BEDTIME [facility] Last Admin: 08/31/24 20:39 Dose: 25 mg Omeprazole (Omeprazole 20 Mg Capsule.Dr) 20 mg PO BID@0630,1630 [facility] Last Admin: 09/01/24 07:09 Dose: Not Given Polyethylene Glycol (Polyethylene Glycol 3350 17 Gm Powd.Pack) 17 gm PO DAILY PRN PRN Reason: Constipation Sodium Chloride (0.9 % Sodium Chloride Flush 3 Ml Syringe) 3 ml IVFLUSH QSHIFT [facility] Last Admin: 09/01/24 09:01 Dose: 3 ml Vitamin D (Cholecalciferol (Vitamin D3) 25 Mcg Tablet) 125 mcg PO DAILY [facility] Last Admin: 09/01/24 08:53 Dose: 125 mcg Home Medications ?Medication ?Instructions ?Recorded ?Confirmed ?Last Taken ?Type atorvastatin 10 mg tablet 10 mg PO DAILY 07/30/20 08/28/24 08/27/24 History latanoprost 0.005 % eye drops 1 drp ophthalmic (eye) BEDTIME 07/30/20 08/28/24 08/27/24 History lorazepam 0.5 mg tablet 0.5 mg PO DAILY PRN Anxiety 07/30/20 08/28/24 12/02/22 History dorzolamide 22.3 mg-timolol 6.8 1 drp ophthalmic (eye) BID 10/29/20 08/28/24 08/27/24 History mg/mL eye drops glipizide 2.5 mg tablet, extended 1.25 mg PO DAILY 12/04/20 08/28/24 08/27/24 History release 24 hr ascorbate calcium (vitamin C) 500 500 mg PO DAILY 02/19/24 08/28/24 08/27/24 History mg tablet calcium 600 mg-D3 20 mcg-magnesium 1 tab PO DAILY 02/19/24 08/28/24 08/27/24 History 50 wp-Oo-ozjmrt-david-boron tablet (Calcium 600-D3 Plus (mag-zinc)) cholecalciferol (vitamin D3) 125 125 mcg PO DAILY 02/19/24 08/28/24 08/27/24 History mcg (5,000 unit) capsule ginkgo biloba leaf extract 120 mg 120 mg PO DAILY 02/19/24 08/28/24 08/27/24 History capsule multivitamin 1 tab PO DAILY 02/19/24 08/28/24 08/27/24 History nortriptyline 25 mg capsule 25 mg PO BEDTIME 02/19/24 08/28/24 08/27/24 History resveratrol 100 mg capsule 100 mg PO DAILY 02/19/24 08/28/24 08/27/24 History turmeric 400 mg capsule 400 mg PO DAILY 02/19/24 08/28/24 08/27/24 History pantoprazole 40 mg tablet,delayed 40 mg PO BID@0630,1630 06/23/24 08/28/24 08/27/24 History release Exam Height,Weight and Vital Signs: Height 5 ft Weight 72.2 kg Last Vital Signs Temp 98.1 F 09/01/24 12:00 Pulse 106 H 09/01/24 12:00 Resp 19 09/01/24 12:00 BP 109/74 09/01/24 12:00 Pulse Ox 94 09/01/24 12:00 O2 Del Method Nasal Cannula 09/01/24 12:00 O2 Flow Rate 2 09/01/24 12:00 Pertinent Lab Results Pertinent Lab Results: Laboratory Tests 08/28/24 08/28/24 08/28/24 09:11 09:28 18:31 WBC 8.6 RBC 4.57 Hgb 10.8 L Hct 36.1 L MCV 79.0 L MCH 23.6 L MCHC 29.9 L RDW 17.8 H Plt Count 195 MPV 9.6 Immature Gran % (Auto) 0.3 Neut % (Auto) 78.2 H Lymph % (Auto) 9.7 L [place] % (Auto) 8.2 Eos % (Auto) 3.1 Baso % (Auto) 0.5 Lymph # (Auto) 0.8 L [place] # (Auto) 0.7 Eos # (Auto) 0.3 Baso # (Auto) 0.0 Abs Immat Gran (auto) 0.03 Absolute Neuts (auto) 6.7 Absolute Nucleated RBC 0.000 Nucleated RBC % (auto) 0.0 Smear Tech's Comments Hold Purple Top Sodium 144 Potassium 4.8 Chloride 113 H Carbon Dioxide 27 Anion Gap 9 L BUN 23 H Creatinine 0.90 Estim Creat Clear Calc 44.5 Estimated GFR > 60 POC Glucose 70 Random Glucose 126 H Calcium 8.9 Magnesium Troponin I High Sens 9.7 B-Natriuretic Peptide 976 H Stl C. cayetanensis PCR Stool Rotavirus A PCR Stl Adenov F 40/ PCR Stool Astrovirus (PCR) Stool Campylobacter PCR Stool Cryptosporidium PCR Stl Sh Tox Pr E STEC PCR Stool E coli O157 PCR Stl Enterotoxigenic E PCR Stool EPEC (PCR) Stool EAEC (PCR) Stl E. histolytica PCR Stool Giardia Lamblia PCR Stl P. shigelloides PCR Stool Salmonella PCR Stool Sapovirus (PCR) Stl Shigella/EIEC PCR St Y.enterocolitica PCR Stool Vibrio (PCR) Stl Vibrio cholerae PCR Stl Norovirus GI/GII PCR C. difficile Tox B Gene Influenza Type A (PCR) NEGATIVE Influenza Type B (PCR) NEGATIVE RSV RNA Qual (PCR) NEGATIVE SARS-CoV-2 RNA (RT-PCR) NEGATIVE 08/28/24 08/29/24 08/29/24 21:17 04:15 07:52 WBC RBC Hgb Hct MCV MCH MCHC RDW Plt Count MPV Immature Gran % (Auto) Neut % (Auto) Lymph % (Auto) [place] % (Auto) Eos % (Auto) Baso % (Auto) Lymph # (Auto) [place] # (Auto) Eos # (Auto) Baso # (Auto) Abs Immat Gran (auto) Absolute Neuts (auto) Absolute Nucleated RBC Nucleated RBC % (auto) Smear Tech's Comments Hold Purple Top Sodium 144 Potassium 4.5 Chloride 108 Carbon Dioxide 26 Anion Gap 15 BUN 21 H Creatinine 0.99 Estim Creat Clear Calc 40.5 Estimated GFR 54 POC Glucose 148 H 98 Random Glucose 107 Calcium 9.0 Magnesium Troponin I High Sens B-Natriuretic Peptide Stl C. cayetanensis PCR Stool Rotavirus A PCR Stl Adenov F PCR Stool Astrovirus (PCR) Stool Campylobacter PCR Stool Cryptosporidium PCR Stl Sh Tox Pr E STEC PCR Stool E coli O157 PCR Stl Enterotoxigenic E PCR Stool EPEC (PCR) Stool EAEC (PCR) Stl E. histolytica PCR Stool Giardia Lamblia PCR Stl P. shigelloides PCR Stool Salmonella PCR Stool Sapovirus (PCR) Stl Shigella/EIEC PCR St Y.enterocolitica PCR Stool Vibrio (PCR) Stl Vibrio cholerae PCR Stl Norovirus GI/GII PCR C. difficile Tox B Gene Influenza Type A (PCR) Influenza Type B (PCR) RSV RNA Qual (PCR) SARS-CoV-2 RNA (RT-PCR) 08/29/24 08/29/24 08/29/24 11:55 17:08 22:14 WBC RBC Hgb Hct MCV MCH MCHC RDW Plt Count MPV Immature Gran % (Auto) Neut % (Auto) Lymph % (Auto) [place] % (Auto) Eos % (Auto) Baso % (Auto) Lymph # (Auto) [place] # (Auto) Eos # (Auto) Baso # (Auto) Abs Immat Gran (auto) Absolute Neuts (auto) Absolute Nucleated RBC Nucleated RBC % (auto) Smear Tech's Comments Hold Purple Top Sodium Potassium Chloride Carbon Dioxide Anion Gap BUN Creatinine Estim Creat Clear Calc Estimated GFR POC Glucose 105 98 156 H Random Glucose Calcium Magnesium Troponin I High Sens B-Natriuretic Peptide Stl C. cayetanensis PCR Stool Rotavirus A PCR Stl Adenov F PCR Stool Astrovirus (PCR) Stool Campylobacter PCR Stool Cryptosporidium PCR Stl Sh Tox Pr E STEC PCR Stool E coli O157 PCR Stl Enterotoxigenic E PCR Stool EPEC (PCR) Stool EAEC (PCR) Stl E. histolytica PCR Stool Giardia Lamblia PCR Stl P. shigelloides PCR Stool Salmonella PCR Stool Sapovirus (PCR) Stl Shigella/EIEC PCR St Y.enterocolitica PCR Stool Vibrio (PCR) Stl Vibrio cholerae PCR Stl Norovirus GI/GII PCR C. difficile Tox B Gene Influenza Type A (PCR) Influenza Type B (PCR) RSV RNA Qual (PCR) SARS-CoV-2 RNA (RT-PCR) 08/30/24 08/30/24 08/30/24 08:09 09:21 11:17 WBC RBC Hgb Hct MCV MCH MCHC RDW Plt Count MPV Immature Gran % (Auto) Neut % (Auto) Lymph % (Auto) [place] % (Auto) Eos % (Auto) Baso % (Auto) Lymph # (Auto) [place] # (Auto) Eos # (Auto) Baso # (Auto) Abs Immat Gran (auto) Absolute Neuts (auto) Absolute Nucleated RBC Nucleated RBC % (auto) Smear Tech's Comments Hold Purple Top Sodium 144 Potassium 4.3 Chloride 106 Carbon Dioxide 32 H Anion Gap 10 L BUN 24 H Creatinine 1.17 Estim Creat Clear Calc 33.4 Estimated GFR 44 POC Glucose 93 116 H Random Glucose 173 H Calcium 8.9 Magnesium Troponin I High Sens B-Natriuretic Peptide Stl C. cayetanensis PCR Stool Rotavirus A PCR Stl Adenov F 40/41 PCR Stool Astrovirus (PCR) Stool Campylobacter PCR Stool Cryptosporidium PCR Stl Sh Tox Pr E STEC PCR Stool E coli O157 PCR Stl Enterotoxigenic E PCR Stool EPEC (PCR) Stool EAEC (PCR) Stl E. histolytica PCR Stool Giardia Lamblia PCR Stl P. shigelloides PCR Stool Salmonella PCR Stool Sapovirus (PCR) Stl Shigella/EIEC PCR St Y.enterocolitica PCR Stool Vibrio (PCR) Stl Vibrio cholerae PCR Stl Norovirus GI/GII PCR C. difficile Tox B Gene Influenza Type A (PCR) Influenza Type B (PCR) RSV RNA Qual (PCR) SARS-CoV-2 RNA (RT-PCR) 08/30/24 08/30/24 08/31/24 16:21 20:24 04:45 WBC RBC Hgb Hct MCV MCH MCHC RDW Plt Count MPV Immature Gran % (Auto) Neut % (Auto) Lymph % (Auto) [place] % (Auto) Eos % (Auto) Baso % (Auto) Lymph # (Auto) [place] # (Auto) Eos # (Auto) Baso # (Auto) Abs Immat Gran (auto) Absolute Neuts (auto) Absolute Nucleated RBC Nucleated RBC % (auto) Smear Tech's Comments Hold Purple Top Sodium Potassium Chloride Carbon Dioxide Anion Gap BUN Creatinine Estim Creat Clear Calc Estimated GFR POC Glucose 78 142 H Random Glucose Calcium Magnesium Troponin I High Sens B-Natriuretic Peptide Stl C. cayetanensis PCR Not Detected Stool Rotavirus A PCR Not Detected Stl Adenov F PCR Not Detected Stool Astrovirus (PCR) Not Detected Stool Campylobacter PCR Not Detected Stool Cryptosporidium PCR Not Detected Stl Sh Tox Pr E STEC PCR Not Detected Stool E coli O157 PCR Not applicable Stl Enterotoxigenic E PCR Not Detected Stool EPEC (PCR) Not Detected Stool EAEC (PCR) Not Detected Stl E. histolytica PCR Not Detected Stool Giardia Lamblia PCR Not Detected Stl P. shigelloides PCR Not Detected Stool Salmonella PCR Not Detected Stool Sapovirus (PCR) Not Detected Stl Shigella/EIEC PCR Not Detected St Y.enterocolitica PCR Not Detected Stool Vibrio (PCR) Not Detected Stl Vibrio cholerae PCR Not Detected Stl Norovirus GI/GII PCR See Comment C. difficile Tox B Gene NEGATIVE Influenza Type A (PCR) Influenza Type B (PCR) RSV RNA Qual (PCR) SARS-CoV-2 RNA (RT-PCR) 08/31/24 08/31/24 08/31/24 06:54 07:09 11:30 WBC 6.1 RBC 4.18 L Hgb 9.8 L Hct 31.8 L MCV 76.1 L MCH 23.4 L MCHC 30.8 L RDW 17.2 H Plt Count 122 L D MPV 10.1 Immature Gran % (Auto) 0.3 Neut % (Auto) 92.8 H Lymph % (Auto) 1.7 L [place] % (Auto) 4.5 Eos % (Auto) 0.5 Baso % (Auto) 0.2 Lymph # (Auto) 0.1 L [place] # (Auto) 0.3 Eos # (Auto) 0.0 Baso # (Auto) 0.0 Abs Immat Gran (auto) 0.02 Absolute Neuts (auto) 5.6 Absolute Nucleated RBC 0.000 Nucleated RBC % (auto) 0.0 Smear Tech's Comments VERIFIED Hold Purple Top SEE NOTE Sodium 144 Potassium 3.1 L D Chloride 106 Carbon Dioxide 25 Anion Gap 16 BUN 37 H Creatinine 1.14 Estim Creat Clear Calc 34.3 Estimated GFR 46 POC Glucose 145 H 111 Random Glucose 158 H Calcium 8.5 Magnesium Troponin I High Sens B-Natriuretic Peptide Stl C. cayetanensis PCR Stool Rotavirus A PCR Stl Adenov F PCR Stool Astrovirus (PCR) Stool Campylobacter PCR Stool Cryptosporidium PCR Stl Sh Tox Pr E STEC PCR Stool E coli O157 PCR Stl Enterotoxigenic E PCR Stool EPEC (PCR) Stool EAEC (PCR) Stl E. histolytica PCR Stool Giardia Lamblia PCR Stl P. shigelloides PCR Stool Salmonella PCR Stool Sapovirus (PCR) Stl Shigella/EIEC PCR St Y.enterocolitica PCR Stool Vibrio (PCR) Stl Vibrio cholerae PCR Stl Norovirus GI/GII PCR C. difficile Tox B Gene Influenza Type A (PCR) Influenza Type B (PCR) RSV RNA Qual (PCR) SARS-CoV-2 RNA (RT-PCR) 08/31/24 08/31/24 09/01/24 15:42 20:21 07:23 WBC RBC Hgb Hct MCV MCH MCHC RDW Plt Count MPV Immature Gran % (Auto) Neut % (Auto) Lymph % (Auto) [place] % (Auto) Eos % (Auto) Baso % (Auto) Lymph # (Auto) [place] # (Auto) Eos # (Auto) Baso # (Auto) Abs Immat Gran (auto) Absolute Neuts (auto) Absolute Nucleated RBC Nucleated RBC % (auto) Smear Tech's Comments Hold Purple Top Sodium Potassium Chloride Carbon Dioxide Anion Gap BUN Creatinine Estim Creat Clear Calc Estimated GFR POC Glucose 104 115 80 Random Glucose Calcium Magnesium Troponin I High Sens B-Natriuretic Peptide Stl C. cayetanensis PCR Stool Rotavirus A PCR Stl Adenov F 40/41 PCR Stool Astrovirus (PCR) Stool Campylobacter PCR Stool Cryptosporidium PCR Stl Sh Tox Pr E STEC PCR Stool E coli O157 PCR Stl Enterotoxigenic E PCR Stool EPEC (PCR) Stool EAEC (PCR) Stl E. histolytica PCR Stool Giardia Lamblia PCR Stl P. shigelloides PCR Stool Salmonella PCR Stool Sapovirus (PCR) Stl Shigella/EIEC PCR St Y.enterocolitica PCR Stool Vibrio (PCR) Stl Vibrio cholerae PCR Stl Norovirus GI/GII PCR C. difficile Tox B Gene Influenza Type A (PCR) Influenza Type B (PCR) RSV RNA Qual (PCR) SARS-CoV-2 RNA (RT-PCR) 09/01/24 09/01/24 10:12 11:49 WBC RBC Hgb Hct MCV MCH MCHC RDW Plt Count MPV Immature Gran % (Auto) Neut % (Auto) Lymph % (Auto) [place] % (Auto) Eos % (Auto) Baso % (Auto) Lymph # (Auto) [place] # (Auto) Eos # (Auto) Baso # (Auto) Abs Immat Gran (auto) Absolute Neuts (auto) Absolute Nucleated RBC Nucleated RBC % (auto) Smear Tech's Comments Hold Purple Top Sodium 143 Potassium 3.9 D Chloride 110 H Carbon Dioxide 25 Anion Gap 12 BUN 32 H Creatinine 0.94 Estim Creat Clear Calc 41.6 Estimated GFR 57 POC Glucose 112 Random Glucose 100 Calcium 8.5 Magnesium 1.9 Troponin I High Sens B-Natriuretic Peptide Stl C. cayetanensis PCR Stool Rotavirus A PCR Stl Adenov F 40/41 PCR Stool Astrovirus (PCR) Stool Campylobacter PCR Stool Cryptosporidium PCR Stl Sh Tox Pr E STEC PCR Stool E coli O157 PCR Stl Enterotoxigenic E PCR Stool EPEC (PCR) Stool EAEC (PCR) Stl E. histolytica PCR Stool Giardia Lamblia PCR Stl P. shigelloides PCR Stool Salmonella PCR Stool Sapovirus (PCR) Stl Shigella/EIEC PCR St Y.enterocolitica PCR Stool Vibrio (PCR) Stl Vibrio cholerae PCR Stl Norovirus GI/GII PCR C. difficile Tox B Gene Influenza Type A (PCR) Influenza Type B (PCR) RSV RNA Qual (PCR) SARS-CoV-2 RNA (RT-PCR) Assessment and Plan Final Anesthetic Review Family History of Problems with Anesthesia: No History of Problems with Anesthesia: No
[2024-09-01] MEDS: Omeprazole 20 MG CAPSULE.DR PO (16:20)
[2024-09-01 16:35] LABS: Glucose, Whole Blood 103 mg/dL (60-115)
[2024-09-01 20:40] LABS: Glucose, Whole Blood 179 mg/dL (60-115)
[2024-09-01] MEDS: Metoprolol Tartrate 50 MG TABLET PO (21:01)
[2024-09-01] MEDS: Nortriptyline HCl 25 MG CAPSULE PO (21:01)
[2024-09-01] MEDS: Latanoprost 0.005 % Ophth Sol 2.5 ML DROPS 1 DROP EYE-BOTH (21:02)
[2024-09-02 03:18] VITALS: BP 131/58; PULSE 106; RESP 20; TEMP 36.2; O2SAT 95
[2024-09-02] MEDS: Omeprazole 20 MG CAPSULE.DR PO (06:17)
[2024-09-02 07:02] LABS: Glucose, Whole Blood 105 mg/dL (60-115)
[2024-09-02 07:07] LABS: Anion Gap 16 (12-20); Blood Urea Nitrogen 36 mg/dL (9-16); Calcium 8.6 mg/dL (8.4-10.2); Carbon Dioxide 26 mmol/L (22-29); Chloride 107 mmol/L (96-108); Creatinine Clr Calc Pharmacy 38.7; Estimated Glomerular Filt Rate 53; Glucose Random 105 mg/dL (60-115); Sodium 145 mmol/L (135-145)
[2024-09-02 07:13] VITALS: BP 108/62; PULSE 98; RESP 18; TEMP 36.6; O2SAT 95
[2024-09-02] MEDS: Metoprolol Tartrate 50 MG TABLET PO (09:07)
[2024-09-02] MEDS: Multivitamin TABLET 1 TAB PO (09:07)
[2024-09-02] MEDS: Ascorbic Acid 500 MG TABLET PO (09:07)
[2024-09-02] MEDS: Furosemide 40 MG TABLET PO (09:07)
[2024-09-02] MEDS: glipiZIDE XL 2.5 MG TAB.ER.24 1.25 MG PO (09:08)
[2024-09-02] MEDS: Cholecalciferol (Vitamin D3) 25 MCG TABLET 125 MCG PO (09:08)
[2024-09-02] MEDS: Apixaban 5 MG TABLET PO (09:09)
[2024-09-02] MEDS: Amiodarone HCL 200 MG TABLET 400 MG PO (09:09)
[2024-09-02] MEDS: Dorzolamide/Timolo 2.23%/0.68% 10 ML DRBTL 1 DROP EYE-BOTH (09:09)
[2024-09-02] MEDS: 0.9 % Sodium Chloride Flush 3 ML SYRINGE IVFLUSH (09:09)
[2024-09-02] MEDS: Atorvastatin Calcium 10 MG TABLET PO (09:09)
--- NOTE | 2024-09-02 09:36 | P.DS_ITS ---
DS: Providers Provider Date of Service: 09/02/24 Date of admission: 08/28/24 13:11 Date of discharge: 09/02/24 Primary care physician: Kory Perdue MD Consults: 08/28/24 12:34 Consult to Cardiology Routine Consulting Provider: [facility] Reason for consultation: AFIB wth RVR, heart failure Has provider been notified: Yes DS: Diagnosis Discharge Diagnosis (1) Atrial fibrillation with rapid ventricular response: Status: Acute (2) Heart failure: Status: Acute DS: Summary Hospital Course Hospital Course: Admission HPI Chief Complaint: Shortness of breath, AFIB with RVR 79 years old lady with PMH of CYNTHIA, Pulm HTN, GERD, HTN, DMII, PAF Afib since June 2024 here and was put on Metoprolol and Eliquis but and think she is allergic to the medication and causing her to be short of breath, altough she has been taking them as prescribed. CXR show bilateral effusion, consolidation, ECG AFIB with RVR and given IV cardizem, she has leg edema and BNP of 976. Intravenous lasix given wth good effect, HR remains high on IV cardizem. Hospital course: This patient has a history of atrial fibrillation, managed with metoprolol and Eliquis, who presented to the hospital with complaints of shortness of breath. She was found to be in atrial fibrillation with rapid ventricular response and evidence of heart failure, as indicated by chest X-ray findings, elevated BNP levels, and clinical presentation. She was initiated on an IV Cardizem drip to control her heart rate and IV Lasix to address heart failure. During her hospitalization, her heart failure symptoms improved with IV Lasix, and she no longer reports shortness of breath. She has been transitioned to oral Lasix. Her atrial fibrillation was initially managed with an IV Cardizem drip, which was transitioned to her home dose of oral metoprolol. Given her reduced ejection fraction and symptomatic atrial fibrillation, a TRUDI-guided cardioversion was attempted. Unfortunately, the procedure had to be aborted due to difficulty passing the scope. She will need to follow up with a public relations sales marketing on an o utpatient basis for a possible EGD. For now, her heart rate is controlled with metoprolol, and she has been started on amiodarone at a dose of 400 mg twice daily for two weeks, followed by 200 mg daily. Anticoagulation with Eliquis will be continued. To continue Lasix 40 mg daily DM II Hold oral agents SSI , diabetic diet GERD, PPI Anxiety, Ativan HTN, cardizem as above DVT PPx Eliquis Time Attestation Discharge Coordination Time (in mins): 45 Quality: Safe Use of Opioids Does Pt have an Active Cancer Diagnosis on the Problem List?: No Quality: Stroke Does the patient have a stroke diagnosis?: No Physical Exam Vital Signs: Vital Signs: Last Vital Signs Temp 97.9 F 09/02/24 07:13 Pulse 98 09/02/24 07:13 Resp 18 09/02/24 07:13 BP 108/62 09/02/24 07:13 Pulse Ox 95 09/02/24 07:13 O2 Del Method Room Air 09/02/24 07:13 O2 Flow Rate 2 09/01/24 15:04 BMI result Body Mass Index 31.1 Const: Other: General: AO X 3, no acute distress Resp: CTA bilateral CVS: S1,S2, irregular iregular GI: +BS, NT, no distention Skin: No rash Neuro: motor grossly intact Psych: appropriate affect DS: Data Data Completed and Pending Labs on day of discharge: Laboratory Results - last 24 hr 09/01/24 09/01/24 09/01/24 10:12 11:49 16:20 Sodium 143 Potassium 3.9 D Chloride 110 H Carbon Dioxide 25 Anion Gap 12 BUN 32 H Creatinine 0.94 Estim Creat Clear Calc 41.6 Estimated GFR 57 POC Glucose 112 103 Random Glucose 100 Calcium 8.5 Magnesium 1.9 09/01/24 09/02/24 09/02/24 20:22 06:20 06:51 Sodium 145 Potassium 4.0 Chloride 107 Carbon Dioxide 26 Anion Gap 16 BUN 36 H Creatinine 1.01 Estim Creat Clear Calc 38.7 Estimated GFR 53 POC Glucose 179 H 105 Random Glucose 105 Calcium 8.6 Magnesium Discharge Plan Discharge Anticipated Discharge Date/Time: 09/02/24 09:34 Patient Disposition: Home Health Service Discharge Diagnosis: Atrial fibrillation rapid ventricular response, heart failure Referrals: [facility] [Outside] - 1 Day (CORRECTION ) Kory Perdue MD [Primary Care Provider] - 1 Week Marii Campbell MD [Physician] - 2 Weeks (esophageal stricture) Discharge Medications: New amiodarone 200 mg Tablet See Rx Instructions .ROUTE .COMPLEX Qty: 100 0RF Rx Instructions: take 2 tabs twice daily for 11 more days, ending September 13, then take 1 tab daily thereafter (DME) cane Device See Rx Instructions .Route Qty: 1 0RF Rx Instructions: As directed Bobby stern Continued metoprolol succinate 50 mg tablet extended release 24 hr 50 mg PO DAILY Qty: 90 3RF Eliquis 5 mg tablet 5 mg PO BID 90 Days Qty: 180 3RF atorvastatin 10 mg Tablet 10 mg PO DAILY lorazepam 0.5 mg Tablet 0.5 mg PO DAILY PRN (Reason: Anxiety) latanoprost 0.005 % Drops 1 drp ophthalmic (eye) BEDTIME pantoprazole 40 mg tablet,delayed release (DR/EC) 40 mg PO BID@0630,1630 dorzolamide-timolol 22.3-6.8 mg/mL drops 1 drp ophthalmic (eye) BID glipizide 2.5 mg tablet extended release 24hr 1.25 mg PO DAILY nortriptyline 25 mg capsule 25 mg PO BEDTIME multivitamin Tablet 1 tab PO DAILY ascorbate calcium (vitamin C) 500 mg tablet 500 mg PO DAILY Ca-D3-mag [id number]-crn-miranda-bor [Calcium 600-D3 Plus (mag-zinc)] 600 mg calcium- 20 mcg-50 mg tablet 1 tab PO DAILY cholecalciferol (vitamin D3) 125 mcg (5,000 unit) capsule 125 mcg PO DAILY turmeric 400 mg capsule 400 mg PO DAILY ginkgo biloba leaf extract 120 mg capsule 120 mg PO DAILY Rx Instructions: give with meal/snack resveratrol 100 mg capsule 100 mg PO DAILY Discharge Orders: Discharge Order (Routine); Ordered 09/02/24 Ordered By: Elijah Owens Diet: Advance to usual diet Activity on Discharge: As tolerated Stand Alone Forms: Patient Portal Discharge page Print Language: Ugandan Care Plan Goals: Recovery from a heart failure, control of atrial fibrillation Health Concerns: Atrial fibrillation Heart failure Plan of Treatment: Take amiodarone as directed Continue taking metoprolol Take adequate Follow-up with Dr. Shafer in the office Assessment: See above
--- NOTE | 2024-09-02 09:50 | P.F2F_ITS ---
Service Date Service Date: 09/02/24 Encounter Date of encounter: 09/02/24 Reasons for Services Signs and symptoms assessed: heart failure Reason for long-term: medication management and teach disease management Homebound: Leaving the home is medically contraindicated at this time without the asist of a device and/or another person due th the listed conditions above and below. Reason homebound: shortness of breath with minimal effort Homebound supporting statement: homeboud due to shortness of breath due to heart failure, limiting activities and needinbg the assistance of anothger person Certification: Based on the above findings, I certify that this patient is confined to the home and needs intermittent long-term care, physical therapy and/or speech therapy, or continues to need occupational therapy. The patient is under my care, and I have initiated the establishment of the plan of care. The patient will be followed by a physician who will periodically review the plan of care. Time Spent With Patient Time: Total time managing care of this patient today ____ minutes.
--- NOTE | 2024-09-02 10:33 | MHC.CM.PN ---
Addendum entered by Loraine Mckeon RN 09/02/24 11:50: CLARIFICATION PER HOSPITALIST PT WILL NEED CORRECTION ONLY, NO HOME PT NECESSARY AND WILL WRITE SCRIPT FOR SALLY Original Note: IMM 09/02/24, PT MEDICALLY CLEARED TO DC HOMW W/NEW COMFORT PLUS FOR SN/PT AND SCRIPT FOR [facility]AVALA, PT'S WILL TRANSPORT.
[2024-09-02 10:56] LABS: Glucose, Whole Blood 130 mg/dL (60-115)
[2024-09-02 11:09] VITALS: BP 114/77; PULSE 92; RESP 18; TEMP 36.6; O2SAT 95
--- NOTE | 2024-09-02 12:32 | PM.PNCARD ---
Subjective Subjective Date of Service: 09/02/24 Interval history: She was taken for TRUDI cardioversion yesterday. Unfortunately we were unable to cannulate the esophagus. Anesthesia tried it with GlideScope and Gastroenterology Dr. Campbell also tried to pass the probe but we were all unsuccessful. Dr. Campbell did an endoscopy which did not show any significant esophageal issue but there was some concern about stricture as the lower caliber endoscopy good past but the bulk here TRUDI probe would not cross. Today she was seen at bedside. She is feeling reasonably well. AFib is under control currently. We discussed in detail about the TRUDI failure and potential options going forward. Physical Exam Vital Signs: Last Vital Signs Temp 97.9 F 09/02/24 11:09 Pulse 92 09/02/24 11:09 Resp 18 09/02/24 11:09 BP 114/77 09/02/24 11:09 Pulse Ox 95 09/02/24 11:09 O2 Del Method Room Air 09/02/24 11:09 O2 Flow Rate 2 09/01/24 15:04 BMI result Body Mass Index 31.1 GENERAL APPEARANCE: in no acute distress, pleasant. NECK: no carotid bruit, no jugular venous distention. SKIN: no suspicious lesions, warm and dry. HEART: Apical systolic murmur, irregular rate and rhythm. LUNGS: Few crackles at bases. ABDOMEN: soft, nontender. EXTREMITIES: no edema. PERIPHERAL PULSES: equal. NEUROLOGIC: No gross deficits, AAO X 3 Objective Labs and Meds 08/31/24 06:54 09/02/24 06:20 Lab results: Laboratory Results - last 24 hr 09/01/24 09/01/24 09/02/24 16:20 20:22 06:20 Sodium 145 Potassium 4.0 Chloride 107 Carbon Dioxide 26 Anion Gap 16 BUN 36 H Creatinine 1.01 Estim Creat Clear Calc 38.7 Estimated GFR 53 POC Glucose 103 179 H Random Glucose 105 Calcium 8.6 09/02/24 09/02/24 06:51 10:48 Sodium Potassium Chloride Carbon Dioxide Anion Gap BUN Creatinine Estim Creat Clear Calc Estimated GFR POC Glucose 105 130 H Random Glucose Calcium Progress Note: A&P Assessment and plan (1) Heart failure: Status: Acute (2) Atrial fibrillation with rapid ventricular response: Status: Acute Plan 79-year-old female with AFib with RVR and cardiomyopathy. She was diuresed and has been doing well. She has been on Eliquis and amiodarone was added and our plan was to do a TRUDI cardioversion but unfortunately we could not pass the TRUDI probe due to some concern about stricture. Heart rate is well controlled at this point. We have decided to discharge her home. She will go home with Lasix 40 mg daily, amiodarone 400 mg twice a day for next 10 days and then 200 mg daily. And Eliquis 5 mg twice a day. Can change metoprolol to Toprol-XL 75 mg daily. We will arrange a cardioversion for her in 4-6 weeks without TRUDI. She will have to take Eliquis regularly which I have discussed with her in detail. Thank you for allowing me to participate in the care of your patient. Please feel free to contact me if you have any questions. Time Spent With Patient Time: Total time managing care of this patient today ____ minutes. Progress Note: Quality Stroke Does the patient have a stroke diagnosis?: No Procedures Date of Service Date of Service: 09/02/24
== END 2024-09-02 14:05 | disposition home health service (06) | DRG 308 ==
LOC: HO.ED 11:31 → HO.EDOVER 13:11 → HO.IMC 08-29 19:05
PROVIDERS: Internal Medicine Cardiovascular Disease; Internal Medicine Gastroenterology; Student in an Organized Health Care Education/Training Program; Admitting Provider Internal Medicine; Emergency Provider Emergency Medicine; PCP Internal Medicine; Visit Provider Internal Medicine
PROC: B24BZZ4 Ultrasonography of Heart with Aorta, Transesophageal (ICD-10-PCS; CPT 93312; principal; 2024-09-01 13:30)
PROC: 0DJ08ZZ Inspection of Upper Intestinal Tract, Via Natural or Artificial Opening Endoscopic (ICD-10-PCS; CPT 43235; 2024-09-01 13:30)
DX: I48.0 Paroxysmal atrial fibrillation (principal); I50.33 Acute on chronic diastolic (congestive) heart failure; A08.11 Acute gastroenteropathy due to Norwalk agent; G47.33 Obstructive sleep apnea (adult) (pediatric); Z53.09 Procedure and treatment not carried out because of other contraindication; I11.0 Hypertensive heart disease with heart failure; E11.9 Type 2 diabetes mellitus without complications; K21.9 Gastro-esophageal reflux disease without esophagitis; F41.9 Anxiety disorder, unspecified; Z20.822 Contact with and (suspected) exposure to COVID-19; Z79.01 Long term (current) use of anticoagulants; Z79.84 Long term (current) use of oral hypoglycemic drugs; Z79.899 Other long term (current) drug therapy
CPT/HCPCS: 0241U; 36415; 71045; 80048; 80053; 80061; 82306; 82947; 83036; 83735; 83880; 84484; 85025; 87493; 87507; 93005; 93308; 97162; 99285; J0283; J1100; J1940; J2003; J2250; J2371; J2704; P9047; Q9957

== ENCOUNTER → 2024-08-28 08:59 | Outpatient (BNV) | payer MEDICARE, OTHER, SELFPAY | PROVIDERS: Emergency Provider Emergency Medicine; PCP Internal Medicine; Visit Provider Internal Medicine | DX: I48.91 Unspecified atrial fibrillation (principal) | CPT/HCPCS: 93010 ==

== ENCOUNTER → 2024-08-28 10:23 | Outpatient (BNV) | payer MEDICARE, OTHER, SELFPAY | PROVIDERS: Emergency Provider Emergency Medicine; PCP Internal Medicine; Visit Provider Specialist | DX: R06.02 Shortness of breath (principal) | CPT/HCPCS: 71045 ==

== ENCOUNTER 2024-08-28 13:11 | Outpatient (BNV) | payer MEDICARE, OTHER, SELFPAY | END 2024-08-30 07:57 | PROVIDERS: Admitting Provider Internal Medicine; Emergency Provider Emergency Medicine; PCP Internal Medicine; Visit Provider Internal Medicine Cardiovascular Disease | DX: I50.9 Heart failure, unspecified (principal) | CPT/HCPCS: 93308 ==

== ENCOUNTER → 2024-08-28 13:11 | Outpatient (BNV) | payer MEDICARE, OTHER, SELFPAY | PROVIDERS: Admitting Provider Internal Medicine; Emergency Provider Emergency Medicine; PCP Internal Medicine; Visit Provider Internal Medicine | DX: I48.91 Unspecified atrial fibrillation (principal); I50.30 Unspecified diastolic (congestive) heart failure | CPT/HCPCS: 99223; 99232; 99239; 99499; G0180 ==

== ENCOUNTER → 2024-08-28 13:11 | Outpatient (BNV) | payer MEDICARE, OTHER, SELFPAY | PROVIDERS: Admitting Provider Internal Medicine; Emergency Provider Emergency Medicine; PCP Internal Medicine; Visit Provider Internal Medicine Cardiovascular Disease | DX: I50.9 Heart failure, unspecified (principal); I48.91 Unspecified atrial fibrillation | CPT/HCPCS: 99233 ==

== ENCOUNTER 2024-09-15 13:43 | Outpatient (AMB) | payer MEDICARE, OTHER, SELFPAY ==
[2024-09-15 13:52] VITALS: BP 130/62; PULSE 70; BMI 31.9
--- NOTE | 2024-09-15 13:52 | A.OFFVIS_ITS ---
Vital Signs 09/15/24 13:52 Height 5 ft Weight 163 lb 2.273 oz BMI 31.9 BP 130/62 Blood Pressure Location Lt brachial Position Sitting Pulse 70 Pulse Source Monitor Intake Visit Reasons: [facility]-Afib Intake Note: [facility] Jelly Maker Required: No Accompanied by: Self / Same As Patient Allergies gabapentin [From Neurontin] Allergy (Intermediate, Verified 08/28/24 08:50) JOINTS SWELL famotidine Adverse Reaction (Mild, Verified 08/28/24 08:50) Dizziness oranges Allergy (Mild, Uncoded 06/22/24 17:14) cold sores Medication List - Last Reconciled 09/15/24 by Hiren Clark NP amiodarone take 2 tabs twice daily for 11 more days, ending September 13, then take 1 tab daily thereafter apixaban (Eliquis) 5 mg PO BID ascorbate calcium (vitamin C) 500 mg PO DAILY atorvastatin 10 mg PO DAILY Ca-D3-mag tn-nche-ium-miranda-bor 600 mg calcium- 20 mcg-50 mg (Calcium 600-D3 Plus (mag-zinc)) 1 tab PO DAILY cane As directed Hurry cane cholecalciferol (vitamin D3) 125 mcg PO DAILY dorzolamide-timolol 22.3-6.8 mg/mL 1 drp ophthalmic (eye) BID ginkgo biloba leaf extract 120 mg PO DAILY glipizide ER 1.25 mg PO DAILY latanoprost 0.005% 1 drp ophthalmic (eye) BEDTIME lorazepam 0.5 mg PO DAILY PRN metoprolol succinate ER 50 mg PO DAILY multivitamin 1 tab PO DAILY nortriptyline 25 mg PO BEDTIME pantoprazole 40 mg PO BID@0630,1630 resveratrol 100 mg PO DAILY turmeric 400 mg PO DAILY HPI Comments Details: This is an 79-year-old female patient presenting for follow-up visit. She has a history of hypertension, diabetes, paroxysmal AFib, which was incidentally discovered during hospitalization for a noncardiac issue. During that hospitalization, she was started on Eliquis due to high Santiago Vasc score and on metoprolol for rate control. The patient was scheduled for an outpatient visit but developed shortness of breath and lower leg edema, requiring are to be admitted to the hospital. While hospitalized she was treated with IV diuretics and required Cardizem drip for AFib with RVR. She was then started on amiodarone, and a plan for TRUDI guided cardioversion was made. However the procedure was unsuccessful, as Dr. Shafer with both anesthesiologist and truss assembler were unable to also cannulate the esophagus. Patient underwent an endoscopy that revealed concerns for strictures, thereby TRUDI cardioversion was not performed. The plan was adjusted to continue amiodarone and proceed with cardioversion without TRUDI outpatient. Today, the patient denies any exertional chest pain, shortness of breath, palpitations, fatigue, dizziness, orthopnea, PND, leg edema, presyncope or syncope. COUNTS INCLUDE 234 BEDS AT THE [facility] Medical History (Updated 09/15/24 @ 16:10 by Hiren Clark NP) Pulmonary hypertension Restrictive lung disease Diabetes Scoliosis CYNTHIA (obstructive sleep apnea) Obesity Cough HX: breast cancer Anemia Back pain Lymphedema of left arm GERD (gastroesophageal reflux disease) Blind right eye Trigeminal neuralgia of right side of face Hypertension CHF (congestive heart failure) Heart murmur after rheumatic heart disease Surgical History History of open reduction and internal fixation (ORIF) procedure History of ventral hernia repair History of left inguinal hernia repair History of bladder suspension procedure History of partial hysterectomy History of tonsillectomy and adenoidectomy Hx of esophagogastroduodenoscopy History of lymph node dissection of left axilla H/O left mastectomy Hx of wisdom tooth extraction History of colonoscopy Family History Father History of heart attack Mother History of leukemia History of hypertension Social History Household Members: Spouse Housing: House Housing Other:: Mobile home Are you a primary direct care counselor to a significant other at home: No Do you presently have visiting nurse or other home services: No Alcohol intake: never Patient Tobacco Use Status: Never used Tobacco Advance Directives Date on File: 02/08/23 service: No Review of Systems Const Denies chills, Denies fatigue, Denies fever(s), Denies frequent falls, Denies weakness, Denies weight gain and Denies weight loss ENT Denies dizziness Card Denies chest pain, Denies leg edema, Denies lightheadedness, Denies palpitations, Denies dyspnea and Denies dyspnea on exertion Resp Denies cough, Denies dyspnea and Denies dyspnea on exertion GI Denies hematochezia Musc Denies abnormal gait, Denies muscle weakness, Denies numbness, Denies radiating pain into limb and Denies tingling Neuro Denies abnormal gait, Denies dizziness, Denies frequent falls, Denies numbness, Denies tingling and Denies weakness Endo Denies fatigue and Denies palpitations Physical Exam Vital Signs: Last Vital Signs Pulse 70 09/15/24 13:52 BP 130/62 09/15/24 13:52 BMI result Body Mass Index 31.9 Const General: cooperative, healthy appearing, comfortable and no acute distress Orientation/consciousness: patient oriented x3 HEENT Head: Yes normal to inspection Neck Neck: Yes normal visual inspection, Yes trachea midline and Yes supple Chest Chest palpation & inspection: normal inspection of the chest Resp Effort & Inspection: normal respiratory effort Auscultation: clear to auscultation bilaterally, no crackles, no rales, no rhonchi and no wheezes Cardio Jugular venous distension: no JVD Palpation: normal PMI Rate: regular rate Rhythm: regular rhythm Heart sounds: S1 normal heart sound present, S2 normal heart sound present, no click, no gallops, no murmurs and no rubs Peripheral pulses: Peripheral pulses 2+ throughout GI Inspection: Yes normal to inspection Palpation (GI): Soft to palpation Auscultation: normal bowel sounds Skin General skin exam: no rashes or lesions noted Neuro General: patient oriented x3 Extrem General: Yes normal to inspection, No no pedal edema and No calf tenderness Psych Appearance: grossly normal Mental Status: mental status grossly normal Speech and movement: Normal speech and movement present Office Procedures EKG Details: EKG today shows underlying sinus rhythm with first-degree AV block, rate 70 beats per minute, left axis deviation, left bundle branch [place], [place]. [id number], Complete Assessment & Plan Assessment & Plan (1) Paroxysmal atrial fibrillation: Code(s): I48.0 - Paroxysmal atrial fibrillation Category: Medical (2) Hypertension: Code(s): I10 - Essential (primary) hypertension Category: Medical (3) CHF (congestive heart failure): Code(s): I50.9 - Heart failure, unspecified Category: Medical Plan 08/30/2024- echo showed EF between 30-35%, moderately increased left ventricular wall thickness, left ventricular systolic function moderately decreased. EKG today showed that patient is back in sinus rhythm. Continue Eliquis for full oral anticoagulation therapy, as well as amiodarone and metoprolol for rhythm and rate control. A Holter monitor will be ordered to assess for any recurrence of AFib. Given the patient's ongoing amiodarone therapy, we will check thyroid, liver, and kidney function in 3 months. Since the patient is now in sinus rhythm, we will repeat an echo to evaluate for any improvement in ejection fraction. The patient also has an upcoming myocardial perfusion study, which was previously ordered to assess for any ischemic changes. Patient's blood pressure is well-controlled today, no changes in the medications at this time. The patient did express concerns about cost of Eliquis. We will initiate a michael or authorization to explore potential benefits for the patient. We also discussed the option of switching to Xarelto if needed, the patient is aware that this could also be expensive. The patient states that she wants to avoid Coumadin therapy due to concerns about frequent monitoring requirements. Follow-up in 3 months. In the interim patient will call us with any questions. This note was generated using voice recognition software. While every effort has been made to ensure accuracy and proper cnc maintenance technician, there may be occasional errors that could affect the content or meaning of the described symptoms. Orders: Orders ECG 3 day holter monitor Today I48.0 - Paroxysmal atrial fibrillation AMB EKG-In Office Today I48.0 - Paroxysmal atrial fibrillation Liver Panel 3 Months I48.0 - Paroxysmal atrial fibrillation CA lexiscan stress w maria r Today E66.9 - Obesity, unspecified, I27.20 - Pulmonary hypertension, unspecified, I48.0 - Paroxysmal atrial fibrillation, I48.91 - Unspecified atrial fibrillation, J98.4 - Other disorders of lung NM cardiolite stress test Today E66.9 - Obesity, unspecified, I27.20 - Pulmonary hypertension, unspecified, I48.0 - Paroxysmal atrial fibrillation, I48.91 - Unspecified atrial fibrillation, J98.4 - Other disorders of lung CA echo transthoracic complete 3 Months I48.0 - Paroxysmal atrial fibrillation TSH reflex Free T4 3 Months I48.0 - Paroxysmal atrial fibrillation Basic Metabolic Panel 3 Months I48.0 - Paroxysmal atrial fibrillation Coding Level of Care Code Est Pt Level 4 (68214) Diagnoses Paroxysmal atrial fibrillation I48.0 Hypertension I10 CHF (congestive heart failure) I50.9 CPT Codes EKG - CPT: 40658-[id number], Complete ([id number]) Time Spent (min) 32 Comment Time spent in reviewing the chart, test results, assessment, counseling and documentation.
--- OUTSIDE RECORDS SUMMARY | 2024-09-15 17:34 | XMS_ITS | Clinical Summary ---
Author Organization [facility] Address [address] [place] [address] Care Team Providers Care Diesel Inspector Name Role Phone Kory Perdue MD Primary Care Provider [phone] Allergies Active Allergy Reactions Criticality Noted Date Comments Gabapentin Swelling 01/16/2016 joints [place] Other (See Comments) 01/16/2016 Cold sores Medications Medication Sig Dispensed Refills Start Date End Date Status anastrozole (ARIMIDEX) 1 MG tablet Take 1 mg by mouth daily. 0 Active atorvastatin (LIPITOR) tablet 10 mg Take 10 mg by mouth every evening. 0 Active dorzolamide (TRUSOPT) 2 % ophthalmic solution Place 1 drop into both eyes 2 (two) times a day. 0 Active latanoprost (XALATAN) 0.005 % ophthalmic solution Place 1 drop into the right eye every night at bedtime. 0 Active calcium carbonate (OS-JOEL) 1250 (500 CA) MG tablet Take 1 tablet by mouth daily. 0 Active Magnesium 300 MG CAPS Take 300 mg by mouth daily. 0 Active Multiple Vitamins-Minerals (MULTIVITAMIN ADULT PO) Take by mouth. 0 Active Cholecalciferol (VITAMIN D3) 2000 UNITS TABS Take 2,000 Int'l Units by mouth daily. 0 Active Social History Tobacco Use Types Packs/Day Years Used Date Smoking Tobacco: Never Assessed Sex and Gender Information Value Date Recorded Sex Assigned at Not on file Gender Identity Not on file Sexual Orientation Not on file Plan of Treatment Health Maintenance Due Date Last Done Comments COVID-19 Vaccine (#1) 1943 Depression Screening 1955 Preventative Health Evaluation 1961 DTap / Tdap / Td (1 - Tdap) 1962 Shingrix-Zoster Vaccine (1 of 2) 1993 Fall Risk Assessment 01/16/2008 Osteoporosis Screening (DEXA Scan) 01/16/2008 Pneumococcal Vaccine (1 of 1 - PCV) 01/16/2008 RSV Adult > 60+ Yrs or Pregn ant (1 - 1-dose 75+ series) 2018 Influenza Vaccine (#1) 2024 Hepatitis B Vaccines Aged Out No long er eligible based on patient's age to complete this topic RSV Ped < 20 months Aged Out No longe r eligible based on patient's age to complete this topic Care Teams Diesel Inspector Relationship Specialty Start Date End Date Kory Perdue MD [address] [place] [address] Dr [address] [place] [address] PCP - General Government Sales Manager 01/09/16
--- OUTSIDE RECORDS SUMMARY | 2024-09-15 17:34 | XMS_ITS | Patient Health Record ---
Author Organization [facility] Address [address] [place] [address] Care Team Providers Care Roll Winder Name Role Phone Kory Perdue MD Primary Care Provider Sammy Ace [phone] ALLERGIES Allergen (clinical drug ingredient) Drug/Non Drug [...] Formula 1 4 PO QD Act rosy [place] 3 2 plus 1 capsule Orally 2 [...] reflux disease without esophagitis (K21.9) Active confirmed 533948545 Problem Encounter for screening for malignant neoplasm of colon (Z12.11) Active confirmed 589403658 Problem History of adenomatous polyp of colon (Z86.010) Active confirmed 763210302 Problem Hypertension (I10) Active confirmed 33810024 Problem Encounter for screening for malignant neoplasm of rectum (Z12.12) Active confirmed Screening fo r malignant neoplasm of rectum (019836415) Problem Dysphagia (R13.10) Active confirmed Dysphagia (77046261) Problem GERD (gastroesophage al reflux disease) (K21.9) Active confirmed Gastroesophagea l reflux disease (464790864) PLAN OF TREATMENT Future Test Test Name Order Date COLONOSCOPY 05/09/2011 COLONOSCOPY 11/19/2016 Insurance Providers Payer Name Payer Address Payer Phone Subscriber Number Group Number Insured Name Patient Relationship to Insured Coverage Start Date Coverage End Date MED[place]ARE OF [place] [address] [place] [address] [id number] [place] January Self - patient is the insured [facility] [address] [address] [place] [address] [phone] [id number] [place] January Self - patient is the insured MEDICAL (GENERAL) HISTORY Medical History History ICD Code Glaucoma Trigeminal neuralgia Denies [place],DM,CVA,Lung disease,renal dise ase Breast cancer--left mastectomy, chemo, X RT Colonoscopy 05/2011--small t ubular adenoma removed, sigmoid diverticulosis, small internal hemorrhoids--- she has had prior colonoscopies while she was living in [place] GERD---Hiatal hernia surgery in [address] Christiansen at [facility]--s/p esophageal dilations at [facility]--she has had previous upper endoscopies in [place] when she was living there Hyperlipidemia NIDDM [...] repair twice Bladder suspension and partial hysterect leopolod Eye surgery as a child Left mastectomy Cataract-lens implants-left eye and sten t for glaucoma Hiatal hernia repair at [facility] as above
== END 2024-09-15 14:49 | disposition home or self-care (01) ==
PROVIDERS: PCP Internal Medicine
DX: I48.0 Paroxysmal atrial fibrillation (principal); I10 Essential (primary) hypertension; I50.9 Heart failure, unspecified
CPT/HCPCS: 93010; 99214

== ENCOUNTER → 2024-09-15 13:43 | Outpatient (BNVA) | payer MEDICARE, OTHER, SELFPAY | PROVIDERS: PCP Internal Medicine | DX: I48.0 Paroxysmal atrial fibrillation (principal); I11.0 Hypertensive heart disease with heart failure; I50.9 Heart failure, unspecified; E66.9 Obesity, unspecified; I27.20 Pulmonary hypertension, unspecified; Z68.31 Body mass index [BMI] 31.0-31.9, adult | CPT/HCPCS: 93005; 99212 ==

== ENCOUNTER 2024-09-21 09:03 | Outpatient (REF) | payer MEDICARE, OTHER, SELFPAY ==
--- OUTSIDE RECORDS SUMMARY | 2024-09-21 09:33 | XMS_ITS | Clinical Summary ---
Author Organization [facility] Address [address] [place] [address] Care Team Providers Care Secretary Of Police Name Role Phone Kory Perdue MD Primary Care Provider [phone] Allergies Active Allergy Reactions Criticality Noted Date Comments Gabapentin Swelling 01/16/2016 joints [place] Other (See Comments) 01/16/2016 Cold sores Medications [...] age to complete this topic Care Teams Secretary Of Police Relationship Specialty Start Date End Date Kory Perdue MD [address] [place] [address] Dr [address] [place] [address] PCP - General Educational Technician 01/09/16
[2024-09-21 10:35] LABS: Appearance Urine Clear; Color Urine Yellow; Glucose Urine UA Negative (Negative); Leukocyte Esterase Urine Large (3+) (Negative); Nitrite Urine Negative (Negative); PH 6.5 (5.0-9.0); UMIC TRIGGER UACC YES; Urine Blood Negative (Negative); Urine Ketones Negative (Negative); Urine Protein Negative (Neg-Trace)
[2024-09-21 10:40] LABS: Bacteria Urine None Seen (None Seen); Hyaline Casts Urine 0-2 /LPF (0-2); RBC Urine 0-2 /HPF (0-2); UACC Culture Trigger YES; WBC Urine 21-50 /HPF (0-5)
[2024-09-21 10:57] LABS: Creatinine Urine 66.49 mg/dL
[2024-09-21 11:03] LABS: Alanine Aminotransferase 21 U/L (0-31); Alkaline Phosphatase 90 U/L (39-117); Anion Gap 8 (12-20); Aspartate Amino Transferase 25 U/L (5-31); Bilirubin Total 0.4 mg/dL (0.0-1.0); Blood Urea Nitrogen 14 mg/dL (9-16); Calcium 8.4 mg/dL (8.4-10.2); Carbon Dioxide 30 mmol/L (22-29); Chloride 107 mmol/L (96-108); Estimated Glomerular Filt Rate > 60; Glucose Random 97 mg/dL (60-115); Potassium 4.6 mmol/L (3.3-5.1); Sodium 140 mmol/L (135-145); Total Protein 6.7 g/dL (6.5-8.0)
== END 2024-09-21 09:04 | disposition home or self-care (01) ==
LOC: HO.10HDL 09:03
PROVIDERS: Visit Provider Internal Medicine
DX: E11.9 Type 2 diabetes mellitus without complications (principal); I10 Essential (primary) hypertension; I48.91 Unspecified atrial fibrillation; R82.90 Unspecified abnormal findings in urine
CPT/HCPCS: 36415; 80053; 81001; 82043; 82570; 87086

== ENCOUNTER 2024-09-30 10:46 | Outpatient (AMB) | payer MEDICARE, OTHER, SELFPAY ==
--- NOTE | 2024-09-30 10:46 | A.OFFVIS_ITS ---
Intake Visit Reasons: f/u hospital unable to pass scope Intake Note: January presents as a telehealth follow up for the ED. CC She states that she is feeling okay. Allergies gabapentin [From Neurontin] Allergy (Intermediate, Verified 09/30/24 10:46) JOINTS SWELL famotidine Adverse Reaction (Mild, Verified 09/30/24 10:46) Dizziness oranges Allergy (Mild, Uncoded 09/30/24 10:46) cold sores HPI HPI f/u hospital unable to pass scope: Details: 79 yr old f called for f/u RECAP she intially presented with resp symptoms for 2-3 weeks 11/2018 w c/o persistent dry cough, along with poor appetite, and weight gain as well as ankle swelling. she had interventions as below she was using wedge pillow at night she felt the coughing had gone away since the procedures below she saw pulm and found to have restrictive lung disease PCP was worried re: dilated and tortuous esophagus on chest imaging she had repeat EGD with Dr Hough 06/07 and had redilation to 20 mm balloon, also colonoscopy with large polyp removed in [facility], SSA I did repeat colonoscopy 12/02/22: no residual or recurrent polyp material seen, path neg as well, diverticulosis was noted, more severe left side she had repeat EGD with dilation at [facility] and [facility]< She was admitted 09/10 with rapid A-fib and plan was for TRUDI and cardioversion but the TRUDI could not be passed, I was there and the EGD scope passed easily but could not dilate her as she was on anticoagulation TESTS: she had CTA to r/o PE which was negative but did reveal abn thickened proxiaml esophagus. she had an EGD which revealed sigmoid shaped esophagus, wrap didn;t seem so tight had ba swallow, times with retention of barium, 70& still at 5 mins, then had repeat EGD with dilation 15-18 mm with heme and tear noted, improvement in timed ba swallow further EGD 11/2018 w/ 18-19 mm dilation with tear and heme noted EGD 03/2019- stricture noted and dilated 18-19 mm CRE with tear noted EGD 10/2019-- Balloon dilation performed with 19 mm balloon with good result, heme and tear noted, no perforation. EGD 07/2020: Balloon dilation performed with 18 mm then 19 mm balloon with good result, heme and tear noted, Ct scan with fluid filled and dilated esophagus 10/2020- INTERIM: she is doing well no swallowing issues and denies choking no constipation no diarrhea no rectal bleeding appetite is good still taking pantoprazole BID, no issues taking MV and vit D supplement she is not keen on repeat egd with dilation right now, she is on coumadin now Assessment & Plan 1/ dysphagia and regurgitation 2/2 to prior surgical wrap, needing dilation periodically, 2/ Colon polyps in past, repeat colo was neg PLAN: 1/ cont with PPI BID--periodic iron, b12, mag vit d levels 2/ EGD with dilation depending on her symptoms, will see her again in 6 months, if needs dilation may need bridging with lovenox [facility] Medical History Pulmonary hypertension Restrictive lung disease Diabetes Scoliosis CYNTHIA (obstructive sleep apnea) Obesity Cough HX: breast cancer Anemia Back pain Lymphedema of left arm GERD (gastroesophageal reflux disease) Blind right eye Trigeminal neuralgia of right side of face Hypertension CHF (congestive heart failure) Heart murmur after rheumatic heart disease Surgical History History of open reduction and internal fixation (ORIF) procedure History of ventral hernia repair History of left inguinal hernia repair History of bladder suspension procedure History of partial hysterectomy History of tonsillectomy and adenoidectomy Hx of esophagogastroduodenoscopy History of lymph node dissection of left axilla H/O left mastectomy Hx of wisdom tooth extraction History of colonoscopy Family History Father History of heart attack Mother History of leukemia History of hypertension Social History Household Members: Spouse Housing: House Housing Other:: Mobile home Are you a primary emergency care tech to a significant other at home: No Do you presently have visiting nurse or other home services: No Alcohol intake: never Patient Tobacco Use Status: Never used Tobacco Advance Directives Date on File: 02/08/23 service: No Telehealth Telehealth Telehealth Platform: Telephone Location of provider rendering services: practice address Location of patient: address on file Patient Identification confirmed using: Name, : Yes Telehealth method: voice only Patient verbally consented to treatment: Yes Patient verbally consented to billing insurance company: Yes Patient informed of any privacy concerns related to visit: Yes Minutes spent on Phone/Video with Pt.: 8 Assessment & Plan Assessment & Plan (1) Dysphagia: Code(s): R13.10 - Dysphagia, unspecified Category: Medical Plan: as above Coding Level of Care Code Tele Est Pt Level 3 (16564) Diagnoses Dysphagia R13.10
--- OUTSIDE RECORDS SUMMARY | 2024-09-30 11:36 | XMS_ITS | Clinical Summary ---
Author Organization [facility] Address [address] [place] [address] Care Team Providers Care Recovery Rn Name Role Phone Kory Perdue MD Primary Care Provider [phone] Allergies Active Allergy Reactions Criticality Noted Date Comments Gabapentin Swelling 01/16/2016 joints [place] Other (See Comments) 01/16/2016 Cold sores Medications [...] age to complete this topic Care Teams Recovery Rn Relationship Specialty Start Date End Date Kory Perdue MD [address] [place] [address] Dr [address] [place] [address] PCP - General Dot Etcher Apprentice 01/09/16
== END 2024-09-30 12:17 | disposition home or self-care (01) ==
LOC: HO.HGI 10:46
PROVIDERS: PCP Internal Medicine; Visit Provider Internal Medicine Gastroenterology
DX: R13.10 Dysphagia, unspecified (principal)
CPT/HCPCS: 98016

== ENCOUNTER 2024-10-17 12:41 | Outpatient (AMB) | payer MEDICARE, OTHER, SELFPAY ==
--- NOTE | 2024-10-17 13:45 | AM.OFFWIN_ITS ---
Intake Vital Signs 10/17/24 13:52 Height 5 ft Weight 157 lb BMI 30.7 BP 140/80 H Blood Pressure Location Rt brachial Position Sitting Pulse 71 Pulse Source Pulse Oximeter Pulse Oximetry (%) 97 Oxygen Delivery Method Room Air Intake Visit Reasons: EP-rash left arm Intake Note: Patient here for rash on left arm that she noticed yesterday and has spread very quickly since then. Patient Tobacco Use Status: Never used Tobacco Allergies gabapentin [From Neurontin] Allergy (Intermediate, Verified 10/17/24 13:52) JOINTS SWELL famotidine Adverse Reaction (Mild, Verified 10/17/24 13:52) Dizziness oranges Allergy (Mild, Uncoded 10/17/24 13:52) cold sores Do you need a note to return to daycare/school/sports/work: No HPI HPI Comments History of Present Illness Details History of Present Illness - The patient is an 79-year-old female p resenting with a rash on the arm. - The rash onset occurred one day prior. - The patient noticed the rash growing i n size and the area is described as hot and burning. - The patient has a history of celluliti s, which required hospitalization in the past. - The patient?s nurse marked lines aroun d the rash today to track its progress. - The patient has no known history of Me thicillin-resistant Staphylococcus aureus (MRSA) infections. - A nurse regularly visits the patient a t home and is due to return in 2 days. Physical Exam General: Cooperative, healthy appearing, comfortable, no acute distress and well developed Orientation: Patient oriented x3 Limitations: No limitations Head: Normal to inspection Ears: Hearing grossly normal bilaterally Nose: Normal external nose present Face and sinus: normal facial exam Eyes: Appearance normal, both eyes and all related structures Neck: Normal visual inspection and Yes full ROM Respiratory: Normal respiratory effort and able to speak in complete sentences. Skin: upper left arm, full circumferential area of erythema and warmth, outlined in black pen, added date Neuro: Patient oriented x3 Extremities: Normal to inspection [facility] Medical History Pulmonary hypertension Restrictive lung disease Diabetes Scoliosis CYNTHIA (obstructive sleep apnea) Obesity Cough HX: breast cancer Anemia Back pain Lymphedema of left arm GERD (gastroesophageal reflux disease) Blind right eye Trigeminal neuralgia of right side of face Hypertension CHF (congestive heart failure) Heart murmur after rheumatic heart disease Surgical History History of open reduction and internal fixation (ORIF) procedure History of ventral hernia repair History of left inguinal hernia repair History of bladder suspension procedure History of partial hysterectomy History of tonsillectomy and adenoidectomy Hx of esophagogastroduodenoscopy History of lymph node dissection of left axilla H/O left mastectomy Hx of wisdom tooth extraction History of colonoscopy Family History Father History of heart attack Mother History of leukemia History of hypertension Social History Household Members: Spouse Housing: House Housing Other:: Mobile home Are you a primary customer care agent to a significant other at home: No Do you presently have visiting nurse or other home services: No Alcohol intake: never Patient Tobacco Use Status: Never used Tobacco Advance Directives Date on File: 02/08/23 service: No Review of Systems Const All systems reviewed & are unremarkable except as noted in HPI and below Physical Exam Vital Signs: Last Vital Signs Pulse 71 10/17/24 13:52 BP 140/80 H 10/17/24 13:52 Pulse Ox 97 10/17/24 13:52 Oxygen Delivery Method Room Air 10/17/24 13:52 BMI result Body Mass Index 30.7 Assessment & Plan Assessment & Plan (1) Cellulitis: Code(s): L03.90 - Cellulitis, unspecified Qualifiers: Site of cellulitis: extremity Site of cellulitis of extremity: upper extremity Laterality: left Qualified Code(s): L03.114 - Cellulitis of left upper limb Plan: The patient is diagnosed with cellulitis and Keflex cephalexin has been prescribed. It is to be taken every six hours for the next seven days. The patient is advised to monitor the rash, with attention to any notable expansion beyond the marked lines, and to seek emergency care if this occurs. The patient's nurse will continue to assess the rash during regular visit in 2 days. The medication schedule aims to minimize fall risk by avoiding nighttime dosing when possible. She does have the area marked so I added the date, advised that the cellulitis will likely go outside of this area but within the next 2 or 3 days, it should recede back. If it goes well outside of the area and expands rapidly, she should go to the emergency department. Patient was informed and verbally consented to the use of an ambient scribe for clinic note documentation during this visit. Medications: New cephalexin 500 mg PO Q6H 28 caps 0RF Coding Level of Care Code New Pt Level 3 (60092) Diagnoses Cellulitis of left upper extremity L03.114 Site of cellulitis: extremity Site of cellulitis of extremity: upper extremity Laterality: left
[2024-10-17 13:52] VITALS: BP 140/80; PULSE 71; O2SAT 97; BMI 30.7
--- OUTSIDE RECORDS SUMMARY | 2024-10-17 14:48 | XMS_ITS | Clinical Summary ---
Author Organization [facility] Address [address] [place] [address] Care Team Providers Care Jig Box Operator Name Role Phone Kory Perdue MD Primary Care Provider [phone] Allergies Active Allergy Reactions Criticality Noted Date Comments Gabapentin Swelling 01/16/2016 joints [place] Other (See Comments) 01/16/2016 Cold sores Medications [...] age to complete this topic Care Teams Jig Box Operator Relationship Specialty Start Date End Date Kory Perdue MD [address] [place] [address] Dr [address] [place] [address] PCP - General Bus Washer 01/09/16
--- OUTSIDE RECORDS SUMMARY | 2024-10-17 14:48 | XMS_ITS | Patient Health Record ---
Author Organization [facility] Address [address] [place] [address] Care Team Providers Care Chief Of Harbor Patrol Name Role Phone Kory Perdue MD Primary Care Provider Sammy Ace [phone] ALLERGIES Allergen (clinical drug ingredient) Drug/Non Drug [...] Formula 1 4 PO QD Act rosy [place] 3 2 plus 1 capsule Orally 2 [...] reflux disease without esophagitis (K21.9) Active confirmed [id number] Problem Encounter for screening for malignant neoplasm of colon (Z12.11) Active confirmed 461394223 Problem History of adenomatous polyp of colon (Z86.010) Active confirmed 385649953 Problem Hypertension (I10) Active confirmed 09902612 Problem Encounter for screening for malignant neoplasm of rectum (Z12.12) Active confirmed Screening fo r malignant neoplasm of rectum (546875135) Problem Dysphagia (R13.10) Active confirmed Dysphagia (60974363) Problem GERD (gastroesophage al reflux disease) (K21.9) Active confirmed Gastroesophagea l reflux disease (884419304) PLAN OF TREATMENT Future Test Test Name Order Date COLONOSCOPY 05/09/2011 COLONOSCOPY 11/19/2016 Insurance Providers Payer Name Payer Address Payer Phone Subscriber Number Group Number Insured Name Patient Relationship to Insured Coverage Start Date Coverage End Date [place] OF [place] [address] [place] [address] [id number] [place] January Self - patient is the insured [facility] [address] [address] [place] [address] [id number] [place] January Self - patient is the insured MEDICAL (GENERAL) HISTORY Medical History History ICD Code Glaucoma Trigeminal neuralgia Denies [place],DM,CVA,Lung disease,renal dise ase Breast cancer--left mastectomy, chemo, X RT Colonoscopy 05/2011--small t ubular adenoma removed, sigmoid diverticulosis, small internal hemorrhoids--- she has had prior colonoscopies while she was living in [place] GERD---Hiatal hernia surgery in [address] Christiansen at [facility]--s/p esophageal dilations at [facility]--she has had previous upper endoscopies in [place] when she was living there Hyperlipidemia NIDDM [...] t for glaucoma Hiatal hernia repair at [facility] as above
== END 2024-10-17 14:13 | disposition home or self-care (01) ==
PROVIDERS: PCP Internal Medicine; Visit Provider Physician Assistant
DX: L03.114 Cellulitis of left upper limb (principal)

== ENCOUNTER → 2024-10-17 12:41 | Outpatient (BNVA) | payer MEDICARE, OTHER, SELFPAY | PROVIDERS: PCP Internal Medicine | DX: L03.114 Cellulitis of left upper limb (principal) | CPT/HCPCS: 99202 ==

== ENCOUNTER → 2024-11-15 09:49 | Outpatient (REF) | payer MEDICARE, OTHER, SELFPAY ==
--- NOTE | 2024-11-15 09:53 | CA_ITS ---
Transthoracic Echocardiogram Patient (Last, First, Middle): JaviJanuary, Gender: Female Date of : 1945 Age: 79 Procedure Date: 11/15/2024 Procedure Type: Transthoracic Echocardiogram Location: OP Height: 152. 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 The calculated ejection fraction is 52% by biplane method. - Evidence suggests grade II (moderate) diastolic dysfunction. - The left atrium is severely dilated. - There is moderate calcification of the aortic valve. - There is severe mitral annular calcification. Findings Procedure Information Contrast agent, definity, is being given per protocol without apparent complications. Left Ventricle Normal left ventricular cavity size. There is severely increased left ventricular wall thickness. The left ventricular systolic function is low normal. The calculated ejection fraction is 52% by biplane method. There is mild global hypokinesis. Evidence suggests grade II (moderate) diastolic dysfunction. Right Ventricle Normal right ventricular cavity size. There is mildly decreased right ventricular systolic function. Atria The left atrium is severely dilated. The right atrium is normal in size. Aortic Valve There is moderate calcification of the aortic valve. There is no aortic valve regurgitation. No significant aortic stenosis. Mitral Valve There is severe mitral annular calcification. There is trace mitral valve regurgitation. There is no mitral valve stenosis. Pulmonic Valve The pulmonic valve is likely normal. Tricuspid Valve There is mild tricuspid valve regurgitation. There is no evidence of pulmonary hypertension. Great Vessels The asc aorta is normal in size. Venous The inferior vena cava is normal in size and collapses greater than 50% with inspiration. Pericardium/Pleural There is no evidence of pericardial effusion. Prior Study Comparison Changes noted compared to prior study dated: 08/30/2024. LVEF improved compared to prior study. Measurements 2D Linear Measurements IVSd: 1.56 0.6-0.9/0.6-1.0 cm LVIDd: 4.62 3.9-5.3/4.2-5.9 cm LVIDd Index: 2.73 2.4-3.2/2.2-3.1 cm/m2 LVIDs: 3.29 2.0-3.6 cm LVPWd: 1.75 0.7-1.1 cm Ao Root: 3.50 2.1-3.5 cm LA Diam: 4.40 2.7-3.8/3.0-4.0 cm LAIDs Index: 2.60 1.5-2.3 cm/m2 LV Mass: 416.07 67-162/88-224 g LV Mass Index: 246.19 43-95/49-115 g/m2 LVOT Diam: 2.00 3.0+(-)1.3 cm 2D Systolic Function EF 4C: 49.10 >55% EF 2C: 58.50 >55% EF BiP: 52.10 >55% Mitral Valve MV VTI: 0.43 MV Pk Sree: 1.40 MV Mn Sree: 0.93 MV Pk Grad: 8.00 MV Mn Grad: 4.00 MV Pk E: 1.17 MV PK A: 1.33 MV Decel Time: 376.00 E/A: 0.90 E'Lateral: 6.96 E'Medial: 4.35 E/E' Med: 26.90 E/E' Lat: 16.80 PHT: 110.00 MVA PHT: 2.00 MVA Continuity: 2.64 Decel Crawford: 3.11 Aortic Valve AoV Pk Sree: 2.30 AoV Mn Sree: 1.72 AoV VTI: 0.53 AoV Pk Grad: 21.00 Aov Mn Grad: 13.00 JASWANT Cont.VTI: 2.14 LVOT LVOT Pk Sree: 1.52 LVOT Mn Sree: 1.08 LVOT VTI: 0.36 LVOT Pk Grad: 9.00 LVOT Mn Grad: 5.00 LVOT Diam: 2.00 LVOT Area: 3.14 Diastolic Function MV Pk E: 1.17 MV Pk A: 1.33 E/A: 0.90 E'Medial: 4.35 E/E' Med: 26.90 E' Laterial: 6.96 E/E' Lat: 16.80 Right Ventricle TAPSE (mm): 18.00 TVS' Sree: 9.00 Tricuspid Valve TR Pk Sree: 2.43 TR Pk Grad: 24.00 RA Press: 3.00 RVSP: 27.00 Great Vessels Aorta Ao Root-2D: 3.50 2.0-3.7 cm Ao Asc: 3.60 2.1-3.4 cm Pulmonary Valve PV Pk Sree: 1.22 Peak PV Grad: 6.00 Updated in Other Vendor System with Status of Final Wilton Schmidt MD electronically signed on 11/16/2024 4:27:00 PM with status of Final
--- OUTSIDE RECORDS SUMMARY | 2024-11-15 11:29 | XMS_ITS | Clinical Summary ---
Author Organization [facility] Address [address] [place] [address] Care Team Providers Care Financial Advisor Name Role Phone Kory Perdue MD Primary Care Provider [phone] Allergies Active Allergy Reactions Criticality Noted Date Comments Gabapentin Swelling 01/16/2016 joints [place] Other (See Comments) 01/16/2016 Cold sores Medications [...] age to complete this topic Care Teams Financial Advisor Relationship Specialty Start Date End Date Kory Perdue MD [address] [place] [address] Dr [address] [place] [address] PCP - General Manager International 01/09/16
== END ==
LOC: HO.CARD 09:49
DX: I48.0 Paroxysmal atrial fibrillation (principal)
CPT/HCPCS: 93242; 93306; Q9957

== ENCOUNTER → 2024-11-15 09:53 | Outpatient (BNV) | payer MEDICARE, OTHER, SELFPAY | PROVIDERS: Visit Provider Internal Medicine | DX: I47.10 Supraventricular tachycardia, unspecified (principal) | CPT/HCPCS: 93244; 93306 ==

== ENCOUNTER 2024-12-06 14:12 | Outpatient (AMB) | payer MEDICARE, OTHER, SELFPAY ==
[2024-12-06 14:33] VITALS: BP 122/60; PULSE 70; BMI 31.4
--- NOTE | 2024-12-06 14:33 | A.OFFVIS_ITS ---
Vital Signs 12/06/24 14:33 Height 5 ft Weight 160 lb 14.999 oz BMI 31.4 BP 122/60 Blood Pressure Location Lt brachial Position Sitting Pulse 70 Pulse Source Monitor Intake Visit Reasons: follow up/ echo/ holter Allergies gabapentin [From Neurontin] Allergy (Intermediate, Verified 10/17/24 13:52) JOINTS SWELL famotidine Adverse Reaction (Mild, Verified 10/17/24 13:52) Dizziness oranges Allergy (Mild, Uncoded 10/17/24 13:52) cold sores Medication List - Last Reconciled 12/06/24 by Hiren Clark NP amiodarone 200 mg PO DAILY apixaban (Eliquis) 5 mg PO BID 30 days ascorbate calcium (vitamin C) 500 mg PO DAILY atorvastatin 10 mg PO DAILY cane As directed Hurry cane cholecalciferol (vitamin D3) 125 mcg PO DAILY dorzolamide-timolol 22.3-6.8 mg/mL 1 drp ophthalmic (eye) BID glipizide ER 1.25 mg PO DAILY latanoprost 0.005% 1 drp ophthalmic (eye) BEDTIME lorazepam 0.5 mg PO DAILY PRN metoprolol succinate ER 50 mg PO DAILY multivitamin 1 tab PO DAILY nortriptyline 25 mg PO BEDTIME pantoprazole 40 mg PO BID tramadol mg PO PRN turmeric 400 mg PO DAILY HPI Comments Details: This is an 79-year-old female patient coming in for a follow-up visit. Patient with significant medical history for hypertension, diabetes, paroxysmal AFib, and congestive heart failure. Her AFib is a more recent diagnosis with hospitalization for AFib with RVR back in August of this year. She was initially treated with Cardizem therapy however was unsuccessful. A subsequent attempt was made with cardioversion which was also unsuccessful due to esophageal strictures and a repeat attempt was planned outpatient after starting amiodarone. However, at her last visit she had converted back to normal sinus rhythm. Since then, patient has undergone a stress test, Holter monitoring, and an echocardiogram. Today, patient reports feeling well overall and denies any cardiac symptoms including exertional chest pain, shortness of breath, palpitati ons, dizziness, fatigue, orthopnea, PND, leg edema, presyncope, or syncope. Patient reports full compliance with her medications. She reports an isolated episode of nosebleed otherwise no other signs and symptoms of bleeding. [facility] Medical History Atrial fibrillation with rapid ventricular response Pulmonary hypertension Restrictive lung disease Diabetes Scoliosis CYNTHIA (obstructive sleep apnea) Obesity Cough HX: breast cancer Anemia Back pain Lymphedema of left arm GERD (gastroesophageal reflux disease) Blind right eye Trigeminal neuralgia of right side of face Hypertension CHF (congestive heart failure) Heart murmur after rheumatic heart disease Surgical History History of open reduction and internal fixation (ORIF) procedure History of ventral hernia repair History of left inguinal hernia repair History of bladder suspension procedure History of partial hysterectomy History of tonsillectomy and adenoidectomy Hx of esophagogastroduodenoscopy History of lymph node dissection of left axilla H/O left mastectomy Hx of wisdom tooth extraction History of colonoscopy Family History Father History of heart attack Mother History of leukemia History of hypertension Social History Household Members: Spouse Housing: House Housing Other:: Mobile home Are you a primary healthcare liaison to a significant other at home: No Do you presently have visiting nurse or other home services: No Alcohol intake: never Patient Tobacco Use Status: Never used Tobacco Advance Directives Date on File: 02/08/23 service: No Review of Systems Const Denies weakness ENT Denies dizziness Card Denies chest pain, Denies chest pain with activity, Denies syncope, Denies rapid heart rate, Denies pedal edema, Denies edema, Denies leg edema, Denies lightheadedness, Denies palpitations, Denies dyspnea, Denies dyspnea on exertion and Denies orthopnea Resp Denies cough, Denies dyspnea and Denies dyspnea on exertion GI Denies hematochezia and Denies change in stool character Musc Denies abnormal gait, Denies muscle cramps, Denies muscle weakness, Denies numbness, Denies radiating pain into limb and Denies tingling Neuro Denies abnormal gait, Denies dizziness, Denies syncope, Denies numbness, Denies tingling and Denies weakness Endo Denies palpitations Physical Exam Vital Signs: Last Vital Signs Pulse 70 04/22/25 14:33 BP 122/60 12/06/24 14:33 BMI result Body Mass Index 31.4 Const General: cooperative, healthy appearing, comfortable and no acute distress Orientation/consciousness: patient oriented x3 HEENT Head: Yes normal to inspection Neck Neck: Yes normal visual inspection, Yes trachea midline and Yes supple Chest Chest palpation & inspection: normal inspection of the chest Resp Effort & Inspection: normal respiratory effort Auscultation: clear to auscultation bilaterally, no crackles, no rales, no rhonchi and no wheezes Cardio Jugular venous distension: no JVD Palpation: normal PMI Rate: regular rate Rhythm: regular rhythm Heart sounds: S1 normal heart sound present, S2 normal heart sound present, no click, no gallops, no murmurs and no rubs Peripheral pulses: Peripheral pulses 2+ throughout GI Inspection: Yes normal to inspection Palpation (GI): Soft to palpation Auscultation: normal bowel sounds Skin General skin exam: no rashes or lesions noted Neuro General: patient oriented x3 Extrem General: Yes normal to inspection, No no pedal edema and No calf tenderness Psych Appearance: grossly normal Mental Status: mental status grossly normal Speech and movement: Normal speech and movement present Office Procedures EKG Details: EKG today showed normal sinus rhythm, rate 74 beats per minute, biatrial enlargement, right superior axis deviation, left bundle branch block, nonspecific ST-T-waves, [place], [place]. [id number], Complete Assessment & Plan Assessment & Plan (1) Paroxysmal atrial fibrillation: Code(s): I48.0 - Paroxysmal atrial fibrillation Category: Medical Plan: 11/15/2024-Holter study showed underlying normal sinus rhythm with an average heart rate of 63 beats per minute, with rare supraventricular and ventricular ectopy. No signs of AFib. Due to financial issues previously patient wanted to switch her to warfarin however she did not like it and therefore is back on Eliquis. Continue Eliquis for full anticoagulation therapy. Continue amiodarone and metoprolol for rhythm and rate control approach. One isolated episode of nosebleed otherwise no other reported signs of bleeding. In case of repeated bleeding, may need to look for alternatives. We will monitor labs periodically. (2) CHF (congestive heart failure): Code(s): I50.9 - Heart failure, unspecified Category: Medical Plan: 11/15/2024-echo study showed an improved ejection fraction at 52% with grade 2 diastolic dysfunction, severely dilated left atrium, moderate calcification of the aortic valve and severe mitral annular calcification. Clinically euvolemic and stable. Discussed in detail the signs and symptoms to look for with heart failure. (3) Hypertension: Code(s): I10 - Essential (primary) hypertension Category: Medical Plan: Blood pressure today is well-controlled. Continue current regimen. Advised patient to continue monitoring blood pressures at home and keeping a log of it. Ideally, blood pressure goal less than 130/80. Most recent LDL at 78. Continue statin therapy. Ideally, LDL goal less than 70. Continue diabetes management. A1c goal less than 7%. Advised heart healthy diet, regular exercise as tolerated, med compliance, and management of vascular risk factors. We will follow up with the patient in 6 months' time. In the interim, patient will call us with any concerns or changes in symptoms. This note was generated using voice recognition software. While every effort has been made to ensure accuracy and proper learning solutions specialist, there may be occasional errors that could affect the content or meaning of the described symptoms. Orders: Orders AMB EKG-In Office Today I48.0 - Paroxysmal atrial fibrillation Coding Level of Care Code Est Pt Level 4 (87188) Complex EM visit Add On G2211 Diagnoses Paroxysmal atrial fibrillation I48.0 CHF (congestive heart failure) I50.9 Hypertension I10 CPT Codes EKG - CPT: [id number], Complete ([id number]) Time Spent (min) 35 Comment Time spent in reviewing the chart, test results, assessment, counseling and documentation.
--- OUTSIDE RECORDS SUMMARY | 2024-12-06 17:04 | XMS_ITS | Patient Health Record ---
Author Organization [facility] Address [address] [place] [address] Care Team Providers Care Engraver Signature Name Role Phone Kory Perdue MD Primary Care Provider Sammy Ace [phone] Allergies Allergen (clinical drug ingredient) Drug/Non Drug Allergy documented on EMR Reaction Allergy Type Onset Date Status orange allergenic extract oranges (uncoded) Unknown Allergy Active carbamazepine carbamazepine (uncoded) Unknown Allergy Active gabapentin gabapentin (uncoded) Unknown Allergy Active gabapentin neurontin (uncoded) Unknown Allergy Active Reason For Referral No Information Medications Medication SIG (Take, Route, Frequency, Duration) Notes Start Date End Date Status Pantoprazole Sodium 40 MG TAKE 1 TABLET BY MOUTH TWICE A DAY Oral for 90 Active Calcium Magnesium 750 300-30 0 MG 1 tablet with meals Orally QD Active Vision Formula 1 4 PO QD Act rosy [place] 3 2 plus 1 capsule Orally 2 [...] a meal Orally Once a day Active Immunizations Vaccine Route Administration Date Status Comme nts Flu vaccine no Preserv 3 and > Unknown 05/27/2016 Admin istered Influenza Unknown 04/17/2020 Administered Problems Problem Type SNOMED Code ICD Code Onset Dates Problem Status W/U Status Risk Notes Problem 038563932 Gastro-esophage al reflux disease without esophagitis (K21.9) Active confirmed Problem 785515734 Encounter for screening for malignant neoplasm of colon (Z12.11) Active confirmed Problem 665697029 History of adenomatous polyp of colon (Z86.010) Active confirmed Problem 95207759 Hypertension (I10) Active confirmed Problem Screening for malignant neoplasm of rectum (390801377) Encounter for screening for malignant neoplasm of rectum (Z12.12) Active confirmed Problem Dysphagia (66151810) Dysphagia (R13.10) Active confirmed Problem Gastroesophageal reflux disease (279899750) GERD (gastroesophage al reflux disease) (K21.9) Active confirmed Plan Of Treatment Future Test Test Name Order Date COLONOSCOPY 05/09/2011 COLONOSCOPY 11/19/2016 Insurance Providers Payer Name Payer Address Payer Phone Subscriber Number Group Number Insured Name Patient Relationship to Insured Coverage Start Date Coverage End Date MED[place]ARE OF [place] [address] [place] [address] [phone] [id number] [place] January Self - patient is the insured [employer] [address] [address] [place] [address] [id number] [place] January Self - patient is the insured Medical (General) History Medical History History ICD Code Glaucoma Trigeminal neuralgia Denies [place],DM,CVA,Lung disease,renal dise ase Breast cancer--left mastectomy, chemo, X RT Colonoscopy 05/2011--small t ubular adenoma removed, sigmoid diverticulosis, small internal hemorrhoids--- she has had prior colonoscopies while she was living in [place] GERD---Hiatal hernia surgery in [address] Christiansen at [facility]--s/p esophageal dilations at [facility]--she has had previous upper endoscopies in [place] when she was living there Hyperlipidemia NIDDM Negative incomplete colonosc opy in 2016 with a negative followup CT Colonography on [...] t for glaucoma [facility] as [facility]
--- OUTSIDE RECORDS SUMMARY | 2024-12-06 17:04 | XMS_ITS | Clinical Summary ---
Author Organization [facility] Address [address] [place] [address] Care Team Providers Care Material Planning Analyst Name Role Phone Kory Perdue MD Primary Care Provider [phone] Allergies Active Allergy Reactions Criticality Noted Date Comments Gabapentin Swelling 01/16/2016 joints [place] Other (See Comments) 01/16/2016 Cold sores Medications [...] on patient's age to complete this topic Insurance Payer Benefit Plan / Group Subscriber ID Effective Dates Phone Address Type MEDICARE MEDICARE A&B [id number] 2007-Prese nt [address] [address] [place], [place] [id number] Medicare [employer] [id number] 2014-Prese nt [address] [place] [address] Indemnity Care Teams Material Planning Analyst Relationship Specialty Start Date End Date Kory Perdue MD [address] [place] [address] [address] [place] [address] PCP - General Air Defense Artillery Officer 01/09/16
== END 2024-12-06 15:12 | disposition home or self-care (01) ==
LOC: HO.HCS 14:13
PROVIDERS: PCP Internal Medicine
DX: I48.0 Paroxysmal atrial fibrillation (principal); I50.9 Heart failure, unspecified; I10 Essential (primary) hypertension
CPT/HCPCS: 93010; 99214; G2211

== ENCOUNTER → 2024-12-06 14:12 | Outpatient (BNVA) | payer MEDICARE, OTHER, SELFPAY | PROVIDERS: PCP Internal Medicine | DX: I11.0 Hypertensive heart disease with heart failure (principal); I50.9 Heart failure, unspecified; I48.0 Paroxysmal atrial fibrillation; R94.31 Abnormal electrocardiogram [ECG] [EKG]; I45.4 Nonspecific intraventricular block | CPT/HCPCS: 93005; 99212 ==

== ENCOUNTER 2024-12-23 09:08 | Outpatient (REF) | payer MEDICARE, OTHER, SELFPAY ==
--- OUTSIDE RECORDS SUMMARY | 2024-12-23 14:07 | XMS_ITS | Clinical Summary ---
Author Organization [facility] Address [address] [place] [address] Care Team Providers Care Whitewater Rafting Guide Name Role Phone Kory Perdue MD Primary Care Provider [phone] Allergies Active Allergy Reactions Criticality Noted Date Comments Gabapentin Swelling 01/16/2016 joints [place] Other (See Comments) 01/16/2016 Cold sores Medications [...] age to complete this topic Care Teams Whitewater Rafting Guide Relationship Specialty Start Date End Date Kory Perdue MD [address] [place] [address] [address] [place] [address] PCP - General Commercial Lines Account Assistant 01/09/16
== END 2024-12-23 09:09 | disposition home or self-care (01) ==
LOC: HO.LAB 09:08
PROVIDERS: Visit Provider Physician Assistant
DX: I10 Essential (primary) hypertension (principal); I48.0 Paroxysmal atrial fibrillation; J98.4 Other disorders of lung; E11.9 Type 2 diabetes mellitus without complications; K21.9 Gastro-esophageal reflux disease without esophagitis; Z79.01 Long term (current) use of anticoagulants; Z79.84 Long term (current) use of oral hypoglycemic drugs; Z79.899 Other long term (current) drug therapy
CPT/HCPCS: 99212

== ENCOUNTER 2024-12-23 09:08 | Outpatient (AMB) | payer MEDICARE, OTHER, SELFPAY ==
--- NOTE | 2024-12-23 09:10 | MHC.PC.OV ---
Vital Signs 12/23/24 09:24 Height 5 ft Weight 74.843 kg BMI 32.2 BP 124/74 Respiration 16 Pulse 66 Pulse Source Pulse Oximeter Temp 96.6 F L Temp Source Oral Pulse Oximetry (%) 95 Oxygen Delivery Method Room Air Intake Visit Reasons: Routine Check Writer Salesperson Required: No Accompanied by: Self / Same As Patient Allergies gabapentin [From Neurontin] Allergy (Intermediate, Verified 12/23/24 09:11) JOINTS SWELL famotidine Adverse Reaction (Mild, Verified 12/23/24 09:11) Dizziness warfarin [From Coumadin] Adverse Reaction (Verified 12/23/24 09:17) other oranges Allergy (Mild, Uncoded 12/23/24 09:11) cold sores Tobacco use date assessed: 12/23/24 Fall risk assessment: 2 + Falls in past year Last assessed Fall Risk: 12/23/24 Dental Screening Dental Screen Date: 12/23/24 Did you have a dental visit in the last 12 months?: Yes Did you have a dental problem in the last 6 months where you did not have access to dental care?: No Was dental information given to patient?: Patient has dentist HPI HPI Comments History of Present Illness Details 79-year-old female with history of paroxysmal atrial fibrillation, hypertension, type 2 diabetes, trigeminal neuralgia, post herpetic neuralgia presents to the office today for routine follow-up and to establish care. She follows with cardiology for her atrial fibrillation. She is anticoagulated with Eliquis and denies any easy bruisability or bleeding. Also on amiodarone and metoprolol. She is now asymptomatic. She is also taking tramadol as well as nortriptyline for her post herpetic neuralgia and trigeminal neuralgia. Type 2 diabetes is managed with glipizide 1.25 mg ER and fasting glucose levels ranged from 80-low 100s. She continues following with Gastroenterology for endoscopies due to GERD and dysphagia. She has a history of breast cancer in 2011 which was treated with chemotherapy, radiation, and left-sided mastectomy with subsequent lymphedema of the left upper extremity. Follows [facility] at [facility] for mammograms. She has no concerns at the visit today. [facility] Medical History (Updated 12/23/24 @ 09:49 by GWEN Ozuna) Breast cancer, left Atrial fibrillation with rapid ventricular response Pulmonary hypertension Restrictive lung disease Diabetes Scoliosis CYNTHIA (obstructive sleep apnea) Obesity Cough HX: breast cancer Anemia Back pain Lymphedema of left arm GERD (gastroesophageal reflux disease) Blind right eye Trigeminal neuralgia of right side of face Hypertension CHF (congestive heart failure) Heart murmur after rheumatic heart disease Surgical History History of open reduction and internal fixation (ORIF) procedure History of ventral hernia repair History of left inguinal hernia repair History of bladder suspension procedure History of partial hysterectomy History of tonsillectomy and adenoidectomy Hx of esophagogastroduodenoscopy History of lymph node dissection of left axilla H/O left mastectomy Hx of wisdom tooth extraction History of colonoscopy (~12/02/22) Family History Father History of heart attack Mother History of leukemia History of hypertension Social History Household Members: Spouse Housing: House Housing Other:: Mobile home Are you a primary healthcare customer service to a significant other at home: No Do you presently have visiting nurse or other home services: No Alcohol intake: never Patient Tobacco Use Status: Never used Tobacco Advance Directives Date on File: 02/08/23 service: No Current occupational status: retired Cognitive needs: No Hearing needs: No Vision needs: Yes (Rx glasses) Questionnaire PHQ-9 Over the last 2 weeks, how often have you been bothered by any of the following problems? 1. Little interest or pleasure in doing things: not at all 2. Feeling down, depressed, or hopeless: not at all 3. Trouble falling or staying asleep, or sleeping too much: not at all 4. Feeling tired or having little energy: not at all 5. Poor appetite or overeating: not at all 6. Feeling bad about yourself - or that you are a failure or have let yourself or your family down: not at all 7. Trouble concentrating on things, such as reading the newspaper or watching television: not at all 8. Moving or speaking so slowly that other people could have noticed. Or the opposite - being so fidgety or restless that you have been moving around a lot more than usual: not at all 9. Thoughts that you would be better off or of hurting yourself in some way: not at all Total score: 0 Source: Developed by Cyndy Norman Kurt Kroenke and colleagues, with an educational junior from [employer]. Thrive Questionnaire Date Thrive assessed: 12/23/24 I am a: Patient What is your living situation today?: I have a steady place to live Within the past 12 months, did the food you bought not last and you didn't have the money to get more?: Never true Within the past 12 months, did you worry whether your food would run out before you got money to buy more?: Never true Do you have trouble paying for medicines?: No Do you have trouble getting transportation to medical appointments?: No Do you have trouble paying your heating and electricity bill?: No Do you have trouble taking care of your child, family member or friend?: No Do you have trouble with day-to-day activities such as bathing, preparing meals, shopping, managing finances, etc.?: No Are you currently unemployed and looking for a job?: No Are you interested in more education?: No Please select the resources that you would like help with: None THRIVE Score: 0 AUDIT C Alcohol Use Questionnaire (AUDIT-C) 1. How often do you have a drink containing alcohol?: Monthly or less Total Score: 1 SERGIO-7 AMB Questionnaire SERGIO-7 Date SERGIO - 7 assessed: 12/23/24 Feeling nervous, anxious, or on edge: 0 = Not at all Not being able to stop or control worryin = Not at all Worrying too much about different things: 0 = Not at all Trouble relaxin = Not at all Being so restless that it is hard to sit still: 0 = Not at all Becoming easily annoyed or irritable: 0 = Not at all Feeling afraid as if something awful might happen: 0 = Not at all Total SERGIO-7 score (0-4 normal; 5-9 mild; 10-14 moderate; 15-21 severe): 0 Source: Developed by Cyndy Norman Kurt Kroenke and colleagues, with an educational junior from [employer]. Review of Systems Const All systems reviewed & are unremarkable except as noted in HPI and below Physical exam (Primary Care) Vital Signs: Last Vital Signs Temp 96.6 F L 12/23/24 09:24 Pulse 66 12/23/24 09:24 Resp 16 12/23/24 09:24 BP 124/74 12/23/24 09:24 Pulse Ox 95 12/23/24 09:24 Oxygen Delivery Method Room Air 12/23/24 09:24 BMI result Body Mass Index 32.2 Tobacco/Smoking Status: Tobacco use Status Tobacco use date assessed 12/23/24 12/23/24 09:28 Patient Tobacco Use Status Never used Tobacco 12/23/24 09:28 PHQ-9: PHQ-9 Score PHQ-9: Total score 0 12/23/24 09:31 Thrive Assessment: Date of Thrive Assessment Date Thrive assessed 12/23/24 12/23/24 09:28 Const Other: Constitutional - Awake and Alert, No apparent distress Eyes - PERRLA, EOMI Cardiovascular - S1S2, RRR, No edema Respiratory - Normal lung expansion, Normal respiratory effort, No respiratory distress, CTA bilaterally Extremities - no calf tenderness bilaterally, no swelling Skin - Warm/Dry Neurological - Alert & oriented x3 Psychological - Appropriate affect Coding Level of Care Code Tele New Pt Level 4 (75358) Diagnoses Hypertension I10 Paroxysmal atrial fibrillation I48.0 Restrictive lung disease J98.4 Type 2 diabetes mellitus E11.9 Gastroesophageal reflux disease without esophagitis K21.9 Esophagitis presence: without esophagitis Assessment & Plan Assessment & Plan (1) Hypertension: Code(s): I10 - Essential (primary) hypertension Category: Medical Plan: Controlled with blood pressure 124/74. Continue metoprolol as prescribed. Low-sodium diet. BMP ordered (2) Paroxysmal atrial fibrillation: Code(s): I48.0 - Paroxysmal atrial fibrillation Category: Medical Plan: Stable. Rate controlled. Reviewed last echocardiogram and EKG. Continue Eliquis 5 mg twice daily for anticoagulation. Also continue amiodarone. Will check TSH in the office today. Continue metoprolol for rate control. Follow-up with cardiology as scheduled. (3) Restrictive lung disease: Comment: NOTED ABOVE SHE HAS MILD RESTRICTIVE DISORDER SECONDARY TO OBESITY AND SCOLIOSIS. ADVISED TO LOSE. WEIGHT AND DO DEEP BREATHING EXERCISES Code(s): J98.4 - Other disorders of lung Category: Medical Plan: Stable, related to obesity. Continue with weight loss efforts. (4) Type 2 diabetes mellitus: Code(s): E11.9 - Type 2 diabetes mellitus without complications Category: Medical Plan: Hemoglobin A1c ordered. Continue glipizide 1.25 mg ER daily. We will continue discontinuation of medication pending hemoglobin A1c results to prevent hypoglycemia. Diabetic diet advised. Microalbumin urine up-to-date and within normal limits. (5) GERD (gastroesophageal reflux disease): Code(s): K21.9 - Gastro-esophageal reflux disease without esophagitis Category: Medical Qualifiers: Esophagitis presence: without esophagitis Qualified Code(s): K21.9 - Gastro-esophageal reflux disease without esophagitis Plan: Stable. Continue pantoprazole 40 mg twice daily. Continue following with Gastroenterology with routine endoscopies as ordered. Plan Follow-up in 3-4 months. Labs ordered to be completed today as well as labs several days prior to next visit. Continue diabetic diet and take medications as prescribed. Orders: Orders Lipid Panel Today D64.9 - Anemia, unspecified, E66.9 - Obesity, unspecified, I10 - Essential (primary) hypertension, I48.0 - Paroxysmal atrial fibrillation, J98.4 - Other disorders of lung Hemoglobin A1c 3 Months E11.9 - Type 2 diabetes mellitus without complications Basic Metabolic Panel Today D64.9 - Anemia, unspecified, E66.9 - Obesity, unspecified, I10 - Essential (primary) hypertension, I48.0 - Paroxysmal atrial fibrillation, J98.4 - Other disorders of lung Complete Blood Count Auto Diff Today D64.9 - Anemia, unspecified, E66.9 - Obesity, unspecified, I10 - Essential (primary) hypertension, I48.0 - Paroxysmal atrial fibrillation, J98.4 - Other disorders of lung Hemoglobin A1c Today D64.9 - Anemia, unspecified, E66.9 - Obesity, unspecified, I10 - Essential (primary) hypertension, I48.0 - Paroxysmal atrial fibrillation, J98.4 - Other disorders of lung TSH reflex Free T4 Today D64.9 - Anemia, unspecified, E66.9 - Obesity, unspecified, I10 - Essential (primary) hypertension, I48.0 - Paroxysmal atrial fibrillation, J98.4 - Other disorders of lung
[2024-12-23 09:24] VITALS: BP 124/74; PULSE 66; RESP 16; TEMP 35.9; O2SAT 95; BMI 32.2
--- OUTSIDE RECORDS SUMMARY | 2024-12-23 09:24 | XMS_ITS | Clinical Summary ---
Author Organization [facility] Address [address] [place] [address] Care Team Providers Care Auto Suspension And Steering Mechanic Name Role Phone Kory Perdue MD Primary Care Provider [phone] Allergies Active Allergy Reactions Criticality Noted Date Comments Gabapentin Swelling 01/16/2016 joints [place] Other (See Comments) 01/16/2016 Cold sores Medications [...] age to complete this topic Care Teams Auto Suspension And Steering Mechanic Relationship Specialty Start Date End Date Kory Perdue MD [address] [place] [address] Dr [address] [place] [address] PCP - General Systems Support Specialist 01/09/16
--- OUTSIDE RECORDS SUMMARY | 2024-12-23 09:24 | XMS_ITS | Patient Health Record ---
Author Organization [facility] Address [address] [place] [address] Care Team Providers Care Chairman And Chief Executive Officer Name Role Phone Kory Perdue MD Primary Care Provider Sammy Ace [phone] Allergies Allergen (clinical drug ingredient) Drug/Non Drug [...] Formula 1 4 PO QD Act rosy [place] 3 2 plus 1 capsule Orally 2 [...] Problem Status W/U Status Risk Notes Problem 382373783 Gastro-esophagea l reflux disease without esophagitis (K21.9) Active confirmed Problem 914320040 Encounter for screening for malignant neoplasm of colon (Z12.11) Active confirmed Problem 126373855 History of adenomatous polyp of colon (Z86.010) Active confirmed Problem 37042325 Hypertension (I10) Active confirmed Problem Screening for malignant neoplasm of rectum (625342405) Encounter for screening for malignant neoplasm of rectum (Z12.12) Active confirmed Problem Dysphagia (77163534) Dysphagia (R13.10) Active confirmed Problem GERD (gastroesophageal reflux disease) (K21.9) Active confirmed Plan Of Treatment Future Test Test Name Order Date COLONOSCOPY 05/09/2011 COLONOSCOPY 11/19/2016 Insurance Providers Payer Name Payer Address Payer Phone Subscriber Number Group Number Insured Name Patient Relationship to Insured Coverage Start Date Coverage End Date MED[place] [address] [place] [address] [phone] [id number] [place] January Self - patient is the insured [employer] [address] [address] [place] [phone] [id number] [place] January Self - patient is the insured Medical (General) History Medical History History ICD Code Glaucoma Trigeminal neuralgia Denies MD,DM,CVA,Lung disease,renal dise ase Breast cancer--left mastectomy, chemo, X RT Colonoscopy 05/2011--small t ubular adenoma removed, sigmoid diverticulosis, small internal hemorrhoids--- she has had prior colonoscopies while she was living in [place] GERD---Hiatal hernia surgery in [address] Christiansen at [facility]--s/p esophageal dilations at [facility]--she has had previous upper endoscopies in [place] when she was living there Hyperlipidemia NIDDM [...] t for glaucoma Hiatal hernia repair at [facility] as above
== END 2024-12-23 09:49 | disposition home or self-care (01) ==
LOC: HO.HMCHD 09:08
PROVIDERS: Visit Provider Physician Assistant
DX: I10 Essential (primary) hypertension (principal); I48.0 Paroxysmal atrial fibrillation; E11.9 Type 2 diabetes mellitus without complications; J98.4 Other disorders of lung; K21.9 Gastro-esophageal reflux disease without esophagitis

== ENCOUNTER 2024-12-23 09:59 | Outpatient (REF) | payer MEDICARE, OTHER, SELFPAY ==
--- OUTSIDE RECORDS SUMMARY | 2024-12-23 10:31 | XMS_ITS | Clinical Summary ---
Author Organization [facility] Address [address] [place] [address] Care Team Providers Care Skills Instructor Name Role Phone Kory Perdue MD Primary Care Provider [phone] Allergies Active Allergy Reactions Criticality Noted Date Comments Gabapentin Swelling 01/16/2016 joints [place] Other (See Comments) 01/16/2016 Cold sores Medications [...] age to complete this topic Care Teams Skills Instructor Relationship Specialty Start Date End Date Kory Perdue MD [address] [place] [address] [address] [place] [address] PCP - General Master Of Ceremonies 01/09/16
[2024-12-23 11:48] LABS: MANUAL DIFF FLAG NO
[2024-12-23 11:52] LABS: Basophils Percent Auto 0.7 % (0-2); Eosinophils Absolute Auto 0.2 X10*3/uL (0.0-0.4); Eosinophils Percent Auto 3.7 % (0-4); Hematocrit 37.3 % (37.0-47.0); Hemoglobin 10.6 g/dl (12.0-16.0); Imm Gran Abs Auto 0.02 X10*3/uL (0.00-0.03); Imm Gran Pct Auto 0.4 % (0.0-0.4); Lymphocytes Absolute Auto 0.8 X10*3/uL (1.2-4.9); Lymphocytes Percent Auto 14.2 % (20-40); Mean Corpuscular HGB Conc 28.4 g/dl (31.0-35.0); Mean Corpuscular Hemoglobin 22.5 pg (27.0-33.0); Mean Platelet Volume 9.4 fL (9.4-12.3); Monocytes Absolute Auto 0.6 X10*3/uL (0.1-1.2); Platelet Count 183 X10*3/uL (160-400); Red Blood Count 4.72 X10*6/uL (4.20-5.50); Red Cell Distribution Width 20.3 % (11.0-16.0); White Blood Count 5.7 X10*3/uL (4.8-10.8)
[2024-12-23 12:05] LABS: Estimated Average Glucose 120 mg/dL; Hemoglobin A1c % 5.8 % (<6.0)
[2024-12-23 12:12] LABS: Anion Gap 10 (12-20); Blood Urea Nitrogen 21 mg/dL (9-16); Calcium 9.1 mg/dL (8.4-10.2); Carbon Dioxide 31 mmol/L (22-29); Chloride 104 mmol/L (96-108); Cholesterol 172 mg/dL (<200); Estimated Glomerular Filt Rate 56; Glucose Random 99 mg/dL (60-115); HDL Cholesterol 78 mg/dL (>40); LDL Cholesterol Calculated 82 mg/dL (<100); Potassium 4.5 mmol/L (3.3-5.1); Sodium 140 mmol/L (135-145); Triglycerides 61 mg/dL (<150)
[2024-12-23 13:00] LABS: Free T4 (Free Thyroxine) 0.92 ng/dL (0.71-1.85)
== END 2024-12-23 10:00 | disposition home or self-care (01) ==
LOC: HO.10HDL 09:59
PROVIDERS: Visit Provider Physician Assistant
DX: I10 Essential (primary) hypertension (principal); I48.0 Paroxysmal atrial fibrillation; J98.4 Other disorders of lung; E11.9 Type 2 diabetes mellitus without complications; K21.9 Gastro-esophageal reflux disease without esophagitis; D64.9 Anemia, unspecified; E66.9 Obesity, unspecified; Z68.32 Body mass index [BMI] 32.0-32.9, adult; Z79.01 Long term (current) use of anticoagulants; Z79.84 Long term (current) use of oral hypoglycemic drugs; Z79.899 Other long term (current) drug therapy
CPT/HCPCS: 36415; 80048; 80061; 83036; 84439; 84443; 85025; 96127; 99212

== ENCOUNTER 2025-01-24 11:44 | Emergency (ER) | payer MEDICARE, OTHER, SELFPAY ==
[2025-01-24 11:51] VITALS: BP 139/70; PULSE 64; RESP 18; TEMP 36.1; O2SAT 97; BMI 32.2
--- NOTE | 2025-01-24 11:57 | ED.GENADULT ---
HPI - General Adult General Chief complaint: General Medical Stated complaint: Difficulty speaking/eating Time Seen by Provider: 01/24/25 16:47 Source: patient Mode of arrival: ambulatory Limitations: no limitations History of Present Illness ED Provider: Dr. Deb Keith HPI narrative: patient comes to the emergency room complaining of trigeminal neuralgia flare up. Patient states that she has been having this for 10 years, which required surgery for decompression. Patient states that for the last week she has been having on and off shooting like pains in the middle of her face. However, over the last 4 days it has been constant with occasional severe shock like sensation lasting few sec, only on the right side. Patient since that she has tried multiple medications in the past including gabapentin, Lyrica, carbamazepine, cyclobenzaprine, baclofen, states that she there has a allergic reactions or significant side effects from it. Patient states that she has been taking tramadol at home with no significant pain relief. Patient states that she does not have a neurologist. Patient denies any weakness on the right side of the face, any facial drooping. Denies any neurological deficits. Related Data Home Medications ?Medication ?Instructions ?Recorded ?Confirmed atorvastatin 10 mg tablet 10 mg PO DAILY 07/30/20 09/15/24 latanoprost 0.005 % eye drops 1 drp ophthalmic (eye) BEDTIME 07/30/20 12/06/24 lorazepam 0.5 mg tablet 0.5 mg PO DAILY PRN Anxiety 07/30/20 12/06/24 dorzolamide 22.3 mg-timolol 6.8 1 drp ophthalmic (eye) BID 10/29/20 12/06/24 mg/mL eye drops glipizide 2.5 mg tablet, extended 1.25 mg PO DAILY 12/04/20 12/06/24 release 24 hr ascorbate calcium (vitamin C) 500 500 mg PO DAILY 02/19/24 09/15/24 mg tablet cholecalciferol (vitamin D3) 125 125 mcg PO DAILY 02/19/24 12/06/24 mcg (5,000 unit) capsule multivitamin 1 tab PO DAILY 02/19/24 12/06/24 nortriptyline 25 mg capsule 25 mg PO BEDTIME 02/19/24 12/06/24 turmeric 400 mg capsule 400 mg PO DAILY 02/19/24 12/06/24 Vitamin b12 PO 12/23/24 coenzyme Q10 200 mg capsule (Co 200 mg PO DAILY 12/23/24 Q-10) Previous Rx's ?Medication ?Instructions ?Recorded metoprolol succinate 50 mg 50 mg PO DAILY #90 tabs 07/25/24 tablet,extended release 24 hr cane #1 ea 09/02/24 pantoprazole 40 mg tablet,delayed 40 mg PO BID #180 tabs 11/07/24 release amiodarone 200 mg tablet 200 mg PO DAILY #90 tabs 11/08/24 levothyroxine 50 mcg tablet 50 mcg PO DAILY #90 tabs 12/28/24 tramadol 50 mg tablet 50 mg PO DAILY PRN pain #30 tabs 01/02/25 apixaban 5 mg tablet (Eliquis) 5 mg PO BID #60 tabs 01/04/25 oxcarbazepine 300 mg tablet 300 mg PO BID #30 tabs 01/24/25 oxycodone 5 mg tablet 5 mg PO BID PRN pain #14 tabs 01/24/25 Allergies Allergy/AdvReac Type Severity Reaction Status Date / Time gabapentin [From Neurontin] Allergy Intermediate JOINTS Verified 01/24/25 11:53 SWELL famotidine AdvReac Mild Dizziness Verified 01/24/25 11:53 warfarin [From Coumadin] AdvReac other Verified 01/24/25 11:53 oranges Allergy Mild cold sores Uncoded 01/24/25 11:53 Review of Systems Review of Systems: Constitutional : No Weight loss, No Fever, No Chills, No Night Sweats, No Fatigue, No Malaise ENT/Mouth : No Hearing loss, No Ear Pain, No Nasal Congestion, No Sinus Pain, No Hoarseness, No sore throat, No Rhinorrhea, No Swallowing Difficulty Eyes: No Eye Pain, No Swelling, No Redness, No Foreign Body, No Discharge, No Vision Changes Cardiovascular : No Chest Pain, No SOB, No Dyspnea on Exertion, No Orthopnea, No Edema, No Palpitations Respiratory : No Cough, No Sputum, No Wheezing, No Smoke Exposure, No Dyspnea Gastrointestinal : No Nausea, No Vomiting, No Diarrhea, No Constipation, No abdominal Pain, No Hematochezia, No Melena Genitourinary : no irregular bleeding, No Dysuria, No Urinary Frequency, No Hematuria, No Urinary Incontinence, No Urgency, No Flank Pain, No Urinary Flow Changes, No Hesitancy Musculoskeletal : No joint pain, No Myalgias, No Joint Swelling Skin : No Skin Lesions, No rash Neuro : Complaining of intermittent shooting like sensation in the middle of the right side of the face, No Weakness, No Numbness, No Paresthesias, No Loss of Consciousness, No Dizziness, No Headache Psych : No Anxiety/Panic, No Depression, No SI/HI/AH/VH, No Social Issues, Heme/Lymph: No Bruising, No Bleeding,No Lymphadenopathy Endocrine : No Polyuria, No Polydipsia, No Temperature Intolerance [facility] Past Medical History Medical History Hypothyroidism Breast cancer, left Atrial fibrillation with rapid ventricular response Pulmonary hypertension Restrictive lung disease Diabetes Scoliosis CYNTHIA (obstructive sleep apnea) Obesity Cough HX: breast cancer Anemia Back pain Lymphedema of left arm GERD (gastroesophageal reflux disease) Blind right eye Trigeminal neuralgia of right side of face Hypertension CHF (congestive heart failure) Heart murmur after rheumatic heart disease Surgical History History of open reduction and internal fixation (ORIF) procedure History of ventral hernia repair History of left inguinal hernia repair History of bladder suspension procedure History of partial hysterectomy History of tonsillectomy and adenoidectomy Hx of esophagogastroduodenoscopy History of lymph node dissection of left axilla H/O left mastectomy Hx of wisdom tooth extraction History of colonoscopy (~12/02/22) Family History Family History Father History of heart attack Mother History of leukemia History of hypertension Social History Social History Household Members: Spouse Housing: House Housing Other:: Mobile home Are you a primary animal care technician to a significant other at home: No Do you presently have visiting nurse or other home services: No Alcohol intake: never Patient Tobacco Use Status: Never used Tobacco Smoked in Last 30 Days: No Use of substances other than those prescribed or required for medical reasons: No Advance Directives: Yes Advance Directives on File: Yes Advance Directives Date on File: 02/08/23 service: No Current occupational status: retired Cognitive needs: No Hearing needs: No Vision needs: Yes (Rx glasses) Physical Exam ED Vital Signs: Vital Signs - 24 hr 01/24/25 11:51 01/24/25 17:15 01/24/25 18:33 Temperature 96.9 F 98.2 F Pulse Rate 64 66 62 Respiratory Rate 18 18 18 Blood Pressure 139/70 151/67 H 133/58 L Pulse Oximetry 97 94 94 Oxygen Delivery Method Room Air Room Air Room Air 01/24/25 20:02 01/24/25 20:57 Temperature 97.8 F 98.6 F Pulse Rate 64 82 Respiratory Rate 18 17 Blood Pressure 156/72 H 136/72 Pulse Oximetry 93 98 Oxygen Delivery Method Room Air Room Air BMI result Body Mass Index 32.2 Const Other: Appearance: Alert. Oriented X3. every few minutes, patient has shooting like sensation in the right side of the face Eyes: Pupils equal, round and reactive to light. ENT: Pharynx normal. Neck: Normal inspection. Neck supple. No lymph nodes noted. No crepitus CVS: Normal heart rate and rhythm. Pulses normal. Normal S1 and S2 Respiratory: No respiratory distress. Breath sounds normal. No Wheezing. No rales Abdomen: Soft and nontender. No rigidity. No distention. Skin: Skin warm and dry. Normal skin color. Normal skin turgor. Extremities: No lower extremity edema. No Lacerations. No Rash Neuro: Oriented X 3. No motor deficit. No sensory deficit. Moving all extremities. No slurred speech. CN 2 through 12 grossly intact Psych: calm, cooperative, normal affect Course Course Course Narrative: RME: 80-year-old female with history of trigeminal neuralgia with surgery required for trying to daughter 10 years ago presents to ED for trouble speaking and right-sided facial pain for the past couple of days. Patient states right patient facial pain has been worse past couple of months in the past 4 days now she starts noticing right-sided facial swelling worsening pain and difficulty speaking. Patient states having trigeminal flare up Patient denies any slurred speech facial droop, dizziness, nausea, vomiting, or paralysis of extremities. NIH score is 0. Physical exam positive for right-sided facial swelling compared to left we will do labs. states due to pain patient has not been eating much in his morning glucose was 63. Fingerstick POC ordered. Patient and states having symptoms for weeks, but has worsening the past 4 days. Medications Administered Discontinued Medications Generic Name Dose Route Start Last Admin Trade Name Kiley PRN Reason Stop Dose Admin Diphenhydramine HCl 25 mg 01/24/25 16:58 01/24/25 17:13 Diphenhydramine Hcl 25 Mg Capsule PO 01/24/25 16:59 25 mg ONCE ONE Administration Hydromorphone HCl 0.5 mg 01/24/25 17:59 01/24/25 18:55 Hydromorphone Hcl 0.5 Mg/0.5 Ml Syringe IVPUSH 01/24/25 18:00 0.5 mg ONCE ONE Administration Protocol Morphine Sulfate 2 mg 01/24/25 16:58 01/24/25 17:13 Morphine Sulfate 2 Mg/Ml Cartridge IM 01/24/25 16:59 2 mg ONCE ONE Administration Protocol Oxcarbazepine 300 mg 01/24/25 16:58 01/24/25 17:13 Oxcarbazepine 300 Mg Tablet PO 01/24/25 16:59 300 mg ONCE ONE Administration Medical Decision Making Medical Decision Making [facility] Narrative: my interpretation of labs: no acute abnormalities and patient's hematology, at baseline anemia and mild thrombocytopenia. No significant abnormality in patient's chemistry, normal LFTs patient has been diagnosed with trigeminal neuralgia in the past. Patient receiving IM morphine, p.o. oxcarbamazepine and diphenhydramine. after the above-mentioned medication, patient states that she is still in a lot of pain. Patient states that she can not eat or drink anything due to the Pain. Patient receiving 1 dose of 0.5 mg of IV hydromorphone. I discussed with the patient that if the pain does not improve and if she cannot eat or drink, she may have to be admitted for pain medication and hydration. Patient agrees with plan. patient states that she feels much better and he states that she feels comfortable going home. Patient is now able to eat and drink. Differential Diagnosis Differential Diagnoses: The differential diagnosis associated with the presentation includes ( Trigeminal neuralgia, muscle spasms) Admission/Observation Consideration of admission/observation: Escalation of care including admission/observation considered ( given patient's like thumb symptoms and severity, admission for pain control was offered, patient declined) Lab Data [facility] Lab Attestation statement: I reviewed the patient's lab results. 01/24/25 12:28 01/24/25 12:28 Labs: Lab Results 01/24/25 01/24/25 Range/Units 12:04 12:28 WBC 5.1 (4.8-10.8) X10*3/uL RBC 4.73 (4.20-5.50) X10*6/uL Hgb 10.6 L (12.0-16.0) g/dl Hct 36.9 L (37.0-47.0) % MCV 78.0 L (80.0-98.0) fL MCH 22.4 L (27.0-33.0) pg MCHC 28.7 L (31.0-35.0) g/dl RDW 18.8 H (11.0-16.0) % Plt Count 158 L (160-400) X10*3/uL MPV 9.2 L (9.4-12.3) fL Immature Gran % (Auto) 0.4 (0.0-0.4) % Neut % (Auto) 74.4 H (45-73) % Lymph % (Auto) 12.7 L (20-40) % Preston % (Auto) 9.6 (2-11) % Eos % (Auto) 2.3 (0-4) % Baso % (Auto) 0.6 (0-2) % Lymph # (Auto) 0.7 L (1.2-4.9) X10*3/uL [place] # (Auto) 0.5 (0.1-1.2) X10*3/uL Eos # (Auto) 0.1 (0.0-0.4) X10*3/uL Baso # (Auto) 0.0 (0.0-0.2) X10*3/uL Abs Immat Gran (auto) 0.02 (0.00-0.03) X10*3/uL Absolute Neuts (auto) 3.8 (2.0-8.3) x10*3/uL Absolute Nucleated RBC 0.000 (0.0-0.012) X10*3/uL Nucleated RBC % (auto) 0.0 (0.0-0.2) /100WBC Sodium 143 (135-145) mmol/L Potassium 4.4 (3.3-5.1) mmol/L Chloride 110 H (96-108) mmol/L Carbon Dioxide 27 (22-29) mmol/L Anion Gap 10 L (12-20) BUN 18 H (9-16) mg/dL Creatinine 0.99 (0.5-1.4) mg/dL Estim Creat Clear Calc 39.5 Estimated GFR 54 POC Glucose 108 (60-115) mg/dL Random Glucose 95 (60-115) mg/dL Calcium 8.7 (8.4-10.2) mg/dL Total Bilirubin 0.4 (0.0-1.0) mg/dL AST 27 (5-31) U/L ALT 13 (0-31) U/L Alkaline Phosphatase 85 (39-117) U/L Total Protein 6.3 L (6.5-8.0) g/dL Albumin 3.9 (3.5-5.0) g/dL Critical Care Time Critical Care Time Critical Care Time: Yes Total Critical Care Time: 45 Attestation: I have personally provided critical care time. Time includes review of lab data, radiology results, discussion with consultants, and monitoring for potential decompensation. Intervention performed as documented. Discharge Plan Discharge Clinical Impression: Trigeminal neuralgia Patient Disposition: Home, Self-Care Instructions: Trigeminal Neuralgia (ED) Additional Instructions: Please follow-up with your primary care physician tomorrow. If you have any worsening or new symptoms, please return to the emergency room or call 911 Prescriptions: New oxcarbazepine 300 mg tablet 300 mg PO BID Qty: 30 0RF oxycodone 5 mg tablet 5 mg PO BID PRN (Reason: pain) Qty: 14 0RF Rx Instructions: Partial Fill upon patient request. No Action metoprolol succinate 50 mg tablet extended release 24 hr 50 mg PO DAILY Qty: 90 3RF pantoprazole 40 mg tablet,delayed release (DR/EC) 40 mg PO BID Qty: 180 2RF amiodarone 200 mg tablet 200 mg PO DAILY Qty: 90 2RF levothyroxine 50 mcg tablet 50 mcg PO DAILY Qty: 90 1RF tramadol 50 mg tablet 50 mg PO DAILY PRN (Reason: pain) Qty: 30 0RF Eliquis 5 mg tablet 5 mg PO BID Qty: 60 5RF atorvastatin 10 mg Tablet 10 mg PO DAILY lorazepam 0.5 mg Tablet 0.5 mg PO DAILY PRN (Reason: Anxiety) latanoprost 0.005 % Drops 1 drp ophthalmic (eye) BEDTIME (DME) cane Device See Rx Instructions .Route Qty: 1 0RF Rx Instructions: As directed Bobby stern dorzolamide-timolol 22.3-6.8 mg/mL drops 1 drp ophthalmic (eye) BID glipizide 2.5 mg tablet extended release 24hr 1.25 mg PO DAILY nortriptyline 25 mg capsule 25 mg PO BEDTIME multivitamin Tablet 1 tab PO DAILY ascorbate calcium (vitamin C) 500 mg tablet 500 mg PO DAILY cholecalciferol (vitamin D3) 125 mcg (5,000 unit) capsule 125 mcg PO DAILY turmeric 400 mg capsule 400 mg PO DAILY coenzyme Q10 [Co Q-10] 200 mg capsule 200 mg PO DAILY Vitamin b12 capsule PO Referrals: Vanessa Bales MD [Physician] - 01/30/25 Interventions: ED Discharge Assessment Last Done: 01/24/25 20:57 Discharge Date/Time: 01/24/25 21:05 Print Language: Lao
[2025-01-24 12:07] LABS: Glucose, Whole Blood 108 mg/dL (60-115)
[2025-01-24 12:49] LABS: MANUAL DIFF FLAG NO
[2025-01-24 12:50] LABS: Basophils Percent Auto 0.6 % (0-2); Eosinophils Absolute Auto 0.1 X10*3/uL (0.0-0.4); Eosinophils Percent Auto 2.3 % (0-4); Hematocrit 36.9 % (37.0-47.0); Hemoglobin 10.6 g/dl (12.0-16.0); Imm Gran Abs Auto 0.02 X10*3/uL (0.00-0.03); Imm Gran Pct Auto 0.4 % (0.0-0.4); Lymphocytes Absolute Auto 0.7 X10*3/uL (1.2-4.9); Lymphocytes Percent Auto 12.7 % (20-40); Mean Corpuscular HGB Conc 28.7 g/dl (31.0-35.0); Mean Corpuscular Hemoglobin 22.4 pg (27.0-33.0); Mean Platelet Volume 9.2 fL (9.4-12.3); Monocytes Absolute Auto 0.5 X10*3/uL (0.1-1.2); Monocytes Percent Auto 9.6 % (2-11); Neutrophils Absolute Auto 3.8 x10*3/uL (2.0-8.3); Neutrophils Percent Auto 74.4 % (45-73); Platelet Count 158 X10*3/uL (160-400); Red Blood Count 4.73 X10*6/uL (4.20-5.50); Red Cell Distribution Width 18.8 % (11.0-16.0); White Blood Count 5.1 X10*3/uL (4.8-10.8)
[2025-01-24 13:07] LABS: Alanine Aminotransferase 13 U/L (0-31); Albumin Level 3.9 g/dL (3.5-5.0); Alkaline Phosphatase 85 U/L (39-117); Anion Gap 10 (12-20); Aspartate Amino Transferase 27 U/L (5-31); Bilirubin Total 0.4 mg/dL (0.0-1.0); Blood Urea Nitrogen 18 mg/dL (9-16); Calcium 8.7 mg/dL (8.4-10.2); Carbon Dioxide 27 mmol/L (22-29); Chloride 110 mmol/L (96-108); Creatinine Clr Calc Pharmacy 39.5; Estimated Glomerular Filt Rate 54; Glucose Random 95 mg/dL (60-115); Potassium 4.4 mmol/L (3.3-5.1); Sodium 143 mmol/L (135-145); Total Protein 6.3 g/dL (6.5-8.0)
--- OUTSIDE RECORDS SUMMARY | 2025-01-24 14:29 | XMS_ITS | Patient Health Record ---
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 Name Role Phone Kory Perdue MD Primary Care Provider Sammy Ace [phone] Allergies Allergen (clinical drug ingredient) Drug/Non Drug [...] Formula 1 4 PO QD Act rosy [place] 3 2 plus 1 capsule Orally 2 [...] Problem Status W/U Status Risk Notes Problem 914301132 Gastro-esophage al reflux disease without esophagitis (K21.9) Active confirmed Problem 645210364 Encounter for screening for malignant neoplasm of colon (Z12.11) Active confirmed Problem 456959210 History of adenomatous polyp of colon (Z86.010) Active confirmed Problem 24301957 Hypertension (I10) Active confirmed Problem Screening for malignant neoplasm of rectum (475852392) Encounter for screening for malignant neoplasm of rectum (Z12.12) Active confirmed Problem Dysphagia (11423961) Dysphagia (R13.10) Active confirmed Problem Gastroesophageal reflux disease (589630907) GERD (gastroesophage al reflux disease) (K21.9) Active confirmed Plan Of Treatment Future Test Test Name Order Date COLONOSCOPY 05/09/2011 COLONOSCOPY 11/19/2016 Insurance Providers Payer Name Payer Address Payer Phone Subscriber Number Group Number Insured Name Patient Relationship to Insured Coverage Start Date Coverage End Date [place]ARE [place] [address] [place] [address] [id number] WEISER January Self - patient is the insured [facility] [address] [address] [place] [address] [phone] [id number] WEISER January Self - patient is the insured Medical (General) History Medical History History ICD Code Glaucoma Trigeminal neuralgia Denies [place],DM,CVA,Lung disease,renal dise ase Breast cancer--left mastectomy, chemo, X RT Colonoscopy 05/2011--small t ubular adenoma removed, sigmoid diverticulosis, small internal hemorrhoids--- she has had prior colonoscopies while she was living in [place] GERD---Hiatal hernia surgery in [address] Christiansen at [facility]--s/p esophageal dilations at [facility]--she has had previous upper endoscopies in [place] when she was living there Hyperlipidemia NIDDM [...] t for glaucoma Hiatal hernia repair at [facility] as above
[2025-01-24] MEDS: diphenhydrAMINE HCL 25 MG CAPSULE PO (17:13)
[2025-01-24] MEDS: OXcarbazepine 300 MG TABLET PO (17:13)
[2025-01-24] MEDS: Morphine Sulfate 2 MG/ML CARTRIDGE IM (17:13)
[2025-01-24 17:15] VITALS: BP 151/67; PULSE 66; RESP 18; TEMP 36.8; O2SAT 94
[2025-01-24 18:33] VITALS: BP 133/58; PULSE 62; RESP 18; O2SAT 94
--- NOTE | 2025-01-24 18:33 | PC.NURSE ---
Pt has had almost no relief from initial meds. Opening mouth is so hard that axillary temps are used. Was barely able to take meds crushed in apple sauce. Awaits neuro f/u at home.
[2025-01-24] MEDS: HYDROmorphone HCl 0.5 MG/0.5 ML SYRINGE IVPUSH (18:55)
--- NOTE | 2025-01-24 19:30 | PC.NURSE ---
this rn assumed care of pt, pt reports pain has subsided to 0/10 at this time, pt able to speak in full clear sentences.
[2025-01-24 20:02] VITALS: BP 156/72; PULSE 64; RESP 18; TEMP 36.6; O2SAT 93
[2025-01-24 20:57] VITALS: BP 136/72; PULSE 82; RESP 17; TEMP 37; O2SAT 98
--- NOTE | 2025-01-24 20:59 | PC.NURSE ---
pt given po fluids, tolerated well
== END 2025-01-24 21:05 | disposition home or self-care (01) ==
PROVIDERS: Physician Assistant; Emergency Provider Emergency Medicine
DX: G50.0 Trigeminal neuralgia (principal); E11.9 Type 2 diabetes mellitus without complications; E03.9 Hypothyroidism, unspecified; R51.9 Headache, unspecified; Z79.899 Other long term (current) drug therapy
CPT/HCPCS: 36415; 80053; 82947; 85025; 96372; 96374; 99284; J1171; J2270

== ENCOUNTER 2025-01-27 10:49 | Outpatient (AMB) | payer MEDICARE, OTHER, SELFPAY ==
--- NOTE | 2025-01-27 10:57 | MHC.PC.OV ---
Vital Signs 01/27/25 11:03 Height 5 ft Weight 74.389 kg BMI 32.0 BP 162/70 H Respiration 16 Pulse 67 Pulse Source Pulse Oximeter Temp 97.7 F Temp Source Temporal Artery Scan Pulse Oximetry (%) 97 Oxygen Delivery Method Room Air Intake Visit Reasons: Routine Football Scout Required: No Accompanied by: Self / Same As Patient Allergies gabapentin [From Neurontin] Allergy (Intermediate, Verified 01/27/25 10:58) JOINTS SWELL famotidine Adverse Reaction (Mild, Verified 01/27/25 10:58) Dizziness warfarin [From Coumadin] Adverse Reaction (Verified 01/27/25 10:58) other oranges Allergy (Mild, Uncoded 01/27/25 10:58) cold sores Medication List - Last Reconciled 01/27/25 by GWEN Ozuna amiodarone 200 mg PO DAILY apixaban (Eliquis) 5 mg PO BID ascorbate calcium (vitamin C) 500 mg PO DAILY atorvastatin 10 mg PO DAILY cane As directed Hurry cane cholecalciferol (vitamin D3) 125 mcg PO DAILY coenzyme Q10 (Co Q-10) 200 mg PO DAILY dorzolamide-timolol 22.3-6.8 mg/mL 1 drp ophthalmic (eye) BID glipizide ER 1.25 mg PO DAILY latanoprost 0.005% 1 drp ophthalmic (eye) BEDTIME levothyroxine 50 mcg PO DAILY lorazepam 0.5 mg PO DAILY PRN meclizine 12.5 mg PO TID PRN metoprolol succinate ER 50 mg PO DAILY multivitamin 1 tab PO DAILY nortriptyline 25 mg PO BEDTIME oxcarbazepine 300 mg PO BID oxycodone 5 mg PO BID PRN pantoprazole 40 mg PO BID pregabalin (Lyrica) 25 mg PO BID tramadol 50 mg PO DAILY PRN turmeric 400 mg PO DAILY [Vitamin b12 PO] Tobacco use date assessed: 12/23/24 Dental Screening Dental Screen Date: 12/23/24 HPI HPI Comments History of Present Illness Details 79-year-old female with history of paroxysmal atrial fibrillation, hypertension, diabetes, trigeminal neuralgia, post herpetic neuralgia presents to the office today for evaluation of a flare-up of trigeminal neuralgia. She reports over last few days, she has been experiencing significant pain in the right side of her face currently rated as a 5/10 but 10/10 at its worse. As a result, she has been having difficulty eating secondary to the pain but denies any dysphagia. She also feels her speech is muffled as a result. She does have a history of decompression but is no longer following with any Neurology providers. She is taking oxcarbazepine and nortriptyline which has kept her symptoms stable for many years. She did present to the ED for these symptoms and was given a prescription for oxycodone which she states does help the pain. Or symptoms also involve lightheadedness and vertigo. She has not fallen but does ambulate with a cane to assist. She has trialed gabapentin in the past with adverse effect. She did contact the office previously was referred to Neurology for further assistance with management of her symptoms. ROS: General: No fevers, malaise, unintentional weight loss HEENT: No blurred vision, diplopia. No sore throat, nasal congestion, rhinorrhea, sinus pain, ear pain, tinnitus Cardiovascular: No chest pain, palpitations, or leg edema Respiratory: No shortness of breath, wheezing, cough MSK: No myalgia, back pain Neuro: see hpi Skin: No rashes or lesions EXAM: Constitutional - Awake and Alert, No apparent distress Eyes - PERRL Cardiovascular - S1S2, RRR, No edema Respiratory - Normal lung expansion, Normal respiratory effort, No respiratory distress, CTA bilaterally Extremities - no calf tenderness bilaterally, no swelling Skin - Warm/Dry Neurological - Alert & oriented x3 Psychological - Appropriate affect [facility] Medical History Hypothyroidism Breast cancer, left Atrial fibrillation with rapid ventricular response Pulmonary hypertension Restrictive lung disease Diabetes Scoliosis CYNTHIA (obstructive sleep apnea) Obesity Cough HX: breast cancer Anemia Back pain Lymphedema of left arm GERD (gastroesophageal reflux disease) Blind right eye Trigeminal neuralgia of right side of face Hypertension CHF (congestive heart failure) Heart murmur after rheumatic heart disease Surgical History History of open reduction and internal fixation (ORIF) procedure History of ventral hernia repair History of left inguinal hernia repair History of bladder suspension procedure History of partial hysterectomy History of tonsillectomy and adenoidectomy Hx of esophagogastroduodenoscopy History of lymph node dissection of left axilla H/O left mastectomy Hx of wisdom tooth extraction History of colonoscopy (~12/02/22) Family History Father History of heart attack Mother History of leukemia History of hypertension Social History Household Members: Spouse Housing: House Housing Other:: Mobile home Are you a primary customer care specialist to a significant other at home: No Do you presently have visiting nurse or other home services: No Alcohol intake: never Patient Tobacco Use Status: Never used Tobacco Advance Directives Date on File: 02/08/23 service: No Current occupational status: retired Cognitive needs: No Hearing needs: No Vision needs: Yes (Rx glasses) Questionnaire Thrive Questionnaire Date Thrive assessed: 12/23/24 SERGIO-7 AMB Questionnaire SERGIO-7 Date SERGIO - 7 assessed: 12/23/24 Source: Developed by Drs. Sammy Almonte, Cyndy Arias, Gonzalo Jo and colleagues, with an educational junior from [employer]. Physical exam (Primary Care) Vital Signs: Last Vital Signs Temp 97.7 F 01/27/25 11:03 Pulse 67 01/27/25 11:03 Resp 16 01/27/25 11:03 BP 162/70 H 01/27/25 11:03 Pulse Ox 97 01/27/25 11:03 Oxygen Delivery Method Room Air 01/27/25 11:03 BMI result Body Mass Index 32.0 Tobacco/Smoking Status: Tobacco use Status Tobacco use date assessed 12/23/24 01/27/25 11:00 Patient Tobacco Use Status Never used Tobacco 01/27/25 11:00 Thrive Assessment: Date of Thrive Assessment Date Thrive assessed 12/23/24 01/27/25 11:00 Coding Level of Care Code Est Pt Level 4 (37543) Complex EM visit Add On G2211 Diagnoses Trigeminal neuralgia of right side of face G50.0 Assessment & Plan Assessment & Plan (1) Trigeminal neuralgia of right side of face: Code(s): G50.0 - Trigeminal neuralgia Category: Medical Plan: Referral to neurology placed. Continue oxcarbazepine, nortriptyline. Will give additional short course of oxycodone to use only as needed for severe pain. Initiate Lyrica 25 mg twice daily, dose to be increased pending patient response. ED notes reviewed including provider note, labs Plan Follow-up in the office as scheduled. Labs to be completed several days prior to visit Medications: New pregabalin (Lyrica) 25 mg PO BID 60 caps 0RF meclizine 12.5 mg PO TID PRN 30 tabs 0RF dizziness Refilled oxycodone Partial Fill upon patient request. 5 mg PO BID PRN 14 tabs 0RF pain
[2025-01-27 11:03] VITALS: BP 162/70; PULSE 67; RESP 16; TEMP 36.5; O2SAT 97; BMI 32.0
== END 2025-01-27 11:35 | disposition home or self-care (01) ==
LOC: HO.HMCHD 10:50
PROVIDERS: PCP Physician Assistant; Visit Provider Physician Assistant
DX: G50.0 Trigeminal neuralgia (principal)

== ENCOUNTER → 2025-01-27 10:49 | Outpatient (BNVA) | payer MEDICARE, OTHER, SELFPAY | PROVIDERS: PCP Physician Assistant; Visit Provider Physician Assistant | DX: G50.0 Trigeminal neuralgia (principal); Z79.899 Other long term (current) drug therapy | CPT/HCPCS: 99212 ==

== ENCOUNTER 2025-02-15 11:23 | Outpatient (AMB) | payer MEDICARE, OTHER, SELFPAY ==
[2025-02-15 11:25] VITALS: BP 142/80; BMI 32.2
--- NOTE | 2025-02-15 11:25 | MHC.OFFVIS ---
Vital Signs 02/15/25 11:25 Height 5 ft Weight 165 lb BMI 32.2 BP 142/80 H Blood Pressure Location Rt brachial Position Sitting Intake Visit Reasons: INP-Trigeminal neuralgia Intake Note: Patient referred in house for trigminal neuralgia of right of face Allergies gabapentin (From Neurontin) Allergy (Intermediate, Verified 02/15/25 11:29) JOINTS SWELL famotidine Adverse Reaction (Mild, Verified 02/15/25 11:29) Dizziness warfarin (From Coumadin) Adverse Reaction (Verified 02/15/25 11:29) other oranges Allergy (Mild, Uncoded 02/15/25 11:29) cold sores Medication List - Last Reconciled 02/15/25 by Neelima Granados MD amiodarone 200 mg PO DAILY apixaban (Eliquis) 5 mg PO BID ascorbate calcium (vitamin C) 500 mg PO DAILY atorvastatin 10 mg PO DAILY cane As directed [place]ry cane cholecalciferol (vitamin D3) 125 mcg PO DAILY coenzyme Q10 (Co Q-10) 200 mg PO DAILY dorzolamide-timolol 22.3-6.8 mg/mL 1 drp ophthalmic (eye) BID glipizide ER 1.25 mg PO DAILY latanoprost 0.005% 1 drp ophthalmic (eye) BEDTIME levothyroxine 50 mcg PO DAILY lorazepam 0.5 mg PO DAILY PRN meclizine 12.5 mg PO TID PRN metoprolol succinate ER 50 mg PO DAILY multivitamin 1 tab PO DAILY nortriptyline 25 mg PO BEDTIME oxcarbazepine 300 mg PO BID oxycodone 5 mg PO BID PRN pantoprazole 40 mg PO BID prednisone 40 mg (2 x 20 mg) PO DAILY pregabalin (Lyrica) 25 mg PO BID tramadol 50 mg PO DAILY PRN turmeric 400 mg PO DAILY [Vitamin b12 PO] HPI Comments Details: 80y/o female comes for further management of trigeminal neuralgia. SHe has h/o right trigeminal neuralgia which was treated [address] Pascual which helped her significantly she had lower dental implants about 5 mths which triggered her right facial pain. The pain is in the right nasaolabia area radiating down to lower lip and chin. It is a sharp pain like a bad tooth ache .she also ahs numbness tingling, worse whens he eats or talks,she has dull pain worsened whens he talks. No ear pain .This is different form her symptoms 13 years ago which involved right ear to cheek and was episodic she is on trileptal 300mg bid Prednisone Tramadol Lyrica she also has shingles on the left face . [facility] Medical History Hypothyroidism Breast cancer, left Atrial fibrillation with rapid ventricular response Pulmonary hypertension Restrictive lung disease Diabetes Scoliosis CYNTHIA (obstructive sleep apnea) Obesity Cough HX: breast cancer Anemia Back pain Lymphedema of left arm GERD (gastroesophageal reflux disease) Blind right eye Trigeminal neuralgia of right side of face Hypertension CHF (congestive heart failure) Heart murmur after rheumatic heart disease Surgical History History of open reduction and internal fixation (ORIF) procedure History of ventral hernia repair History of left inguinal hernia repair History of bladder suspension procedure History of partial hysterectomy History of tonsillectomy and adenoidectomy Hx of esophagogastroduodenoscopy History of lymph node dissection of left axilla H/O left mastectomy Hx of wisdom tooth extraction History of colonoscopy (~12/02/22) Family History Father History of heart attack Mother History of leukemia History of hypertension Social History Household Members: Spouse Housing: House Housing Other:: Mobile home Are you a primary personal carer to a significant other at home: No Do you presently have visiting nurse or other home services: No Alcohol intake: never Patient Tobacco Use Status: Never used Tobacco Advance Directives Date on File: 02/08/23 service: No Current occupational status: retired Cognitive needs: No Hearing needs: No Vision needs: Yes (Rx glasses) Physical Exam Vital Signs: Last Vital Signs BP 142/80 H 02/15/25 11:25 BMI result Body Mass Index 32.2 Const General: cooperative, healthy appearing and comfortable Nutritional Appearance: average body habitus Orientation/consciousness: patient oriented x3 Eyes Pupils: Equal, round and reactive pupils present Neuro Other: mild paresthesias in right nasolabial fold General: patient oriented x3, tone normal, moves all extremities and no focal motor deficits Cranial nerves: Yes Equal, round and reactive pupils present, Yes Bilaterally intact EOM present, Yes Nystagmus not present, Yes Normal facial strength present, Yes Midline tongue present, Yes Symmetric palate elevation present and Yes Ability to bilaterally elevate shoulders present Cognition (Neuro): normal cognition Gait exam (Neuro): Antalgic gait present Motor exam (neuro): 5/5 motor strength present throughout and Normal motor muscle tone present throughout Deep tendon reflexes (DTR's): Right triceps reflex intensity grade: 1+, Left triceps reflex intensity grade: 1+, Rt Biceps (C5, C6): 1+, Left biceps reflex intensity grade: 1+, Right brachioradialis reflex intensity grade: 1+, Left brachioradialis reflex intensity grade: 1+, Right patellar reflex intensity grade: 1+ and Left patellar reflex intensity grade: 1+ Coordination: [id number] test normal Assessment & Plan Assessment & Plan (1) Trigeminal neuralgia of right side of face: Comment: s/p dental implant Code(s): G50.0 - Trigeminal neuralgia Category: Medical Plan D/C tramadol D/C oxYcodone D/C nortriptyline Increase trileptal 300mg QAM 2 tabs qhs Increase pregabalin 25 mg qam and 50mg qhs MRI Brain she is also 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 Discontinued Reason: Doctor's Order 5 mg PO BID PRN 14 tabs 0RF pain Coding Level of Care Code New Pt Level 4 (11412) Complex EM visit Add On G2211 Diagnoses Trigeminal neuralgia of right side of face G50.0
--- OUTSIDE RECORDS SUMMARY | 2025-02-15 12:10 | XMS_ITS | Patient Health Record ---
Author Organization [facility] Address [address] [place] [address] Care Team Providers Care Procedure Tech Name Role Phone Kory Perdue MD Primary Care Provider Sammy Ace [phone] Allergies Allergen (clinical drug ingredient) Drug/Non Drug [...] Formula 1 4 PO QD Act rosy [place] 3 2 plus 1 capsule Orally 2 [...] Problem Status W/U Status Risk Notes Problem 920685385 Gastro-esophage al reflux disease without esophagitis (K21.9) Active confirmed Problem 707187717 Encounter for screening for malignant neoplasm of colon (Z12.11) Active confirmed Problem 908075259 History of adenomatous polyp of colon (Z86.010) Active confirmed Problem 51836508 Hypertension (I10) Active confirmed Problem Screening for malignant neoplasm of rectum (344987182) Encounter for screening for malignant neoplasm of rectum (Z12.12) Active confirmed Problem Dysphagia (02366657) Dysphagia (R13.10) Active confirmed Problem Gastroesophageal reflux disease (546290520) GERD (gastroesophage al reflux disease) (K21.9) Active confirmed Plan Of Treatment Future Test Test Name Order Date COLONOSCOPY 05/09/2011 COLONOSCOPY 11/19/2016 Insurance Providers Payer Name Payer Address Payer Phone Subscriber Number Group Number Insured Name Patient Relationship to Insured Coverage Start Date Coverage End Date [place] [address] [place] [address] [phone] [id number] [place] January Self - patient is the insured [facility] [address] [address] [place] [address] [id number] [place] January Self - patient is the insured Medical (General) History Medical History History ICD Code Glaucoma Trigeminal neuralgia Denies [place],DM,CVA,Lung disease,renal dise ase Breast cancer--left mastectomy, chemo, X RT Colonoscopy 05/2011--small t ubular adenoma removed, sigmoid diverticulosis, small internal hemorrhoids--- she has had prior colonoscopies while she was living in [place] GERD---Hiatal hernia surgery in [address] Christiansen at [facility]--s/p esophageal dilations at [facility]--she has had previous upper endoscopies in [place] when she was living there Hyperlipidemia NIDDM [...] t for glaucoma Hiatal hernia repair at [facility] as above
--- OUTSIDE RECORDS SUMMARY | 2025-02-15 12:10 | XMS_ITS | Clinical Summary ---
Author Organization [facility] Address [address] [place] [address] Care Team Providers Care Medical Technologist Prn Name Role Phone Kory Perdue MD Primary Care Provider [phone] Allergies Active Allergy Reactions Criticality Noted Date Comments Gabapentin Swelling 01/16/2016 joints [place] Other (See Comments) 01/16/2016 Cold sores Medications [...] - 1-dose 75+ series) 2018 Influenza Vaccine (Season Ended) 2025 Hepatitis B Vaccines Aged Out No long er eligible based on patient's age to complete this topic RSV Ped < 20 months Aged Out No longe r eligible based on patient's age to complete this topic Care Teams Medical Technologist Prn Relationship Specialty Start Date End Date Kory Perdue MD [address] [place] [address] [address] [place] [address] PCP - General Software Trainer 01/09/16
== END 2025-02-15 12:08 | disposition home or self-care (01) ==
LOC: HO.HSMS 11:23
PROVIDERS: PCP Physician Assistant; Visit Provider Psychiatry & Neurology Neurology
DX: G50.0 Trigeminal neuralgia (principal)
CPT/HCPCS: 99204; G2211

== ENCOUNTER → 2025-02-15 11:23 | Outpatient (BNVA) | payer MEDICARE, OTHER, SELFPAY | PROVIDERS: PCP Physician Assistant; Visit Provider Psychiatry & Neurology Neurology | DX: G50.0 Trigeminal neuralgia (principal); Z79.01 Long term (current) use of anticoagulants; Z79.899 Other long term (current) drug therapy | CPT/HCPCS: 99202 ==

== ENCOUNTER 2025-03-21 08:51 | Outpatient (AMB) | payer MEDICARE, OTHER, SELFPAY ==
--- NOTE | 2025-03-21 08:45 | MHC.OFFVIS ---
Intake Visit Reasons: 1mon follow-up per Accompanied by: Self / Same As Patient Allergies gabapentin (From Neurontin) Allergy (Intermediate, Verified 02/15/25 11:29) JOINTS SWELL famotidine Adverse Reaction (Mild, Verified 02/15/25 11:29) Dizziness warfarin (From Coumadin) Adverse Reaction (Verified 02/15/25 11:29) other oranges Allergy (Mild, Uncoded 02/15/25 11:29) cold sores Medication List - Last Reconciled 03/21/25 by Neelima Granados MD amiodarone 200 mg PO DAILY apixaban (Eliquis) 5 mg PO BID ascorbate calcium (vitamin C) 500 mg PO DAILY atorvastatin 10 mg PO DAILY cane As directed Hurry cane cholecalciferol (vitamin D3) 125 mcg PO DAILY coenzyme Q10 (Co Q-10) 200 mg PO DAILY dorzolamide-timolol 22.3-6.8 mg/mL 1 drp ophthalmic (eye) BID glipizide ER 1.25 mg PO DAILY latanoprost 0.005% 1 drp ophthalmic (eye) BEDTIME levothyroxine 50 mcg PO DAILY lorazepam 0.5 mg PO DAILY PRN meclizine 12.5 mg PO TID PRN metoprolol succinate ER 50 mg PO DAILY multivitamin 1 tab PO DAILY oxcarbazepine 1 tab tid pantoprazole 40 mg PO BID turmeric 400 mg PO DAILY [Vitamin b12 PO] HPI Comments Details: 80y/o female comes for follow up of trigeminal neuralgia. SHe has h/o right trigeminal neuralgia which was treated [address] Pascual which helped her significantly she had lower dental implants about 6 mths which triggered her right facial pain. The pain is in the right nasaolabial area radiating down to lower lip and chin. It is a sharp pain like a bad tooth ache .she also has numbness tingling, worse when she eats or talks,she has dull pain worsened whens he talks. No ear pain .This is different form her symptoms 13 years ago which involved right ear to cheek and was episodic she is on trileptal 300mg bid and i increased the dose to 300mg qam and 600mg qhs -added pregabalin 25mg qhs but patient did not toldertae with leg swelling dizziness. she is doing better after stopping pregabalin she takes Oxcarbamazepine 300mg qhs and takes the morning dose after her pain starts. [facility] Medical History Hypothyroidism Breast cancer, left Atrial fibrillation with rapid ventricular response Pulmonary hypertension Restrictive lung disease Diabetes Scoliosis CYNTHIA (obstructive sleep apnea) Obesity Cough HX: breast cancer Anemia Back pain Lymphedema of left arm GERD (gastroesophageal reflux disease) Blind right eye Trigeminal neuralgia of right side of face Hypertension CHF (congestive heart failure) Heart murmur after rheumatic heart disease Surgical History History of open reduction and internal fixation (ORIF) procedure History of ventral hernia repair History of left inguinal hernia repair History of bladder suspension procedure History of partial hysterectomy History of tonsillectomy and adenoidectomy Hx of esophagogastroduodenoscopy History of lymph node dissection of left axilla H/O left mastectomy Hx of wisdom tooth extraction History of colonoscopy (~12/02/22) Family History Father History of heart attack Mother History of leukemia History of hypertension Social History Household Members: Spouse Housing: House Housing Other:: Mobile home Are you a primary caretaker grounds to a significant other at home: No Do you presently have visiting nurse or other home services: No Alcohol intake: never Patient Tobacco Use Status: Never used Tobacco Advance Directives Date on File: 02/08/23 service: No Current occupational status: retired Cognitive needs: No Hearing needs: No Vision needs: Yes (Rx glasses) Physical Exam Const Other: Alert Awake oriented X 3 Telehealth Telehealth Telehealth Platform: Telephone Location of provider rendering services: practice address Location of patient: address on file Patient Identification confirmed using: Name, : Yes Telehealth method: voice only Patient verbally consented to treatment: Yes Patient verbally consented to billing insurance company: Yes Patient informed of any privacy concerns related to visit: Yes Minutes spent on Phone/Video with Pt.: 22 Assessment & Plan Assessment & Plan (1) Trigeminal neuralgia of right side of face: Comment: s/p dental implant Code(s): G50.0 - Trigeminal neuralgia Category: Medical Plan Oxcarbamazepine 300mg bid and third dose as needed in the middle of the day Her last sodium in January 2025 was 143. Stop pregabalin Medications: Changed From oxcarbazepine 1 tab qam and 2 tabs qhs orally 2 times a day; 45 tabs 6RF To oxcarbazepine 1 tab tid 90 tabs 6RF Discontinued pregabalin (Lyrica) Discontinued Reason: Patient no longer taking 1 cap qam and 2 caps qhs orally 2 times a day; 90 caps 5RF Coding Level of Care Code Tele Est Pt Level 4 (40281) Complex EM visit Add On G2211 Diagnoses Trigeminal neuralgia of right side of face G50.0 Time Spent (min) 23
--- OUTSIDE RECORDS SUMMARY | 2025-03-21 09:07 | XMS_ITS | Patient Health Record ---
Author Organization [facility] Address [address] [place] [address] Care Team Providers Care Collar Cutter Name Role Phone Nette (RETIRED) Kory WONG Primary Care Provide r Sammy Fish Unavailable [phone] Allergies Allergen (clinical drug ingredient) Drug/Non Drug [...] Formula 1 4 PO QD Act rosy [place] 3 2 plus 1 capsule Orally 2 [...] Problem Status W/U Status Risk Notes Problem 955307621 Gastro-esophage al reflux disease without esophagitis (K21.9) Active confirmed Problem 186966979 Encounter for screening for malignant neoplasm of colon (Z12.11) Active confirmed Problem 201706978 History of adenomatous polyp of colon (Z86.010) Active confirmed Problem 49772017 Hypertension (I10) Active confirmed Problem Screening for malignant neoplasm of rectum (576507417) Encounter for screening for malignant neoplasm of rectum (Z12.12) Active confirmed Problem Dysphagia (31922703) Dysphagia (R13.10) Active confirmed Problem Gastroesophageal reflux disease (345859121) GERD (gastroesophage al reflux disease) (K21.9) Active confirmed Plan Of Treatment Future Test Test Name Order Date COLONOSCOPY 05/09/2011 COLONOSCOPY 11/19/2016 Insurance Providers Payer Name Payer Address Payer Phone Subscriber Number Group Number Insured Name Patient Relationship to Insured Coverage Start Date Coverage End Date [place] [address] [place] [address] [id number] [place] January Self - patient is the insured [facility] [address] [address] [place] [address] [phone] [id number] [place] January Self - patient is the insured Medical (General) History Medical History History ICD Code Glaucoma Trigeminal neuralgia Denies [place],DM,CVA,Lung disease,renal dise ase Breast cancer--left mastectomy, chemo, X RT Colonoscopy 05/2011--small t ubular adenoma removed, sigmoid diverticulosis, small internal hemorrhoids--- she has had prior colonoscopies while she was living in [place] GERD---Hiatal hernia surgery in [address] Christiansen at [facility]--s/p esophageal dilations at [facility]--she has had previous upper endoscopies in [place] when she was living there Hyperlipidemia NIDDM [...] t for glaucoma Hiatal hernia repair at [facility] as above
--- OUTSIDE RECORDS SUMMARY | 2025-03-21 09:07 | XMS_ITS | Clinical Summary ---
Author Organization [facility] Address [address] [place] [address] Care Team Providers Care Ship Carpenter Name Role Phone Kory Perdue MD Primary Care Provider [phone] Allergies Active Allergy Reactions Criticality Noted Date Comments Gabapentin Swelling 01/16/2016 joints [place] Other (See Comments) 01/16/2016 Cold sores Medications [...] 1-dose 75+ series) 2018 Influenza Vaccine (#1) 2025 Hepatitis B Vaccines Aged Out No long er eligible based on patient's age to complete this topic RSV Ped < 20 months Aged Out No longe r eligible based on patient's age to complete this topic Care Teams Ship Carpenter Relationship Specialty Start Date End Date Kory Perdue MD [address] [place] [address] Dr [address] [place] [address] PCP - General Ware Tester 01/09/16
--- OUTSIDE RECORDS SUMMARY | 2025-03-21 09:07 | XMS_ITS | Clinical Summary ---
Author Organization [facility] Address [address] [place] [address] Phone Care Team Providers Care Boat Canvas Maker Installer Name Role Phone Unknown, Unknown Primary Care Provider Monserrat carranza Allergies Active Allergy Reactions Criticality Noted Date Comments Carbamazepine Itching 02/01/2014 Gabapentin Swelling 02/01/2014 Medications dorzolamide-farshad lol (COSOPT) 22.3-6.8 mg/mL ophthalmic solution Place 1 drop into each eye 2 (two) times a day. Active latanoprost (XALATAN) 0.005 % ophthalmic solution Place 1 drop into the right eye nightly. Active anastrozole (ARIMIDEX) 1 mg tablet Take 1 mg by mouth daily. Active ATORVASTATIN CALCIUM (ATORVASTATIN ORAL) Take by mouth. Active multivitamin Liqd Take 5 mL by mouth daily. Active cholecalciferol (VITAMIN D3) 1,000 unit tablet Take 1,000 Units by mouth daily. Active CALCIUM CARBONATE (CALCI-CHEW ORAL) Take by mouth. Active coenzyme Q10 (CO Q-10) 10 mg capsule Take 10 mg by mouth daily. Active RESVERATROL ORAL Take by mouth. 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 Not on ashok e 12/12/2022 Are you concerned about learning? Not on file 12/12/2022 No 12/12/2022 No 12/12/2022 Digital Access Answer Date Recorded No 01/12/2023 No 01/12/2023 No 01/12/2023 Reliable internet access at home? Not on file 01/12/2023 Device with a working camera? Not on file Comments Unknown Sex and Gender Information Value Date Recorded Sex Assigned at Not on file Legal Sex Female 8:02 AM EST Gender Identity Not on file Sexual Orientation Not on file Plan of Treatment Health Maintenance Due Date Last Done Comments Adult Td,Tdap Booster 1945 DEPRESSION SCREENING 1955 ZOSTER VACCINES (1 of 2) 1962 OSTEOPOROSIS SCREENING INITI AL (ONE-TIME) 01/16/2008 PNEUMOCOCCAL VACCINES (50+ y ears) (2 of 2 - PPSV23) 10/21/2017 08/26/2017 RSV VACCINE (1 - 1-dose 75+ series) 2018 COVID-19 VACCINE (2 - 2023-2 5 season) 2024 10/10/2020 HEPATITIS A VACCINES Aged Out No long er eligible based on patient's age to complete this topic HIB VACCINES Aged Out No longer eligi ble based on patient's age to complete this topic MENINGOCOCCAL VACCINES (ACWY) Aged Out No longer eligible based on patient's age to complete this topic MENINGOCOCCAL VACCINES (B) Aged Out N o longer eligible based on patient's age to complete this topic Medical Devices Not on file Insurance MEDICARE PART A & B Member Subscriber Plan / Payer (Ef fective 2007-Present) Name:Slime Caldwell Member ID:[id number] Relation to Subscriber:Self Name:Slime Caldwell Subscriber ID:[id number] Payer ID:[id number] Group ID:Not on file Type:Medicare Address: [employer] [address] [place] [phone] [facility] MEDICARE ENHANCE SUPPLEMENT MEDICARE PART A & B [facility] MEDICARE ENHANCE SUPPLEMENT MEDICARE PART A & B [facility] MEDICARE ENHANCE SUPPLEMENT MEDICARE PART A & B [facility] MEDICARE ENHANCE SUPPLEMENT MEDICARE PART A & B [facility] MEDICARE ENHANCE SUPPLEMENT MEDICARE PART A & B [facility] MEDICARE ENHANCE SUPPLEMENT MEDICARE PART A & [place] [address] [place] [address] MEDICARE ENHANCE SUPPLEMENT MEDICARE PART A & B [facility] MEDICARE ENHANCE SUPPLEMENT MEDICARE PART A & B [facility] MEDICARE ENHANCE SUPPLEMENT Care Teams Boat Canvas Maker Installer Relationship Specialty Start Date End Date Unknown, Unknown, PCP - General 04/30/16 Additional Source Comments The information contained in this document represents components of the legal health record. It is not the complete legal health record.[facility]
== END 2025-03-24 10:43 | disposition home or self-care (01) ==
LOC: HO.HSMS 08:51
PROVIDERS: PCP Physician Assistant; Visit Provider Psychiatry & Neurology Neurology
DX: G50.0 Trigeminal neuralgia (principal)
CPT/HCPCS: 99214; G2211

== ENCOUNTER 2025-04-08 10:11 | Outpatient (REF) | payer MEDICARE, OTHER, SELFPAY ==
--- OUTSIDE RECORDS SUMMARY | 2025-04-08 10:14 | XMS_ITS | Patient Health Record ---
Author Organization [facility] Address [address] [place] [address] Care Team Providers Care Cold Storage Superintendent Name Role Phone Nette (RETIRED) Kory WONG Primary Care Provide r Sammy Fish Unavailable [phone] Allergies Allergen (clinical drug ingredient) Drug/Non Drug [...] Formula 1 4 PO QD Act rosy [place] 3 2 plus 1 capsule Orally 2 [...] Problem Status W/U Status Risk Notes Problem 769251873 Gastro-esophagea l reflux disease without esophagitis (K21.9) Active confirmed Problem 767582666 Encounter for screening for malignant neoplasm of colon (Z12.11) Active confirmed Problem 695908009 History of adenomatous polyp of colon (Z86.010) Active confirmed Problem 10050181 Hypertension (I10) Active confirmed Problem Screening for malignant neoplasm of rectum (929139880) Encounter for screening for malignant neoplasm of rectum (Z12.12) Active confirmed Problem Dysphagia (41411419) Dysphagia (R13.10) Active confirmed Problem GERD (gastroesophageal reflux disease) (K21.9) Active confirmed Plan Of Treatment Future Test Test Name Order Date COLONOSCOPY 05/09/2011 COLONOSCOPY 11/19/2016 Insurance Providers Payer Name Payer Address Payer Phone Subscriber Number Group Number Insured Name Patient Relationship to Insured Coverage Start Date Coverage End Date MED[place]ARE OF [place] [address] [place] [address] [id number] [place] January Self - patient is the insured [employer] [address] [address] [place] [address] [id number] MON[place]OM[place] January Self - patient is the insured Medical (General) History Medical History History ICD Code Glaucoma Trigeminal neuralgia Denies IA,DM,CVA,Lung disease,renal dise ase Breast cancer--left mastectomy, chemo, X RT Colonoscopy 05/2011--small t ubular adenoma removed, sigmoid diverticulosis, small internal hemorrhoids--- she has had prior colonoscopies while she was living in [place] GERD---Hiatal hernia surgery in [address] Christiansen at [facility]--s/p esophageal dilations at [facility]--she has had previous upper endoscopies in [place] when she was living there Hyperlipidemia NIDDM [...] t for glaucoma Hiatal hernia repair at [facility] as above
--- OUTSIDE RECORDS SUMMARY | 2025-04-08 10:14 | XMS_ITS | Clinical Summary ---
Author Organization [facility] Address [address] [place] [address] Care Team Providers Care Library Services Coordinator Name Role Phone Kory Perdue MD Primary Care Provider [phone] Allergies Active Allergy Reactions Criticality Noted Date Comments Gabapentin Swelling 01/16/2016 joints [place] Other (See Comments) 01/16/2016 Cold sores Medications [...] age to complete this topic Care Teams Library Services Coordinator Relationship Specialty Start Date End Date Kory Perdue MD [address] [place] [address] Dr [address] [place] [address] PCP - General Facility Attendant 01/09/16
[2025-04-08 14:17] LABS: Hemoglobin A1C 106.7500 umol/L; Total Hemoglobin (HGBA1C) 2520.7727 umol/L
== END 2025-04-08 10:12 | disposition home or self-care (01) ==
LOC: HO.HMGCLDS 10:11
PROVIDERS: PCP Physician Assistant; Visit Provider Physician Assistant
DX: E11.9 Type 2 diabetes mellitus without complications (principal); E03.9 Hypothyroidism, unspecified
CPT/HCPCS: 36415; 83036; 84443

== ENCOUNTER 2025-04-11 09:08 | Outpatient (AMB) | payer MEDICARE, OTHER, SELFPAY ==
--- NOTE | 2025-04-11 09:13 | MHC.PC.OV ---
Vital Signs 04/11/25 09:21 Height 5 ft Weight 78.471 kg BMI 33.8 BP 150/68 H Respiration 18 Pulse 60 Pulse Source Pulse Oximeter Temp 97.6 F Temp Source Temporal Artery Scan Pulse Oximetry (%) 97 Oxygen Delivery Method Room Air Intake Visit Reasons: Routine Producer Required: No Accompanied by: Self / Same As Patient Allergies gabapentin (From Neurontin) Allergy (Intermediate, Verified 04/11/25 09:14) JOINTS SWELL famotidine Adverse Reaction (Mild, Verified 04/11/25 09:14) Dizziness warfarin (From Coumadin) Adverse Reaction (Verified 04/11/25 09:14) other oranges Allergy (Mild, Uncoded 04/11/25 09:14) cold sores Tobacco use date assessed: 12/23/24 Dental Screening Dental Screen Date: 12/23/24 HPI HPI Comments History of Present Illness Details 79-year-old female with history of paroxysmal atrial fibrillation, hypertension, diabetes, trigeminal neuralgia, post herpetic neuralgia presents to the office today for follow-up Paroxysmal atrial fibrillation/hypertension-anticoagulated with Eliquis. On amiodarone and metoprolol. Following with [facility] Cardiology. No longer on diuretics but has had increased edema. Blood pressure on recheck 138/66 Type 2 diabetes-on glipizide 1.25 mg extended release. Trigeminal neuralgia- following with Dr. Granados. Trileptal is being titrated though she is experiencing adverse effects including lightheadedness, edema, upset stomach. She also states she feels unsteady and is now ambulating with a cane. She was previously on Lyrica but states symptoms were worse. Concerns: Trigeminal neuralgia as above ROS: see hpi EXAM: Constitutional - Awake and Alert, No apparent distress Eyes - PERRL Cardiovascular - S1S2, RRR, 2+ edema Respiratory - Normal lung expansion, Normal respiratory effort, No respiratory distress, CTA bilaterally Extremities - no calf tenderness bilaterally, no swelling Skin - Warm/Dry Neurological - Alert & oriented x3 Psychological - Appropriate affect [facility] Medical History Hypothyroidism Breast cancer, left Atrial fibrillation with rapid ventricular response Pulmonary hypertension Restrictive lung disease Diabetes Scoliosis CYNTHIA (obstructive sleep apnea) Obesity Cough HX: breast cancer Anemia Back pain Lymphedema of left arm GERD (gastroesophageal reflux disease) Blind right eye Trigeminal neuralgia of right side of face Hypertension CHF (congestive heart failure) Heart murmur after rheumatic heart disease Surgical History History of open reduction and internal fixation (ORIF) procedure History of ventral hernia repair History of left inguinal hernia repair History of bladder suspension procedure History of partial hysterectomy History of tonsillectomy and adenoidectomy Hx of esophagogastroduodenoscopy History of lymph node dissection of left axilla H/O left mastectomy Hx of wisdom tooth extraction History of colonoscopy (~12/02/22) Family History Father History of heart attack Mother History of leukemia History of hypertension Social History Household Members: Spouse Housing: House Housing Other:: Mobile home Are you a primary intensive care ambulance paramedic to a significant other at home: No Do you presently have visiting nurse or other home services: No Alcohol intake: never Patient Tobacco Use Status: Never used Tobacco Advance Directives Date on File: 02/08/23 service: No Current occupational status: retired Cognitive needs: No Hearing needs: No Vision needs: Yes (Rx glasses) Questionnaire Thrive Questionnaire Date Thrive assessed: 12/23/24 SERGIO-7 AMB Questionnaire SERGIO-7 Date SERGIO - 7 assessed: 12/23/24 Source: Developed by Drs. Sammy Almonte, Cyndy Arias, Gonzalo Jo and colleagues, with an educational junior from [employer]. Physical exam (Primary Care) Vital Signs: Last Vital Signs Temp 97.6 F 04/11/25 09:21 Pulse 60 04/11/25 09:21 Resp 18 04/11/25 09:21 BP 150/68 H 04/11/25 09:21 Pulse Ox 97 04/11/25 09:21 Oxygen Delivery Method Room Air 04/11/25 09:21 BMI result Body Mass Index 33.8 Tobacco/Smoking Status: Tobacco use Status Tobacco use date assessed 12/23/24 04/11/25 09:13 Patient Tobacco Use Status Never used Tobacco 04/11/25 09:13 Thrive Assessment: Date of Thrive Assessment Date Thrive assessed 12/23/24 04/11/25 09:13 Coding Level of Care Code Est Pt Level 4 (35073) Complex EM visit Add On G2211 Diagnoses Hypertension I10 CHF (congestive heart failure) I50.9 Type 2 diabetes mellitus E11.9 Hypothyroidism E03.9 Trigeminal neuralgia of right side of face G50.0 Assessment & Plan Assessment & Plan (1) Hypertension: Code(s): I10 - Essential (primary) hypertension Category: Medical Plan: Controlled on recheck. Continue current therapies (2) CHF (congestive heart failure): Code(s): I50.9 - Heart failure, unspecified Category: Medical Plan: Overall asymptomatic but has had increased edema following discontinuation of her diuretics. Recommend contacting Cardiology regarding why her diuretics were discontinued as I am unable to find this in their notes. However, did discuss that this could exacerbate lightheadedness (3) Type 2 diabetes mellitus: Code(s): E11.9 - Type 2 diabetes mellitus without complications Category: Medical Plan: Controlled. Continue glipizide (4) Hypothyroidism: Code(s): E03.9 - Hypothyroidism, unspecified Category: Medical Plan: Controlled. Continue levothyroxine (5) Trigeminal neuralgia of right side of face: Comment: s/p dental implant Code(s): G50.0 - Trigeminal neuralgia Category: Medical Plan: Advised to contact Neurology regarding side effects related to Trileptal. She has been unable to tolerate other therapies. Plan Follow up in the office in 3 months with labs completed prior to visit Orders: Orders Hemoglobin A1c 3 Months E03.9 - Hypothyroidism, unspecified, E11.9 - Type 2 diabetes mellitus without complications, I10 - Essential (primary) hypertension Lipid Panel 3 Months E03.9 - Hypothyroidism, unspecified, E11.9 - Type 2 diabetes mellitus without complications, I10 - Essential (primary) hypertension Basic Metabolic Panel 3 Months E03.9 - Hypothyroidism, unspecified, E11.9 - Type 2 diabetes mellitus without complications, I10 - Essential (primary) hypertension Microalbumin, Random (w Creat) 3 Months E03.9 - Hypothyroidism, unspecified, E11.9 - Type 2 diabetes mellitus without complications, I10 - Essential (primary) hypertension TSH reflex Free T4 3 Months E03.9 - Hypothyroidism, unspecified, E11.9 - Type 2 diabetes mellitus without complications, I10 - Essential (primary) hypertension
[2025-04-11 09:21] VITALS: BP 150/68; PULSE 60; RESP 18; TEMP 36.4; O2SAT 97; BMI 33.8
--- OUTSIDE RECORDS SUMMARY | 2025-04-11 09:30 | XMS_ITS | Clinical Summary ---
Author Organization [facility] Address [address] [place] [address] Phone Care Team Providers Care Fish Drier Name Role Phone Unknown, Unknown Primary Care [...] Payer (Ef fective 2007-Present) Name:Slime Caldwell Member ID:[id number] Relation to Subscriber:Self Name:Slime Caldwell Subscriber ID:[id number] Payer ID:[id number] Group ID:Not on file Type:Medicare Address: [employer] [address] [place] [phone] [facility] MEDICARE ENHANCE SUPPLEMENT MEDICARE PART A & B [facility] MEDICARE ENHANCE SUPPLEMENT MEDICARE PART A & B [facility] MEDICARE ENHANCE SUPPLEMENT MEDICARE PART A & B [facility] MEDICARE ENHANCE SUPPLEMENT MEDICARE PART A & B [facility] MEDICARE ENHANCE SUPPLEMENT MEDICARE PART A & B [facility] MEDICARE ENHANCE SUPPLEMENT MEDICARE PART A & [place] [address] [address] [place] [address] MEDICARE ENHANCE SUPPLEMENT MEDICARE PART A & B [facility] MEDICARE ENHANCE SUPPLEMENT MEDICARE PART A & B [facility] MEDICARE ENHANCE SUPPLEMENT Care Teams Fish Drier Relationship Specialty Start Date End Date Unknown, Unknown, PCP - General 04/30/16 Additional Source Comments The information contained in this document represents components of the legal health record. It is not the complete legal health record.[facility]
--- OUTSIDE RECORDS SUMMARY | 2025-04-11 09:30 | XMS_ITS | Clinical Summary ---
Author Organization [facility] Address [address] [place] [address] Care Team Providers Care Library Director Name Role Phone Kory Perdue MD Primary Care Provider [phone] Allergies Active Allergy Reactions Criticality Noted Date Comments Gabapentin Swelling 01/16/2016 joints [place] Other (See Comments) 01/16/2016 Cold sores Medications [...] to complete this topic Care Teams Library Director Relationship Specialty Start Date End Date Kory Perdue MD [address] [place] [address] Dr [address] [place] [address] PCP - General Nutrition Aides Teacher 01/09/16
--- OUTSIDE RECORDS SUMMARY | 2025-04-11 09:30 | XMS_ITS | Patient Health Record ---
Author Organization [facility] Address [address] [place] [address] Care Team Providers Care Web Services Developer Name Role Phone Nette (RETIRED) Kory WONG Primary Care Provide r Sammy Fish Unavailable [phone] Allergies Allergen (clinical drug ingredient) Drug/Non Drug [...] Formula 1 4 PO QD Act rosy [place] 3 2 plus 1 capsule Orally 2 [...] Problem Status W/U Status Risk Notes Problem 059134801 Gastro-esophage al reflux disease without esophagitis (K21.9) Active confirmed Problem 497123426 Encounter for screening for malignant neoplasm of colon (Z12.11) Active confirmed Problem 050041057 History of adenomatous polyp of colon (Z86.010) Active confirmed Problem 62092480 Hypertension (I10) Active confirmed Problem Screening for malignant neoplasm of rectum (217602927) Encounter for screening for malignant neoplasm of rectum (Z12.12) Active confirmed Problem Dysphagia (R13.10) Active confirmed Problem Gastroesophageal reflux disease (655341469) GERD (gastroesophage al reflux disease) (K21.9) Active confirmed Plan Of Treatment Future Test Test Name Order Date COLONOSCOPY 05/09/2011 COLONOSCOPY 11/19/2016 Insurance Providers Payer Name Payer Address Payer Phone Subscriber Number Group Number Insured Name Patient Relationship to Insured Coverage Start Date Coverage End Date [place] [address] [place] [address] [id number] K[place]AM[place] January Self - patient is the insured [facility] [address] [address] [place] [address] [id number] KALAMAZOO January Self - patient is the insured Medical (General) History Medical History History ICD Code Glaucoma Trigeminal neuralgia Denies ID,DM,CVA,Lung disease,renal dise ase Breast cancer--left mastectomy, chemo, X RT Colonoscopy 05/2011--small t ubular adenoma removed, sigmoid diverticulosis, small internal hemorrhoids--- she has had prior colonoscopies while she was living in [place] GERD---Hiatal hernia surgery in [address] Christiansen at [facility]--s/p esophageal dilations at [facility]--she has had previous upper endoscopies in [place] when she was living there Hyperlipidemia NIDDM [...] t for glaucoma Hiatal hernia repair at [facility] as above
== END 2025-04-11 10:00 | disposition home or self-care (01) ==
LOC: HO.HMCHD 09:09
PROVIDERS: PCP Physician Assistant; Visit Provider Physician Assistant
DX: I10 Essential (primary) hypertension (principal); I50.9 Heart failure, unspecified; E11.9 Type 2 diabetes mellitus without complications; E03.9 Hypothyroidism, unspecified; G50.0 Trigeminal neuralgia

== ENCOUNTER → 2025-04-11 09:08 | Outpatient (BNVA) | payer MEDICARE, OTHER, SELFPAY | PROVIDERS: PCP Physician Assistant; Visit Provider Physician Assistant | DX: I11.0 Hypertensive heart disease with heart failure (principal); I50.9 Heart failure, unspecified; E11.9 Type 2 diabetes mellitus without complications; E03.9 Hypothyroidism, unspecified; G50.0 Trigeminal neuralgia; Z79.84 Long term (current) use of oral hypoglycemic drugs; Z79.899 Other long term (current) drug therapy | CPT/HCPCS: 99212 ==

== ENCOUNTER 2025-04-21 18:22 | Emergency (ER) | payer MEDICARE, OTHER, SELFPAY ==
--- NOTE | ~2025-04-21 | XR_ITS ---
CLINICAL HISTORY: shortness of breath 2 view chest x-ray Comparison: CR - XR CHEST 1V - 08/28/24 10:[address]/REG/SR - CT CHEST WO IV CON - 01/30/23 15:21 EDT Findings: Lung inflation is normal. Enlarged cardiac silhouette is unchanged. Bibasilar subsegmental atelectasis and/or consolidation is present. Small bilateral pleural effusions are present. Large airways are normal. The aorta is ectatic. Patient is status post left mastectomy. No acute fracture. IMPRESSION: Bibasilar subsegmental atelectasis and consolidation with small pleural effusions. This may represent sequelae of infection, inflammation. This document has been electronically signed by: Mumtaz Garza III, MD PHD on 04/21/2025 22:01:28
[2025-04-21 18:42] VITALS: BP 211/86; PULSE 59; RESP 18; TEMP 36.7; O2SAT 95; BMI 33.4
--- NOTE | 2025-04-21 18:42 | ED.GENADULT ---
HPI - General Adult General Chief complaint: General Medical Stated complaint: arm/legs pain swelling, meds not working Time Seen by Provider: 04/21/25 20:39 Source: patient, family, RN notes reviewed and old records reviewed Mode of arrival: ambulatory Limitations: no limitations History of Present Illness ED Provider: Mack HPI narrative: 80-year-old female with a past medical history significant for trigeminal neuralgia, hypothyroidism, type 2 diabetes, hypertension, CHF, paroxysmal AFib on Eliquis, hypertension, GERD, obesity presents for evaluation of right facial pain. Her pain is consistent with a previous history of trigeminal neuralgia. She has been on gabapentin in the past, Lyrica, oxcarbazepine, nortriptyline, prednisone none of which she feels has helped her pain. She states that tramadol does help largely. She denies any falls or injury to her face. She reports her pain is worse with chewing or cold sensations. She is due to see a surgeon next Thursday for a nerve block. She reports that she has been unable to eat since her pain has worsened over the last month. She also endorses shortness of breath but denies any cough, fevers, chills or chest pain. Denies any recent travel or sick contacts. He has a history of lymphedema Related Data Home Medications ?Medication ?Instructions ?Recorded ?Confirmed atorvastatin 10 mg tablet 10 mg PO DAILY 07/30/20 03/21/25 latanoprost 0.005 % eye drops 1 drp ophthalmic (eye) BEDTIME 07/30/20 03/21/25 lorazepam 0.5 mg tablet 0.5 mg PO DAILY PRN Anxiety 07/30/20 03/21/25 dorzolamide 22.3 mg-timolol 6.8 1 drp ophthalmic (eye) BID 10/29/20 03/21/25 mg/mL eye drops glipizide 2.5 mg tablet, extended 1.25 mg PO DAILY 12/04/20 03/21/25 release 24 hr multivitamin 1 tab PO DAILY 02/19/24 03/21/25 tramadol 50 mg tablet 50 mg PO DAILY PRN pain 04/11/25 Previous Rx's ?Medication ?Instructions ?Recorded metoprolol succinate 50 mg 50 mg PO DAILY #90 tabs 07/25/24 tablet,extended release 24 hr cane #1 ea 09/02/24 pantoprazole 40 mg tablet,delayed 40 mg PO BID #180 tabs 11/07/24 release amiodarone 200 mg tablet 200 mg PO DAILY #90 tabs 11/08/24 levothyroxine 50 mcg tablet 50 mcg PO DAILY #90 tabs 12/28/24 meclizine 12.5 mg tablet 12.5 mg PO TID PRN dizziness #30 01/27/25 tabs apixaban 5 mg tablet (Eliquis) 5 mg PO BID #60 tabs 02/14/25 oxcarbazepine 300 mg tablet See Rx Instructions PO TID #90 tabs 03/21/25 furosemide 40 mg tablet (Lasix) 40 mg PO DAILY #5 tabs 04/21/25 morphine 15 mg immediate release 15 mg PO BID PRN severe pain 04/21/25 tablet (scale score 7-10) #14 tabs Allergies Allergy/AdvReac Type Severity Reaction Status Date / Time gabapentin (From Neurontin) Allergy Intermediate JOINTS Verified 04/21/25 18:44 SWELL oxcarbazepine Allergy Swelling Verified 04/21/25 18:44 famotidine AdvReac Mild Dizziness Verified 04/21/25 18:44 warfarin (From Coumadin) AdvReac other Verified 04/21/25 18:44 oranges Allergy Mild cold sores Uncoded 04/11/25 09:14 Review of Systems Constitutional: Constitutional: Denies body ache(s), Denies chills, Denies fever(s), Denies frequent falls and Denies headache(s) Eyes: Eyes: Denies irritation ENT: Denies headache(s) Cardiovascular: Cardiovascular: Denies chest pain, Reports pedal edema, Reports leg edema, Reports dyspnea and Reports dyspnea on exertion Respiratory: Respiratory: Denies chest congestion, Denies cough, Denies hemoptysis, Denies excessive phlegm production, Reports dyspnea, Reports dyspnea on exertion and Denies wheezing Gastrointestinal: Gastrointestinal: Denies abdominal pain, Denies nausea and Denies vomiting Musculoskeletal: Musculoskeletal: Denies back pain and Denies arthralgias Integumentary/Breasts: Skin/Breast: Denies rash Neurologic: Denies frequent falls and Denies headache(s) Psychiatric: Psychiatric: Denies anxiety Allergic/Immunologic: Allergic/Immunologic: Denies wheezing PMFSH Past Medical History Medical History Hypothyroidism Breast cancer, left Atrial fibrillation with rapid ventricular response Pulmonary hypertension Restrictive lung disease Diabetes Scoliosis CYNTHIA (obstructive sleep apnea) Obesity Cough HX: breast cancer Anemia Back pain Lymphedema of left arm GERD (gastroesophageal reflux disease) Blind right eye Trigeminal neuralgia of right side of face Hypertension CHF (congestive heart failure) Heart murmur after rheumatic heart disease Surgical History History of open reduction and internal fixation (ORIF) procedure History of ventral hernia repair History of left inguinal hernia repair History of bladder suspension procedure History of partial hysterectomy History of tonsillectomy and adenoidectomy Hx of esophagogastroduodenoscopy History of lymph node dissection of left axilla H/O left mastectomy Hx of wisdom tooth extraction History of colonoscopy (~12/02/22) Family History Family History Father History of heart attack Mother History of leukemia History of hypertension Social History Social History Household Members: Spouse Housing: House Housing Other:: Mobile home Are you a primary health care marketing manager to a significant other at home: No Do you presently have visiting nurse or other home services: No Alcohol intake: never Patient Tobacco Use Status: Never used Tobacco Advance Directives: Yes Advance Directives on File: Yes Advance Directives Date on File: 02/08/23 service: No Current occupational status: retired Cognitive needs: No Hearing needs: No Vision needs: Yes (Rx glasses) Physical Exam ED Vital Signs: Vital Signs - 24 hr 04/21/25 18:42 04/21/25 20:38 Temperature 98.1 F 97.8 F Pulse Rate 59 61 Respiratory Rate 18 16 Blood Pressure 211/86 H 163/50 H Pulse Oximetry 95 96 Oxygen Delivery Method Room Air Room Air BMI result Body Mass Index 33.4 Const General: healthy appearing, comfortable, no acute distress, alert and awake Nutritional Appearance: well nourished Orientation/consciousness: patient oriented x3 HENMT Head: Yes normocephalic and Yes atraumatic Eyes Eyelids: Yes eyelids normal Conjunctivae: conjunctivae normal Sclerae: sclerae normal Corneas: corneas normal Pupils: Equal, round and reactive pupils present EOM: EOMs intact bilaterally Neck Neck: Yes full ROM Resp Effort & Inspection: normal respiratory effort, able to speak in complete sentences and not labored Cardio Other: 2+ pitting edema to lower extremities bilaterally. Rate: regular rate Rhythm: regular rhythm GI Inspection: No distended Palpation (GI): Soft to palpation, not firm, nontender, no guarding and not rigid Skin General skin exam: elasticity normal Neuro General: patient oriented x3 Cranial nerves: Yes Equal, round and reactive pupils present and Yes Bilaterally intact EOM present Cognition (Neuro): normal cognition Extrem Other: Left upper extremity has 3+ nonpitting edema. Course Course Course Narrative: This is a rapid medical exam performed by Diane Washington NP: Additional HPI, ROS, PE not included below will be deferred to primary provider. Patient is an 80-year-old female with history of trigeminal neuralgia on trileptal, T2DM, CHF, HTN, paroxysmal afib on eliquis, breast CA presenting with right sided facial pain r/t TN, getting over shingles on the left, also complaining of worsening left arm and LE pain and swelling. BP 211/86 in triage Plan: EKG, Labs Medications Administered Discontinued Medications Generic Name Dose Route Start Last Admin Trade Name Freq PRN Reason Stop Dose Admin Morphine Sulfate 15 mg 04/21/25 21:13 04/21/25 21:58 Morphine Sulfate Immed Release 15 Mg Tablet PO 04/21/25 21:14 15 mg ONCE ONE Administration Medical Decision Making Medical Decision Making MDM Narrative: 80-year-old female presents for evaluation of primarily right facial pain. There was no evidence of dental infection. She has a history of trigeminal neuralgia in his failed multiple treatments including gabapentin, Lyrica, oxcarbazepine, nortriptyline, prednisone. She is due to have a nerve block this coming week. I did trial a dose of morphine which she fell improved her pain but did not completely resolve it. There was no evidence of infectious process to the face. The patient also complains of shortness of breath which has been going on for 1-2 months. She attributes most of her swelling to the ox carbamazepine which she started last month. She has no fever, chills, cough or phlegm production. Her BNP is elevated to over a 1000, her chest x-ray shows small pleural effusions. It does show possible consolidation although the patient does not truly have infectious symptoms, no fever, no white count. I feel this is less likely to be pneumonia and more likely a volume overload. We will treat with Lasix. The patient is not hypoxic. Differential Diagnosis Differential Diagnoses: The differential diagnosis associated with the presentation includes Trigeminal neuralgia Facial pain Fluid overload CHF Lymphedema Admission/Observation Consideration of admission/observation: Escalation of care including admission/observation considered The patient has no infectious symptoms, is not hypoxic or in any respiratory distress. Lab Data MDM Lab Attestation statement: I reviewed the patient's lab results. The patient has a mild pancytopenia. Her hemoglobin and platelet count are quite similar to her baseline. Her white count is typically 5-6 and today she has 4.7, so not significantly decreased. No significant electrolyte abnormalities. The patient is troponin is 17.7, she has no chest pain but does have an elevated BNP of 1009, this is likely related to her fluid overload and can contribute to a mild troponinemia. EKG is nonischemic 04/21/25 19:06 04/21/25 19:06 Labs: Lab Results 04/21/25 Range/Units 19:06 WBC 4.7 L (4.8-10.8) X10*3/uL RBC 4.30 (4.20-5.50) X10*6/uL Hgb 9.3 L (12.0-16.0) g/dl Hct 32.1 L (37.0-47.0) % MCV 74.7 L (80.0-98.0) fL MCH 21.6 L (27.0-33.0) pg MCHC 29.0 L (31.0-35.0) g/dl RDW 20.1 H (11.0-16.0) % Plt Count 140 L (160-400) X10*3/uL MPV 9.0 L (9.4-12.3) fL Immature Gran % (Auto) 0.4 (0.0-0.4) % Neut % (Auto) 71.7 (45-73) % Lymph % (Auto) 12.4 L (20-40) % Spencer % (Auto) 13.2 H (2-11) % Eos % (Auto) 1.9 (0-4) % Baso % (Auto) 0.4 (0-2) % Lymph # (Auto) 0.6 L (1.2-4.9) X10*3/uL Spencer # (Auto) 0.6 (0.1-1.2) X10*3/uL Eos # (Auto) 0.1 (0.0-0.4) X10*3/uL Baso # (Auto) 0.0 (0.0-0.2) X10*3/uL Abs Immat Gran (auto) 0.02 (0.00-0.03) X10*3/uL Absolute Neuts (auto) 3.4 (2.0-8.3) x10*3/uL Absolute Nucleated RBC 0.000 (0.0-0.012) X10*3/uL Nucleated RBC % (auto) 0.0 (0.0-0.2) /100WBC PT 17.9 H (10.9-12.4) SEC INR 1.6 H (0.9-1.1) Sodium 144 (135-145) mmol/L Potassium 4.5 (3.3-5.1) mmol/L Chloride 107 (96-108) mmol/L Carbon Dioxide 29 (22-29) mmol/L Anion Gap 13 (12-20) BUN 17 H (9-16) mg/dL Creatinine 0.99 (0.5-1.4) mg/dL Estim Creat Clear Calc 40.3 Estimated GFR 54 Random Glucose 110 (60-115) mg/dL Calcium 8.6 (8.4-10.2) mg/dL Total Bilirubin 0.4 (0.0-1.0) mg/dL AST 22 (5-31) U/L ALT 18 (0-31) U/L Alkaline Phosphatase 100 (39-117) U/L Troponin I High Sens 17.7 H D (<3.5-17.0) ng/L B-Natriuretic Peptide 1009 H (<100) pg/mL Total Protein 6.2 L (6.5-8.0) g/dL Albumin 4.1 (3.5-5.0) g/dL Independent Interpretation I performed an independent interpretation of an: EKG (Sinus bradycardia with a rate of 58 beats minute. There was a left bundle branch block documented previously in August of 2024.) and Plain X-Ray (Mild pleural effusions bilaterally.) Discharge Plan Discharge Clinical Impression: Trigeminal neuralgia of right side of face Patient Disposition: Home, Self-Care Instructions: Trigeminal Neuralgia (ED) Additional Instructions: Your workup in the ER today was reassuring. I recommend taking morphine 15 mg twice daily, approximately every 12 hours for your pain. Follow-up with your specialist next week for your nerve block. Return for new or worsening symptoms The morphine may make you drowsy, do not drink alcohol or drive after taking it Take the Lasix 40 mg daily for the next 5 days to help remove swelling Prescriptions: New furosemide [Lasix] 40 mg tablet 40 mg PO DAILY Qty: 5 0RF morphine 15 mg tablet 15 mg PO BID PRN (Reason: severe pain (scale score 7-10)) Qty: 14 0RF Rx Instructions: Partial Fill upon patient request. No Action metoprolol succinate 50 mg tablet extended release 24 hr 50 mg PO DAILY Qty: 90 3RF pantoprazole 40 mg tablet,delayed release (DR/EC) 40 mg PO BID Qty: 180 2RF amiodarone 200 mg tablet 200 mg PO DAILY Qty: 90 2RF levothyroxine 50 mcg tablet 50 mcg PO DAILY Qty: 90 1RF Eliquis 5 mg tablet 5 mg PO BID Qty: 60 5RF atorvastatin 10 mg Tablet 10 mg PO DAILY lorazepam 0.5 mg Tablet 0.5 mg PO DAILY PRN (Reason: Anxiety) latanoprost 0.005 % Drops 1 drp ophthalmic (eye) BEDTIME (DME) cane Device See Rx Instructions .Route Qty: 1 0RF Rx Instructions: As directed Bobby stern dorzolamide-timolol 22.3-6.8 mg/mL drops 1 drp ophthalmic (eye) BID glipizide 2.5 mg tablet extended release 24hr 1.25 mg PO DAILY multivitamin Tablet 1 tab PO DAILY oxcarbazepine 300 mg tablet See Rx Instructions PO TID Qty: 90 6RF Rx Instructions: 1 tab tid tramadol 50 mg tablet 50 mg PO DAILY PRN (Reason: pain) meclizine 12.5 mg tablet 12.5 mg PO TID PRN (Reason: dizziness) Qty: 30 0RF Interventions: ED Discharge Assessment Last Done: 04/21/25 23:07 Print Language: Canadian
--- NOTE | 2025-04-21 18:46 | ECG_ITS ---
Test Reason : leg edema Blood Pressure : */* mmHG Vent. Rate : 58 BPM Atrial Rate : 58 BPM P-R Int : 208 ms QRS Dur : 156 ms QT Int : 508 ms P-R-T Axes : 16 -25 92 degrees QTcB Int : 498 ms Sinus bradycardia Left bundle branch block Abnormal ECG When compared with ECG of 28-Aug-2024 09:03, Sinus rhythm has replaced Atrial fibrillation Vent. rate has decreased by 63 bpm Referred By: Yeimi Washington Electronically Signed By: Wood Shafer
--- OUTSIDE RECORDS SUMMARY | 2025-04-21 18:57 | XMS_ITS | Clinical Summary ---
Author Organization [facility] Address [address] [place] [phone] Phone Care Team Providers Care Pea Viner Mechanic Name Role Phone Unknown, Unknown Primary Care [...] (2 - 2023-2 5 season) 2024 10/10/2020 INFLUENZA VACCINE (#1) 2025 05/24/2020 HEPATITIS A VACCINES Aged Out No long [...] file Insurance MEDICARE PART A & B [facility] MEDICARE ENHANCE SUPPLEMENT [facility] Address: [facility] [id number] [id number] MEDICARE PART A & B [facility] MEDICARE ENHANCE SUPPLEMENT MEDICARE PART A & B [facility] MEDICARE ENHANCE SUPPLEMENT [facility] Address: [address] [place] [id number] MEDICARE PART A & B [facility] MEDICARE ENHANCE SUPPLEMENT [facility] Address: [address] [place] [id number] MEDICARE PART A & B [id number] [place] [address] MEDICARE ENHANCE SUPPLEMENT MEDICARE PART A & B [facility] MEDICARE ENHANCE SUPPLEMENT [facility] Address: [address] [place] [id number] MEDICARE PART A & B [facility] MEDICARE ENHANCE SUPPLEMENT [facility] Address: [facility] [id number] [place] [id number] MEDICARE PART A & B [facility] MEDICARE ENHANCE SUPPLEMENT MEDICARE PART A & B [facility] MEDICARE ENHANCE SUPPLEMENT Care Teams Pea Viner Mechanic Relationship Specialty Start Date End Date Unknown, Unknown, PCP - General 04/30/16 Additional Source Comments The information contained in this document represents components of the legal health record. It is not the complete legal health record.[facility]
--- OUTSIDE RECORDS SUMMARY | 2025-04-21 18:58 | XMS_ITS | Clinical Summary ---
Author Organization [facility] Address [address] [place] [address] Care Team Providers Care Station Worker Name Role Phone Kory Perdue MD Primary Care Provider [phone] Allergies Active Allergy Reactions Criticality Noted Date Comments Gabapentin Swelling 01/16/2016 joints [place] Other (See Comments) 01/16/2016 Cold sores Medications [...] age to complete this topic Care Teams Station Worker Relationship Specialty Start Date End Date Kory Perdue MD [address] [place] [address] [address] [place] [address] PCP - General Optical Laboratory Technician 01/09/16
--- OUTSIDE RECORDS SUMMARY | 2025-04-21 18:58 | XMS_ITS | Patient Health Record ---
Author Organization [facility] Address [address] [place] [address] Care Team Providers Care Network Support Analyst Name Role Phone Nette (RETIRED) Kory WONG Primary Care Provide r Sammy Fish Unavailable [phone] Allergies Allergen (clinical drug ingredient) Drug/Non Drug [...] Formula 1 4 PO QD Act rosy [place] 3 2 plus 1 capsule Orally 2 [...] Problem Status W/U Status Risk Notes Problem 619590018 Gastro-esophage al reflux disease without esophagitis (K21.9) Active confirmed Problem 655937783 Encounter for screening for malignant neoplasm of colon (Z12.11) Active confirmed Problem 131524760 History of adenomatous polyp of colon (Z86.010) Active confirmed Problem 38320506 Hypertension (I10) Active confirmed Problem Screening for malignant neoplasm of rectum (414520597) Encounter for screening for malignant neoplasm of rectum (Z12.12) Active confirmed Problem Dysphagia (88234201) Dysphagia (R13.10) Active confirmed Problem Gastroesophageal reflux disease (844371475) GERD (gastroesophage al reflux disease) (K21.9) Active confirmed Plan Of Treatment Future Test Test Name Order Date COLONOSCOPY 05/09/2011 COLONOSCOPY 11/19/2016 Insurance Providers Payer Name Payer Address Payer Phone Subscriber Number Group Number Insured Name Patient Relationship to Insured Coverage Start Date Coverage End Date MED[place]ARE OF [place] [address] [place] [address] [id number] THOMPSON January Self - patient is the insured [facility] [address] [address] [place] [address] [phone] [id number] THOMPSON January Self - patient is the insured Medical (General) History Medical History History ICD Code Glaucoma Trigeminal neuralgia Denies ME,DM,CVA,Lung disease,renal dise ase Breast cancer--left mastectomy, chemo, X RT Colonoscopy 05/2011--small t ubular adenoma removed, sigmoid diverticulosis, small internal hemorrhoids--- she has had prior colonoscopies while she was living in [place] GERD---Hiatal hernia surgery in [address] Christiansen at [facility]--s/p esophageal dilations at [facility]--she has had previous upper endoscopies in [place] when she was living there Hyperlipidemia NIDDM [...] t for glaucoma Hiatal hernia repair at [facility] as above
[2025-04-21 19:10] LABS: MANUAL DIFF FLAG NO
[2025-04-21 19:12] LABS: Hematocrit 32.1 % (37.0-47.0); Hemoglobin 9.3 g/dl (12.0-16.0); Imm Gran Abs Auto 0.02 X10*3/uL (0.00-0.03); Imm Gran Pct Auto 0.4 % (0.0-0.4); Lymphocytes Absolute Auto 0.6 X10*3/uL (1.2-4.9); Mean Corpuscular HGB Conc 29.0 g/dl (31.0-35.0); Mean Corpuscular Hemoglobin 21.6 pg (27.0-33.0); Mean Corpuscular Volume 74.7 fL (80.0-98.0); NRBC Abs Auto 0.000 X10*3/uL (0.0-0.012); NRBC Pct Auto 0.0 /100WBC (0.0-0.2); Platelet Count 140 X10*3/uL (160-400); Red Blood Count 4.30 X10*6/uL (4.20-5.50); White Blood Count 4.7 X10*3/uL (4.8-10.8)
[2025-04-21 19:18] LABS: INTERNATIONAL NORM RATIO 1.6 (0.9-1.1); Prothrombin Time 17.9 SEC (10.9-12.4)
[2025-04-21 19:25] LABS: Alanine Aminotransferase 18 U/L (0-31); Albumin Level 4.1 g/dL (3.5-5.0); Alkaline Phosphatase 100 U/L (39-117); Anion Gap 13 (12-20); Aspartate Amino Transferase 22 U/L (5-31); Blood Urea Nitrogen 17 mg/dL (9-16); Calcium 8.6 mg/dL (8.4-10.2); Carbon Dioxide 29 mmol/L (22-29); Chloride 107 mmol/L (96-108); Creatinine Clr Calc Pharmacy 40.3; Estimated Glomerular Filt Rate 54; Potassium 4.5 mmol/L (3.3-5.1); Sodium 144 mmol/L (135-145); Total Protein 6.2 g/dL (6.5-8.0)
[2025-04-21 19:32] LABS: B Type Natriuretic Peptide 1009 pg/mL (<100); Troponin-I High Sensitivity 17.7 ng/L (<3.5-17.0)
[2025-04-21 20:38] VITALS: BP 163/50; PULSE 61; RESP 16; TEMP 36.6; O2SAT 96
[2025-04-21] MEDS: Morphine Sulfate Immed Release 15 MG TABLET PO (21:58)
[2025-04-21 23:07] VITALS: BP 177/76; PULSE 62; RESP 18; TEMP 36.6; O2SAT 95
== END 2025-04-21 23:10 | disposition home or self-care (01) ==
PROVIDERS: Registered Nurse Emergency; Emergency Provider Emergency Medicine; PCP Physician Assistant
DX: G50.0 Trigeminal neuralgia (principal); I48.0 Paroxysmal atrial fibrillation; I50.9 Heart failure, unspecified; E11.9 Type 2 diabetes mellitus without complications; I10 Essential (primary) hypertension; Z79.01 Long term (current) use of anticoagulants; Z79.899 Other long term (current) drug therapy; Z85.3 Personal history of malignant neoplasm of breast
CPT/HCPCS: 36415; 71046; 80053; 83880; 84484; 85025; 85610; 93005; 99283; 99284

== ENCOUNTER → 2025-04-21 18:46 | Outpatient (BNV) | payer MEDICARE, OTHER, SELFPAY | PROVIDERS: Emergency Provider Emergency Medicine; PCP Physician Assistant; Visit Provider Internal Medicine Cardiovascular Disease | DX: I44.7 Left bundle-branch block, unspecified (principal); R00.1 Bradycardia, unspecified | CPT/HCPCS: 93010 ==

== ENCOUNTER → 2025-04-21 21:13 | Outpatient (BNV) | payer MEDICARE, OTHER, SELFPAY | PROVIDERS: PCP Physician Assistant; Visit Provider Radiology Diagnostic Radiology | DX: R06.02 Shortness of breath (principal) | CPT/HCPCS: 71046 ==

== ENCOUNTER 2025-04-23 09:13 | Inpatient (IN) | payer MEDICARE, OTHER, SELFPAY ==
[2025-04-23] VITALS (12 sets, daily range): BP systolic 114–201; BP diastolic 66–88; PULSE 60–75; RESP 14–18; TEMP 36.3–36.6; O2SAT 85–98; BMI 33.5
--- NOTE | ~2025-04-23 | XR_ITS ---
CLINICAL HISTORY: SOB 1 view chest x-ray. Comparison: CR - XR CHEST 2V - 04/21/25 21:31 EDT Findings: Normal lung volumes. Stable bibasilar atelectasis versus infiltrates. No pneumothorax or pleural effusion. Heart size mildly enlarged. Improvement in the mild passive venous congestion. Stable unfolding of the thoracic aorta. No acute fracture. Scoliosis. Surgical clips left breast. Impression: 1. Stable bibasilar atelectasis versus infiltrate. Mild cardiomegaly with mild passive venous congestion. This document has been electronically signed by: Aashish Kearns MD on 04/23/2025 11:11:04
--- NOTE | 2025-04-23 09:17 | ED_ITS ---
HPI - General Adult General Chief complaint: Upper Respiratory Symptoms Stated complaint: EXT SWELLING,NEW:MORPHINE/H2O PILL,DIZZY/SOB SINCE Time Seen by Provider: 04/23/25 09:16 Source: patient, family (patient's ) and EMS Mode of arrival: EMS Limitations: no limitations History of Present Illness ED Provider: Jennifer Russell PA-C HPI narrative: Patient is an 80 year old assigned female at with a history of insulin dependent diabetes, HTN, HLD, hypothyroidism, trigeminal neuralgia, CHF, atrial fibrillation on Eliquis, pulmonary HTN, restrictive lung disease, GERD, CYNTHIA, dysphagia, unsteady gait, and breast cancer in remission over 10 years, and lymphedema presenting to the emergency department today with dizziness, shortness of breath, and extremity swelling. Patient reports also experiencing panic-like symptoms and anxiety. Patient states that she has been eating and drinking less due to facial pain and difficultly chewing. Patient was evaluated in the emergency department 2 days ago on 04/21/2025 for trigeminal neuralgia and was given morphine which she felt worsened her symptoms. Patient believes that the symptoms are related to starting oxcarbazepine last month. Patient denies any abdominal pain, nausea, vomiting, fever, chills, blurry vision, double vision, loss of vision, chest pain, night sweats, pain with urination, increased urinary frequency, increased urinary urgency, blood in her urine or stool, recent trauma or falls, bowel incontinence, bladder incontinence, or any other complaints at this time. Related Data Home Medications ?Medication ?Instructions ?Recorded ?Confirmed atorvastatin 10 mg tablet 10 mg PO DAILY 07/30/2003/10 latanoprost 0.005 % eye drops 1 drp ophthalmic (eye) B EDTIME 07/30/20 04/23/25 dorzolamide 22.3 mg-timolol 6.8 1 drp ophthalmic (eye) BID 10/29/20 04/23/25 mg/mL eye drops glipizide 2.5 mg tablet, extended 1.25 mg PO DAILY 04/23/25 release 24 hr multivitamin 1 tab PO DAILY 02/19/2403/10 levothyroxine 50 mcg tablet 50 mcg PO DAILY@0630 04/2304/23/25 pantoprazole 40 mg tablet,delayed 40 mg PO BID@0630,16 30 04/23/25 04/23/25 release Previous Rx's ?Medication ?Instructions ?Recorded metoprolol succinate 50 mg 50 mg PO DAILY #90 tabs 05/10 tablet,extended release 24 hr cane #1 ea 09/02/24 amiodarone 200 mg tablet 200 mg PO DAILY #90 tabs apixaban 5 mg tablet (Eliquis) 5 mg PO BID #60 tabs Allergies Allergy/AdvReac Type Severity Reaction Status Date / Time gabapentin (From Neurontin) Allergy Intermediate JOINTS Verified 04/23/25 09:25 SWELL oxcarbazepine Allergy Swelling Verified 04/23/25 09:25 famotidine AdvReac Mild Dizziness Verified 04/23/25 09:25 warfarin (From Coumadin) AdvReac other Verified 04/23/25 09:25 oranges Allergy Mild cold sores Uncoded 04/23/25 09:25 Review of Systems 2 Constitutional: Constitutional: Reports as per HPI Eyes: Eyes: Reports as per HPI ENT: Reports as per HPI Cardiovascular: Cardiovascular: Reports as per HPI Respiratory: Respiratory: Reports as per HPI Gastrointestinal: Gastrointestinal: Reports as per HPI Genitourinary: Genitourinary: Reports as per HPI Musculoskeletal: Musculoskeletal: Reports as per HPI Integumentary/Breasts: Skin/Breast: Reports as per HPI Neurologic: Reports as per HPI Psychiatric: Psychiatric: Reports as per HPI Endocrine: Endocrine: Reports as per HPI Hematologic/Lymphatic: Hematologic/Lymphatic: Reports as per HPI Allergic/Immunologic: Allergic/Immunologic: Reports as per HPI [facility] Past Medical History Attestation statement: The following information was validated with the patient. (all information validated with the patient's ) Source: old records reviewed, obtained from family (patient's provided additional history and confirmed the history provided by the patient) and nursing notes reviewed Medical History Hypothyroidism Breast cancer, left Atrial fibrillation with rapid ventricular response Pulmonary hypertension Restrictive lung disease Diabetes Scoliosis CYNTHIA (obstructive sleep apnea) Obesity Cough HX: breast cancer Anemia Back pain Lymphedema of left arm GERD (gastroesophageal reflux disease) Blind right eye Trigeminal neuralgia of right side of face Hypertension CHF (congestive heart failure) Heart murmur after rheumatic heart disease Surgical History History of open reduction and internal fixation (ORIF) procedure History of ventral hernia repair History of left inguinal hernia repair History of bladder suspension procedure History of partial hysterectomy History of tonsillectomy and adenoidectomy Hx of esophagogastroduodenoscopy History of lymph node dissection of left axilla H/O left mastectomy Hx of wisdom tooth extraction History of colonoscopy (~12/02/22) Family History Family History Father History of heart attack Mother History of leukemia History of hypertension Social History Social History Household Members: Spouse Housing: House Housing Other:: Mobile home Are you a primary patient care manager to a significant other at home: No Do you presently have visiting nurse or other home services: No Alcohol intake: never Patient Tobacco Use Status: Never used Tobacco Smoked in Last 30 Days: No Use of substances other than those prescribed or required for medical reasons: No Advance Directives: Yes Advance Directives on File: Yes Advance Directives Date on File: 02/08/23 Do you have a plan to hurt others: No Plan service: No Current occupational status: retired Cognitive needs: No Hearing needs: No Vision needs: Yes (Rx glasses) Physical Exam ED Vital Signs: Vital Signs - 24 hr 04/23/25 09:23 04/23/25 09:29 04/23/25 09:29 Temperature 98 F 98 F Pulse Rate 63 63 Respiratory Rate 14 14 Blood Pressure 201/87 H 201/87 H Pulse Oximetry 94 97 94 Oxygen Delivery Method Room Air Room Air Room Air 04/23/25 11:13 04/23/25 11:53 Temperature 97.9 F Pulse Rate 61 Respiratory Rate 15 Blood Pressure 166/88 H 150/79 H Pulse Oximetry 93 Oxygen Delivery Method Room Air BMI result Body Mass Index 33.5 Const General: cooperative, no acute distress, alert and awake Nutritional Appearance: well nourished Orientation/consciousness: patient oriented x3 HENMT Head: Yes normal to inspection and Yes atraumatic Ears: hearing grossly normal bilaterally and external ears normal General nose exam: Normal external nose present, no nasal discharge noted and no epistaxis Face and sinus: Yes normal facial exam, No abrasion and No laceration Mouth: Normal oral and palatal mucosa present, no drooling and no muffled voice Eyes General: appearance normal, both eyes and all related structures Periorbital: periorbital findings normal Eyelids: Yes eyelids normal Conjunctivae: conjunctivae normal Pupils: Equal, round and reactive pupils present EOM: EOMs intact bilaterally Neck Neck: Yes normal visual inspection and Yes full ROM Resp Effort & Inspection: able to speak in complete sentences and labored Cardio Rate: regular rate Rhythm: regular rhythm Neuro General: patient oriented x3, moves all extremities and CN's II-XI intact bilaterally Cranial nerves: Yes Equal, round and reactive pupils present Cognition (Neuro): normal cognition Extrem General: Yes full ROM and Yes capillary refill normal Right upper extremity: full ROM Left upper extremity: full ROM and edema Right lower extremity: edema Left lower extremity: edema Psych Appearance: grossly normal Mental Status: mental status grossly normal Affect: Anxious affect present Attitude: cooperative Thought process: Normal thought process present Thought content: Normal thought content present Insight: Good insight present (Psych) Medications Administered Discontinued Medications Generic Name Dose Route Start Last Admin Trade Name Efrenq PRN Reason Stop Dose Admin Azithromycin 500 mg 04/23/25 11:13 04/23/25 11:52 Azithromycin 500 Mg Tablet PO 04/23/25 11:14 500 mg ONCE ONE Administration Ceftriaxone Sodium 1 gm 04/23/25 11:13 04/23/25 11:52 Ceftriaxone Sodium 1 Gm Vial IVPUSH 04/23/25 11:14 1 gm ONCE ONE Administration Furosemide 20 mg 04/23/25 11:13 04/23/25 11:53 Furosemide 20 Mg/2 Ml Vial IVPUSH 04/23/25 11:14 20 mg ONCE ONE Administration Protocol Lorazepam 2 mg 04/23/25 09:33 04/23/25 09:46 Lorazepam 1 Mg Tablet PO 04/23/25 09:34 2 mg ONCE ONE Administration Medical Decision Making Medical Decision Making MDM Narrative: Patient is an 80 year old assigned female at with a history of insulin dependent diabetes, HTN, HLD, hypothyroidism, trigeminal neuralgia, CHF, atrial fibrillation on Eliquis, pulmonary HTN, restrictive lung disease, GERD, CYNTHIA, dysphagia, unsteady gait, and breast cancer in remission over 10 years, and lymphedema presenting to the emergency department today with dizziness, shortness of breath, and extremity swelling. Patient's physical exam was as noted in the physical exam portion of this note. Patient's blood work showed chronic anemia and elevated BNP at 626 but otherwise unremarkable. Patient's EKG was unremarkable. Patient's chest x-ray showed evidence of cardiomegaly + venous congestion and possible infiltrate. Patient was given PO Ativan which helped her anxiousness some but she continued to feel as thought she had labored breathing. Patient was given IV Ceftriaxone and PO Azithromycin to cover for restrictive lung disease exacerbation and possible PNA. Patient was given IV lasix. Patient's clinical presentation is not consistent with sepsis (@1132). I spoke with the hospitalist team who agreed to admission for continued observation. I explained my physical exam findings as well as all test results to the patient and the patient's . I answered all questions asked by the patient and the patient's . Patient and the patient's verbalized agreement and understanding with this treatment plan and admission. Differential Diagnosis Differential Diagnoses: The differential diagnosis associated with the presentation includes Dypsnea Anxiety CHF exacerbation Restrictive lung disease exacerbation Pneumonia Admission/Observation Consideration of admission/observation: Escalation of care including admission/observation considered Patient admitted as noted in the MDM Rationale portion of this note. Consult Healthcare Provider Management of the patient was discussed with: Hospitalist (agreed to admission as noted in the MDM Rationale portion of this note.) Lab Data [facility] Lab Attestation statement: I reviewed the patient's lab results. My interpretation of these results are in the MDM Rationale portion of this note. 04/23/25 09:51 04/23/25 09:51 Labs: Lab Results 04/23/25 04/23/25 Range/Units 09:51 09:58 WBC 5.6 (4.8-10.8) X10*3/uL RBC 4.31 (4.20-5.50) X10*6/uL Hgb 9.4 L (12.0-16.0) g/dl Hct 32.5 L (37.0-47.0) % MCV 75.4 L (80.0-98.0) fL MCH 21.8 L (27.0-33.0) pg MCHC 28.9 L (31.0-35.0) g/dl RDW 19.9 H (11.0-16.0) % Plt Count 142 L (160-400) X10*3/uL MPV 9.3 L (9.4-12.3) fL Immature Gran % (Auto) 0.7 H (0.0-0.4) % Neut % (Auto) 81.3 H (45-73) % Lymph % (Auto) 7.2 L (20-40) % Kimble % (Auto) 8.8 (2-11) % Eos % (Auto) 1.6 (0-4) % Baso % (Auto) 0.4 (0-2) % Lymph # (Auto) 0.4 L (1.2-4.9) X10*3/uL Kimble # (Auto) 0.5 (0.1-1.2) X10*3/uL Eos # (Auto) 0.1 (0.0-0.4) X10*3/uL Baso # (Auto) 0.0 (0.0-0.2) X10*3/uL Abs Immat Gran (auto) 0.04 H (0.00-0.03) X10*3/uL Absolute Neuts (auto) 4.5 (2.0-8.3) x10*3/uL Absolute Nucleated RBC 0.000 (0.0-0.012) X10*3/uL Nucleated RBC % (auto) 0.0 (0.0-0.2) /100WBC PT 13.9 H D (10.9-12.4) SEC INR 1.2 H (0.9-1.1) VBG pH 7.40 (7.32-7.43) VBG pCO2 45 mmHg VBG pO2 73 mmHg VBG HCO3 28 H (22-26) mmol/L VBG O2 Saturation 93.0 % VBG Base Excess 3.4 mmol/L Sodium 143 (135-145) mmol/L Potassium 4.5 (3.3-5.1) mmol/L Chloride 107 (96-108) mmol/L Carbon Dioxide 27 (22-29) mmol/L Anion Gap 14 (12-20) BUN 15 (9-16) mg/dL Creatinine 0.84 (0.5-1.4) mg/dL Estim Creat Clear Calc 47.6 Estimated GFR > 60 Random Glucose 125 H (60-115) mg/dL Calcium 8.3 L (8.4-10.2) mg/dL Magnesium 2.0 (1.6-2.6) mg/dL Total Bilirubin 0.4 (0.0-1.0) mg/dL AST 20 (5-31) U/L ALT 16 (0-31) U/L Alkaline Phosphatase 100 (39-117) U/L Troponin I High Sens 16.4 (<3.5-17.0) ng/L B-Natriuretic Peptide 626 H (<100) pg/mL Total Protein 6.0 L (6.5-8.0) g/dL Albumin 3.9 (3.5-5.0) g/dL COVID-19 (JASON) Negative (Negative) COVID-19 Clin Com See Note Influenza Type A (SERGIO) Negative (Negative) Influenza Type B (SERGIO) Negative (Negative) Influenza A & B Note See Note Independent Interpretation I performed an independent interpretation of an: EKG and Plain X-Ray Interpretation: My interpretation is in agreement with the radiologist's impression of this imaging study. L CLINICAL HISTORY: SOB 1 view chest x-ray. Comparison: CR - XR CHEST 2V - 04/21/25 21:31 EDT Findings: Normal lung volumes. Stable bibasilar atelectasis versus infiltrates. No pneumothorax or pleural effusion. Heart size mildly enlarged. Improvement in the mild passive venous congestion. Stable unfolding of the thoracic aorta. No acute fracture. Scoliosis. Surgical clips left breast. Impression: 1. Stable bibasilar atelectasis versus infiltrate. Mild cardiomegaly with mild passive venous congestion. This document has been electronically signed by: Aashish Kearns MD on 04/23/2025 11:11:04 Dictated By: Aashish Kearns MD Signed By: Electronically signed by Aashish Kearns MD 04/23/25 1111 I independently interpreted this EKG and am in agreement with the below findings: Vent. Rate: 57 BPM Atrial Rate: 57 BPM P-R Int: 196 ms QRS Dur: 162 ms QT Int: 524 ms P-R-T Axes: -19 -24 84 degrees QTcB Int: 510 ms Sinus bradycardia Left bundle branch block When compared with ECG of 21-Apr-2025 18:56, No significant change was found DD/ [id number] Radiology Impression Discussion of test interpretation with radiology: I have reviewed the radiologist's reading. Independent Historian Clinical information obtained from an independent historian. History obtained from or confirmed by: Spouse (patient's provided additional history and confirmed the history provided by the patient.) and EMS (EMS provided additional history and confirmed the history provided by the patient.) External Record Review External record reviewed: Inpatient record, Office record, Outpatient record and Prior outpatient labs Critical Care Time Critical Care Time Critical Care Time: Yes Total Critical Care Time: 46 Attestation: I spent 46 minutes of Critical Care Time with this patient. This does not include time spent on separately reported billable procedures. Discharge Plan Discharge Clinical Impression: Dyspnea, CHF exacerbation, Pneumonia Patient Disposition: Admitted As Inpatient
--- NOTE | 2025-04-23 09:22 | ECG_ITS ---
Test Reason : sob Blood Pressure : */* mmHG Vent. Rate : 57 BPM Atrial Rate : 57 BPM P-R Int : 196 ms QRS Dur : 162 ms QT Int : 524 ms P-R-T Axes : -19 -24 84 degrees QTcB Int : 510 ms Sinus bradycardia Left bundle branch block Abnormal ECG When compared with ECG of 21-Apr-2025 18:56, No significant change was found Referred By: Jennifer Russell Electronically Signed By: KIMMY PLATT MD
--- NOTE | 2025-04-23 09:32 | PC.NURSE ---
80 F presents to ED with SOB, dizziness, anxiety that has progressed over about 1.5 weeks, worse this morning and typically worse when she first wakes up. Pt has bilat upper and lower extremity swelling, more noted to LLE. A+OX4, anxious but cooperative. Pt asking for anxiety medications, said she feels very anxious. Pt is ableto speak in complete sentences. Pt denies any CP or any other pain. Ambulates with a cane at times. Pt sts she was seen here thursday and recieved medications for edema and pain meds and has felt worse since.
--- OUTSIDE RECORDS SUMMARY | 2025-04-23 09:52 | XMS_ITS | Patient Health Record ---
Author Organization [facility] Address [address] [place] [address] Care Team Providers Care L Tacker Name Role Phone Nette (RETIRED) Kory WONG Primary Care Provide r Sammy Fish Unavailable [phone] Allergies Allergen (clinical drug ingredient) Drug/Non Drug [...] Formula 1 4 PO QD Act rosy Harriman 3 2 plus 1 capsule Orally 2 [...] Problem Status W/U Status Risk Notes Problem 996924133 Gastro-esophage al reflux disease without esophagitis (K21.9) Active confirmed Problem 783691675 Encounter for screening for malignant neoplasm of colon (Z12.11) Active confirmed Problem 805712976 History of adenomatous polyp of colon (Z86.010) Active confirmed Problem 65292289 Hypertension (I10) Active confirmed Problem Screening for malignant neoplasm of rectum (094010023) Encounter for screening for malignant neoplasm of rectum (Z12.12) Active confirmed Problem Dysphagia (54951925) Dysphagia (R13.10) Active confirmed Problem Gastroesophageal reflux disease (821961357) GERD (gastroesophage al reflux disease) (K21.9) Active confirmed Plan Of Treatment Future Test Test Name Order Date COLONOSCOPY 05/09/2011 COLONOSCOPY 11/19/2016 Insurance Providers Payer Name Payer Address Payer Phone Subscriber Number Group Number Insured Name Patient Relationship to Insured Coverage Start Date Coverage End Date MED[place] OF [place] [address] [place] [address] [id number] [place] January Self - patient is the insured [facility] [address] [address] [place] [address] [id number] [place] January Self - patient is the insured Medical (General) History Medical History History ICD Code Glaucoma Trigeminal neuralgia Denies CT,DM,CVA,Lung disease,renal dise ase Breast cancer--left mastectomy, chemo, X RT Colonoscopy 05/2011--small t ubular adenoma removed, sigmoid diverticulosis, small internal hemorrhoids--- she has had prior colonoscopies while she was living in [place] GERD---Hiatal hernia surgery in [address] Christiansen at [facility]--s/p esophageal dilations at [facility]--she has had previous upper endoscopies in [place] when she was living there Hyperlipidemia NIDDM [...] t for glaucoma Hiatal hernia repair at [facility] as above
--- OUTSIDE RECORDS SUMMARY | 2025-04-23 09:52 | XMS_ITS | Clinical Summary ---
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
--- OUTSIDE RECORDS SUMMARY | 2025-04-23 09:52 | XMS_ITS | Clinical Summary ---
Author Organization [facility] Address [address] [place] [id number] Phone Care Team Providers Care Senior Instructor Name Role Phone Unknown, Unknown Primary Care [...] file Insurance MEDICARE PART A & B [facility] MEDICARE ENHANCE SUPPLEMENT [facility] Address: [facility] [id number] [place] [id number] [address]ARE PART [address] & B [facility] MEDICARE ENHANCE SUPPLEMENT MEDICARE PART A & B [facility] MEDICARE ENHANCE SUPPLEMENT [facility] Address: [address] [place] [address] MEDICARE PART A & B [facility] MEDICARE ENHANCE SUPPLEMENT [facility] Address: [address] [place] [address] MEDICARE PART A & B [id number] [place] [address] MEDICARE ENHANCE SUPPLEMENT MEDICARE PART A & B [facility] MEDICARE ENHANCE SUPPLEMENT [facility] Address: [address] [place] [address] MEDICARE PART A & B [facility] MEDICARE ENHANCE SUPPLEMENT [facility] Address: [facility] [phone] [place] [address] MEDICARE PART A & B [facility] MEDICARE ENHANCE SUPPLEMENT MEDICARE PART A & B [facility] MEDICARE ENHANCE SUPPLEMENT Care Teams Senior Instructor Relationship Specialty Start Date End Date Unknown, Unknown, PCP - General 04/30/16 Additional Source Comments The information contained in this document represents components of the legal health record. It is not the complete legal health record.[facility]
[2025-04-23 09:57] LABS: MANUAL DIFF FLAG NO
[2025-04-23 10:01] LABS: Hematocrit 32.5 % (37.0-47.0); Hemoglobin 9.4 g/dl (12.0-16.0); Imm Gran Abs Auto 0.04 X10*3/uL (0.00-0.03); Imm Gran Pct Auto 0.7 % (0.0-0.4); Lymphocytes Absolute Auto 0.4 X10*3/uL (1.2-4.9); Mean Corpuscular HGB Conc 28.9 g/dl (31.0-35.0); Mean Corpuscular Hemoglobin 21.8 pg (27.0-33.0); Mean Corpuscular Volume 75.4 fL (80.0-98.0); NRBC Abs Auto 0.000 X10*3/uL (0.0-0.012); NRBC Pct Auto 0.0 /100WBC (0.0-0.2); Platelet Count 142 X10*3/uL (160-400); Red Blood Count 4.31 X10*6/uL (4.20-5.50); White Blood Count 5.6 X10*3/uL (4.8-10.8)
[2025-04-23 10:02] LABS: VBG HCO3 28 mmol/L (22-26); VBG O2 % Saturation 93.0 %
[2025-04-23 10:08] LABS: INTERNATIONAL NORM RATIO 1.2 (0.9-1.1); Prothrombin Time 13.9 SEC (10.9-12.4)
[2025-04-23 10:10] LABS: Venous Blood Gas Refer to POC result
[2025-04-23 10:20] LABS: Alanine Aminotransferase 16 U/L (0-31); Albumin Level 3.9 g/dL (3.5-5.0); Alkaline Phosphatase 100 U/L (39-117); Anion Gap 14 (12-20); Aspartate Amino Transferase 20 U/L (5-31); Blood Urea Nitrogen 15 mg/dL (9-16); Calcium 8.3 mg/dL (8.4-10.2); Carbon Dioxide 27 mmol/L (22-29); Chloride 107 mmol/L (96-108); Creatinine Clr Calc Pharmacy 47.6; Estimated Glomerular Filt Rate > 60; Magnesium 2.0 mg/dL (1.6-2.6); Potassium 4.5 mmol/L (3.3-5.1); Sodium 143 mmol/L (135-145); Total Protein 6.0 g/dL (6.5-8.0)
[2025-04-23 10:25] LABS: B Type Natriuretic Peptide 626 pg/mL (<100); COVID-19 Test Negative (Negative); IDNOW Serial# 55D5AD1C
[2025-04-23 10:30] LABS: IDNOW Serial# 6674DD1D; Influenza B2 Negative (Negative)
[2025-04-23 10:31] LABS: Troponin-I High Sensitivity 16.4 ng/L (<3.5-17.0)
[2025-04-23] MEDS: Furosemide 20 MG/2 ML VIAL IVPUSH (11:53)
--- NOTE | 2025-04-23 12:47 | P.HPHOSP_ITS ---
History of Present Illness Date of Service: 04/23/25 Attending physician on admission: Tamiko Zheng Chief Complaint: sob This is an 80-year-old female with history of multiple medical issues who presented to the emergency department with dizziness and shortness of breath. Patient was evaluated in the emergency department on ThursdayApril 21 due to pain from her trigeminal neuralgia. She has been on multiple different medications in the past which she has been unable to tolerate or has been unsuccessful in treating her pain. She also reported lower extremity edema and her chest x-ray showed mild volume overload. She was given Lasix and prescribed oral morphine and oral Lasix and was discharged home. Today she returns due to dizziness and shortness of breath. Patient reports a long history of intermittent dizziness, reporting being sensitive to medication. Dizziness sometimes occurs when she moves her head, sometimes at rest. After arrival in the emergency department she received a dose of po ativan and her shortness of breath resolved. Repeat BNP today lower than 2 days ago at 626, chest x-ray similar to previous with stable mild venous congestion. She was afebrile, not noted to have any leukocytosis. She denies any associated cough. In the emergency department she was treated with 20 mg of IV Lasix and ceftriaxone/azithromycin. Review of Systems 2 Review of Systems: Yes all other systems are reviewed and are negative Constitutional: Constitutional: Denies chills and Denies fever(s) Cardiovascular: Cardiovascular: Denies chest pain, Denies palpitations and Reports dyspnea (now resolved) Respiratory: Respiratory: Denies cough and Reports dyspnea (now resolved) Gastrointestinal: Gastrointestinal: Denies abdominal pain, Denies nausea and Denies vomiting Endocrine: Endocrine: Denies palpitations [facility] Medical History Hypothyroidism Breast cancer, left Atrial fibrillation with rapid ventricular response Pulmonary hypertension Restrictive lung disease Diabetes Scoliosis CYNTHIA (obstructive sleep apnea) Obesity Cough HX: breast cancer Anemia Back pain Lymphedema of left arm GERD (gastroesophageal reflux disease) Blind right eye Trigeminal neuralgia of right side of face Hypertension CHF (congestive heart failure) Heart murmur after rheumatic heart disease Family History Father History of heart attack Mother History of leukemia History of hypertension Surgical History History of open reduction and internal fixation (ORIF) procedure History of ventral hernia repair History of left inguinal hernia repair History of bladder suspension procedure History of partial hysterectomy History of tonsillectomy and adenoidectomy Hx of esophagogastroduodenoscopy History of lymph node dissection of left axilla H/O left mastectomy Hx of wisdom tooth extraction History of colonoscopy (~12/02/22) Social History Household Members: Spouse Housing: House Housing Other:: Mobile home Are you a primary palliative care nurse practitioner to a significant other at home: No Do you presently have visiting nurse or other home services: No Alcohol intake: never Patient Tobacco Use Status: Never used Tobacco Smoked in Last 30 Days: No Use of substances other than those prescribed or required for medical reasons: No Advance Directives: Yes Advance Directives on File: Yes Advance Directives Date on File: 02/08/23 Do you have a plan to hurt others: No Plan service: No Current occupational status: retired Cognitive needs: No Hearing needs: No Vision needs: Yes (Rx glasses) Meds Allergies Allergy/AdvReac Type Severity Reaction Status Date / Time gabapentin (From Neurontin) Allergy Intermediate JOINTS Verified 04/23/25 09:25 SWELL oxcarbazepine Allergy Swelling Verified 04/23/25 09:25 famotidine AdvReac Mild Dizziness Verified 04/23/25 09:25 warfarin (From Coumadin) AdvReac other Verified 04/23/25 09:25 oranges Allergy Mild cold sores Uncoded 04/23/25 09:25 Active Medications: Current Medications Acetaminophen (Acetaminophen 325 Mg Tablet) 650 mg PO Q6H PRN PRN Reason: Pain, Mild 1-3,fever,headache Sodium Chloride (0.9 % Sodium Chloride Flush 3 Ml Syringe) [facility] Medications ?Medication ?Instructions ?Recorded ?Confirmed ?Last Taken ?Type atorvastatin 10 mg tablet 10 mg PO DAILY 07/30/20 09/03/1004/22/25 History latanoprost 0.005 % eye drops 1 drp ophthalmic (eye) B EDTIME 07/30/20 04/23/25 04/22/25 History dorzolamide 22.3 mg-timolol 6.8 1 drp ophthalmic (eye) BID 10/29/20 04/23/25 04/22/25 History mg/mL eye drops glipizide 2.5 mg tablet, extended 1.25 mg PO DAILY 04/23/25 04/22/25 History release 24 hr multivitamin 1 tab PO DAILY 02/19/24 09/0 03/1004/22/25 History levothyroxine 50 mcg tablet 50 mcg PO DAILY@0630 04/2304/23/25 04/22/25 History pantoprazole 40 mg tablet,delayed 40 mg PO BID@0630,16 30 04/23/25 04/23/25 04/22/25 History release Physical Exam 2 Vital Signs and Narrative: Vital Signs: Last Vital Signs Temp 97.9 F 04/23/25 11:13 Pulse 61 04/23/25 11:13 Resp 15 04/23/25 11:13 BP 150/79 H 04/23/25 11:53 Pulse Ox 93 04/23/25 11:13 O2 Del Method Room Air 04/23/25 11:13 BMI result Body Mass Index 33.5 Const: General: cooperative, comfortable, no acute distress, alert and awake Nutritional Appearance: obese Orientation/consciousness: patient oriented x3 Resp: Other: no wheeze Effort & Inspection: normal respiratory effort, able to speak in complete sentences, no respiratory distress and no use of accessory muscles Cardio: Rate: regular rate GI: Inspection: No distended Palpation (GI): Soft to palpation and nontender Neuro: General: patient oriented x3, moves all extremities and CN's II-XI intact bilaterally Extrem: Other: LUE chronic swelling due to lymphedema; b/l LE 1+ edema to mid pizarro Results Labs 04/23/25 09:51 04/23/25 09:51 Labs: Laboratory Results - last 24 hr 04/23/25 04/23/25 09:51 09:58 MCV 75.4 L MCH 21.8 L MCHC 28.9 L RDW 19.9 H Plt Count 142 L MPV 9.3 L Immature Gran % (Auto) 0.7 H Neut % (Auto) 81.3 H Lymph % (Auto) 7.2 L [place] % (Auto) 8.8 Eos % (Auto) 1.6 Baso % (Auto) 0.4 Lymph # (Auto) 0.4 L [place] # (Auto) 0.5 Eos # (Auto) 0.1 Baso # (Auto) 0.0 Abs Immat Gran (auto) 0.04 H Absolute Neuts (auto) 4.5 Absolute Nucleated RBC 0.000 Nucleated RBC % (auto) 0.0 PT 13.9 H D INR 1.2 H VBG pH 7.40 VBG pCO2 45 VBG pO2 73 VBG HCO3 28 H VBG O2 Saturation 93.0 VBG Base Excess 3.4 Anion Gap 14 Estim Creat Clear Calc 47.6 Estimated GFR > 60 Random Glucose 125 H Calcium 8.3 L Magnesium 2.0 Total Bilirubin 0.4 AST 20 ALT 16 Alkaline Phosphatase 100 B-Natriuretic Peptide 626 H Total Protein 6.0 L Albumin 3.9 COVID-19 (JASON) Negative COVID-19 Clin Com See Note Influenza Type A (SERGIO) Negative Influenza Type B (SERGIO) Negative Influenza A & B Note See Note Assessment and Plan (1) CHF (congestive heart failure): Status: Acute Plan This is an 80 year old female with history of HFrEF, afib on eliquis, DM, trigeminal neuralgia, HTN, post herpetic neuralgia, recent admit to ED two days ago for pain related to [place] and leg edema and prescribed po morphine who returns today with sob shortness of breath multifactorial - due to mild acute on chronic HFrEF, as well as panic disorder in a patient with CYNTHIA not able to tolerate cpap, restrictive lung disease and general deconditioning sob resolved after po ativan however her cxr does show persistent pulmonary vascular congestion and her BNP is elevated There was some thought that the patient was previously on lasix but there is no fill history to support that given IV lasix in ED, will trial low dose po lasix Dizziness seems chronic and intermittent possibly due to anxiety, decreased po intake due to [place], medication induced - she recently stopped taking trileptal check orthostatic blood pressure PT evaluation trigeminal neuralgia previously taking trileptal, feels that it could be causing leg edema and so stopped it cold turkey last week has not tolerated any other medications has plan for nerve block scheduled on Thursday DM hold glipizide SSI, POCs, ada diet Paroxysmal atrial fibrillation Continue amiodarone, metoprolol, Eliquis Hypothyroidism Continue Synthroid GERD Continue PPI Quality Stroke Does the patient have a stroke diagnosis?: No VTE Prior VTE?: No VTE Risk Level:: Medical - moderate - high VTE Device Contraindication: Treatment Not Indicated VTE Drug Contraindication: N/A - Med Ordered
--- NOTE | 2025-04-23 13:01 | PHA.MEDREC ---
Addendum entered by Benjamín Gonsalez PharmD 04/23/25 13:05: reviewed Original Note: Pharmacy Consult ? Medication Reconciliation Pharmacy has completed the medication reconciliation. patient states she is no longer taking Lorazepam 0.5 mg, Meclizine 12.5 mg, Nortriptyline 25 mg, Oxycarbazepine 300 mg ( patient states she a bad reaction to) and Tramadol 50 mg. Patient states she last had her medications yesterday.
--- NOTE | 2025-04-23 13:35 | PC.NURSE ---
Placed on 2L NC following pt desatting in sleep. Pt dropped to 85% on RA. Pt has hx sleep apnea.
[2025-04-23] MEDS: 0.9 % Sodium Chloride Flush 3 ML SYRINGE IVFLUSH (16:58)
[2025-04-23 18:10] LABS: Glucose, Whole Blood 104 mg/dL (60-115)
[2025-04-23 21:27] LABS: Glucose, Whole Blood 108 mg/dL (60-115)
[2025-04-23] MEDS: Latanoprost 0.005 % Ophth Sol 2.5 ML DROPS 1 DROP EYE-BOTH (22:46)
[2025-04-23] MEDS: Dorzolamide/Timolo 2.23%/0.68% 10 ML DRBTL 1 DROP EYE-BOTH (22:47)
[2025-04-23 23:06] LABS: Appearance Urine Clear; Glucose Urine UA Negative (Negative); PH 6.0 (5.0-9.0); Specific Gravity - Urine 1.010 (1.005-1.025); UMIC TRIGGER UACC YES
[2025-04-24] VITALS (16 sets, daily range): BP systolic 134–170; BP diastolic 54–87; PULSE 56–69; RESP 12–19; TEMP 36.2–36.8; O2SAT 88–98
--- NOTE | 2025-04-24 00:26 | PC.NURSE ---
Addendum entered by Jordan Peñaloza RN 04/24/25 01:34: PA aware Original Note: desat to 83% SpO2 on 2L NC. found to be sleeping, mouth breathing. oxymask placed at about 0005. at 0027 patient appears to be back asleep, mouth breathing, maintaining >95% SpO2 on 2L oxymask
--- NOTE | 2025-04-24 01:13 | PM.EVENT ---
Event Note Date of Service: 04/24/25 Event Note: pt having repeated episodes of hypoxia when sleeping, down to 83% on NC. not tolerating oxymask as she states she feels dry and it is bothering her trigeminal neuralgia. suggested tramadol for her pain and pt was switched to humidified oxygen via oxymask. lungs with crackles in bilateral bases and 1+ pitting edema however O2 sat at 96% when awake and pt is sleeping upright. desaturatations likely related to CYNTHIA. discussed importance of keeping oxymask on with pt. she expressed she understands. will check VBG now. Time Spent With Patient Time: Total time managing care of this patient today ____ minutes.
--- NOTE | 2025-04-24 01:27 | PC.NURSE ---
pt expresses need for analgesia while awake and states she can not tolerate things on her face. this nurse goes to retrieve pain med, patient is asleep by the time this nurse arrives with med. some time afterward, most recently, pt woke from sleep on oxymask 2L reporting anxiety, dry mouth, and feeling SOB. lung assessment stable, dim throughout with some crackles on RLL. legs remain +1. VSS. GWEN Cande notified and came to bedside. plan for VBG and tramadol. lab sent at 0124. pt comfortable with call zavala in reach. PA managed to ease anxieties enough to tolerate oxymask without eyeglasses on. maintains >95% SpO2 on 2L oxymask
[2025-04-24 01:30] LABS: Venous Blood Gas Refer to POC result
[2025-04-24 01:31] LABS: VBG HCO3 33 mmol/L (22-26); VBG O2 % Saturation 82.0 %
[2025-04-24 05:11] LABS: MANUAL DIFF FLAG NO
[2025-04-24 05:12] LABS: Hematocrit 31.2 % (37.0-47.0); Hemoglobin 8.9 g/dl (12.0-16.0); Imm Gran Abs Auto 0.02 X10*3/uL (0.00-0.03); Imm Gran Pct Auto 0.4 % (0.0-0.4); Lymphocytes Absolute Auto 0.6 X10*3/uL (1.2-4.9); Mean Corpuscular HGB Conc 28.5 g/dl (31.0-35.0); Mean Corpuscular Hemoglobin 21.5 pg (27.0-33.0); Mean Corpuscular Volume 75.5 fL (80.0-98.0); NRBC Abs Auto 0.000 X10*3/uL (0.0-0.012); NRBC Pct Auto 0.0 /100WBC (0.0-0.2); Platelet Count 138 X10*3/uL (160-400); Red Blood Count 4.13 X10*6/uL (4.20-5.50); White Blood Count 5.2 X10*3/uL (4.8-10.8)
--- NOTE | 2025-04-24 05:14 | PC.NURSE ---
eye drops are at bedside
[2025-04-24 05:27] LABS: Alanine Aminotransferase 14 U/L (0-31); Albumin Level 3.4 g/dL (3.5-5.0); Alkaline Phosphatase 86 U/L (39-117); Anion Gap 13 (12-20); Aspartate Amino Transferase 27 U/L (5-31); Blood Urea Nitrogen 22 mg/dL (9-16); Calcium 8.0 mg/dL (8.4-10.2); Carbon Dioxide 28 mmol/L (22-29); Chloride 107 mmol/L (96-108); Creatinine Clr Calc Pharmacy 33.3; Estimated Glomerular Filt Rate 43; Potassium 4.4 mmol/L (3.3-5.1); Sodium 144 mmol/L (135-145); Total Protein 5.5 g/dL (6.5-8.0)
--- NOTE | 2025-04-24 05:45 | PC.NURSE ---
desat to 89% on 2L oxymask, this time patient recovered quickly within 30 seconds back to 95% SpO2. no distress on observation, even non labored respirations 14/min
--- NOTE | 2025-04-24 05:58 | PC.NURSE ---
observed desat on monitor to 72% on 2L oxymask while asleep. awoke patient, now 99% SpO2. GWEN Castellon notified via [employer]
[2025-04-24 07:04] LABS: Glucose, Whole Blood 103 mg/dL (60-115)
[2025-04-24] MEDS: 0.9 % Sodium Chloride Flush 3 ML SYRINGE IVFLUSH ×3 (07:07→20:48)
[2025-04-24] MEDS: Metoprolol Succinate ER 50 MG TAB.ER.24H PO (08:33)
[2025-04-24] MEDS: Dorzolamide/Timolo 2.23%/0.68% 10 ML DRBTL 1 DROP EYE-BOTH ×2 (08:34→20:13)
--- NOTE | 2025-04-24 10:32 | PC.NURSE ---
purewick noted to be displaced - incontinent of urine. bed change completed. pericare performed. pt turned/repositioned to comfort. new purewick now in place/set to suction. otherwise vss and up to date. nsr on the monitoring specialist. pt remains on humidified 4L via oxymask at this time. no apparent respiratory distress. no sob/wob noted. respirations even/unlabored. plan of care ongoing. call zavala placed within reach.
--- NOTE | 2025-04-24 11:14 | MHC.CM.PN ---
PT REPORTS SHE LIVES WITH HER AND IS INDEPENDENT WITH SELF CARE SHE USES A CANE AT BASELINE AND A WHEEL CHAIR WHEN GOING LONG DISTANCES HCP AND MOLST ON FILE PCP: MARLENY POLK AND ALEXANDRO JAMESON DELIVERED DCP: HOME, PT REPORTS SHE IS SUPPOSED TO HAVE SURGERY FOR TRIGEMINAL NEURALGIA ON THURSDAY. FAMILY TO TRANSPORT
[2025-04-24 12:17] LABS: Glucose, Whole Blood 113 mg/dL (60-115)
--- NOTE | 2025-04-24 14:33 | HO.PM.IMPN ---
Subjective Subjective Date of Service: 04/24/25 Review of Systems Follow up sob on oxygen now Physical Exam Vital Signs: Vital Signs: Last Vital Signs Temp 97.9 F 04/24/25 13:51 Pulse 57 04/24/25 13:51 Resp 14 04/24/25 13:51 BP 151/58 H 04/24/25 13:51 Pulse Ox 97 04/24/25 13:51 O2 Del Method Humidified O2, Ox ymask 04/24/25 13:51 O2 Flow Rate 4 04/24/25 13:51 BMI result Body Mass Index 33.5 Objective Data Active Medications Acetaminophen (Acetaminophen 325 Mg Tablet) 650 mg PO Q6H PRN PRN Reason: Pain, Mild 1-3,fever,headache Amiodarone HCl (Amiodarone Hcl 200 Mg Tablet) 200 mg PO DAILY [facility] Last Admin: 04/24/25 08:34 Dose: 200 mg Documented By: VICKI Apixaban (Apixaban 5 Mg Tablet) 5 mg PO BID [facility] Last Admin: 04/24/25 08:34 Dose: 5 mg Documented By: VICKI Atorvastatin Calcium (Atorvastatin Calcium 10 Mg Tablet) 10 mg PO DAILY [facility] Last Admin: 04/24/25 08:33 Dose: 10 mg Documented By: VICKI Calcium Carbonate (Calcium Carbonate 750 Mg Tab.Chew) 750 mg PO Q4H PRN PRN Reason: Heartburn Dextrose (Dextrose 50 % 25 Gm/50 Ml Syringe) 25 gm IVPUSH Q15M PRN; Protocol PRN Reason: per Hypoglycemia Standing Ord. Dorzolamide/Timolol (Dorzolamide/Timolo 2.23%/0.68% 10 Ml Drbtl) 1 drop EYE-BOTH BID [facility] Last Admin: 04/24/25 08:34 Dose: 1 drop Documented By: VICKI Furosemide (Furosemide 20 Mg Tablet) 20 mg PO DAILY [facility]; Protocol Last Admin: 04/24/25 08:34 Dose: 20 mg Documented By: VICKI Glucose (Glucose Gel 15 Gm Gel..Gram.) 15 gm PO Q15M PRN; Protocol PRN Reason: per Hypoglycemia Standing Ord. Insulin Human Lispro (Insulin Lispro 100 Unit/Ml 3 Ml Vial) 0 unit SUBCUT QIDACHS [facility]; Protocol Last Admin: 04/24/25 12:42 Dose: Not Given Documented By: VICKI Non-Admin Reason: No Insulin Coverage Latanoprost (Latanoprost 0.005 % Ophth Leanna 2.5 Ml Drops) 1 drop EYE-BOTH BEDTIME [facility] Last Admin: 04/23/25 22:46 Dose: 1 drop Documented By: KYM Levothyroxine Sodium (Levothyroxine Sodium 50 Mcg Tablet) 50 mcg PO DAILY@0600 [facility] Magnesium Hydroxide (Milk Of Magnesia 30 Ml Oral.Susp) 30 ml PO DAILY PRN PRN Reason: Constipation Melatonin (Melatonin 3 Mg Tablet) 6 mg PO BEDTIME PRN PRN Reason: Insomnia Metoprolol Succinate (Metoprolol Succinate Er 50 Mg Tab.Er.24h) 50 mg PO DAILY [facility]; Protocol Last Admin: 04/24/25 08:33 Dose: 50 mg Documented By: VICKI Multivitamins/Vitamin C (Multivitamin Tablet) 1 tab PO DAILY [facility] Last Admin: 04/24/25 08:34 Dose: 1 tab Documented By: VICKI Omeprazole (Omeprazole 20 Mg Capsule.Dr) 20 mg PO BID@0630,1630 [facility] Last Admin: 04/24/25 07:07 Dose: 20 mg Documented By: VICKI Oxycodone HCl (Oxycodone Hcl Immed Release 5 Mg Tablet) 5 mg PO Q6H PRN PRN Reason: Pain, Severe (Pain Scale 7-10) Sodium Chloride (0.9 % Sodium Chloride Flush 3 Ml Syringe) 3 ml IVFLUSH QSHIFT [facility] Last Admin: 04/24/25 07:07 Dose: 3 ml Documented By: VICKI Tramadol HCl (Tramadol Hcl 50 Mg Tablet) 50 mg PO Q6H PRN PRN Reason: Pain, Moderate(Pain Scale 4-6) Last Admin: 04/24/25 01:09 Dose: 50 mg Documented By: KYM Labs 04/24/25 04:46 04/24/25 04:46 Labs: Laboratory Results - last 24 hr 04/23/25 04/23/25 04/23/25 18:06 21:23 23:01 MCV MCH MCHC RDW Plt Count MPV Immature Gran % (Auto) Neut % (Auto) Lymph % (Auto) [place] % (Auto) Eos % (Auto) Baso % (Auto) Lymph # (Auto) [place] # (Auto) Eos # (Auto) Baso # (Auto) Abs Immat Gran (auto) Absolute Neuts (auto) Absolute Nucleated RBC Nucleated RBC % (auto) VBG pH VBG pCO2 VBG pO2 VBG HCO3 VBG O2 Saturation VBG Base Excess Anion Gap Estim Creat Clear Calc Estimated GFR POC Glucose 104 108 Random Glucose Calcium Total Bilirubin AST ALT Alkaline Phosphatase Total Protein Albumin Urine Color Yellow Urine Appearance Clear Urine pH 6.0 Ur Specific [place] 1.010 Urine Protein Negative Urine Glucose (UA) Negative Urine Ketones Negative Urine Blood Moderate (2+) H Urine Nitrite Negative Ur Leukocyte Esterase Negative Urine RBC >20 H Urine WBC 0-5 Ur Squamous Epith Cells 0-2 Urine Bacteria None Seen Hyaline Casts 0-2 04/24/25 04/24/25 04/24/25 01:27 04:46 07:01 MCV 75.5 L MCH 21.5 L MCHC 28.5 L RDW 19.8 H Plt Count 138 L MPV 9.6 Immature Gran % (Auto) 0.4 Neut % (Auto) 72.6 Lymph % (Auto) 11.2 L [place] % (Auto) 13.7 H Eos % (Auto) 1.9 Baso % (Auto) 0.2 Lymph # (Auto) 0.6 L [place] # (Auto) 0.7 Eos # (Auto) 0.1 Baso # (Auto) 0.0 Abs Immat Gran (auto) 0.02 Absolute Neuts (auto) 3.8 Absolute Nucleated RBC 0.000 Nucleated RBC % (auto) 0.0 VBG pH 7.40 VBG pCO2 52 VBG pO2 58 VBG HCO3 33 H VBG O2 Saturation 82.0 VBG Base Excess 7.5 Anion Gap 13 Estim Creat Clear Calc 33.3 Estimated GFR 43 POC Glucose 103 Random Glucose 109 Calcium 8.0 L Total Bilirubin 0.2 AST 27 ALT 14 Alkaline Phosphatase 86 Total Protein 5.5 L Albumin 3.4 L Urine Color Urine Appearance Urine pH Ur Specific [place] Urine Protein Urine Glucose (UA) Urine Ketones Urine Blood Urine Nitrite Ur Leukocyte Esterase Urine RBC Urine WBC Ur Squamous Epith Cells Urine Bacteria Hyaline Casts 04/24/25 12:13 MCV MCH MCHC RDW Plt Count MPV Immature Gran % (Auto) Neut % (Auto) Lymph % (Auto) [place] % (Auto) Eos % (Auto) Baso % (Auto) Lymph # (Auto) [place] # (Auto) Eos # (Auto) Baso # (Auto) Abs Immat Gran (auto) Absolute Neuts (auto) Absolute Nucleated RBC Nucleated RBC % (auto) VBG pH VBG pCO2 VBG pO2 VBG HCO3 VBG O2 Saturation VBG Base Excess Anion Gap Estim Creat Clear Calc Estimated GFR POC Glucose 113 Random Glucose Calcium Total Bilirubin AST ALT Alkaline Phosphatase Total Protein Albumin Urine Color Urine Appearance Urine pH Ur Specific [place] Urine Protein Urine Glucose (UA) Urine Ketones Urine Blood Urine Nitrite Ur Leukocyte Esterase Urine RBC Urine WBC Ur Squamous Epith Cells Urine Bacteria Hyaline Casts Assessment and Plan (1) Restrictive lung disease: Status: Acute Plan 80 year old female with history of HFrEF, afib on eliquis, DM, trigeminal neuralgia, HTN, post herpetic neuralgia, recent admit to ED two days ago for pain related to [place] and leg edema and prescribed po morphine who returns today with sob Shortness of breath multifactorial - due to mild acute on chronic HFrEF, as well as panic disorder in a patient with CYNTHIA not able to tolerate cpap, restrictive lung disease and general deconditioning sob resolved after po ativan however her cxr does show persistent pulmonary vascular congestion and her BNP is elevated There was some thought that the patient was previously on lasix but there is no fill history to support that given IV lasix in ED, will trial low dose po lasix Dizziness seems chronic and intermittent possibly due to anxiety, decreased po intake due to [place], medication induced - she recently stopped taking trileptal check orthostatic blood pressure PT evaluation trigeminal neuralgia previously taking trileptal, feels that it could be causing leg edema and so stopped it cold turkey last week has not tolerated any other medications has plan for nerve block scheduled on Thursday DM2 hold glipizide SSI, POCs, ada diet Paroxysmal atrial fibrillation Continue amiodarone, metoprolol, Eliquis Hypothyroidism Continue Synthroid GERD Continue PPI DVT prophylaxis with apixaban full code Quality Stroke Does the patient have a stroke diagnosis?: No VTE Prior VTE?: No VTE Risk Level:: Medical - moderate - high VTE Device Contraindication: Treatment Not Indicated VTE Drug Contraindication: N/A - Med Ordered
--- NOTE | 2025-04-24 16:28 | PC.NURSE ---
Pt scheduled for a nerve block at [facility] on Thu for trigeminal neuralgia. Pt is tearful and concerned she will not be able to have the procedure. She is having increased rt facial pain. PRN meds given.
[2025-04-24 17:49] LABS: Glucose, Whole Blood 126 mg/dL (60-115)
[2025-04-24 20:13] LABS: Glucose, Whole Blood 123 mg/dL (60-115)
[2025-04-24] MEDS: Latanoprost 0.005 % Ophth Sol 2.5 ML DROPS 1 DROP EYE-BOTH (20:47)
[2025-04-25 03:02] VITALS: BP 142/65; PULSE 59; RESP 18; TEMP 36.4; O2SAT 95
[2025-04-25 06:49] LABS: MANUAL DIFF FLAG NO
[2025-04-25 06:57] LABS: Hematocrit 32.7 % (37.0-47.0); Hemoglobin 9.1 g/dl (12.0-16.0); Imm Gran Abs Auto 0.01 X10*3/uL (0.00-0.03); Imm Gran Pct Auto 0.2 % (0.0-0.4); Lymphocytes Absolute Auto 0.6 X10*3/uL (1.2-4.9); Mean Corpuscular HGB Conc 27.8 g/dl (31.0-35.0); Mean Corpuscular Hemoglobin 21.5 pg (27.0-33.0); Mean Corpuscular Volume 77.1 fL (80.0-98.0); NRBC Abs Auto 0.000 X10*3/uL (0.0-0.012); NRBC Pct Auto 0.0 /100WBC (0.0-0.2); Platelet Count 138 X10*3/uL (160-400); Red Blood Count 4.24 X10*6/uL (4.20-5.50); White Blood Count 4.9 X10*3/uL (4.8-10.8)
[2025-04-25 07:18] VITALS: BP 151/70; PULSE 58; RESP 16; TEMP 36.6; O2SAT 97
[2025-04-25 07:31] LABS: Glucose, Whole Blood 104 mg/dL (60-115)
[2025-04-25 07:55] LABS: Alanine Aminotransferase 14 U/L (0-31); Albumin Level 3.6 g/dL (3.5-5.0); Alkaline Phosphatase 87 U/L (39-117); Anion Gap 11 (12-20); Aspartate Amino Transferase 22 U/L (5-31); Blood Urea Nitrogen 20 mg/dL (9-16); Calcium 8.2 mg/dL (8.4-10.2); Carbon Dioxide 32 mmol/L (22-29); Chloride 105 mmol/L (96-108); Creatinine Clr Calc Pharmacy 43.9; Estimated Glomerular Filt Rate 59; Potassium 3.9 mmol/L (3.3-5.1); Sodium 144 mmol/L (135-145); Total Protein 5.4 g/dL (6.5-8.0)
--- NOTE | 2025-04-25 08:44 | MHC.CM.PN ---
CM addressed IMM with Patient and provided her with the original and a copy has been placed on the chart. Patient lives in a mobile home with her /HCP/Adam and she uses a cane and a w/c for distances. PT is recommending home with services and CM has initialed and will follow for dc planning. PCP/PA is Mae Kruse and will transport to home at dc.
--- NOTE | 2025-04-25 09:10 | P.CONPL_ITS ---
History of Present Illness History of Present Illness Consult date: 04/25/25 Chief complaint: dizziness, sob Narrative: This is an inpatient pulmonary consultation. This is an 80-year-old female with history of multiple medical issues who presented to the emergency department with dizziness and shortness of breath. Patient was evaluated in the emergency department on ThursdayApril 21 due to pain from her trigeminal neuralgia. She has been on multiple different medications in the past which she has been unable to tolerate or has been unsuccessful in treating her pain. She also reported lower extremity edema and her chest x-ray showed mild volume overload. She was given Lasix and prescribed oral morphine and oral Lasix and was discharged home. Today she returns due to dizziness and shortness of breath. Patient reports a long history of intermittent dizziness, reporting being sensitive to medication. Dizziness sometimes occurs when she moves her head, sometimes at rest. After arrival in the emergency department she received a dose of po ativan and her shortness of breath resolved. Repeat BNP today lower than 2 days ago at 626, chest x-ray similar to previous with stable mild venous congestion. She was afebrile, not noted to have any leukocytosis. She denies any associated cough. In the emergency department she was treated with 20 mg of IV Lasix and ceftriaxone/azithromycin. I did personally review her CT scan of the chest that she had back in demonstrating some minimal atelectasis and interstitial changes. Her more recent x-rays also reviewed demonstrating some bibasilar atelectasis which appears to be a chronic finding. Her exam was also consistent with a some mild crackles at the bases left more than right. The patient is on oxygen. She is going to be tested for oxygen requirements. I do believe that there some degree of chronicity to this. In addition to that she likely had a reaction to a new medication. From a pulmonary standpoint the patient is doing well. She does have a procedure tomorrow [facility]. Clinically from a pulmonary standpoint she is doing okay and she may be able to proceed with anesthesia and the procedure. Review of Systems 2 Review of Systems: Yes all other systems are reviewed and are negative Constitutional: Constitutional: Denies chills and Denies fever(s) Cardiovascular: Cardiovascular: Denies chest pain, Denies palpitations and Reports dyspnea (now resolved) Respiratory: Respiratory: Denies cough and Reports dyspnea (now resolved) Gastrointestinal: Gastrointestinal: Denies abdominal pain, Denies nausea and Denies vomiting Endocrine: Endocrine: Denies palpitations PMFSH Past Medical History Medical History Hypothyroidism Breast cancer, left Atrial fibrillation with rapid ventricular response Pulmonary hypertension Restrictive lung disease Diabetes Scoliosis CYNTHIA (obstructive sleep apnea) Obesity Cough HX: breast cancer Anemia Back pain Lymphedema of left arm GERD (gastroesophageal reflux disease) Blind right eye Trigeminal neuralgia of right side of face Hypertension CHF (congestive heart failure) Heart murmur after rheumatic heart disease Family History Family History Father History of heart attack Mother History of leukemia History of hypertension Surgical History Surgical History History of open reduction and internal fixation (ORIF) procedure History of ventral hernia repair History of left inguinal hernia repair History of bladder suspension procedure History of partial hysterectomy History of tonsillectomy and adenoidectomy Hx of esophagogastroduodenoscopy History of lymph node dissection of left axilla H/O left mastectomy Hx of wisdom tooth extraction History of colonoscopy (~12/02/22) Social History Social History Household Members: Spouse Housing: House Housing Other:: Mobile home Are you a primary respiratory care practitioner to a significant other at home: No Do you presently have visiting nurse or other home services: No Alcohol intake: never Patient Tobacco Use Status: Never used Tobacco Smoked in Last 30 Days: No Use of substances other than those prescribed or required for medical reasons: No Advance Directives: Yes Advance Directives on File: Yes Advance Directives Date on File: 02/08/23 Do you have a plan to hurt others: No Plan Recently lost weight without trying: No Nutrition Risks: No Nutritional Risk Patient : No service: No Current occupational status: retired Cognitive needs: No Hearing needs: No Vision needs: Yes (Rx glasses) Meds Allergies Allergy/AdvReac Type Severity Reaction Status Date / Time gabapentin (From Neurontin) Allergy Intermediate JOINTS Verified 04/23/25 09:25 SWELL oxcarbazepine Allergy Swelling Verified 04/23/25 09:25 famotidine AdvReac Mild Dizziness Verified 04/23/25 09:25 warfarin (From Coumadin) AdvReac other Verified 04/23/25 09:25 oranges Allergy Mild cold sores Uncoded 04/23/25 09:25 Active Medications: Current Medications Acetaminophen (Acetaminophen 325 Mg Tablet) 650 mg PO Q6H PRN PRN Reason: Pain, Mild 1-3,fever,headache Amiodarone HCl (Amiodarone Hcl 200 Mg Tablet) 200 mg PO DAILY [facility] Last Admin: 04/24/25 08:34 Dose: 200 mg Apixaban (Apixaban 5 Mg Tablet) 5 mg PO BID [facility] Last Admin: 04/24/25 20:14 Dose: Not Given Atorvastatin Calcium (Atorvastatin Calcium 10 Mg Tablet) 10 mg PO DAILY [facility] Last Admin: 04/24/25 08:33 Dose: 10 mg Calcium Carbonate (Calcium Carbonate 750 Mg Tab.Chew) 750 mg PO Q4H PRN PRN Reason: Heartburn Dextrose (Dextrose 50 % 25 Gm/50 Ml Syringe) 25 gm IVPUSH Q15M PRN; Protocol PRN Reason: per Hypoglycemia Standing Ord. Dorzolamide/Timolol (Dorzolamide/Timolo 2.23%/0.68% 10 Ml Drbtl) 1 drop EYE- BOTH BID [facility] Last Admin: 04/24/25 20:13 Dose: 1 drop Furosemide (Furosemide 20 Mg/2 Ml Vial) 20 mg IVPUSH DAILY [facility]; Protocol Glucose (Glucose Gel 15 Gm Gel..Gram.) 15 gm PO Q15M PRN; Protocol PRN Reason: per Hypoglycemia Standing Ord. Insulin Human Lispro (Insulin Lispro 100 Unit/Ml 3 Ml Vial) 0 unit SUBCUT QIDACHS [facility]; Protocol Last Admin: 04/25/25 07:38 Dose: Not Given Latanoprost (Latanoprost 0.005 % Ophth Leanna 2.5 Ml Drops) 1 drop EYE-BOTH BEDTIME [facility] Last Admin: 04/24/25 20:47 Dose: 1 drop Levothyroxine Sodium (Levothyroxine Sodium 50 Mcg Tablet) 50 mcg PO DAILY@0600 [facility] Last Admin: 04/25/25 05:10 Dose: 50 mcg Magnesium Hydroxide (Milk Of Magnesia 30 Ml Oral.Susp) 30 ml PO DAILY PRN PRN Reason: Constipation Melatonin (Melatonin 3 Mg Tablet) 6 mg PO BEDTIME PRN PRN Reason: Insomnia Metoprolol Succinate (Metoprolol Succinate Er 50 Mg Tab.Er.24h) 50 mg PO DAILY [facility]; Protocol Last Admin: 04/24/25 08:33 Dose: 50 mg Multivitamins/Vitamin C (Multivitamin Tablet) 1 tab PO DAILY [facility] Last Admin: 04/24/25 08:34 Dose: 1 tab Omeprazole (Omeprazole 20 Mg Capsule.Dr) 20 mg PO BID@0630,1630 [facility] Last Admin: 04/25/25 05:10 Dose: 20 mg Oxycodone HCl (Oxycodone Hcl Immed Release 5 Mg Tablet) 5 mg PO Q6H PRN PRN Reason: Pain, Severe (Pain Scale 7-10) Sodium Chloride (0.9 % Sodium Chloride Flush 3 Ml Syringe) 3 ml IVFLUSH QSHIFT [facility] Last Admin: 04/24/25 20:48 Dose: 3 ml Tramadol HCl (Tramadol Hcl 50 Mg Tablet) 50 mg PO Q6H PRN PRN Reason: Pain, Moderate(Pain Scale 4-6) Last Admin: 04/24/25 16:25 Dose: 50 mg Home Medications ?Medication ?Instructions ?Recorded ?Confirmed ?Last Taken ?Type atorvastatin 10 mg tablet 10 mg PO DAILY 07/30/2003/1004/22/25 History latanoprost 0.005 % eye drops 1 drp ophthalmic (eye) B EDTIME 07/30/20 04/23/25 04/22/25 History dorzolamide 22.3 mg-timolol 6.8 1 drp ophthalmic (eye) BID 10/29/20 04/23/25 04/22/25 History mg/mL eye drops glipizide 2.5 mg tablet, extended 1.25 mg PO DAILY 04/23/25 04/22/25 History release 24 hr multivitamin 1 tab PO DAILY 02/19/2403/1004/22/25 History levothyroxine 50 mcg tablet 50 mcg PO DAILY@0600 04/2304/24/25 04/22/25 History pantoprazole 40 mg tablet,delayed 40 mg PO BID@0630,16 30 04/23/25 04/23/25 04/22/25 History release Physical Exam 2 Vital Signs: Vital Signs: Last Vital Signs Temp 97.9 F 04/25/25 07:18 Pulse 58 04/25/25 07:18 Resp 16 04/25/25 07:18 BP 151/70 H 04/25/25 07:18 Pulse Ox 97 04/25/25 07:18 O2 Del Method Oxymask 04/25/25 07:18 O2 Flow Rate 2 04/25/25 03:02 BMI result Body Mass Index 33.5 GENERAL APPEARANCE: in no acute distress, pleasant. NECK: no carotid bruit, no jugular venous distention. SKIN: no suspicious lesions, warm and dry. HEART: Apical systolic murmur, irregular rate and rhythm. LUNGS: Few crackles at bases. ABDOMEN: soft, nontender. EXTREMITIES: no edema. PERIPHERAL PULSES: equal. NEUROLOGIC: No gross deficits, AAO X 3 Results Laboratory Findings 04/25/25 06:11 04/25/25 06:11 ABG, PT/INR, D-dimer: PT/INR, D-dimer PT 13.9 SEC (10.9-12.4) H D 04/23/25 09:51 INR 1.2 (0.9-1.1) H 04/23/25 09:51 Abnormal lab findings: Abnormal Labs 04/23/25 04/23/25 04/23/25 09:51 09:58 23:01 RBC Hgb 9.4 L Hct 32.5 L MCV 75.4 L MCH 21.8 L MCHC 28.9 L RDW 19.9 H Plt Count 142 L MPV 9.3 L Immature Gran % (Auto) 0.7 H Neut % (Auto) 81.3 H Lymph % (Auto) 7.2 L [place] % (Auto) Lymph # (Auto) 0.4 L Abs Immat Gran (auto) 0.04 H PT 13.9 H D INR 1.2 H VBG HCO3 28 H Carbon Dioxide Anion Gap BUN POC Glucose Random Glucose 125 H Calcium 8.3 L B-Natriuretic Peptide 626 H Total Protein 6.0 L Albumin Urine Blood Moderate (2+) H Urine RBC >20 H 04/24/25 04/24/25 04/24/25 01:27 04:46 17:46 RBC 4.13 L Hgb 8.9 L Hct 31.2 L MCV 75.5 L MCH 21.5 L MCHC 28.5 L RDW 19.8 H Plt Count 138 L MPV Immature Gran % (Auto) Neut % (Auto) Lymph % (Auto) 11.2 L [place] % (Auto) 13.7 H Lymph # (Auto) 0.6 L Abs Immat Gran (auto) PT INR VBG HCO3 33 H Carbon Dioxide Anion Gap BUN 22 H POC Glucose 126 H Random Glucose Calcium 8.0 L B-Natriuretic Peptide Total Protein 5.5 L Albumin 3.4 L Urine Blood Urine RBC 04/24/25 04/25/25 20:05 06:11 RBC Hgb 9.1 L Hct 32.7 L MCV 77.1 L MCH 21.5 L MCHC 27.8 L RDW 19.8 H Plt Count 138 L MPV Immature Gran % (Auto) Neut % (Auto) Lymph % (Auto) 11.4 L [place] % (Auto) 15.2 H Lymph # (Auto) 0.6 L Abs Immat Gran (auto) PT INR VBG HCO3 Carbon Dioxide 32 H Anion Gap 11 L BUN 20 H POC Glucose 123 H Random Glucose Calcium 8.2 L B-Natriuretic Peptide Total Protein 5.4 L Albumin Urine Blood Urine RBC Assessment and Plan (1) CYNTHIA (obstructive sleep apnea): Status: Acute (2) Dyspnea: Qualifiers: Dyspnea type: unspecified Qualified Code(s): R06.00 - Dyspnea, unspecified Status: Acute (3) Restrictive lung disease: Status: Acute (4) Medication reaction: Status: Acute Plan Clinically that her symptoms have resolved at this time. Please titrate oxygen to maintain a pulse ox above 90%. The patient may need some oxygen upon discharge which is reasonable Continue respiratory therapy The patient may proceed with anesthesia and her trigeminal nerve procedure tomorrow from a pulmonary standpoint. Diuresis as tolerated The patient should follow-up with outpatient pulmonary Procedures Date of Service Date of Service: 04/25/25
[2025-04-25 09:43] VITALS: PULSE 86; PULSE 92; O2SAT 91; O2SAT 94
[2025-04-25 11:07] LABS: Hematocrit 34.5 % (37.0-47.0); Hemoglobin 9.8 g/dl (12.0-16.0); Mean Corpuscular HGB Conc 28.4 g/dl (31.0-35.0); Mean Corpuscular Hemoglobin 21.6 pg (27.0-33.0); Mean Corpuscular Volume 76.2 fL (80.0-98.0); NRBC Abs Auto 0.000 X10*3/uL (0.0-0.012); NRBC Pct Auto 0.0 /100WBC (0.0-0.2); Platelet Count 155 X10*3/uL (160-400); Red Blood Count 4.53 X10*6/uL (4.20-5.50); White Blood Count 6.2 X10*3/uL (4.8-10.8)
[2025-04-25] MEDS: Metoprolol Succinate ER 50 MG TAB.ER.24H PO (11:09)
[2025-04-25] MEDS: 0.9 % Sodium Chloride Flush 3 ML SYRINGE IVFLUSH (11:10)
[2025-04-25] MEDS: Furosemide 20 MG/2 ML VIAL IVPUSH (11:10)
[2025-04-25] MEDS: Dorzolamide/Timolo 2.23%/0.68% 10 ML DRBTL 1 DROP EYE-BOTH (11:16)
[2025-04-25] MEDS: Latanoprost 0.005 % Ophth Sol 2.5 ML DROPS 1 DROP EYE-BOTH (11:17)
[2025-04-25 11:28] LABS: Glucose, Whole Blood 108 mg/dL (60-115)
[2025-04-25 11:30] LABS: Anion Gap 12 (12-20); Blood Urea Nitrogen 19 mg/dL (9-16); Calcium 8.3 mg/dL (8.4-10.2); Carbon Dioxide 31 mmol/L (22-29); Chloride 104 mmol/L (96-108); Creatinine Clr Calc Pharmacy 46.5; Estimated Glomerular Filt Rate > 60; Potassium 4.3 mmol/L (3.3-5.1); Sodium 143 mmol/L (135-145)
[2025-04-25 11:36] LABS: B Type Natriuretic Peptide 303 pg/mL (<100)
--- NOTE | 2025-04-25 14:18 | W.MHC.F2F ---
Service Date Service Date: 04/25/25 Encounter Date of encounter: 04/25/25 Reasons for Services Signs and symptoms assessed: Shortness of breaths Reason for physical therapy: home safety and mobility Homebound: Leaving the home is medically contraindicated at this time without the asist of a device and/or another person due th the listed conditions above and below. Reason homebound: weakness related to hospital stay Certification: Based on the above findings, I certify that this patient is confined to the home and needs intermittent penitentiary care, physical therapy and/or speech therapy, or continues to need occupational therapy. The patient is under my care, and I have initiated the establishment of the plan of care. The patient will be followed by a physician who will periodically review the plan of care. Time Spent With Patient Time: Total time managing care of this patient today ____ minutes.
--- NOTE | 2025-04-25 14:19 | PM.DS ---
DS: Providers Provider Date of Service: 04/25/25 Date of admission: 04/24/25 11:08 Date of discharge: 04/25/25 Primary care physician: GWEN Ozuna Consults: 04/24/25 09: Consult to Pulmonology Routine Consulting Provider: [facility] [place] [facility] Reason for consultation: hypoxia DS: Diagnosis Discharge Diagnosis (1) CYNTHIA (obstructive sleep apnea): Status: Acute (2) Dyspnea: Status: Acute (3) Restrictive lung disease: Status: Acute (4) Medication reaction: Status: Acute DS: Summary Hospital Course Hospital Course: History and physical as per admitting provider. This is an 80-year-old female with history of multiple medical issues who presented to the emergency department with dizziness and shortness of breath. Patient was evaluated in the emergency department on ThursdayApril 21 due to pain from her trigeminal neuralgia. She has been on multiple different medications in the past which she has been unable to tolerate or has been unsuccessful in treating her pain. She also reported lower extremity edema and her chest x-ray showed mild volume overload. She was given Lasix and prescribed oral morphine and oral Lasix and was discharged home. Today she returns due to dizziness and shortness of breath. Patient reports a long history of intermittent dizziness, reporting being sensitive to medication. Dizziness sometimes occurs when she moves her head, sometimes at rest. After arrival in the emergency department she received a dose of po ativan and her shortness of breath resolved. Repeat BNP today lower than 2 days ago at 626, chest x-ray similar to previous with stable mild venous congestion. She was afebrile, not noted to have any leukocytosis. She denies any associated cough. In the emergency department she was treated with 20 mg of IV Lasix and ceftriaxone/azithromycin. 80-year-old woman treated for shortness of breath, multifactorial secondary to mild acute on chronic heart failure with preserved ejection fraction, anxiety disorder and obstructive sleep apnea. Patient does have a history of restrictive lung disease and general deconditioning. She was not noted to have any consolidation or effusion on imaging. She was treated with some IV Lasix with good effect. She remained on room air and had a home oxygen evaluation which was negative. Plan is to discharge patient home she is in agreement with this Dizziness. Seems chronic, possibly related to her trigeminal neuralgia. Orthostatic blood pressures negative. No falls evaluated by Physical therapy with recommendation for home PT Trigeminal neuralgia. Previously on Trileptal but felt as though her leg edema was being caused by this medication so she stopped it. She has a plan for nerve block surgery tomorrow at [facility] Diabetes mellitus type 2. Continue home medications Paroxysmal atrial fibrillation. Continue amiodarone, metoprolol and Eliquis Hypothyroidism. Continue levothyroxine GERD. Continue PPI Time Attestation Discharge Coordination Time (in mins): 42 Quality: Safe Use of Opioids Does Pt have an Active Cancer Diagnosis on the Problem List?: No Quality: Stroke Does the patient have a stroke diagnosis?: No Physical Exam Exam: Exam: Appearing in no acute distress head is normocephalic atraumatic eyes pupils are PERRLA sclera is anicteric mouth throat mucous membranes are intact and moist neck is supple no lymphadenopathy, no JVD noted lung sounds are clear to auscultation heart regular rate rhythm, clear S1, S2 positive bowel sounds, abdomen is soft, nontender neuro patient is alert x3, no focal deficits Vital Signs: Vital Signs: Last Vital Signs Temp 97.9 F 04/25/25 07:18 Pulse 58 04/25/25 07:18 Resp 16 04/25/25 07:18 BP 151/70 H 04/25/25 07:18 Pulse Ox 97 04/25/25 07:18 O2 Del Method Oxymask 04/25/25 07:18 O2 Flow Rate 2 04/25/25 03:02 BMI result Body Mass Index 33.5 DS: Data Data Completed and Pending Completed studies during hospitalization [Text1]: Procedures Ultrasonography of Heart with Aorta, Transesophageal (08/28/24) Labs on day of discharge: Laboratory Results - last 24 hr 04/24/25 04/24/25 04/25/25 17:46 20:05 06:11 WBC 4.9 RBC 4.24 Hgb 9.1 L Hct 32.7 L MCV 77.1 L MCH 21.5 L MCHC 27.8 L RDW 19.8 H Plt Count 138 L MPV 9.5 Immature Gran % (Auto) 0.2 Neut % (Auto) 69.8 Lymph % (Auto) 11.4 L [place] % (Auto) 15.2 H Eos % (Auto) 3.0 Baso % (Auto) 0.4 Lymph # (Auto) 0.6 L [place] # (Auto) 0.8 Eos # (Auto) 0.2 Baso # (Auto) 0.0 Abs Immat Gran (auto) 0.01 Absolute Neuts (auto) 3.4 Absolute Nucleated RBC 0.000 Nucleated RBC % (auto) 0.0 Sodium 144 Potassium 3.9 Chloride 105 Carbon Dioxide 32 H Anion Gap 11 L BUN 20 H Creatinine 0.91 Estim Creat Clear Calc 43.9 Estimated GFR 59 POC Glucose 126 H 123 H Random Glucose 106 Calcium 8.2 L Total Bilirubin 0.3 AST 22 ALT 14 Alkaline Phosphatase 87 B-Natriuretic Peptide Total Protein 5.4 L Albumin 3.6 04/25/25 04/25/25 04/25/25 07:25 11:00 11:24 WBC 6.2 RBC 4.53 Hgb 9.8 L Hct 34.5 L MCV 76.2 L MCH 21.6 L MCHC 28.4 L RDW 19.7 H Plt Count 155 L MPV 9.8 Immature Gran % (Auto) Neut % (Auto) Lymph % (Auto) [place] % (Auto) Eos % (Auto) Baso % (Auto) Lymph # (Auto) [place] # (Auto) Eos # (Auto) Baso # (Auto) Abs Immat Gran (auto) Absolute Neuts (auto) Absolute Nucleated RBC 0.000 Nucleated RBC % (auto) 0.0 Sodium 143 Potassium 4.3 Chloride 104 Carbon Dioxide 31 H Anion Gap 12 BUN 19 H Creatinine 0.86 Estim Creat Clear Calc 46.5 Estimated GFR > 60 POC Glucose 104 108 Random Glucose 105 Calcium 8.3 L Total Bilirubin AST ALT Alkaline Phosphatase B-Natriuretic Peptide 303 H Total Protein Albumin Discharge Plan Discharge Anticipated Discharge Date/Time: 04/25/25 11:55 Patient Disposition: Home, Self-Care Discharge Diagnosis: Shortness of breath Dizziness Referrals: Mae Kruse PA [Primary Care Provider, Hospitalist] - 1 Week Discharge Medications: Continued metoprolol succinate 50 mg tablet extended release 24 hr 50 mg PO DAILY Qty: 90 3RF amiodarone 200 mg tablet 200 mg PO DAILY Qty: 90 2RF atorvastatin 10 mg Tablet 10 mg PO DAILY latanoprost 0.005 % Drops 1 drp ophthalmic (eye) BEDTIME Rx Instructions: Both eyes levothyroxine 50 mcg tablet 50 mcg PO DAILY@0600 pantoprazole 40 mg tablet,delayed release (DR/EC) 40 mg PO BID@0630,1630 (DME) cane Device See Rx Instructions .Route Qty: 1 0RF Rx Instructions: As directed Bobby stern dorzolamide-timolol 22.3-6.8 mg/mL drops 1 drp ophthalmic (eye) BID Rx Instructions: both eyes glipizide 2.5 mg tablet extended release 24hr 1.25 mg PO DAILY multivitamin Tablet 1 tab PO DAILY Held Eliquis 5 mg tablet 5 mg PO BID Qty: 60 5RF Hold Instructions: Resume on 04/27/25. hold until after procedure for trigeminal neuralgia Discharge Orders: Discharge Order (Routine); Ordered 04/25/25 Ordered By: Shu Busby Diet: Advance to usual diet Activity on Discharge: As tolerated Stand Alone Forms: Patient Portal Discharge page Print Language: Hungarian Care Plan Goals: Follow up with Neurosurgery at [facility] for surgical procedure for trigeminal neuralgia Health Concerns: Shortness of breath Dizziness Plan of Treatment: Follow up with primary care provider as needed Take all medications as prescribed Assessment: See discharge summary
[2025-04-25 15:28] VITALS: BP 128/60; PULSE 58; RESP 18; TEMP 36.4; O2SAT 91
== END 2025-04-25 17:13 | disposition home or self-care (01) | DRG 291 ==
LOC: HO.ED 11:32 → HO.EDOVER 12:47 → HO.IMC 04-24 17:59
PROVIDERS: Physician Assistant; Physician Assistant Medical; Student in an Organized Health Care Education/Training Program; Admitting Provider Physician Assistant Medical; Emergency Provider Emergency Medicine; PCP Physician Assistant; Visit Provider Nurse Practitioner Acute Care
DX: I11.0 Hypertensive heart disease with heart failure (principal); I50.23 Acute on chronic systolic (congestive) heart failure; E03.9 Hypothyroidism, unspecified; G47.33 Obstructive sleep apnea (adult) (pediatric); G50.0 Trigeminal neuralgia; I48.0 Paroxysmal atrial fibrillation; K21.9 Gastro-esophageal reflux disease without esophagitis; R60.0 Localized edema; T42.1X5A Adverse effect of iminostilbenes, initial encounter; F41.0 Panic disorder [episodic paroxysmal anxiety]; Z20.822 Contact with and (suspected) exposure to COVID-19; Z90.12 Acquired absence of left breast and nipple; Z79.01 Long term (current) use of anticoagulants; Z79.890 Hormone replacement therapy; Z79.899 Other long term (current) drug therapy
CPT/HCPCS: 36415; 71045; 80048; 80053; 81001; 82803; 82947; 83735; 83880; 84484; 85025; 85027; 85610; 87502; 87635; 93005; 97162; 99222; 99285; J0696; J1938

== ENCOUNTER → 2025-04-23 09:22 | Outpatient (BNV) | payer MEDICARE, OTHER, SELFPAY | PROVIDERS: Admitting Provider Physician Assistant Medical; Emergency Provider Emergency Medicine; PCP Physician Assistant; Visit Provider Internal Medicine Cardiovascular Disease | DX: I44.7 Left bundle-branch block, unspecified (principal); R00.1 Bradycardia, unspecified | CPT/HCPCS: 93010 ==

== ENCOUNTER → 2025-04-23 12:40 | Outpatient (BNV) | payer MEDICARE, OTHER, SELFPAY | PROVIDERS: Admitting Provider Physician Assistant Medical; Emergency Provider Emergency Medicine; PCP Physician Assistant; Visit Provider Physician Assistant Medical | DX: G47.33 Obstructive sleep apnea (adult) (pediatric) (principal); R06.00 Dyspnea, unspecified; J98.4 Other disorders of lung; T50.905A Adverse effect of unspecified drugs, medicaments and biological substances, initial encounter | CPT/HCPCS: 99223; 99232; 99239; 99499; G0180 ==

== ENCOUNTER → 2025-04-24 11:08 | Outpatient (BNV) | payer MEDICARE, OTHER, SELFPAY | PROVIDERS: Admitting Provider Physician Assistant Medical; Emergency Provider Emergency Medicine; PCP Physician Assistant; Visit Provider Hospitalist | DX: G47.33 Obstructive sleep apnea (adult) (pediatric) (principal); R06.00 Dyspnea, unspecified; J98.4 Other disorders of lung; T50.905A Adverse effect of unspecified drugs, medicaments and biological substances, initial encounter | CPT/HCPCS: 99223 ==

== ENCOUNTER 2025-05-03 15:17 | Outpatient (AMB) | payer MEDICARE, OTHER, SELFPAY ==
--- NOTE | 2025-05-03 15:21 | MHC.PC.OV ---
Vital Signs 05/03/25 15:27 05/03/25 15:46 Height 5 ft Weight 74.389 kg BMI 32.0 BP 148/80 H 138/68 Respiration 14 Pulse 62 Pulse Source Pulse Oximeter Temp 97.1 F Temp Source Temporal Artery Scan Pulse Oximetry (%) 97 Oxygen Delivery Method Room Air Intake Visit Reasons[place] [facility] [place] [place] [facility] [place] Business Architect Required: No Accompanied by: Self / Same As Patient Allergies gabapentin (From Neurontin) Allergy (Intermediate, Verified 05/03/25 15:21) JOINTS SWELL oxcarbazepine Allergy (Verified 05/03/25 15:21) Swelling famotidine Adverse Reaction (Mild, Verified 05/03/25 15:21) Dizziness warfarin (From Coumadin) Adverse Reaction (Verified 05/03/25 15:21) other oranges Allergy (Mild, Uncoded 05/03/25 15:21) cold sores Tobacco use date assessed: 12/23/24 Dental Screening Dental Screen Date: 12/23/24 HPI HPI Comments History of Present Illness Details 79-year-old female with history of paroxysmal atrial fibrillation, hypertension, diabetes, trigeminal neuralgia, post herpetic neuralgia presents to the office today for hospital discharge follow-up. She was admitted to [facility] from 04/24-04/25 due to dyspnea thought to be multifactorial secondary to acute on chronic congestive heart failure with preserved ejection fraction, anxiety disorder, and obstructive sleep apnea. Chest x-ray negative for any focal consolidations or effusions. She was treated with IV Lasix with good effect. At no point was she hypoxic and she did undergo home oxygen evaluation which was negative. She had also been experiencing some lightheadedness which is chronic, thought to be possibly related to trigeminal neuralgia, orthostatic blood pressures negative. To use evaluated by Physical therapy who recommended home PT. The following day, 04/26, she underwent right percutaneous retrogasserian glycerol rhizotomy at [facility] for her trigeminal neuralgia. Tolerated surgery well without any complications. She was discharged home with Tylenol as needed for discomfort and resumed her Eliquis on 04/29. She has since discontinued the oxcarbazepine as she had an adverse reaction with swelling of the forearms, ankles, feet. She is now on nortriptyline which he is tolerating well. Surgery was performed by Dr. Ekta Pretty at [facility] neurosurgery. She states initially, she had some numbness in the right side of her face, but now feels much better, symptoms resolved. Concerns: none ROS: see hpi EXAM: Constitutional - Awake and Alert, No apparent distress Eyes - PERRL Cardiovascular - S1S2, RRR, 2+ edema Respiratory - Normal lung expansion, Normal respiratory effort, No respiratory distress, CTA bilaterally Extremities - no calf tenderness bilaterally, no swelling Skin - Warm/Dry Neurological - Alert & oriented x3 Psychological - Appropriate affect [facility] Medical History Hypothyroidism Breast cancer, left Atrial fibrillation with rapid ventricular response Pulmonary hypertension Restrictive lung disease Diabetes Scoliosis CYNTHIA (obstructive sleep apnea) Obesity Cough HX: breast cancer Anemia Back pain Lymphedema of left arm GERD (gastroesophageal reflux disease) Blind right eye Trigeminal neuralgia of right side of face Hypertension CHF (congestive heart failure) Heart murmur after rheumatic heart disease Surgical History History of open reduction and internal fixation (ORIF) procedure History of ventral hernia repair History of left inguinal hernia repair History of bladder suspension procedure History of partial hysterectomy History of tonsillectomy and adenoidectomy Hx of esophagogastroduodenoscopy History of lymph node dissection of left axilla H/O left mastectomy Hx of wisdom tooth extraction History of colonoscopy (~12/02/22) Family History Father History of heart attack Mother History of leukemia History of hypertension Social History Household Members: Spouse Housing: House Housing Other:: Mobile home Are you a primary managed care liaison to a significant other at home: No Do you presently have visiting nurse or other home services: No Alcohol intake: never Patient Tobacco Use Status: Never used Tobacco Advance Directives Date on File: 02/08/23 service: No Current occupational status: retired Cognitive needs: No Hearing needs: No Vision needs: Yes (Rx glasses) Questionnaire Thrive Questionnaire Date Thrive assessed: 04/25/25 SERGIO-7 AMB Questionnaire SERGIO-7 Date SERGIO - 7 assessed: 12/23/24 Source: Developed by Drs. Sammy Almonte, Cyndy Arias, Gonzalo Jo and colleagues, with an educational junior from [employer] Physical exam (Primary Care) Vital Signs: Last Vital Signs Temp 97.1 F 05/03/25 15:27 Pulse 62 05/03/25 15:27 Resp 14 05/03/25 15:27 BP 148/80 H 05/03/25 15:27 Pulse Ox 97 05/03/25 15:27 Oxygen Delivery Method Room Air 05/03/25 15:27 BMI result Body Mass Index 32.0 Tobacco/Smoking Status: Tobacco use Status Tobacco use date assessed 12/23/24 05/03/25 15:23 Patient Tobacco Use Status Never used Tobacco 05/03/25 15:23 Thrive Assessment: Date of Thrive Assessment Date Thrive assessed 04/25/25 05/03/25 15:23 Coding Level of Care Code Est Pt Level 4 (72515) Complex EM visit Add On G2211 Diagnoses Hypertension I10 CHF (congestive heart failure) I50.9 Trigeminal neuralgia of right side of face G50.0 LIZ (dyspnea on exertion) R06.09 Assessment & Plan Assessment & Plan (1) Hypertension: Code(s): I10 - Essential (primary) hypertension Category: Medical Plan: Controlled on recheck with blood pressure 138/68. Continue metoprolol 50 mg ER (2) CHF (congestive heart failure): Code(s): I50.9 - Heart failure, unspecified Category: Medical Plan: Clinically euvolemic. No diuretics at this time. Continue following with cardiology. Recommend daily weights. Fluid and sodium restrictions (3) Trigeminal neuralgia of right side of face: Comment: s/p dental implant Code(s): G50.0 - Trigeminal neuralgia Category: Medical Plan: Currently asymptomatic. Follow-up with Neurology. Take nortriptyline 25 mg at bedtime as prescribed (4) LIZ (dyspnea on exertion): Code(s): R06.09 - Other forms of dyspnea Plan: Resolved. Likely multifactorial related to CHF, restrictive lung disease. There was also suggestion of CYNTHIA, but denies any symptoms consistent with this. Has never used CPAP. She is not interested in repeating sleep study at this time as she would decline treatment. Counseled on risks of unmanaged CYNTHIA. Plan Follow-up on 07/11 as scheduled. She is referred to [facility] as recommended in hospital discharge summary. Labs to be completed several days prior to next visit. Orders: Referrals [facility] Referral I50.9 - Heart failure, unspecified, R06.09 - Other forms of dyspnea, R26.81 - Unsteadiness on feet
[2025-05-03 15:27] VITALS: BP 148/80; PULSE 62; RESP 14; TEMP 36.2; O2SAT 97; BMI 32.0
[2025-05-03 15:46] VITALS: BP 138/68
--- OUTSIDE RECORDS SUMMARY | 2025-05-03 18:46 | XMS_ITS | Clinical Summary ---
Author Organization [facility] Address [address] [place] [id number] Phone Care Team Providers Care Buckram Sewer Name Role Phone Unknown, Unknown Primary Care [...] file Insurance MEDICARE PART A & B [facility] MEDICARE ENHANCE SUPPLEMENT MEDICARE PART A & B [facility] MEDICARE ENHANCE SUPPLEMENT MEDICARE PART A & B [facility] MEDICARE ENHANCE SUPPLEMENT MEDICARE PART A & B [facility] MEDICARE ENHANCE SUPPLEMENT MEDICARE PART A & B [id number] [place] [address] MEDICARE ENHANCE SUPPLEMENT MEDICARE PART A & B [facility] MEDICARE ENHANCE SUPPLEMENT MEDICARE PART A & B [facility] MEDICARE ENHANCE SUPPLEMENT MEDICARE PART A & B [facility] MEDICARE ENHANCE SUPPLEMENT MEDICARE PART A & B [facility] MEDICARE ENHANCE SUPPLEMENT Care Teams Buckram Sewer Relationship Specialty Start Date End Date Unknown, Unknown, PCP - General 04/30/16 Additional Source Comments The information contained in this document represents components of the legal health record. It is not the complete legal health record.[facility]
--- OUTSIDE RECORDS SUMMARY | 2025-05-03 18:46 | XMS_ITS | Patient Health Record ---
Author Organization [facility] Address [address] [place] [address] Care Team Providers Care Varsity Baseball Coach Name Role Phone Nette (RETIRED) Kory WONG Primary Care Provide r Sammy Fish Unavailable [phone] Allergies Allergen (clinical drug ingredient) Drug/Non Drug [...] Formula 1 4 PO QD Act rosy [place] 3 2 plus 1 capsule Orally 2 [...] Problem Status W/U Status Risk Notes Problem 462408385 Gastro-esophage al reflux disease without esophagitis (K21.9) Active confirmed Problem 197127214 Encounter for screening for malignant neoplasm of colon (Z12.11) Active confirmed Problem 892825363 History of adenomatous polyp of colon (Z86.010) Active confirmed Problem 42600997 Hypertension (I10) Active confirmed Problem Screening for malignant neoplasm of rectum (857505430) Encounter for screening for malignant neoplasm of rectum (Z12.12) Active confirmed Problem Dysphagia (09447476) Dysphagia (R13.10) Active confirmed Problem Gastroesophageal reflux disease (548127941) GERD (gastroesophage al reflux disease) (K21.9) Active confirmed Plan Of Treatment Future Test Test Name Order Date COLONOSCOPY 05/09/2011 COLONOSCOPY 11/19/2016 Insurance Providers Payer Name Payer Address Payer Phone Subscriber Number Group Number Insured Name Patient Relationship to Insured Coverage Start Date Coverage End Date MED[place]ARE OF [place] [address] [place] [address] [id number] BAXTER January Self - patient is the insured [employer] [facility] [address] [address] [place] [address] [phone] [id number] BAXTER January Self - patient is the insured Medical (General) History Medical History History ICD Code Glaucoma Trigeminal neuralgia Denies NC,DM,CVA,Lung disease,renal dise ase Breast cancer--left mastectomy, chemo, X RT Colonoscopy 05/2011--small t ubular adenoma removed, sigmoid diverticulosis, small internal hemorrhoids--- she has had prior colonoscopies while she was living in [place] GERD---Hiatal hernia surgery in [address] Christiansen at [facility]--s/p esophageal dilations at [facility]--she has had previous upper endoscopies in [place] when she was living there Hyperlipidemia NIDDM [...] t for glaucoma Hiatal hernia repair at [facility] as above
--- OUTSIDE RECORDS SUMMARY | 2025-05-03 18:46 | XMS_ITS | Clinical Summary ---
Author Organization [facility] Address [address] [place] [address] Care Team Providers Care Commercial Attache Name Role Phone Kory Perdue MD Primary Care Provider Allergies Active Allergy Reactions Criticality Noted Date Comments Gabapentin Swelling 01/16/2016 joints Hitchcock Other (See Comments) 01/16/2016 Cold sores Medications [...] age to complete this topic Care Teams Commercial Attache Relationship Specialty Start Date End Date Kory Perdue MD [address] [place] [address] [address] [place]RIST[place] Hart [address] PCP - General Parent Educator 01/09/16
== END 2025-05-03 16:20 | disposition home or self-care (01) ==
LOC: HO.HMCHD 15:17
PROVIDERS: PCP Physician Assistant; Visit Provider Physician Assistant
DX: I10 Essential (primary) hypertension (principal); I50.9 Heart failure, unspecified; G50.0 Trigeminal neuralgia; R06.09 Other forms of dyspnea

== ENCOUNTER → 2025-05-03 15:17 | Outpatient (BNVA) | payer MEDICARE, OTHER, SELFPAY | PROVIDERS: PCP Physician Assistant; Visit Provider Physician Assistant | DX: I11.0 Hypertensive heart disease with heart failure (principal); I50.9 Heart failure, unspecified; G50.0 Trigeminal neuralgia; R06.09 Other forms of dyspnea; Z79.899 Other long term (current) drug therapy | CPT/HCPCS: 99212 ==

== ENCOUNTER 2025-06-05 11:48 | Outpatient (AMB) | payer MEDICARE, OTHER, SELFPAY ==
--- NOTE | 2025-06-05 11:50 | MHC.OFFVIS ---
Vital Signs 06/05/25 11:51 Height 5 ft Weight 163 lb 2.273 oz BMI 31.9 BP 116/60 Blood Pressure Location Lt brachial Position Sitting Pulse 69 Intake Visit Reasons: 6 mo f/u Intake Note: January presents in the office as a 6 month follow up. CC: no concerns at this time. Senior Cyber Intelligence Analyst Required: No Allergies gabapentin (From Neurontin) Allergy (Intermediate, Verified 06/06/25 13:30) JOINTS SWELL oxcarbazepine Allergy (Verified 06/06/25 13:30) Swelling famotidine Adverse Reaction (Mild, Verified 06/06/25 13:30) Dizziness warfarin (From Coumadin) Adverse Reaction (Verified 06/06/25 13:30) other oranges Allergy (Mild, Uncoded 06/05/25 11:52) cold sores HPI HPI 6 mo f/u: Details: 80 yr old f being seen for f/u RECAP she intially presented with resp symptoms for 2-3 weeks 11/2018 w c/o persistent dry cough, along with poor appetite, and weight gain as well as ankle swelling. she had interventions as below she was using wedge pillow at night she felt the coughing had gone away since the procedures below she saw pulm and found to have restrictive lung disease PCP was worried re: dilated and tortuous esophagus on chest imaging she had repeat EGD with Dr Hough 06/07 and had redilation to 20 mm balloon, also colonoscopy with large polyp removed in [facility], SSA I did repeat colonoscopy 12/02/22: no residual or recurrent polyp material seen, path neg as well, diverticulosis was noted, more severe left side she had repeat EGD with dilation at [facility] and [facility]< She was admitted 09/10 with rapid A-fib and plan was for TRUDI and cardioversion but the TRUDI could not be passed, I was there and the EGD scope passed easily but could not dilate her as she was on anticoagulation TESTS: she had CTA to r/o PE which was negative but did reveal abn thickened proxiaml esophagus. she had an EGD which revealed sigmoid shaped esophagus, wrap didn;t seem so tight had ba swallow, times with retention of barium, 70& still at 5 mins, then had repeat EGD with dilation 15-18 mm with heme and tear noted, improvement in timed ba swallow further EGD 11/2018 w/ 18-19 mm dilation with tear and heme noted EGD 03/2019- stricture noted and dilated 18-19 mm CRE with tear noted EGD 10/2019-- Balloon dilation performed with 19 mm balloon with good result, heme and tear noted, no perforation. EGD 07/2020: Balloon dilation performed with 18 mm then 19 mm balloon with good result, heme and tear noted, Ct scan with fluid filled and dilated esophagus 10/2020- INTERIM: she is doing well no swallowing issues and denies choking or resp issues no rectal bleeding no constipation no diarrhea appetite is good still taking pantoprazole BID, no issues taking MV and vit D supplement as before EXAM: GENERAL: The patient is well developed and nontoxic. VITAL SIGNS:see workflow HEENT: Nonicteric sclerae, PERRLA, EOMI. Oropharynx clear. Moist mucous membranes. Conjunctivae appear well perfused. No thyroid mass. CHEST: Chest wall is nontender. HEART: Regular rate and rhythm with murmur and click LUNGS: Clear to auscultation bilaterally. ABDOMEN: Soft, positive bowel sounds, nontender, no organomegaly.no flank tenderness SKIN: No rash, no excessive bruising, petechiae, or purpura. NEUROLOGIC: Cranial nerves II-XII intact without motor/sensory deficit. Psych: normal affect Assessment & Plan 1/ dysphagia and regurgitation 2/2 to prior surgical wrap, needing dilation periodically, 2/ Colon polyps in past, repeat colo was neg PLAN: 1/ cont with PPI BID--periodic iron, b12, mag vit d levels 2/ EGD with dilation prn depending on her symptoms, will see her again in 12 months, if needs dilation may need bridging with lovenox [facility] Medical History CHF (congestive heart failure) Hypothyroidism Breast cancer, left Atrial fibrillation with rapid ventricular response Pulmonary hypertension Restrictive lung disease Diabetes Scoliosis CYNTHIA (obstructive sleep apnea) Obesity Cough HX: breast cancer Anemia Back pain Lymphedema of left arm GERD (gastroesophageal reflux disease) Blind right eye Trigeminal neuralgia of right side of face Hypertension Heart murmur after rheumatic heart disease Surgical History History of open reduction and internal fixation (ORIF) procedure History of ventral hernia repair History of left inguinal hernia repair History of bladder suspension procedure History of partial hysterectomy History of tonsillectomy and adenoidectomy Hx of esophagogastroduodenoscopy History of lymph node dissection of left axilla H/O left mastectomy Hx of wisdom tooth extraction History of colonoscopy (~12/02/22) Family History Father History of heart attack Mother History of leukemia History of hypertension Social History Household Members: Spouse Housing: House Housing Other:: Mobile home Are you a primary care transitions manager to a significant other at home: No Do you presently have visiting nurse or other home services: No Alcohol intake: never Patient Tobacco Use Status: Never used Tobacco Advance Directives Date on File: 02/08/23 service: No Current occupational status: retired Cognitive needs: No Hearing needs: No Vision needs: Yes (Rx glasses) Physical Exam Vital Signs: Last Vital Signs Pulse 69 06/05/25 11:51 BP 116/60 06/05/25 11:51 BMI result Body Mass Index 31.9 Assessment & Plan Assessment & Plan (1) Dysphagia: Code(s): R13.10 - Dysphagia, unspecified Category: Medical Plan: as above Medications: Resumed apixaban (Eliquis) 5 mg PO BID 60 tabs 5RF Coding Level of Care Code Est Pt Level 3 (64490) Diagnoses Dysphagia R13.10
[2025-06-05 11:51] VITALS: BP 116/60; PULSE 69; BMI 31.9
== END 2025-06-05 12:23 | disposition home or self-care (01) ==
LOC: HO.HGI 11:48
PROVIDERS: PCP Internal Medicine; Visit Provider Internal Medicine Gastroenterology
DX: R13.10 Dysphagia, unspecified (principal)
CPT/HCPCS: 99213

== ENCOUNTER → 2025-06-05 11:48 | Outpatient (BNVA) | payer MEDICARE, OTHER, SELFPAY | PROVIDERS: PCP Internal Medicine; Visit Provider Internal Medicine Gastroenterology | DX: R13.10 Dysphagia, unspecified (principal); Z79.01 Long term (current) use of anticoagulants | CPT/HCPCS: 99212 ==

== ENCOUNTER 2025-06-06 13:14 | Outpatient (AMB) | payer MEDICARE, OTHER, SELFPAY ==
[2025-06-06 13:26] VITALS: BP 118/52; PULSE 69; BMI 32.5
--- NOTE | 2025-06-06 13:26 | MHC.OFFVIS ---
Vital Signs 06/06/25 13:26 Height 5 ft Weight 166 lb 10.711 oz BMI 32.5 BP 118/52 L Blood Pressure Location Lt brachial Position Sitting Pulse 69 Pulse Source Monitor Intake Visit Reasons: 6 mth f/up Certified Art Therapist Required: No Accompanied by: Self / Same As Patient Allergies gabapentin (From Neurontin) Allergy (Intermediate, Verified 06/06/25 13:30) JOINTS SWELL oxcarbazepine Allergy (Verified 06/06/25 13:30) Swelling famotidine Adverse Reaction (Mild, Verified 06/06/25 13:30) Dizziness warfarin (From Coumadin) Adverse Reaction (Verified 06/06/25 13:30) other oranges Allergy (Mild, Uncoded 06/05/25 11:52) cold sores Medication List - Last Reconciled 06/06/25 by Hiren Clark NP amiodarone 200 mg PO DAILY apixaban (Eliquis) 5 mg PO BID Held on 04/25/25. Instructions: Resume on 04/27/25. hold until after procedure for trigeminal neuralgia atorvastatin 10 mg PO DAILY cane As directed Bobby cane coenzyme Q10 (Ultra CoQ10) 75 mg PO DAILY dorzolamide-timolol 22.3-6.8 mg/mL 1 drp ophthalmic (eye) BID glipizide ER 1.25 mg PO DAILY latanoprost 0.005% 1 drp ophthalmic (eye) BEDTIME levothyroxine 50 mcg PO DAILY@0600 metoprolol succinate ER 50 mg PO DAILY multivitamin 1 tab PO DAILY nortriptyline 25 mg PO BEDTIME pantoprazole 40 mg PO BID@0630,1630 HPI Comments Details: This is an 80-year-old female patient coming in for a follow-up visit. Patient with a history of hypertension, diabetes, paroxysmal AFib, left bundle branch block, and congestive heart failure. Patient states that she had hospitalization about a month ago for trigeminal neuralgia and for the pain patient was started on narcotic which gave her dizziness and extremity swelling. However upon stopping this patient's symptoms resolved and now is status post surgical repair of the trigeminal neuralgia. Patient is otherwise denying any cardiac symptoms of exertional chest pain, shortness of breath, palpitations, dizziness, orthopnea, PND, leg edema, presyncope or syncope. Patient is reporting compliance with all her medications. [facility] Medical History CHF (congestive heart failure) Hypothyroidism Breast cancer, left Atrial fibrillation with rapid ventricular response Pulmonary hypertension Restrictive lung disease Diabetes Scoliosis CYNTHIA (obstructive sleep apnea) Obesity Cough HX: breast cancer Anemia Back pain Lymphedema of left arm GERD (gastroesophageal reflux disease) Blind right eye Trigeminal neuralgia of right side of face Hypertension Heart murmur after rheumatic heart disease Surgical History History of open reduction and internal fixation (ORIF) procedure History of ventral hernia repair History of left inguinal hernia repair History of bladder suspension procedure History of partial hysterectomy History of tonsillectomy and adenoidectomy Hx of esophagogastroduodenoscopy History of lymph node dissection of left axilla H/O left mastectomy Hx of wisdom tooth extraction History of colonoscopy (~12/02/22) Family History Father History of heart attack Mother History of leukemia History of hypertension Social History Household Members: Spouse Housing: House Housing Other:: Mobile home Are you a primary healthcare educator to a significant other at home: No Do you presently have visiting nurse or other home services: No Alcohol intake: never Patient Tobacco Use Status: Never used Tobacco Advance Directives Date on File: 02/08/23 service: No Current occupational status: retired Cognitive needs: No Hearing needs: No Vision needs: Yes (Rx glasses) Review of Systems Const Denies daytime sleepiness, Denies difficulty sleeping, Denies snoring, Denies stops breathing during sleep and Denies weakness Card Denies chest pain, Denies rapid heart rate, Denies irregular heart rhythm, Denies claudication, Denies leg edema, Denies lightheadedness, Denies palpitations, Denies dyspnea, Denies dyspnea on exertion, Denies orthopnea, Denies paroxysmal nocturnal dyspnea and Denies slow heart rate Resp Denies cough, Denies dyspnea, Denies dyspnea on exertion and Denies snoring GI Reports no additional complaints, Denies hematochezia, Denies change in stool character and Denies dyspepsia Musc Denies abnormal gait, Denies muscle weakness and Denies numbness Neuro Denies abnormal gait, Denies numbness and Denies weakness Endo Denies palpitations Physical Exam Vital Signs: Last Vital Signs Pulse 69 06/06/25 13:26 BP 118/52 L 06/06/25 13:26 BMI result Body Mass Index 32.5 Const General: cooperative, healthy appearing, comfortable and no acute distress Orientation/consciousness: patient oriented x3 HEENT Head: Yes normal to inspection Neck Neck: Yes normal visual inspection, Yes trachea midline and Yes supple Chest Chest palpation & inspection: normal inspection of the chest Resp Effort & Inspection: normal respiratory effort Auscultation: clear to auscultation bilaterally, no crackles, no rales, no rhonchi and no wheezes Cardio Jugular venous distension: no JVD Palpation: normal PMI Rate: regular rate Rhythm: regular rhythm Heart sounds: S1 normal heart sound present, S2 normal heart sound present, no click, no gallops, Murmur heart sound present systolic and no rubs Peripheral pulses: Peripheral pulses 2+ throughout GI Inspection: Yes normal to inspection Palpation (GI): Soft to palpation Auscultation: normal bowel sounds Skin General skin exam: no rashes or lesions noted Neuro General: patient oriented x3 Extrem General: Yes normal to inspection, No no pedal edema and No calf tenderness Psych Appearance: grossly normal Mental Status: mental status grossly normal Speech and movement: Normal speech and movement present Office Procedures EKG Details: EKG today showed sinus rhythm with a first-degree AV block, rate 69 beats per minute, left axis deviation, left bundle branch [place], [place]. [id number], Complete Assessment & Plan Assessment & Plan (1) Paroxysmal atrial fibrillation: Code(s): I48.0 - Paroxysmal atrial fibrillation Category: Medical Plan: 11/15/2024-Holter study showed underlying normal sinus rhythm with an average heart rate of 63 beats per minute, with rare supraventricular and ventricular ectopy. No signs of AFib. Patient previously wanted to try warfarin due to financial reasons but started developing side effects to it and therefore his back on Eliquis now. Denies any falls or signs of bleeding. Continue Eliquis for full anticoagulation therapy. Continue amiodarone and metoprolol for rhythm and rate control. EKG today showed normal sinus rhythm. We will monitor labs periodically. (2) CHF (congestive heart failure): Code(s): I50.9 - Heart failure, unspecified Category: Medical Plan: 11/15/2024-echo study showed an improved ejection fraction at 52% with grade 2 diastolic dysfunction, severely dilated left atrium, moderate calcification of the aortic valve and severe mitral annular calcification. Clinically euvolemic and stable. Discussed in detail the signs and symptoms to look for with heart failure. Advised on low-salt diet, daily weight monitoring, and wearing compression socks as needed. (3) Left bundle branch block: Code(s): I44.7 - Left bundle-branch block, unspecified Category: Medical Plan: EKG with a left bundle branch block, not new. Clinically stable. We will continue to monitor. (4) Hypertension: Code(s): I10 - Essential (primary) hypertension Category: Medical Plan: Blood pressure today is well-controlled. Continue current regimen. Advised patient to continue monitoring blood pressures at home and keeping a log of it. Ideally, blood pressure goal less than 130/80. Advised heart healthy diet, regular exercise as tolerated, med compliance, and management of vascular risk factors. Patient will follow up in [address] Shafer. In the interim, patient will call us with any concerns or changes in symptoms. This note was generated using voice recognition software. While every effort has been made to ensure accuracy and proper stock checkerer, there may be occasional errors that could affect the content or meaning of the described symptoms. Orders: Orders AMB EKG-In Office Today I48.0 - Paroxysmal atrial fibrillation Coding Level of Care Code Est Pt Level 4 (90923) Complex EM visit Add On G2211 Diagnoses Paroxysmal atrial fibrillation I48.0 CHF (congestive heart failure) I50.9 Left bundle branch block I44.7 Hypertension I10 CPT Codes EKG - CPT: 56700-[id number], Complete ([id number]) Time Spent (min) 31 Comment Time spent in reviewing the chart, test results, assessment, counseling and documentation.
--- OUTSIDE RECORDS SUMMARY | 2025-06-06 17:14 | XMS_ITS | Patient Health Record ---
Author Organization [facility] Address [address] [place] [address] Care Team Providers Care Engineering Group Manager Name Role Phone Nette (RETIRED) Kory WONG Primary Care Provide r Sammy Fish Unavailable [phone] Allergies Allergen (clinical drug ingredient) Drug/Non Drug [...] 1 TABLET BY MOUTH TWICE A DAY Oral; Duration: 90 Active Calcium Magnesium 750 300-30 0 MG 1 tablet with meals Orally QD Active Vision Formula 1 4 PO QD Act rosy Delton 3 2 plus 1 capsule Orally 2 daily Active Anastrozole 1 MG 1 tablet Orally Once a day Active hydroCHLOROthiazide 12.5 MG 1 tablet in the morning Orally Once a day; Duration: 30 day(s) Active Atorvastatin Calcium 10 MG [...] Problem Status W/U Status Risk Notes Problem Gastro-esophageal reflux disease without esophagitis (138113909) Gastro-esophage al reflux disease without esophagitis (K21.9) Active confirmed Problem Screening for malignant neoplasm of colon (429372552) Encounter for screening for malignant neoplasm of colon (Z12.11) Active confirmed Problem History of adenomatous polyp of colon (411044144) History of adenomatous polyp of colon (Z86.010) Active confirmed Problem Hypertension (03800548) Hypertension (I10) Active confirmed Problem Screening for malignant neoplasm of rectum (680683742) Encounter for screening for malignant neoplasm of rectum (Z12.12) Active confirmed Problem Dysphagia (50633080) Dysphagia (R13.10) Active confirmed Problem Gastroesophageal reflux disease (487834395) GERD (gastroesophage al reflux disease) (K21.9) Active confirmed Plan Of Treatment Future Test Test Name Order Date COLONOSCOPY 05/09/2011 COLONOSCOPY 11/19/2016 Insurance Providers Payer Name Payer Address Payer Phone Subscriber Number Group Number Insured Name Patient Relationship to Insured Coverage Start Date Coverage End Date [place] [address] [place] [address] [phone] [id number] [place] January Self - patient is the insured [facility] [address] [address] [place] [address] [id number] [place] January Self - patient is the insured Medical (General) History Medical History History ICD Code Glaucoma Trigeminal neuralgia Denies [place],DM,CVA,Lung disease,renal dise ase Breast cancer--left mastectomy, chemo, X RT Colonoscopy 05/2011--small t ubular adenoma removed, sigmoid diverticulosis, small internal hemorrhoids--- she has had prior colonoscopies while she was living in [place] GERD---Hiatal hernia surgery in [address] Christiansen at [facility]--s/p esophageal dilations at [facility]--she has had previous upper endoscopies in [place] when she was living there Hyperlipidemia NIDDM [...] t for glaucoma Hiatal hernia repair at [facility] as above
--- OUTSIDE RECORDS SUMMARY | 2025-06-06 17:14 | XMS_ITS | Clinical Summary ---
Author Organization [facility] Address [address] [place] [address] Care Team Providers Care Helper Steel Fabrication Name Role Phone Kory Perdue MD Primary Care Provider [phone] Allergies Active Allergy Reactions Criticality Noted Date Comments Gabapentin Swelling 01/16/2016 joints [place] Other (See Comments) 01/16/2016 Cold sores Medications [...] age to complete this topic Care Teams Helper Steel Fabrication Relationship Specialty Start Date End Date Kory Perdue MD [address] [place] [address] Dr [address] [place] [address] PCP - General President/Gm Production & Live Experiences 01/09/16
--- OUTSIDE RECORDS SUMMARY | 2025-06-06 17:14 | XMS_ITS | Clinical Summary ---
Author Organization [facility] Address [address] [place] [address] Phone Care Team Providers Care Line Crewman Name Role Phone Unknown, Unknown Primary Care [...] VACCINE (1 - 1-dose 75+ series) 2018 INFLUENZA VACCINE (#1) 2025 05/24/2020 COVID-19 VACCINE (2 - 2024-2 6 season) 2025 10/10/2020 HEPATITIS A VACCINES Aged Out No [...] file Insurance MEDICARE PART A & B [facility] MEDICARE ENHANCE SUPPLEMENT MEDICARE PART A & B [facility] MEDICARE ENHANCE SUPPLEMENT MEDICARE PART A & B [facility] MEDICARE ENHANCE SUPPLEMENT MEDICARE PART A & B [facility] MEDICARE ENHANCE SUPPLEMENT MEDICARE PART A & B [id number] [place] [address] MEDICARE ENHANCE SUPPLEMENT MEDICARE PART A & B [facility] MEDICARE ENHANCE SUPPLEMENT MEDICARE PART A & B [facility] MEDICARE ENHANCE SUPPLEMENT MEDICARE PART A & B [facility] MEDICARE ENHANCE SUPPLEMENT MEDICARE PART A & B [facility] MEDICARE ENHANCE SUPPLEMENT Care Teams Line Crewman Relationship Specialty Start Date End Date Unknown, Unknown, PCP - General 04/30/16 Additional Source Comments The information contained in this document represents components of the legal health record. It is not the complete legal health record.[facility]
== END 2025-06-06 14:06 | disposition home or self-care (01) ==
LOC: HO.HCS 13:15
PROVIDERS: PCP Internal Medicine
DX: I48.0 Paroxysmal atrial fibrillation (principal); I50.9 Heart failure, unspecified; I44.7 Left bundle-branch block, unspecified; I10 Essential (primary) hypertension
CPT/HCPCS: 93010; 99214; G2211

== ENCOUNTER → 2025-06-06 13:14 | Outpatient (BNVA) | payer MEDICARE, OTHER, SELFPAY | PROVIDERS: PCP Internal Medicine | DX: I11.0 Hypertensive heart disease with heart failure (principal); I50.9 Heart failure, unspecified; I48.0 Paroxysmal atrial fibrillation; I44.7 Left bundle-branch block, unspecified; I44.0 Atrioventricular block, first degree; R94.31 Abnormal electrocardiogram [ECG] [EKG] | CPT/HCPCS: 93005; 99212 ==

== ENCOUNTER 2025-07-07 08:05 | Outpatient (REF) | payer MEDICARE, OTHER, SELFPAY ==
--- OUTSIDE RECORDS SUMMARY | 2025-07-07 08:08 | XMS_ITS | Clinical Summary ---
Author Organization [facility] Address [address] [place] [address] Care Team Providers Care Kaiako Kura Ka[place] Maori Name Role Phone Kory Perdue MD Primary Care Provider [phone] Allergies Active Allergy Reactions Criticality Noted Date Comments Gabapentin Swelling 01/16/2016 joints [place] Other (See Comments) 01/16/2016 Cold sores Medications [...] age to complete this topic Care Teams Kaiako Kura [place] Maori Relationship Specialty Start Date End Date Kory Perdue MD [address] [place] [address] Dr [address] [place] [address] PCP - General Cotton Puller 01/09/16
--- OUTSIDE RECORDS SUMMARY | 2025-07-07 08:08 | XMS_ITS | Clinical Summary ---
Author Organization [facility] Address [address] [place] [address] Phone Care Team Providers Care Scoop Machine Operator Name Role Phone Unknown, Unknown Primary Care [...] (50+ y ears) (2 of 2 - PPSV23, PCV20, or PCV21) 10/21/2017 08/26/2017 RSV VACCINE (1 - 1-dose [...] file Insurance MEDICARE PART A & B [facility] MEDICARE ENHANCE SUPPLEMENT [facility] Address: [facility] [id number] [place] [address] MEDICARE PART A & B [facility] MEDICARE ENHANCE SUPPLEMENT MEDICARE PART A & B MEDICARE ENHANCE SUPPLEMENT MEDICARE PART A & B [facility] MEDICARE ENHANCE SUPPLEMENT [facility] [place] Address: [address] [place] [address] MEDICARE PART A & B [id number] [place] [address] MEDICARE ENHANCE SUPPLEMENT MEDICARE PART A & B [facility] MEDICARE ENHANCE SUPPLEMENT MEDICARE PART A & [place] [address] [place] [address] MEDICARE ENHANCE SUPP[place]MENT [facility] [place] [place]: [facility] [id number] [place] [id number] MEDICARE PART A & B [facility] MEDICARE ENHANCE SUPPLEMENT MEDICARE PART A & B [facility] MEDICARE ENHANCE SUPPLEMENT Care Teams Scoop Machine Operator Relationship Specialty Start Date End Date Unknown, Unknown, PCP - General 04/30/16 Additional Source Comments The information contained in this document represents components of the legal health record. It is not the complete legal health record.[facility]
--- OUTSIDE RECORDS SUMMARY | 2025-07-07 08:08 | XMS_ITS | Patient Health Record ---
Author Organization [facility] Address [address] [place] [address] Care Team Providers Care Boatswain Mate Name Role Phone Nette (RETIRED) Kory WONG Primary Care Provide r Sammy Fish Unavailable [phone] Allergies Allergen (clinical drug ingredient) Drug/Non Drug Allergy documented on EMR Reaction Allergy Type Onset Date Status carbamazepine carbamazepine (uncoded) Unknown Allergy Active gabapentin gabapentin (uncoded) Unknown Allergy Active gabapentin neurontin (uncoded) Unknown Allergy Active orange allergenic extract oranges (uncoded) Unknown Allergy Active Reason For Referral No Information Medications Medication SIG (Take, Route, Frequency, Duration) Notes Start Date End Date Status Pantoprazole Sodium 40 MG Tablet Delayed Release TAKE 1 TABLET BY MOUTH TWICE A DAY Oral; Duration: 90 Active Calcium Magnesium 750 300-300 MG Tablet 1 tablet with meals Orally QD Active Vision Formula 1 1 4 PO QD A ctive [place] 3 2 plus 1 capsule Orally 2 daily Active Anastrozole 1 MG Tablet 1 tablet Orally Once a day Active hydroCHLOROthiazide 12.5 MG Tablet 1 tablet in the morning Orally Once a day; Duration: 30 day(s) Active Atorvastatin Calcium 10 MG Tablet 1 tablet Orally Once a day Active Dorzolamide HCl-Timolol Mal 22.3-6.8 MG/ML Solution 1 drop into affected eye Ophthalmic Twice a day Active glipiZIDE Not-Taking /PRN Latanoprost 0.005 % Solution 1 drop into affected eye in the evening Ophthalmic Once a day Active Multi Vitamin/Minerals 1 Tablet 1 Orally QD Active Vitamin D3 1000 UNIT Capsule 1 capsule Orally Once a day Active CoQ10 200 MG Capsule 1 capsule with a meal Orally Once a day Active Immunizations Vaccine Route Administration Date Status Comme nts Flu vaccine no Preserv 3 and > Unknown 05/27/2016 Admin istered Influenza Unknown 04/17/2020 Administered Social History Social History Additional Details Category Social Info Options Details Miscellaneous: Marital status: 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 Section Notes: Nonsmoker; no sig alcohol Nonsmoker; no sig alcohol Problems Problem Type SNOMED Code ICD Code Onset Dates Problem Status W/U Status Risk Notes Problem Gastro-esophageal reflux disease without esophagitis (627431305) Gastro-esophage al reflux disease without esophagitis (K21.9) Active confirmed Problem Screening for malignant neoplasm of colon (962740048) Encounter for screening for malignant neoplasm of colon (Z12.11) Active confirmed Problem History of adenomatous polyp of colon (477160597) History of adenomatous polyp of colon (Z86.010) Active confirmed Problem Hypertension (45308312) Hypertension (I10) Active confirmed Problem Screening for malignant neoplasm of rectum (535573365) Encounter for screening for malignant neoplasm of rectum (Z12.12) Active confirmed Problem Dysphagia (93692941) Dysphagia (R13.10) Active confirmed Problem Gastroesophageal reflux disease (718898005) GERD (gastroesophage al reflux disease) (K21.9) Active confirmed Plan Of Treatment Future Test Test Name Order Date COLONOSCOPY 05/09/2011 COLONOSCOPY 11/19/2016 Insurance Providers Payer Name Payer Address Payer Phone Subscriber Number Group Number Insured Name Patient Relationship to Insured Coverage Start Date Coverage End Date [place] [address] [place] [address] [id number] [place] January Self - patient is the insured [facility] [address] [address] [place] [address] [id number] [place] January Self - patient is the insured Medical (General) History Medical History History ICD Code Glaucoma Trigeminal neuralgia Denies [place],DM,CVA,Lung disease,renal dise ase Breast cancer--left mastectomy, chemo, X RT Colonoscopy 05/2011--small t ubular adenoma removed, sigmoid diverticulosis, small internal hemorrhoids--- she has had prior colonoscopies while she was living in [facility]---Hiatal hernia surgery in [address] Christiansen at [facility]--s/p esophageal dilations at [facility]--she has had previous upper endoscopies in [place] when she was living there Hyperlipidemia NIDDM [...] t for glaucoma Hiatal hernia repair at [facility] as above
[2025-07-07 11:02] LABS: Anion Gap 9 (12-20); Blood Urea Nitrogen 24 mg/dL (9-16); Calcium 8.9 mg/dL (8.4-10.2); Carbon Dioxide 31 mmol/L (22-29); Chloride 108 mmol/L (96-108); Cholesterol 172 mg/dL (<200); Estimated Glomerular Filt Rate 51; HDL Cholesterol 74 mg/dL (>40); Potassium 4.7 mmol/L (3.3-5.1); Sodium 143 mmol/L (135-145); Triglycerides 56 mg/dL (<150)
[2025-07-07 11:33] LABS: Free T4 (Free Thyroxine) 1.19 ng/dL (0.71-1.85)
== END 2025-07-07 08:06 | disposition home or self-care (01) ==
LOC: HO.10HDL 08:05
PROVIDERS: Visit Provider Physician Assistant
DX: I10 Essential (primary) hypertension (principal); E11.9 Type 2 diabetes mellitus without complications; E03.9 Hypothyroidism, unspecified
CPT/HCPCS: 36415; 80048; 80061; 83036; 84439; 84443

== ENCOUNTER 2025-07-08 10:36 | Outpatient (REF) | payer MEDICARE, OTHER, SELFPAY ==
--- OUTSIDE RECORDS SUMMARY | 2025-07-08 10:41 | XMS_ITS | Clinical Summary ---
Author Organization [facility] Address [address] [place] [address] Phone Care Team Providers Care It Manager Name Role Phone Unknown, Unknown Primary Care [...] file Insurance MEDICARE PART A & B [facility] MEDICARE ENHANCE SUPPLEMENT MEDICARE PART A & B [facility] MEDICARE ENHANCE SUPPLEMENT MEDICARE PART A & B MEDICARE ENHANCE SUPPLEMENT MEDICARE PART A & B [facility] MEDICARE ENHANCE SUPPLEMENT MEDICARE PART A & B [id number] [place] [address] MEDICARE ENHANCE SUPPLEMENT MEDICARE PART A & B [facility] MEDICARE ENHANCE SUPPLEMENT MEDICARE PART A & [place] [address] [place] [address] MEDICARE ENHANCE SUPPLEMENT MEDICARE PART A & B [facility] MEDICARE ENHANCE SUPPLEMENT MEDICARE PART A & B [facility] MEDICARE ENHANCE SUPPLEMENT Care Teams It Manager Relationship Specialty Start Date End Date Unknown, Unknown, PCP - General 04/30/16 Additional Source Comments The information contained in this document represents components of the legal health record. It is not the complete legal health record.[facility]
--- OUTSIDE RECORDS SUMMARY | 2025-07-08 10:41 | XMS_ITS | Clinical Summary ---
Author Organization [facility] Address [address] [place] [address] Care Team Providers Care Water/Wastewater Project Manager Name Role Phone Kory Perdue MD Primary Care Provider [phone] Allergies Active Allergy Reactions Criticality Noted Date Comments Gabapentin Swelling 01/16/2016 joints [place] Other (See Comments) 01/16/2016 Cold sores Medications [...] age to complete this topic Care Teams Water/Wastewater Project Manager Relationship Specialty Start Date End Date Kory Perdue MD [address] [place] [address] Dr [address] [place] [address] PCP - General Operations Manager 01/09/16
--- OUTSIDE RECORDS SUMMARY | 2025-07-08 10:41 | XMS_ITS | Patient Health Record ---
Author Organization [facility] Address [address] [place] [address] Care Team Providers Care Oysterman Name Role Phone Nette (RETIRED) Kory WONG Primary Care Provide r Sammy Fish Unavailable [phone] Allergies Allergen (clinical drug ingredient) Drug/Non Drug [...] 1 1 4 PO QD A ctive [place] 3 2 plus 1 capsule Orally 2 [...] Notes Problem Gastro-esophageal reflux disease without esophagitis (304146542) Gastro-esophage al reflux disease without esophagitis (K21.9) Active confirmed Problem Screening for malignant neoplasm of colon (812864480) Encounter for screening for malignant neoplasm of colon (Z12.11) Active confirmed Problem History of adenomatous polyp of colon (490643651) History of adenomatous polyp of colon (Z86.010) Active confirmed Problem Hypertension (91563662) Hypertension (I10) Active confirmed Problem Screening for malignant neoplasm of rectum (056640534) Encounter for screening for malignant neoplasm of rectum (Z12.12) Active confirmed Problem Dysphagia (40035429) Dysphagia (R13.10) Active confirmed Problem Gastroesophageal reflux disease (129090816) GERD (gastroesophage al reflux disease) (K21.9) Active confirmed Plan Of Treatment Future Test Test Name Order Date COLONOSCOPY 05/09/2011 COLONOSCOPY 11/19/2016 Insurance Providers Payer Name Payer Address Payer Phone Subscriber Number Group Number Insured Name Patient Relationship to Insured Coverage Start Date Coverage End Date MEDICARE OF [place] [address] [place] [address] [id number] [place] January Self - patient is the insured [facility] [address] [address] [place] [address] [id number] [place] January Self - patient is the insured Medical (General) History Medical History History ICD Code Glaucoma Trigeminal neuralgia Denies TX,DM,CVA,Lung disease,renal dise ase Breast cancer--left mastectomy, chemo, X RT Colonoscopy 05/2011--small t ubular adenoma removed, sigmoid diverticulosis, small internal hemorrhoids--- she has had prior colonoscopies while she was living in [facility]---Hiatal hernia surgery in [address] Christiansen at [facility]--s/p esophageal dilations at [facility]--she has had previous upper endoscopies in [place] when she was living there Hyperlipidemia NIDDM [...] t for glaucoma Hiatal hernia repair at [facility] as above
[2025-07-08 11:39] LABS: Microalbum/Creatinine Ratio Ur 11.0 ug/mg cr (<30)
== END 2025-07-08 10:37 | disposition home or self-care (01) ==
LOC: HO.LNP 10:36
PROVIDERS: Visit Provider Physician Assistant
DX: I10 Essential (primary) hypertension (principal); E11.9 Type 2 diabetes mellitus without complications; E03.9 Hypothyroidism, unspecified
CPT/HCPCS: 82043; 82570

== ENCOUNTER 2025-07-11 10:15 | Outpatient (AMB) | payer MEDICARE, OTHER, SELFPAY ==
--- NOTE | 2025-07-11 10:17 | MHC.PC.OV ---
Vital Signs 07/11/25 10:20 07/11/25 10:48 Height 4 ft 11.29 in Weight 75.75 kg BMI 33.4 BP 156/70 H 132/72 Blood Pressure Location Rt brachial Position Sitting Respiration 18 Pulse 62 Pulse Source Pulse Oximeter Temp 97.7 F Pulse Oximetry (%) 97 Oxygen Delivery Method Room Air Intake Visit Reasons: 3 Month F/U Stem Sizer Required: No Accompanied by: Self / Same As Patient Allergies duloxetine Allergy (Intermediate, Verified 07/11/25 10:22) Unknown gabapentin (From Neurontin) Allergy (Intermediate, Verified 07/11/25 10:22) JOINTS SWELL oxcarbazepine Allergy (Verified 07/11/25 10:22) Swelling famotidine Adverse Reaction (Mild, Verified 07/11/25 10:22) Dizziness warfarin (From Coumadin) Adverse Reaction (Verified 07/11/25 10:22) other oranges Allergy (Mild, Uncoded 06/05/25 11:52) cold sores Medication List - Last Reconciled 07/11/25 by GWEN Ozuna amiodarone 200 mg PO DAILY apixaban (Eliquis) 5 mg PO BID atorvastatin 10 mg PO DAILY cane As directed Hurry cane coenzyme Q10 (Ultra CoQ10) 75 mg PO DAILY dorzolamide-timolol 22.3-6.8 mg/mL 1 drp ophthalmic (eye) BID latanoprost 0.005% 1 drp ophthalmic (eye) BEDTIME levothyroxine 50 mcg PO DAILY 90 days metoprolol succinate ER 50 mg PO DAILY multivitamin 1 tab PO DAILY nortriptyline 25 mg PO BEDTIME pantoprazole 40 mg PO BID@0630,1630 Tobacco use date assessed: 12/23/24 Dental Screening Dental Screen Date: 12/23/24 HPI HPI Comments History of Present Illness Details 79-year-old female with history of paroxysmal atrial fibrillation, hypertension, diabetes, trigeminal neuralgia, post herpetic neuralgia presents to the office today for follow-up Paroxysmal atrial fibrillation/hypertension-anticoagulated with Eliquis. On amiodarone and metoprolol. Following with [facility] Card[facility], last seen 06/06. No longer on diuretics but has had increased edema, not bothersome. Blood pressure on recheck 156/70 initially, on recheck 132/70 Type 2 diabetes-on glipizide 1.25 mg extended release. Last A1c 6.0%. Trigeminal neuralgia- previously following with Dr. Granados. Attempted multiple medications without improvement of symptoms. Saw Dr. Cardoza at [facility] and underwent cholesterol rhizotomy on 04/26. Initially thought to be related to herpes zoster but ultimately was found to be unrelated. Reports since then, has had full resolution of symptoms. Due for follow-up with Neurosurgery T Hypothyroidism- Levothyroxine 50 mcg daily. Taking with food. Last TSH 6.8, normal free T4 1.19 Concerns: None ROS: see hpi EXAM: Constitutional - Awake and Alert, No apparent distress Eyes - PERRL Cardiovascular - S1S2, RRR, 2+ edema Respiratory - Normal lung expansion, Normal respiratory effort, No respiratory distress, CTA bilaterally Extremities - no calf tenderness bilaterally, no swelling Skin - Warm/Dry Neurological - Alert & oriented x3 Psychological - Appropriate affect PFSH Medical History CHF (congestive heart failure) Hypothyroidism Breast cancer, left Atrial fibrillation with rapid ventricular response Pulmonary hypertension Restrictive lung disease Diabetes Scoliosis CYNTHIA (obstructive sleep apnea) Obesity Cough HX: breast cancer Anemia Back pain Lymphedema of left arm GERD (gastroesophageal reflux disease) Blind right eye Trigeminal neuralgia of right side of face Hypertension Heart murmur after rheumatic heart disease Surgical History History of open reduction and internal fixation (ORIF) procedure History of ventral hernia repair History of left inguinal hernia repair History of bladder suspension procedure History of partial hysterectomy History of tonsillectomy and adenoidectomy Hx of esophagogastroduodenoscopy History of lymph node dissection of left axilla H/O left mastectomy Hx of wisdom tooth extraction History of colonoscopy (~12/02/22) Family History Father History of heart attack Mother History of leukemia History of hypertension Social History Household Members: Spouse Housing: House Housing Other:: Mobile home Are you a primary toddler caregiver to a significant other at home: No Do you presently have visiting nurse or other home services: No Alcohol intake: never Patient Tobacco Use Status: Never used Tobacco e-Cigarette/Vaping Use: Never Used Advance Directives Date on File: 02/08/23 service: No Current occupational status: retired Cognitive needs: No Hearing needs: No Vision needs: Yes (Rx glasses) Questionnaire Thrive Questionnaire Date Thrive assessed: 04/25/25 SERGIO-7 AMB Questionnaire SERGIO-7 Date SERGIO - 7 assessed: 12/23/24 Source: Developed by Drs. Sammy Almonte, Cyndy Arias, Gonzalo Jo and colleagues, with an educational junior from [employer]. Physical exam (Primary Care) Vital Signs: Last Vital Signs Temp 97.7 F 07/11/25 10:20 Pulse 62 07/11/25 10:20 Resp 18 07/11/25 10:20 BP 132/72 07/11/25 10:48 Pulse Ox 97 07/11/25 10:20 Oxygen Delivery Method Room Air 07/11/25 10:20 BMI result Body Mass Index 33.4 Tobacco/Smoking Status: Tobacco use Status Tobacco use date assessed 12/23/24 07/11/25 10:27 Patient Tobacco Use Status Never used Tobacco 07/11/25 10:27 e-Cigarette/Vaping Use Never Used 07/11/25 10:27 Thrive Assessment: Date of Thrive Assessment Date Thrive assessed 04/25/25 07/11/25 10:27 Coding Level of Care Code Est Pt Level 4 (49119) Complex visit Add On G2211 Diagnoses Hypertension I10 CHF (congestive heart failure) I50.9 Trigeminal neuralgia of right side of face G50.0 LIZ (dyspnea on exertion) R06.09 Type 2 diabetes mellitus E11.9 Paroxysmal atrial fibrillation I48.0 Assessment & Plan Assessment & Plan (1) Hypertension: Code(s): I10 - Essential (primary) hypertension Category: Medical Plan: Controlled on recheck with blood pressure 138/68. Continue metoprolol 50 mg ER (2) CHF (congestive heart failure): Code(s): I50.9 - Heart failure, unspecified Category: Medical Plan: Clinically euvolemic. No diuretics at this time. Continue following with cardiology. Recommend daily weights. Fluid and sodium restrictions (3) Trigeminal neuralgia of right side of face: Comment: s/p dental implant Code(s): G50.0 - Trigeminal neuralgia Category: Medical Plan: Currently asymptomatic. Full resolution of symptoms following rhizotomy. Continue following with Neurosurgery. Monitor for any recurrence of symptoms. Can also continue taking nortriptyline (4) LIZ (dyspnea on exertion): Code(s): R06.09 - Other forms of dyspnea Plan: Resolved. Likely multifactorial related to CHF, restrictive lung disease. There was also suggestion of CYNTHIA, but denies any symptoms consistent with this. Has never used CPAP. She is not interested in repeating sleep study at this time as she would decline treatment. Counseled on risks of unmanaged CYNTHIA. (5) Type 2 diabetes mellitus: Code(s): E11.9 - Type 2 diabetes mellitus without complications Category: Medical Plan: Hemoglobin A1c well-controlled at 6.0%. Recommend discontinuing glipizide. Continue with diabetic diet. Annual eye exams and foot exams (6) Paroxysmal atrial fibrillation: Code(s): I48.0 - Paroxysmal atrial fibrillation Category: Medical Plan: Rate controlled. Continue Eliquis for anticoagulation. Continue amiodarone and Toprol. Follow-up with cardiology as scheduled Plan Follow-up in the office in 4 months with labs completed several days prior to visit. Also recommend rechecking thyroid labs in [address] way to take levothyroxine Orders: Orders Hemoglobin A1c 4 Months E03.9 - Hypothyroidism, unspecified, E11.9 - Type 2 diabetes mellitus without complications, I10 - Essential (primary) hypertension, I50.9 - Heart failure, unspecified Thyroid Stimulating Hormone 6 Weeks E03.9 - Hypothyroidism, unspecified Basic Metabolic Panel 4 Months E03.9 - Hypothyroidism, unspecified, E11.9 - Type 2 diabetes mellitus without complications, I10 - Essential (primary) hypertension, I50.9 - Heart failure, unspecified Complete Blood Count Auto Diff 4 Months E03.9 - Hypothyroidism, unspecified, E11.9 - Type 2 diabetes mellitus without complications, I10 - Essential (primary) hypertension, I50.9 - Heart failure, unspecified Free T4 (Free Thyroxine) 6 Weeks E03.9 - Hypothyroidism, unspecified Patient Instructions: Check multivitamin to see if there is BIOTIN in it Recheck thyroid function in 6 weeks and HOLD the multivitamin for 3 days before getting the lab done Remember to take the levothyroxine by itself- no food, beverages, or meds- except water for about 1 hour Represent for labs several days prior to appointment in 4 months Stop glipizide
[2025-07-11 10:20] VITALS: BP 156/70; PULSE 62; RESP 18; TEMP 36.5; O2SAT 97; BMI 33.4
[2025-07-11 10:48] VITALS: BP 132/72
--- OUTSIDE RECORDS SUMMARY | 2025-07-11 12:32 | XMS_ITS | Clinical Summary ---
Author Organization [facility] Address [address] [place] [address] Care Team Providers Care Fire Range Technician Name Role Phone Kory Perdue MD Primary Care Provider [phone] Allergies Active Allergy Reactions Criticality Noted Date Comments Gabapentin Swelling 01/16/2016 joints [place] Other (See Comments) 01/16/2016 Cold sores Medications [...] age to complete this topic Care Teams Fire Range Technician Relationship Specialty Start Date End Date Kory Perdue MD [address] [place] [address] [address] [place] Hart [address] PCP - General Third Cook 01/09/16
--- OUTSIDE RECORDS SUMMARY | 2025-07-11 12:32 | XMS_ITS | Clinical Summary ---
Author Organization [facility] Address [address] [place] [id number] Phone Care Team Providers Care Group Work Program Director Name Role Phone Unknown, Unknown Primary Care [...] file Insurance MEDICARE PART A & B [facility] MEDICARE ENHANCE SUPPLEMENT MEDICARE PART A & B [facility] MEDICARE ENHANCE SUPPLEMENT MEDICARE PART A & B MEDICARE ENHANCE SUPPLEMENT MEDICARE PART A & B [facility] MEDICARE ENHANCE SUPPLEMENT MEDICARE PART A & B [id number] [place] [address] MEDICARE ENHANCE SUPPLEMENT MEDICARE PART A & B [facility] MEDICARE ENHANCE SUPPLEMENT MEDICARE PART A & [place] [address] [place] [address] MEDICARE ENHANCE SUPPLEMENT MEDICARE PART A & B [facility] MEDICARE ENHANCE SUPPLEMENT MEDICARE PART A & B [facility] MEDICARE ENHANCE SUPPLEMENT Care Teams Group Work Program Director Relationship Specialty Start Date End Date Unknown, Unknown, PCP - General 04/30/16 Additional Source Comments The information contained in this document represents components of the legal health record. It is not the complete legal health record.[facility]
== END 2025-07-11 10:52 | disposition home or self-care (01) ==
LOC: HO.HMCHD 10:16
PROVIDERS: PCP Physician Assistant; Visit Provider Physician Assistant
DX: I10 Essential (primary) hypertension (principal); I50.9 Heart failure, unspecified; G50.0 Trigeminal neuralgia; R06.09 Other forms of dyspnea; E11.9 Type 2 diabetes mellitus without complications; I48.0 Paroxysmal atrial fibrillation

== ENCOUNTER → 2025-07-11 10:15 | Outpatient (BNVA) | payer MEDICARE, OTHER, SELFPAY | PROVIDERS: PCP Physician Assistant; Visit Provider Physician Assistant | DX: I48.0 Paroxysmal atrial fibrillation (principal); I11.0 Hypertensive heart disease with heart failure; I50.9 Heart failure, unspecified; E11.9 Type 2 diabetes mellitus without complications; E03.9 Hypothyroidism, unspecified; G50.0 Trigeminal neuralgia; R06.09 Other forms of dyspnea; Z79.01 Long term (current) use of anticoagulants; Z79.84 Long term (current) use of oral hypoglycemic drugs | CPT/HCPCS: 99212 ==